=== PATIENT | male | born 1955 | race Caucasian/White ===

== ENCOUNTER 2018-07-24 13:41 | Inpatient (IN) | payer BC ==
[2018-07-24] MEDS ORDERED: IPRATROPIUM-ALBUTEROL 3 ML NEB INHALATION STA (15:08)
[2018-07-24] MEDS ORDERED: SODIUM CHLORIDE 0.9% 1,000 ML IV STA (15:08)
[2018-07-24 15:31] LABS: Basophils # (A) 0.1 k/uL (0-0.2); Basophils % (A) 0 %; Eosinophils # (A) 0.5 k/uL (0-0.7); Eosinophils % (A) 1 %; HCT 41.1 % (39.0-53.0); HGB 13.5 gm/dL (13.0-17.5); Lymphocytes # (A) 0.8 k/uL (1.0-4.8); Lymphocytes % (A) 2 %; MCH 29.8 pg (25.0-35.0); MCHC 32.7 g/dL (31.0-37.0); Mean Platelet Volume 7.2; Monocytes # (A) 1.5 k/uL (0-1.0); Monocytes % (A) 4 %; Neutrophils % (A) 91 %; Platelet Count 537 k/uL (150-450); RBC 4.52 m/uL (4.30-5.90); RDW 14.1 % (11.5-15.5); WBC 37.1 k/uL (3.8-10.6)
[2018-07-24 15:35] LABS: Neutrophils # (A) 33.9 k/uL (1.3-7.7)
[2018-07-24 15:41] LABS: INR 1.1 (<1.2); Partial Thromboplastin Time 23.3 sec (22.0-30.0); Prothrombin Time 11.8 sec (9.0-12.0)
[2018-07-24 15:46] LABS: Calcium 9.4 mg/dL (8.4-10.2); Magnesium 1.4 mg/dL (1.6-2.3); Total Bilirubin 1.2 mg/dL (0.2-1.3); Total Protein 7.8 g/dL (6.3-8.2)
[2018-07-24] MEDS ORDERED: MAGNESIUM SULFATE-D5W PMX 1 GM in DEXTROSE/WATER 1 100ML.BAG IVPB ONE (15:56)
[2018-07-24] MEDS ORDERED: PIPERACILLIN-TAZOBACTAM 3.375 GM in SODIUM CHLORIDE 0.9% 100 ML IVPB STA (16:43)
[2018-07-24] MEDS ORDERED: PNEUMONIA PROTOCOL UTILIZED 1 EACH MISC PO PRN (16:43)
--- NOTE | 2018-07-24 16:43 | ED ---
SOB HPI - General Chief Complaint: Shortness of Breath Stated Complaint: pneumonia Time Seen by Provider: 07/24/18 14:37 Source: patient, family, RN notes reviewed, old records reviewed Mode of arrival: ambulatory Limitations: no limitations - History of Present Illness Initial Comments: This a 63-year-old male who was a former smoker who quit in 1988 who states he recently was being treated for was believed to be a bronchitis with Levaquin he states she's not getting any better but in fact eating worse he did fevers chills and sweats especially at night shortness of breath and with exertion no overt chest pain he states he had a chest x-ray done by his doctor later a CAT scan. The x-ray showed evidence of a 6-8 cm mass on the right lung field CAT scan was performed in the official reading is pending though it does look suspicious for a mass. Patient has no prior history of any lung cancers or any other issues such as this. He does not use inhalers her [employer]. He states he works in the [employer] but is relatively clean job with very little exposure to fumes that he was really on exposed to smoke. No other modifying factors at this time MD Complaint: shortness of breath - Related Data Home Medications Medication Instructions Recorded Confirmed Aspirin EC [Ecotrin Low Dose] 81 mg PO DAILY 07/24/18 07/24/18 Levofloxacin [Levaquin] 500 mg PO DAILY 07/24/18 07/24/18 Losartan/Hydrochlorothiazide 1 tab PO DAILY 07/24/18 07/24/18 [Losartan-Hctz 100-25 mg Tab] Metoprolol Succinate (ER) [Toprol 100 mg PO BID 07/24/18 07/24/18 Xl] Pitavastatin Calcium [Livalo] 1 mg PO HS 07/24/18 07/24/18 Allergies Allergy/AdvReac Type Severity Reaction Status Date / Time No Known Allergies Allergy Verified 07/24/18 15:10 Review of Systems ROS Statement: Those systems with pertinent positive or pertinent negative responses have been documented in the HPI. ROS Other: All systems not noted in ROS Statement are negative. Past Medical History Past Medical History: Hyperlipidemia, Hypertension, Pneumonia History of Any Multi-Drug Resistant Organisms: None Reported Past Surgical History: Appendectomy, Heart Catheterization Past Psychological History: No Psychological Hx Reported Smoking Status: Former smoker Past Alcohol Use History: Occasional Past Drug Use History: None Reported General Exam - General Exam Comments Initial Comments: Is a well-developed well-nourished awake alert oriented 3 male Limitations: no limitations General appearance: alert, in no apparent distress Head exam: Present: atraumatic, normocephalic, normal inspection Eye exam: Present: normal appearance, PERRL, EOMI. Absent: scleral icterus, conjunctival injection, periorbital swelling ENT exam: Present: normal exam, mucous membranes moist Neck exam: Present: normal inspection, full ROM, other (No stridor JVD or bruits). Absent: tenderness, meningismus, lymphadenopathy Respiratory exam: Present: wheezes, decreased breath sounds. Absent: respiratory distress, rales, rhonchi, stridor Cardiovascular Exam: Present: regular rate, normal rhythm, normal heart sounds. Absent: systolic murmur, diastolic murmur, rubs, gallop, clicks GI/Abdominal exam: Present: soft, normal bowel sounds. Absent: distended, tenderness, guarding, rebound, rigid Extremities exam: Present: normal inspection, full ROM, normal capillary refill. Absent: tenderness, pedal edema, joint swelling, calf tenderness Back exam: Present: normal inspection Neurological exam: Present: alert, oriented X3, CN II-XII intact Psychiatric exam: Present: normal affect, normal mood Skin exam: Present: warm, dry, intact, normal color. Absent: rash Course Vital Signs 07/24/18 07/24/18 07/24/18 14:26 15:24 15:37 Temperature 100.7 F H 99.0 F Pulse Rate 88 841 H 90 Respiratory 22 18 Rate Blood Pressure 110/68 O2 Sat by Pulse 94 L 96 Oximetry 07/24/18 16:24 Temperature Pulse Rate 89 Respiratory 16 Rate Blood Pressure 116/67 O2 Sat by Pulse 95 Oximetry Medical Decision Making - Medical Decision Making Did discuss findings with the patient and his as well as Dr. Mckeon patient will be admitted with consultation by Dr. Flores - Lab Data Result diagrams: 07/24/18 14:20 07/24/18 14:20 Lab Results 07/24/18 07/24/18 07/24/18 Range/Units 14:20 14:20 14:20 WBC 37.1 H (3.8-10.6) k/uL RBC 4.52 (4.30-5.90) m/uL Hgb 13.5 (13.0-17.5) gm/dL Hct 41.1 (39.0-53.0) % MCV 91.0 (80.0-100.0) fL MCH 29.8 (25.0-35.0) pg MCHC 32.7 (31.0-37.0) g/dL RDW 14.1 (11.5-15.5) % Plt Count 537 H (150-450) k/uL Neutrophils % 91 % Lymphocytes % 2 % Monocytes % 4 % Eosinophils % 1 % Basophils % 0 % Neutrophils # 33.9 H (1.3-7.7) k/uL Lymphocytes # 0.8 L (1.0-4.8) k/uL Monocytes # 1.5 H (0-1.0) k/uL Eosinophils # 0.5 (0-0.7) k/uL Basophils # 0.1 (0-0.2) k/uL PT 11.8 (9.0-12.0) sec INR 1.1 (<1.2) APTT 23.3 (22.0-30.0) sec Sodium 136 L (137-145) mmol/L Potassium 4.0 (3.5-5.1) mmol/L Chloride 96 L (98-107) mmol/L Carbon Dioxide 28 (22-30) mmol/L Anion Gap 12 mmol/L BUN 25 H (9-20) mg/dL Creatinine 1.03 (0.66-1.25) mg/dL Est GFR (CKD-EPI)AfAm 89 (>60 ml/min/1.73 sqM) Est GFR (CKD-EPI)NonAf 77 (>60 ml/min/1.73 sqM) Glucose 115 H (74-99) mg/dL Calcium 9.4 (8.4-10.2) mg/dL Magnesium 1.4 L (1.6-2.3) mg/dL Total Bilirubin 1.2 (0.2-1.3) mg/dL AST 30 (17-59) U/L ALT 30 (21-72) U/L Alkaline Phosphatase 112 (38-126) U/L Troponin I (0.000-0.034) ng/mL NT-Pro-B Natriuret Pep pg/mL Total Protein 7.8 (6.3-8.2) g/dL Albumin 4.0 (3.5-5.0) g/dL 07/24/18 07/24/18 Range/Units 14:20 14:20 WBC (3.8-10.6) k/uL RBC (4.30-5.90) m/uL Hgb (13.0-17.5) gm/dL Hct (39.0-53.0) % MCV (80.0-100.0) fL MCH (25.0-35.0) pg MCHC (31.0-37.0) g/dL RDW (11.5-15.5) % Plt Count (150-450) k/uL Neutrophils % % Lymphocytes % % Monocytes % % Eosinophils % % Basophils % % Neutrophils # (1.3-7.7) k/uL Lymphocytes # (1.0-4.8) k/uL Monocytes # (0-1.0) k/uL Eosinophils # (0-0.7) k/uL Basophils # (0-0.2) k/uL PT (9.0-12.0) sec INR (<1.2) APTT (22.0-30.0) sec Sodium (137-145) mmol/L Potassium (3.5-5.1) mmol/L Chloride (98-107) mmol/L Carbon Dioxide (22-30) mmol/L Anion Gap mmol/L BUN (9-20) mg/dL Creatinine (0.66-1.25) mg/dL Est GFR (CKD-EPI)AfAm (>60 ml/min/1.73 sqM) Est GFR (CKD-EPI)NonAf (>60 ml/min/1.73 sqM) Glucose (74-99) mg/dL Calcium (8.4-10.2) mg/dL Magnesium (1.6-2.3) mg/dL Total Bilirubin (0.2-1.3) mg/dL AST (17-59) U/L ALT (21-72) U/L Alkaline Phosphatase (38-126) U/L Troponin I <0.012 (0.000-0.034) ng/mL NT-Pro-B Natriuret Pep 571 pg/mL Total Protein (6.3-8.2) g/dL Albumin (3.5-5.0) g/dL - EKG Data -: EKG Interpreted by Me EKG shows normal: sinus rhythm (Sinus rhythm with premature supraventricular complexes rate was 97 appear 158 QRS 96 QT since QTC 364/462 year for LVH) Disposition Clinical Impression: Lung mass, Pneumonia, Failure of outpatient treatment, Leukocytosis Disposition: ADMITTED IP TO THIS HOSP Condition: Fair Referrals: Greg Pillai MD [Primary Care Provider] - 1-2 days
[2018-07-24] MEDS ORDERED: SODIUM CHLORIDE 0.9% 1,000 ML IV SCH (16:45)
[2018-07-24] MEDS: IPRATROPIUM-ALBUTEROL 3 ML NEB INHALATION SCH (20:07)
[2018-07-24] MEDS: METOPROLOL SUCCINATE (ER) 100 MG TAB.ER.24H PO SCH (20:09)
[2018-07-24] MEDS: ATORVASTATIN 10 MG TAB PO SCH (20:10)
[2018-07-24] MEDS: NAPROXEN 250 MG TAB PO SCH (21:11)
[2018-07-24] MEDS: ACETAMINOPHEN TAB 325 MG TAB PO PRN (21:12)
[2018-07-24] MEDS: PIPERACILLIN-TAZOBACTAM 3.375 GM in SODIUM CHLORIDE 0.9% 100 ML IVPB SCH (23:35)
[2018-07-25] MEDS: IPRATROPIUM-ALBUTEROL 3 ML NEB INHALATION SCH ×6 (00:12→20:14)
[2018-07-25] MEDS: ACETAMINOPHEN TAB 325 MG TAB PO PRN ×4 (03:56→21:45)
[2018-07-25] MEDS: PIPERACILLIN-TAZOBACTAM 3.375 GM in SODIUM CHLORIDE 0.9% 100 ML IVPB SCH ×2 (07:53→15:55)
[2018-07-25] MEDS: SODIUM CHLORIDE 0.9% 1,000 ML IV SCH ×2 (07:54→15:56)
[2018-07-25] MEDS: NAPROXEN 250 MG TAB PO SCH (08:00)
[2018-07-25] MEDS: ASPIRIN 81 MG PO SCH (08:00)
--- NOTE | 2018-07-25 08:30 | XR ---
EXAMINATION TYPE: XR chest 2V DATE OF EXAM: 07/25/2018 HISTORY: Shortness of breath. COMPARISON: 07/15/2018 TECHNIQUE: Single view of the chest is submitted. FINDINGS: Previously noted pleural-based morgan is obscured by overlying pleural effusion, infiltrate and/or at electasis. Air-fluid level is noted which may reflect postbiopsy change or cavitation. The left lung is clear. Hilar and mediastinal structures are within normal limits. Degenerative changes are seen of the dorsal spine. IMPRESSION: 1. Previously noted pleural-based morgan is obscured by overlying pleural effusion, infiltrate and/o r atelectasis. Air-fluid level is noted which may reflect postbiopsy change or cavitation.
[2018-07-25] MEDS ORDERED: LOSARTAN-HCTZ 50-12.5 MG 1 EACH TAB PO SCH (09:00)
[2018-07-25 10:05] LABS: Basophils # (A) 0.1 k/uL (0-0.2); Basophils % (A) 0 %; Eosinophils # (A) 0.7 k/uL (0-0.7); Eosinophils % (A) 2 %; HCT 37.7 % (39.0-53.0); HGB 11.8 gm/dL (13.0-17.5); Lymphocytes # (A) 0.5 k/uL (1.0-4.8); Lymphocytes % (A) 1 %; MCH 29.3 pg (25.0-35.0); MCHC 31.3 g/dL (31.0-37.0); MCV 93.5 fL (80.0-100.0); Mean Platelet Volume 6.9; Monocytes # (A) 0.9 k/uL (0-1.0); Monocytes % (A) 3 %; Neutrophils % (A) 93 %; Platelet Count 455 k/uL (150-450); RBC 4.03 m/uL (4.30-5.90); RDW 13.7 % (11.5-15.5); WBC 33.1 k/uL (3.8-10.6)
[2018-07-25 10:12] LABS: Neutrophils # (A) 30.7 k/uL (1.3-7.7)
[2018-07-25 10:23] LABS: Albumin 3.2 g/dL (3.5-5.0); Calcium 8.9 mg/dL (8.4-10.2); Potassium 4.1 mmol/L (3.5-5.1); Total Bilirubin 0.8 mg/dL (0.2-1.3); Total Protein 6.5 g/dL (6.3-8.2)
[2018-07-25] MEDS: METOPROLOL SUCCINATE (ER) 100 MG TAB.ER.24H PO SCH ×2 (11:05→21:43)
--- NOTE | 2018-07-25 11:54 | HP ---
HISTORY AND PHYSICAL DATE OF ADMISSION: 07/24/2018 PRESENTING COMPLAINT: Short of breath. HISTORY OF PRESENTING COMPLAINT: A very pleasant 63-year-old patient who normally lives in [place], did come and see Dr. Greg Pillai here. Patient for 3 weeks has been having increasing amount of cough, finally about a week ago, decided to go and see Dr. Pillai. He was told he may have bronchitis or walking pneumonia, was given antibiotics. Symptoms continued to get worse. Patient has lost some weight recently. He was putting out some green sputum, no obvious fever or chills. Appetite has been good. Patient did have a CT scan done at an outside hospital, was found to have a possible lung mass, was sent down here for the same. Chest x-ray is showing a pleural effusion and a possible lung mass. Started on IV antibiotics. REVIEW OF SYSTEMS: Some weight loss. A bit tired. HEENT: None. RESPIRATORY: As above. CARDIOVASCULAR: None. GASTROINTESTINAL: None. GENITOURINARY: None. MUSCULOSKELETAL: None. DERMATOLOGICAL: None. HEMATOLOGICAL: None. LYMPHATICS: None. PSYCHIATRY None. NEUROLOGICAL: None. PAST MEDICAL HISTORY: Hypertension, hyperlipidemia. PAST SURGICAL HISTORY: Appendectomy, cardiac catheterization is also known. SOCIAL HISTORY: Patient smoked for about 10 years, stopped in 1988. Has about 2 drinks 5 times a week. 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 FAMILY HISTORY: Colon cancer. HOME MEDICATIONS: 1. Livalo 1 mg p.o. q.h.s. 2. Toprol-XL 100 mg b.i.d. 3. Losartan-hydrochlorothiazide 100/25 one tablet p.o. daily. 4. Levaquin 500 mg p.o. daily. 5. Aspirin 81 mg p.o. daily. ALLERGIES: None. PHYSICAL EXAMINATION: VITAL SIGNS: Temperature 100.5, pulse 83, respiration 20, blood pressure 123/73, pulse ox 92% on 2 L. Vital signs on presentation was temperature was 100.7, pulse 80, respiration 22, blood pressure 110/68, pulse ox 94% on room air. GENERAL APPEARANCE: Well built, BMI 34.1. Sitting at the edge of bed, not in distress. EYES: Pupils equal, conjunctivae normal. HEENT: External appearance of nose normal, oral cavity, normal neck, JVD not raised. Mass not palpable. RESPIRATORY: Effort increased. LUNGS: Diminished breath sounds on the right side posteriorly. CARDIOVASCULAR: First and second sounds normal. No edema. ABDOMEN: Soft, nontender. Liver and spleen not palpable. LYMPHATIC: No lymph nodes palpable in the neck or axilla. PSYCHIATRY: Alert and oriented x3. Mood and affect normal. NEUROLOGICAL: Pupils equal. Cranial nerves grossly intact. Power and sensation grossly intact. INVESTIGATIONS: White count 33.1, hemoglobin 11.8, potassium 4.1, BUN 31, creatinine 1.31. Troponin negative. ProBNP is 571. Chest x-ray film personally reviewed by me shows left-sided consolidation with large right pleural effusion. ASSESSMENT: 1. Right-sided pneumonia with possibly a parapneumonic effusion. Underlying lung mass cannot be ruled out. 2. Obesity. body mass index 34.1. 3. Sepsis on presentation from pneumonia. 4. Essential hypertension. 5. Hyperlipidemia. PLAN: Patient is currently on IV Zosyn, given patient blood pressure is running on the lower side. We will hold off patient's beta olayinka. Give IV fluids. Pulmonary was consulted. I will look at the CT scan results from the outside hospital. Meantime, patient will be fluid hydrated. Will do an ultrasound of the chest for thoracentesis marking. Care was discussed with the patient and . Questions were answered. MMODL / IJN: [id number] /
--- NOTE | 2018-07-25 12:53 | US ---
EXAMINATION TYPE: US chest DATE OF EXAM: 07/25/2018 COMPARISON: x-RAY 07/25/2018 CLINICAL HISTORY: thoracentesis marking. TECHNIQUE: Targeted ultrasound of the posterior lower bilateral hemithoraces EXAM MEASUREMENTS: Right Pleural Effusion pocket size: 7.5 cm Right skin surface to fluid distance: 2.7 cm Right side marked for possible thoracentesis outside the dept. Left side not marked for possible thoracentesis outside the dept. Pulmonologists are able to review the images in the patient?s EMR. Some septations visualized within fluid on the right IMPRESSIONS: There is moderate right pleural effusion demonstrated.
--- NOTE | 2018-07-25 13:38 | P.CNPUL ---
History of Present Illness Consult date: 07/25/18 Reason for consult: dyspnea, cough, pneumonia, pleural effusion Chief complaint: Shortness of breath and cough for 2 weeks History of present illness: 63-year-old male who was seen evaluated examined in the medical floor patient was admitted into the hospital with 2-3 weeks of increased cough congestion shortness of breath he was found to have a lung mass on the right lower lobe which was pleural based on a CAT scan in the outside institution the CAT scan not available for review however I have reviewed the chest x-ray which shows a significant right-sided pleural effusion ultrasound of the chest has been performed a large right pleural effusion has been noted, about 7.5 cm depth of fluid is noted, he has cough with greenish sputum sputum is been sent for Gram stain and culture Review of Systems All systems: negative Past Medical History Past Medical History: Hyperlipidemia, Hypertension, Pneumonia History of Any Multi-Drug Resistant Organisms: None Reported Past Surgical History: Appendectomy, Heart Catheterization Past Psychological History: No Psychological Hx Reported Smoking Status: Former smoker Past Alcohol Use History: Occasional Past Drug Use History: None Reported - Past Family History Mother Family Medical History: Cancer Additional Family Medical History / Comment(s): colon cancer Father Family Medical History: Myocardial Infarction ([place]) Additional Family Medical History / Comment(s): of [place] at age 48 Medications and Allergies Home Medications Medication Instructions Recorded Confirmed Type Aspirin EC [Ecotrin Low Dose] 81 mg PO DAILY 07/24/18 07/24/18 History Levofloxacin [Levaquin] 500 mg PO DAILY 07/24/18 07/24/18 History Losartan/Hydrochlorothiazide 1 tab PO DAILY 07/24/18 07/24/18 History [Losartan-Hctz 100-25 mg Tab] Metoprolol Succinate (ER) [Toprol 100 mg PO BID 07/24/18 07/24/18 History Xl] Pitavastatin Calcium [Livalo] 1 mg PO HS 07/24/18 07/24/18 History Allergies Allergy/AdvReac Type Severity Reaction Status Date / Time No Known Allergies Allergy Verified 07/24/18 15:10 Physical Exam Vitals: Vital Signs Temp Pulse Pulse Resp BP BP Pulse Ox 07/25/18 11:44 82 07/25/18 11:34 84 07/25/18 08:03 82 07/25/18 08:00 78 93/58 07/25/18 07:52 78 94 L 07/25/18 05:29 96/63 07/25/18 05:15 98.7 F 74 20 93/54 93 L 07/25/18 03:41 78 07/25/18 03:31 78 07/24/18 22:10 98.7 F 07/24/18 20:19 98 07/24/18 20:09 98 92 L 07/24/18 20:05 100.5 F H 95 20 123/73 92 L 07/24/18 19:20 99.0 F 83 16 117/97 95 07/24/18 19:14 83 117/97 95 07/24/18 17:39 83 117/97 95 07/24/18 16:24 89 16 116/67 95 07/24/18 15:37 90 07/24/18 15:24 99.0 F 841 H 18 96 07/24/18 14:26 100.7 F H 88 22 110/68 94 L Intake and Output 07/24/18 07/25/18 07/25/18 22:59 06:59 14:59 Intake Total 600 100 400 Balance 600 100 400 Intake: Amount of Fluid Infused ( 300 ml) Oral 300 100 400 Other: Voiding Method Urinal # Voids 0 2 Weight 123.9 kg 123.9 kg - Constitutional General appearance: cooperative, disheveled, no acute distress, obese - EENT Eyes: anicteric sclerae, EOMI, PERRLA, normal appearance Ears: bilateral: normal - Neck Carotids: bilateral: upstroke normal Thyroid: bilateral: normal size - Respiratory Respiratory: right: diminished, dullness, negative: CTA, rales, rhonchi, wheezing, prolonged expiration - Cardiovascular Rhythm: regular Heart sounds: normal: S1, S2 - Gastrointestinal General gastrointestinal: normal bowel sounds - Integumentary Integumentary: normal, normal turgor - Neurologic Neurologic: CNII-XII intact - Musculoskeletal Musculoskeletal: gait normal, generalized weakness, strength equal bilaterally - Psychiatric Psychiatric: A&O x's 3, appropriate affect, intact judgment & insight Results - Laboratory Findings CBC and BMP: 07/25/18 09:28 07/25/18 09:28 PT/INR, D-dimer PT 11.8 sec (9.0-12.0) 07/24/18 14:20 INR 1.1 (<1.2) 07/24/18 14:20 Abnormal lab findings: Abnormal Labs 07/24/18 07/24/18 07/24/18 14:20 14:20 17:46 WBC 37.1 H RBC Hgb Hct Plt Count 537 H Neutrophils # 33.9 H Lymphocytes # 0.8 L Monocytes # 1.5 H Sodium 136 L Chloride 96 L BUN 25 H Creatinine Glucose 115 H Plasma Lactic Acid Kerwin 2.6 H* Magnesium 1.4 L Albumin 07/25/18 07/25/18 09:28 09:28 WBC 33.1 H RBC 4.03 L Hgb 11.8 L Hct 37.7 L Plt Count 455 H Neutrophils # 30.7 H Lymphocytes # 0.5 L Monocytes # Sodium 135 L Chloride 97 L BUN 31 H Creatinine 1.31 H Glucose 171 H Plasma Lactic Acid Kerwin Magnesium Albumin 3.2 L - Diagnostic Findings Comments: Ultrasound of the chest as well as x-ray reviewed finding as noted above Assessment and Plan Assessment: Right lower lobe lung mass pleural-based Right sided pneumonia Right-sided pleural effusion likely parapneumonic effusion versus pneumonia and effusion related to malignancy Obesity Hypertension hypertensive cardiovascular disease Dyslipidemia Plan: Agree with broad-spectrum antibiotics with IV Zosyn Gram stain and culture for the sputum We will proceed with a right-sided thoracentesis and fluid is being sent for Gram stain and culture cytology cell count and if Pending results of those studies will further manage or other recommendations l joesph need for bronchoscopy or biopsy Thoracentesis procedure explained to the patient at length consent obtained Time with Patient: Greater than 30
--- NOTE | 2018-07-25 14:03 | P.PCN ---
Date of Procedure: 07/25/18 Preoperative Diagnosis: Pleural effusion #2 pneumonia #3 lung mass Postoperative Diagnosis: Same Procedure(s) Performed: Right thoracentesis Anesthesia: local Surgeon: Yazan Ali Condition: stable Disposition: observation Indications for Procedure: Shortness of breath, right pleural effusion, right-sided lung mass, right parapneumonic effusion Operative Findings: As below Description of Procedure: Patient prepared and draped in a usual fashion ultrasound was utilized to estim ate the maximum depth of fluid one percent lidocaine was utilized on the skin after that is stab incision was done of 1/8 of a centimeter through that incision the catheter in needle was placed over the upper margin of the rib the pleural space was reached fluid was aspirated about 350 mL of dark fluid obtained patient tolerated procedure well no complication noted
--- NOTE | 2018-07-25 14:38 | XR ---
EXAMINATION TYPE: XR chest 1V portable DATE OF EXAM: 07/25/2018 COMPARISON: 07/25/2018 HISTORY: Short of breath TECHNIQUE: Single frontal view of the chest is obtained. FINDINGS: There is significant opacification right lower hemithorax. There is mild pulmonary congest ion. Heart is probably enlarged. There is slight blunting left costophrenic angle. IMPRESSION: Right lower lobe consolidation and moderate right pleural effusion unchanged. Mild pulmo nary congestion without overt heart failure. No significant change. Trachea is midline. No pneumothor ax seen. There is clearing of the small air-fluid level right lateral upper lung field compared to ex am this morning.
[2018-07-25 16:52] LABS: Appearance,BF Cloudy; Color,BF Orange; Nucleated Cells, Body Fluid 885 /uL; RBC, Body Fluid 6015 /uL
[2018-07-25 16:54] LABS: Mononuclear WBC,Body Fluid 22 %; Polynuclear WBC,Body Fluid 78 %; Total Cells Counted,Body Fluid 100
[2018-07-25 19:56] LABS: Total Protein, Body Fluid 5200 mg/dL
[2018-07-25] MEDS: ATORVASTATIN 10 MG TAB PO SCH (21:43)
[2018-07-26] MEDS: IPRATROPIUM-ALBUTEROL 3 ML NEB INHALATION SCH ×8 (00:05→23:40)
[2018-07-26] MEDS: PIPERACILLIN-TAZOBACTAM 3.375 GM in SODIUM CHLORIDE 0.9% 100 ML IVPB SCH ×4 (01:20→22:55)
[2018-07-26] MEDS: SODIUM CHLORIDE 0.9% 1,000 ML IV SCH ×4 (01:39→23:02)
[2018-07-26] MEDS: METOPROLOL SUCCINATE (ER) 100 MG TAB.ER.24H PO SCH ×2 (07:17→19:37)
[2018-07-26] MEDS: ASPIRIN 81 MG PO SCH (07:18)
[2018-07-26] MEDS: ACETAMINOPHEN TAB 325 MG TAB PO PRN ×2 (07:26→15:25)
[2018-07-26 11:28] LABS: Basophils % (A) 0 %; Eosinophils % (A) 4 %; HCT 36.5 % (39.0-53.0); HGB 11.4 gm/dL (13.0-17.5); Lymphocytes # (A) 0.8 k/uL (1.0-4.8); Lymphocytes % (A) 4 %; MCH 29.5 pg (25.0-35.0); MCHC 31.3 g/dL (31.0-37.0); MCV 94.3 fL (80.0-100.0); Mean Platelet Volume 7.1; Monocytes # (A) 0.8 k/uL (0-1.0); Monocytes % (A) 4 %; Neutrophils # (A) 19.2 k/uL (1.3-7.7); Neutrophils % (A) 87 %; Platelet Count 428 k/uL (150-450); RBC 3.87 m/uL (4.30-5.90); RDW 13.7 % (11.5-15.5); WBC 22.1 k/uL (3.8-10.6)
[2018-07-26 11:49] LABS: ALT 37 U/L (21-72); AST 49 U/L (17-59); African American GFR (CKD) >90 (>60 ml/min/1.73 sqM); Albumin 3.1 g/dL (3.5-5.0); Alkaline Phosphatase 118 U/L (38-126); Anion Gap 10 mmol/L; Blood Urea Nitrogen 22 mg/dL (9-20); Carbon Dioxide 29 mmol/L (22-30); Chloride 100 mmol/L (98-107); Glucose 154 mg/dL (74-99); Potassium 4.3 mmol/L (3.5-5.1); Sodium 139 mmol/L (137-145); Total Bilirubin 0.4 mg/dL (0.2-1.3); Total Protein 6.5 g/dL (6.3-8.2)
--- NOTE | 2018-07-26 14:17 | P.PN ---
Subjective Progress Note Date: 07/26/18 Principal diagnosis: Right-sided lung mass pleural base, right-sided pneumonia, right parapneumonic effusion, sepsis, chest pain, cough, morbid obesity, hypertension hypertensive c ardiovascular disease, dyslipidemia, 07/26/2018, patient seen and evaluated examined during the rounds he is complaining of insomnia and chest pain pain is improved with Motrin or Tylenol he is asking for a sleeping aid respiratory status slightly better today he has gone thoracentesis of the right side in about 400-450 mL of pleural fluid removed the pleural fluid appears to be exudative with Gram stain negative cultures are pending cytology is pending Objective - Vital Signs Vital signs: Vital Signs Temp 98.4 F 07/26/18 12:50 Pulse 88 07/26/18 12:50 Resp 18 07/26/18 12:50 BP 127/78 07/26/18 12:50 Pulse Ox 95 07/26/18 12:50 Intake & Output 07/25/18 07/26/18 07/26/18 18:59 06:59 18:59 Intake Total 400 500 Balance 400 500 Weight 123.9 kg Intake: Oral 400 500 Other: Voiding Method Urinal # Voids 2 1 3 # Bowel Movements 0 - Exam Constitutional General appearance: cooperative, disheveled, no acute distress, obese - EENT Eyes: anicteric sclerae, EOMI, PERRLA, normal appearance Ears: bilateral: normal - Neck Carotids: bilateral: upstroke normal Thyroid: bilateral: normal size - Respiratory Respiratory: right: diminished, dullness, negative: CTA, rales, rhonchi, wheezing, prolonged expiration - Cardiovascular Rhythm: regular Heart sounds: normal: S1, S2 - Gastrointestinal General gastrointestinal: normal bowel sounds - Integumentary Integumentary: normal, normal turgor - Neurologic Neurologic: CNII-XII intact - Musculoskeletal Musculoskeletal: gait normal, generalized weakness, strength equal bilaterally - Psychiatric Psychiatric: A&O x's 3, appropriate affect, intact judgment & insight - Labs CBC & Chem 7: 07/26/18 10:58 07/26/18 10:58 Labs: Abnormal Lab Results - Last 24 Hours (Table) 07/26/18 07/26/18 Range/Units 10:58 10:58 WBC 22.1 H (3.8-10.6) k/uL RBC 3.87 L (4.30-5.90) m/uL Hgb 11.4 L (13.0-17.5) gm/dL Hct 36.5 L (39.0-53.0) % Neutrophils # 19.2 H (1.3-7.7) k/uL Lymphocytes # 0.8 L (1.0-4.8) k/uL Eosinophils # 1.0 H (0-0.7) k/uL BUN 22 H (9-20) mg/dL Glucose 154 H (74-99) mg/dL Albumin 3.1 L (3.5-5.0) g/dL Microbiology - Last 24 Hours (Table) 07/25/18 13:30 Gram Stain - Preliminary Pleural Fluid Body Fluid Culture - Preliminary 07/25/18 13:30 Acid Fast Bacilli Smear - Final Pleural Fluid Acid Fast Bacilli Culture - Preliminary 07/25/18 13:30 Fungal Culture - Preliminary Pleural Fluid 07/24/18 14:20 Blood Culture - Preliminary Blood No Growth after 24 hours 07/25/18 03:35 Gram Stain - Preliminary Sputum Assessment and Plan Assessment: Right lower lobe lung mass pleural-based Right sided pneumonia Exudative pleural effusion Improving leukocytosis Right-sided pleural effusion likely parapneumonic effusion versus pneumonia and effusion related to malignancy Obesity Hypertension hypertensive cardiovascular disease Dyslipidemia Plan: Agree with broad-spectrum antibiotics with IV Zosyn Gram stain and culture for the sputum Status post right thoracentesis with pending results of final culture and cytology Need to obtain a repeat CT of the chest without contrast Time with Patient: Greater than 30
[2018-07-26] MEDS: ATORVASTATIN 10 MG TAB PO SCH (19:38)
[2018-07-26] MEDS ORDERED: MELATONIN 5 MG TABLET PO SCH (21:00)
[2018-07-26] MEDS: ZOLPIDEM 5 MG TAB PO SCH (22:51)
--- NOTE | 2018-07-26 23:28 | PN ---
PROGRESS NOTE DATE OF SERVICE: July 26, 2018. PRESENTING COMPLAINT: Short of breath. INTERVAL HISTORY: This patient admitted with right-sided pneumonia. This appears to be underlying lung mass. 350 mL of dark colored fluid was tapped by Dr. Flores. Breathing is somewhat better. is present. Did tolerate some diet. White count started to come down. REVIEW OF SYSTEMS: Done for constitutional, cardiovascular, GI, pulmonary and relevant findings as above. CURRENT MEDICATIONS: Reviewed that include IV Zosyn. PHYSICAL EXAMINATION: VITAL SIGNS: Temperature 98.4. Pulse 88. Respiratory rate 18, blood pressure 127/78, pulse ox 95% on 2 L. GENERAL APPEARANCE: Sitting up. EYES: Pupils are equal. Conjunctivae normal. NECK: JVD not raised. Mass not palpable. RESPIRATORY: Effort increased. LUNGS: Decreased breath sounds on the right side. CARDIOVASCULAR: First and second sounds normal. Minimal edema. ABDOMEN: Soft, nontender. Liver and spleen not palpable. PSYCHIATRY: Alert and oriented x3. Mood and affect normal. INVESTIGATIONS: White count 22.1, hemoglobin 11.4, potassium 4.3, BUN 22, creatinine 0.91. Fluid cultures are pending. ASSESSMENT: 1. Right-sided pneumonia with associated pleural effusion. 2. Cannot rule out underlying right lung mass. 3. Obesity, BMI 34.1. 4. Sepsis on presentation from pneumonia. 5. Essential hypertension. 6. Hyperlipidemia. PLAN: Continue with antibiotics. Repeat a chest x-ray tomorrow. Discussed with the patient and the . The patient may need a repeat CT scan depending on the clinical course. Clinically patient is doing better. The patient may need bronchoscopy. Follow. MMODL / IJN: [id number] /
[2018-07-27] MEDS: ACETAMINOPHEN TAB 325 MG TAB PO PRN ×2 (02:01→14:00)
[2018-07-27] MEDS: IPRATROPIUM-ALBUTEROL 3 ML NEB INHALATION SCH ×5 (04:22→19:40)
[2018-07-27] MEDS: PIPERACILLIN-TAZOBACTAM 3.375 GM in SODIUM CHLORIDE 0.9% 100 ML IVPB SCH ×3 (06:59→23:52)
--- NOTE | 2018-07-27 07:43 | CT ---
EXAMINATION TYPE: CT chest wo con DATE OF EXAM: 07/27/2018 COMPARISON: Guest CT dated 07/24/2018. HISTORY: RUL mass CT DLP: 781 mGycm. Automated Exposure Control for Dose Reduction was Utilized. TECHNIQUE: CT scan of the thorax is performed without IV contrast. FINDINGS: There are multiple small areas of cavitation within a large area of consolidation in the ri ght lower lobe. The cavitation is a new finding compared with the previous study. The left lung is cl ear. There continues be a right-sided pleural effusion. There is some shotty mediastinal adenopathy. No pathologically enlarged lymph nodes are seen. The hea rt is mildly enlarged. There is coronary artery calcification as well as other vascular calcification s. There is aorta is aneurysmal measuring 4.8 cm. The proximal arch measures 4.6 cm. The distal large measures 3.7 cm. At the level of the aortic hiatus, the aorta remains aneurysmal at 3.5 cm. Visualiz ed portions of the abdominal aorta are normal in caliber. Visualized portions of the upper abdomen are unremarkable. There is degenerative disc disease and hypertrophic spondylosis within the dorsal spine. IMPRESSION: 1. RIGHT LOWER LOBE PNEUMONIA WITH MULTIPLE AREAS OF CAVITATION. 2. THORACIC AORTIC ANEURYSM. 3. MILD CARDIOMEGALY. 4. DEGENERATIVE CHANGES WITHIN THE SPINE.
--- NOTE | 2018-07-27 07:44 | XR ---
EXAMINATION TYPE: XR chest 2V DATE OF EXAM: 07/27/2018 HISTORY: f/u pneumonia effusion. REFERENCE: Previous study dated 07/25/2018. FINDINGS: There has developed cavitation in the superior segment of the right lower lobe. There uri nues to be consolidation within the right lower lobe. The heart size is obscured. The left lung is cl ear. IMPRESSION: INTERVAL DEVELOPMENT OF A CAVITARY LESION IN THE RIGHT LOWER LOBE.
[2018-07-27] MEDS: ASPIRIN 81 MG PO SCH (07:59)
[2018-07-27] MEDS: METOPROLOL SUCCINATE (ER) 100 MG TAB.ER.24H PO SCH ×2 (08:09→19:53)
[2018-07-27] MEDS ORDERED: FUROSEMIDE 10 MG/ML 2 ML VIAL IV SCH (09:00)
[2018-07-27 12:06] LABS: Basophils # (A) 0.1 k/uL (0-0.2); Basophils % (A) 0 %; Eosinophils # (A) 0.7 k/uL (0-0.7); Eosinophils % (A) 4 %; HCT 35.6 % (39.0-53.0); HGB 11.1 gm/dL (13.0-17.5); Lymphocytes % (A) 6 %; MCH 29.2 pg (25.0-35.0); MCHC 31.2 g/dL (31.0-37.0); MCV 93.6 fL (80.0-100.0); Mean Platelet Volume 7.1; Monocytes # (A) 0.9 k/uL (0-1.0); Monocytes % (A) 6 %; Neutrophils # (A) 12.9 k/uL (1.3-7.7); Neutrophils % (A) 81 %; Platelet Count 470 k/uL (150-450); RDW 13.8 % (11.5-15.5); WBC 15.8 k/uL (3.8-10.6)
--- NOTE | 2018-07-27 14:26 | P.PN ---
Subjective Progress Note Date: 07/27/18 07/27/2018: Patient seen and examined. Patient's is at bedside. The patient states he continues to cough and produce copious phlegm. He states that he did have a temperature of 99.9 this morning. He is currently on 2 L nasal cannula with O2 saturation 92%. The patient's computed tomography scan results are discussed at length. Objective - Vital Signs Vital signs: Vital Signs Temp 99.9 F H 07/27/18 14:09 Pulse 71 07/27/18 14:09 Resp 18 07/27/18 14:09 BP 135/78 07/27/18 14:09 Pulse Ox 94 L 07/27/18 14:10 Intake & Output 07/26/18 07/27/18 07/27/18 18:59 06:59 18:59 Other: Voiding Method Urinal Urinal # Voids 3 0 1 # Bowel Movements 0 - Exam Gen.: Patient is alert and oriented 3, no acute distress Cardiovascular: Regular rate and rhythm, S1/S2 Lungs: Diminished breath sounds bilaterally with scattered rhonchi Abdomen: Soft nontender nondistended positive bowel sounds Extremities: No edema - Labs CBC & Chem 7: 07/27/18 11:46 07/26/18 10:58 Labs: Abnormal Lab Results - Last 24 Hours (Table) 07/27/18 Range/Units 11:46 WBC 15.8 H (3.8-10.6) k/uL RBC 3.80 L (4.30-5.90) m/uL Hgb 11.1 L (13.0-17.5) gm/dL Hct 35.6 L (39.0-53.0) % Plt Count 470 H (150-450) k/uL Neutrophils # 12.9 H (1.3-7.7) k/uL Microbiology - Last 24 Hours (Table) 07/25/18 03:35 Gram Stain - Final Sputum Sputum Culture - Final 07/24/18 14:20 Blood Culture - Preliminary Blood No Growth after 48 hours Assessment and Plan Assessment: Right lower lobe lung mass pleural-based Right sided cavitary pneumonia Exudative pleural effusion Improving leukocytosis Right-sided pleural effusion likely parapneumonic effusion versus pneumonia and effusion related to malignancy Obesity Hypertension hypertensive cardiovascular disease Dyslipidemia Plan: Agree with broad-spectrum antibiotics with IV Zosyn Gram stain and culture for the sputum Status post right thoracentesis with pending results of final culture and cytology Consult thoracic surgery
[2018-07-27] MEDS: ATORVASTATIN 10 MG TAB PO SCH (19:53)
[2018-07-27] MEDS: ZOLPIDEM 5 MG TAB PO SCH (19:53)
[2018-07-27] MEDS: SODIUM CHLORIDE 0.9% 1,000 ML IV SCH (19:56)
--- NOTE | 2018-07-27 23:47 | PN ---
PROGRESS NOTE DATE OF SERVICE: July 27, 2018. PRESENTING COMPLAINT: Short of breath. INTERVAL HISTORY: This patient presented with right sided pneumonia. Also had thoracentesis 350 mL dark pleural fluid was obtained. CT scan was done earlier today. I did not have the results before I saw the patient. The patient was coughing up some sputum. Did get some Ambien to sleep last night. Tired. REVIEW OF SYSTEMS: Done for constitutional, cardiovascular, GI, pulmonary; relevant findings as above. CURRENT MEDICATIONS: Reviewed that include IV Zosyn. PHYSICAL EXAMINATION: VITAL SIGNS: On examination, temperature 99.9, pulse 71, respirations 16, blood pressure 130/78, pulse ox 88 percent on room air. GENERAL APPEARANCE: Sitting up, tired./ EYES: Pupils equal. Conjunctivae normal. NECK: JVD not raised. Mass not palpable. RESPIRATORY: Effort increased. LUNGS: Decreased breath sounds right side. CARDIOVASCULAR: 1st and 2nd sounds normal. Decreased edema. ABDOMEN: Soft, nontender. Liver and spleen not palpable. PSYCHIATRY: Alert and oriented x3. Mood and affect normal. INVESTIGATIONS: White count 15.8, hemoglobin 11.1. Cultures are pending. CT scan is showing multiple areas of cavitation. ASSESSMENT: 1. Right-sided pneumonia, multilobar with multiple loculated cavitation on CT scan. 2. Obesity, BMI 34.1. 3. Sepsis on presentation from pneumonia. 4. Essential hypertension. 5. Parapneumonic effusion status post thoracentesis. 6. Hyperlipidemia. PLAN: I spoke to the patient and the earlier today. Later I looked at the CT scan results. In the meantime, Dr. Rios was covering for Dr. Flores. I did speak to the patient and has arranged for cardiothoracic consultation, though patient's white count is gradually coming down and see how the patient fares. MMODL / IJN: [id number] /
[2018-07-28] MEDS: IPRATROPIUM-ALBUTEROL 3 ML NEB INHALATION SCH ×6 (00:29→20:29)
[2018-07-28] MEDS: PIPERACILLIN-TAZOBACTAM 3.375 GM in SODIUM CHLORIDE 0.9% 100 ML IVPB SCH ×2 (07:38→16:19)
[2018-07-28] MEDS: ASPIRIN 81 MG PO SCH (07:39)
[2018-07-28] MEDS: METOPROLOL SUCCINATE (ER) 100 MG TAB.ER.24H PO SCH ×2 (07:39→19:52)
--- NOTE | 2018-07-28 09:18 | P.GSCN ---
<Paloma Woodall - Last Filed: 07/28/18 09:05> History of Present Illness Consult date: 07/28/18 Reason for Consult: Pleural-based mass and cavitary pneumonia Requesting physician: Steffanie Rios History of present illness: This is a 63-year-old gentleman who follows on an outpatient basis with Dr. Greg Pillai. He has a previous medical history of hypertension, hypercholesterolemia, previous heart catheterization without intervention, August ett's esophagitis followed by Dr. Obregon with EGD and colonoscopy every 2 years, previous tobacco dependence with cessation in 1988 with a [id number] history, social alcohol use, family history of early coronary artery disease with father at 48 years old from myocardial infarction, and family history of cancer with mother at 62 from colon cancer. Apparently he splits his time living in 6 months in [place] in 6 months in [place]. He complained of cough and congestion with night sweats for approximately 2 months beginning when he was in [place]. He traveled back to [place] and finally decided to see his primary care physician who diagnosed him with bronchitis or walking pneumonia and prescribed Levaquin. The patient's symptoms did not resolve, he had a chest x-ray and computed tomography scan completed at [facility], then he presented to [facility] emergency room for evaluation. Chest x-ray demonstrated right-sided pleural base mass obscured by pleural effusion. The patient was admitted for further evaluation and treatment with consultation dory kerline to pulmonology for right lower lobe pleural-based mass, cavitary pneumonia, and pleural effusion likely parapneumonic versus pneumonia versus malignancy. Dr. Flores performed a right-sided thoracentesis with removal of 350 mL dark fluid which was sent for culture. Dr. Bear from cardiothoracic surgery was consulted for surgical recommendations. Review of Systems Review of systems was completed and was negative except as noted - Constitutional Reports chills, Reports fever, Reports sweats - Respiratory Reports congestion, Reports cough with sputum, Reports snoring Past Medical History Past Medical History: Hyperlipidemia, Hypertension, Pneumonia Additional Past Medical History / Comment(s): De Leon's esophagitis History of Any Multi-Drug Resistant Organisms: None Reported Past Surgical History: Appendectomy, Heart Catheterization Additional Past Surgical History / Comment(s): EGD, colonoscopy every 2 years Past Psychological History: No Psychological Hx Reported Smoking Status: Former smoker Past Alcohol Use History: Occasional Past Drug Use History: None Reported - Past Family History Mother Family Medical History: Cancer Additional Family Medical History / Comment(s): colon cancer Father Family Medical History: Myocardial Infarction (LA) Additional Family Medical History / Comment(s): of LA at age 48 Medications and Allergies Home Medications Medication Instructions Recorded Confirmed Type Aspirin EC [Ecotrin Low Dose] 81 mg PO DAILY 07/24/18 07/24/18 History Levofloxacin [Levaquin] 500 mg PO DAILY 07/24/18 07/24/18 History Losartan/Hydrochlorothiazide 1 tab PO DAILY 07/24/18 07/24/18 History [Losartan-Hctz 100-25 mg Tab] Metoprolol Succinate (ER) [Toprol 100 mg PO BID 07/24/18 07/24/18 History Xl] Pitavastatin Calcium [Livalo] 1 mg PO HS 07/24/18 07/24/18 History Allergies Allergy/AdvReac Type Severity Reaction Status Date / Time No Known Allergies Allergy Verified 07/24/18 15:10 Surgical - Exam Vital Signs Temp Pulse Resp BP Pulse Ox 100.7 F H 88 22 110/68 94 L 07/24/18 14:26 07/24/18 14:26 07/24/18 14:26 07/24/18 14:26 07/24/18 14:26 - General well developed, well nourished, no distress, no pain, obese - Eyes PERRL, normal ocular movement - ENT no hearing loss - Neck no masses, no bruits, trachea midline - Respiratory Lungs sounds diminished bilaterally, right greater than left with rhonchi heard on the right. Respirations even, nonlabored. Currently on 2 L nasal cannula with oxygen saturation 94%. Able to achieve 1500 mL on his incentive spirometry. Strong, productive cough with yellowish brown thick sputum. - Cardiovascular S1, S2 present. Regular rate and rhythm. Sinus rhythm with PVCs on EKG. Palpable peripheral pulses bilaterally. No edema present. No calf pain or tenderness noted. - Abdomen Abdomen: soft, non tender, bowel sounds - Genitourinary Deferred - Rectum Deferred - Integumentary no rash, no growths - Neurologic normal coordination, normal sensation - Musculoskeletal normal gait, normal posture - Psychiatric oriented to time, oriented to person, oriented to place, speech is normal, memory intact Results - Labs 07/27/18 11:46 07/26/18 10:58 Abnormal Lab Results - Last 24 Hours (Table) 07/27/18 Range/Units 11:46 WBC 15.8 H (3.8-10.6) k/uL RBC 3.80 L (4.30-5.90) m/uL Hgb 11.1 L (13.0-17.5) gm/dL Hct 35.6 L (39.0-53.0) % Plt Count 470 H (150-450) k/uL Neutrophils # 12.9 H (1.3-7.7) k/uL Microbiology - Last 24 Hours (Table) 07/25/18 13:30 Gram Stain - Preliminary Pleural Fluid Body Fluid Culture - Preliminary 07/24/18 14:20 Blood Culture - Preliminary Blood No Growth after 72 hours 07/25/18 03:35 Gram Stain - Final Sputum Sputum Culture - Final - Imaging Chest x-ray: report reviewed, image reviewed CT scan - chest: report reviewed, image reviewed EKG: image reviewed Assessment and Plan Assessment: 1. Right lower lobe pleural-based mass, cavitary pneumonia 2. Right-sided pleural effusion, parapneumonic versus pneumonia versus malignancy, status post thoracentesis with 350 mL dark fluid removed and sent for culture 3. History of hypertension, treated 4. History of hypercholesterolemia, treated 5. 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 Previous tobacco dependence with [id number] history 7. Social EtOH use 8. Family history of premature coronary artery disease 9. Family history of colon cancer Plan: The patient was seen and examined at the bedside. Chart/diagnostics were reviewed including CAT scan from [facility]. The case will be discussed in detail with Dr. Handy. The patient is currently in no acute distress. S tates he is feeling better, his shortness of breath has decreased, he is still unable to lay flat without coughing but his coughing has improved with sitting up. Leukocytosis is improving. We recommend continuing IV antibiotics. We will follow pleural fluid culture results, sputum culture is negative for organisms. Wean O2 as tolerated. Encourage incentive spirometry use. Increase activity as tolerated. More recommendations to follow regarding surgical intervention. Thank you Dr. Rios for this consult. We look forward to working with you in the care of your patient. Time with Patient: Greater than 30 <J Carlos Handy - Last Filed: 07/28/18 13:18> Surgical - Exam Vital Signs Temp Pulse Resp BP Pulse Ox 100.7 F H 88 22 110/68 94 L 07/24/18 14:26 07/24/18 14:26 07/24/18 14:26 07/24/18 14:26 07/24/18 14:26 Results - Labs 07/27/18 11:46 07/26/18 10:58 Microbiology - Last 24 Hours (Table) 07/25/18 13:30 Gram Stain - Preliminary Pleural Fluid Body Fluid Culture - Preliminary 07/24/18 14:20 Blood Culture - Preliminary Blood No Growth after 72 hours 07/25/18 03:35 Gram Stain - Final Sputum Sputum Culture - Final Assessment and Plan Plan: The patient was seen and examined. I agree with the above assessment and plan. The patient is a 63-year-old male who reports flulike symptoms with coughing for the past several months. Initially he was treated with antibiotics but did not improve. He presented to an outside hospital where a CAT scan was performed which revealed a significant sized right pleural effusion and possible lung mass. He was subsequently transferred to [facility] where thoracentesis was performed. Cultures have been negative thus far. Cytology is still pending. Follow-up computed tomography scan of the chest revealed persistent right pleural effusion with question of cavitation. From a clinical standpoint, the patient appears to be improving. His white blood cell count is trending d own. We're awaiting final results of his cytology. Assuming there is no malignancy, then he would likely benefit from pigtail catheter with instillation of alteplase versus thoracotomy and decortication. Continue with antibiotics for now. Additional recommendations will follow.
[2018-07-28] MEDS: ACETAMINOPHEN TAB 325 MG TAB PO PRN ×2 (10:05→19:52)
--- NOTE | 2018-07-28 17:29 | P.PN ---
Subjective Progress Note Date: 07/28/18 Principal diagnosis: Right-sided lung mass pleural base, right-sided pneumonia, right parapneumonic effusion, sepsis, chest pain, cough, morbid obesity, hypertension hypertensive c ardiovascular disease, dyslipidemia, 07/28/2018, patient seen and evaluated examined during rounds clinically he is doing essentially the same is still complaining of pain on the right side with severe coughing and breathing he does have sputum which is brownish yellowish in color, computed tomography scan of the chest reviewed there is appearance of abscess versus necrotizing pneumonia in the right lower lobe with dense thickening small fluid is present findings are reviewed with the patient, p leural fluid cytology is still pending 07/26/2018, patient seen and evaluated examined during the rounds he is complaining of insomnia and chest pain pain is improved with Motrin or Tylenol he is asking for a sleeping aid respiratory status slightly better today he has gone thoracentesis of the right side in about 400-450 mL of pleural fluid removed the pleural fluid appears to be exudative with Gram stain negative cultures are pending cytology is pending Objective - Vital Signs Vital signs: Vital Signs Temp 98.3 F 07/28/18 13:45 Pulse 80 07/28/18 15:56 Resp 16 07/28/18 13:45 BP 132/89 07/28/18 13:45 Pulse Ox 92 L 07/28/18 13:45 Intake & Output 07/27/18 07/28/18 07/28/18 18:59 06:59 18:59 Intake Total 540 Balance 540 Intake: Oral 540 Other: Voiding Method Urinal # Voids 1 2 2 - Exam Constitutional General appearance: cooperative, disheveled, no acute distress, obese - EENT Eyes: anicteric sclerae, EOMI, PERRLA, normal appearance Ears: bilateral: normal - Neck Carotids: bilateral: upstroke normal Thyroid: bilateral: normal size - Respiratory Respiratory: right: diminished, dullness, negative: CTA, rales, rhonchi, wheezing, prolonged expiration - Cardiovascular Rhythm: regular Heart sounds: normal: S1, S2 - Gastrointestinal General gastrointestinal: normal bowel sounds - Integumentary Integumentary: normal, normal turgor - Neurologic Neurologic: CNII-XII intact - Musculoskeletal Musculoskeletal: gait normal, generalized weakness, strength equal bilaterally - Psychiatric Psychiatric: A&O x's 3, appropriate affect, intact judgment & insight - Labs CBC & Chem 7: 07/27/18 11:46 07/26/18 10:58 Labs: Microbiology - Last 24 Hours (Table) 07/25/18 13:30 Gram Stain - Preliminary Pleural Fluid Body Fluid Culture - Preliminary 07/24/18 14:20 Blood Culture - Preliminary Blood No Growth after 72 hours Assessment and Plan Assessment: Right lower lobe lung mass pleural-based likely pneumonia but however malignancy cannot be excluded likely abscess with parapneumonic effusion Right sided pneumonia cavitary Exudative pleural effusion Improving leukocytosis Right-sided pleural effusion likely parapneumonic effusion versus pneumonia and effusion related to malignancy Obesity Hypertension hypertensive cardiovascular disease Dyslipidemia Plan: Agree with broad-spectrum antibiotics with IV Zosyn Gram stain and culture for the sputum so far unremarkable Status post right thoracentesis with pending results of final culture and cytology Reviewed repeat CT of the chest without contrast Continue antibiotics for another 4-5 days will ask ID to see Time with Patient: Greater than 30
[2018-07-28] MEDS: ZOLPIDEM 5 MG TAB PO SCH (19:52)
[2018-07-28] MEDS: ATORVASTATIN 10 MG TAB PO SCH (19:52)
--- NOTE | 2018-07-28 22:25 | PN ---
PROGRESS NOTE DATE OF SERVICE: July 28, 2018. PRESENTING COMPLAINT: Short of breath cough. INTERVAL HISTORY: Patient presented with right-sided pneumonia, had thoracentesis 350 mL dark fluid was removed. CT scan showing multiple cavitary lesions. Patient may have underlying abscess, underlying pneumonia cannot be ruled out. General Surgery was consulted. REVIEW OF SYSTEMS: Done for constitutional, cardiovascular, GI, pulmonary; relevant findings as above. The patient does feel a bit tired. CURRENT MEDICATIONS: Reviewed that include IV Zosyn. EXAMINATION: VITAL SIGNS: Afebrile. Pulse 83, respiratory rate 16, blood pressure 132/89, pulse ox 92 percent on 2 L. GENERAL APPEARANCE: Sitting up, tired-appearing. EYES: Pupils are equal. Conjunctivae normal. NECK: JVD not raised. Mass not palpable. RESPIRATORY: Effort increased. LUNGS: Decreased breath sounds on the right side. CARDIOVASCULAR: 1st and 2nd sounds normal. Minimal edema. ABDOMEN: Soft, nontender. Liver and spleen not palpable. PSYCHIATRY: Alert and oriented x3. Mood and affect normal. INVESTIGATIONS: No blood work from today. ASSESSMENT: 1. Right-sided pneumonia, multilobar with possible abscess, underlying malignancy cannot be ruled out with a parapneumonic effusion likely. 2. Obesity BMI 34.1. 3. Sepsis on presentation from above. 4. Essential hypertension. 5. Hyperlipidemia. PLAN: Cardiothoracic surgery was consulted. Await their input. In the meantime, continue with antibiotic. Care was discussed with the patient. Follow. MMODL / IJN: [id number] /
--- NOTE | 2018-07-28 22:50 | P.CONS ---
History of Present Illness - Reason for Consult Consult date: 07/28/18 Cavitatory pneumonia Requesting physician: Yazan Flores - Chief Complaint Shortness of breath and cough x 2 months - History of Present Illness Patient is a 63-year-old male presenting to the hospital with increasing shortness of breath and cough and abnormal chest x-ray in the outpatient setting apparently the patient has been sick for a few months now symptoms started when he was in [place] patient will be complaining of having coughing spells during of some grainy sputum no hemoptysis patient did have right lower chest pain especially with coughing more of a dull aching pain intensity of almost 8 out of 10 and no radiation patient be complaining of night sweats and a fever with the symptoms the patient has been evaluated outpatient setting by his primary care physician and has been treated with a course of oral Levaquin without any improvement subsequently chest x-ray with evidence of right-sided pleural effusion and pneumonia CT was suspicious for a lung mass patient on presentation to the hospital did have a fever of 100.7 [place] [address] the patient did have ultrasound that has been suspicious for large pleural effusion status post thoracocentesis with evidence of for dark pleural fluid culture so far negative cytology is pending patient did have a follow-up CT we did shows evidence of parietal lobe consolation with a ca vitating changes and parapneumonic effusion she is currently being treated with Zosyn and infectious disease was consulted for further recommendation regarding antibiotic therapy, 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 Fever EYES: No complaint. ENT:No complaint. RESPIRATORY: As per history of present illness CARDIOVASCULAR: No complaint. GENITOURINARY: No complaint. GASTROINTESTINAL: No complaint. MUSCULOSKELETAL: No complaint. INTEGUMENTARY: No complaint. PSYCHOLOGICAL: No complaint. ENDOCRINE: No complaint. NEUROLOGIC: No complaint. Past Medical History Past Medical History: Hyperlipidemia, Hypertension, Pneumonia Additional Past Medical History / Comment(s): De Leon's esophagitis History of Any Multi-Drug Resistant Organisms: None Reported Past Surgical History: Appendectomy, Heart Catheterization Additional Past Surgical History / Comment(s): EGD, colonoscopy every 2 years Past Psychological History: No Psychological Hx Reported Smoking Status: Former smoker Past Alcohol Use History: Occasional Past Drug Use History: None Reported - Past Family History Mother Family Medical History: Cancer Additional Family Medical History / Comment(s): colon cancer Father Family Medical History: Myocardial Infarction (SD) Additional Family Medical History / Comment(s): of SD at age 48 Medications and Allergies Home Medications Medication Instructions Recorded Confirmed Type Aspirin EC [Ecotrin Low Dose] 81 mg PO DAILY 07/24/18 07/24/18 History Levofloxacin [Levaquin] 500 mg PO DAILY 07/24/18 07/24/18 History Losartan/Hydrochlorothiazide 1 tab PO DAILY 07/24/18 07/24/18 History [Losartan-Hctz 100-25 mg Tab] Metoprolol Succinate (ER) [Toprol 100 mg PO BID 07/24/18 07/24/18 History Xl] Pitavastatin Calcium [Livalo] 1 mg PO HS 07/24/18 07/24/18 History Allergies Allergy/AdvReac Type Severity Reaction Status Date / Time No Known Allergies Allergy Verified 07/24/18 15:10 Physical Exam Vitals: Vital Signs Temp Pulse Pulse Pulse Resp BP BP 07/28/18 15:56 80 07/28/18 15:46 80 07/28/18 13:45 98.3 F 83 16 132/89 07/28/18 12:20 77 07/28/18 12:06 78 07/28/18 07:52 85 07/28/18 07:37 74 07/28/18 05:11 99.2 F 86 18 119/74 07/28/18 03:37 72 07/27/18 20:28 97.9 F 87 18 159/80 07/27/18 19:50 72 07/27/18 19:42 72 Pulse Ox 07/28/18 15:56 07/28/18 15:46 07/28/18 13:45 92 L 07/28/18 12:20 07/28/18 12:06 07/28/18 07:52 07/28/18 07:37 07/28/18 05:11 94 L 07/28/18 03:37 07/27/18 20:28 91 L 07/27/18 19:50 07/27/18 19:42 Intake and Output 06/05/1307/28/18 07/28/18 06:59 14:59 22:59 Intake Total 540 Balance 540 Intake: Oral 540 Other: # Voids 2 2 GENERAL DESCRIPTION: Middle-aged male lying in bed, no distress. No tachypnea or accessory muscle of respiration use. HEENT: Shows Pallor , no scleral icterus. Oral mucous membrane is dry. No pharyngeal erythema or thrush NECK: Trachea central, no thyromegaly. LUNGS: Unlabored breathing. Decreased breath sound at the base. No wheeze or crackle. HEART: S1, S2, regular rate and rhythm. No loud murmur ABDOMEN: Soft, no tenderness , guarding or rigidity, no organomegaly EXTREMITIES: No edema of feet. SKIN: No rash, no masses palpable. NEUROLOGICAL: The patient is awake, alert, oriented x3, mood and affect normal Results CBC & Chem 7: 07/27/18 11:46 07/26/18 10:58 Labs: Microbiology - Last 24 Hours (Table) 07/24/18 14:20 Blood Culture - Preliminary Blood No Growth after 96 hours 07/25/18 13:30 Gram Stain - Preliminary Pleural Fluid Body Fluid Culture - Preliminary Assessment and Plan Assessment: 1-patient admitted hospital with increasing shortness of breath or cough in this patient who did have features of sepsis on presentation with a fever and elevated white count source is her right-sided pneumonia with parapneumonic effusion status post thoracocentesis now with repeat CAT scan with evidence of consolidation with cavitary changes with question of possible community-acquired pathogen versus resistant gram-positive or gram-negative pathogen (1) Sepsis Current Visit: Yes Status: Acute Code(s): A41.9 - SEPSIS, UNSPECIFIED ORGANISM SNOMED Code(s): 99211807 (2) Lung mass Current Visit: Yes Status: Acute Code(s): R91.8 - OTHER NONSPECIFIC ABNORMAL FINDING OF LUNG FIELD SNOMED Code(s): 711591094 Plan: 1-the patient may benefit from bronchoscopy to rule out any underlying st ructural abnormality or tumor as well as deep cultures as the pleural fluid culture so far negative 2-patient at this time to continue with Zosyn 3.375 g every 8 hours to which the patient seemed to have responded We will follow-up on clinical condition and culture to further adjust medication if needed Thank you for this consultation will follow this patient along with you Time with Patient: Greater than 30
[2018-07-29] MEDS: ENOXAPARIN 40 MG/0.4 ML SYRINGE SQ SCH ×2 (00:16→07:58)
[2018-07-29] MEDS: PIPERACILLIN-TAZOBACTAM 3.375 GM in SODIUM CHLORIDE 0.9% 100 ML IVPB SCH ×3 (00:17→17:16)
[2018-07-29] MEDS: SODIUM CHLORIDE 0.9% 1,000 ML IV SCH (00:17)
[2018-07-29] MEDS: IPRATROPIUM-ALBUTEROL 3 ML NEB INHALATION SCH ×7 (01:29→23:58)
[2018-07-29] MEDS: ACETAMINOPHEN TAB 325 MG TAB PO PRN (04:47)
[2018-07-29] MEDS: ASPIRIN 81 MG PO SCH (07:58)
[2018-07-29] MEDS: METOPROLOL SUCCINATE (ER) 100 MG TAB.ER.24H PO SCH ×2 (07:59→20:36)
[2018-07-29 09:14] LABS: Basophils # (A) 0.1 k/uL (0-0.2); Basophils % (A) 1 %; Eosinophils # (A) 0.8 k/uL (0-0.7); Eosinophils % (A) 4 %; Lymphocytes # (A) 1.1 k/uL (1.0-4.8); Lymphocytes % (A) 6 %; MCH 29.3 pg (25.0-35.0); MCHC 31.3 g/dL (31.0-37.0); MCV 93.4 fL (80.0-100.0); Mean Platelet Volume 7.2; Monocytes # (A) 1.4 k/uL (0-1.0); Monocytes % (A) 7 %; Neutrophils # (A) 16.8 k/uL (1.3-7.7); Neutrophils % (A) 82 %; Platelet Count 480 k/uL (150-450); RBC 3.75 m/uL (4.30-5.90); WBC 20.5 k/uL (3.8-10.6)
[2018-07-29 09:35] LABS: African American GFR (CKD) >90 (>60 ml/min/1.73 sqM); Anion Gap 7 mmol/L; Blood Urea Nitrogen 17 mg/dL (9-20); Calcium 8.5 mg/dL (8.4-10.2); Carbon Dioxide 31 mmol/L (22-30); Chloride 100 mmol/L (98-107); Glucose 122 mg/dL (74-99); Potassium 4.1 mmol/L (3.5-5.1); Sodium 138 mmol/L (137-145)
--- NOTE | 2018-07-29 14:10 | P.PN ---
Subjective Progress Note Date: 07/29/18 Principal diagnosis: Right lower lobe pleural-based mass, cavitary pneumonia; right-sided pleural effusion, parapneumonic versus pneumonia versus malignancy, status post thoracentesis with 350 mL dark fluid removed and sent for culture. Previous medical history of hypertension, hypercholesterolemia, De Leon's esophagitis, previous tobacco dependence with [id number] history, social EtOH use, family history of premature coronary artery disease and colon cancer. The patient is currently sitting up in the chair in no acute distress. Does continue to complain of coughing and congestion, he does state that he is feeling better than when he came in however. Long discussion had with patient and yesterday by Dr. Handy and again this morning regarding treatment options, all questions answered. Objective - Vital Signs Vital signs: Vital Signs Temp 98.8 F 07/29/18 09:23 Pulse 78 07/29/18 11:41 Resp 16 07/29/18 11:41 BP 138/78 07/29/18 05:13 Pulse Ox 94 L 07/29/18 07:32 Intake & Output 07/28/18 07/29/18 07/29/18 18:59 06:59 18:59 Intake Total 1080 Output Total 700 Balance 1080 -700 Intake: Oral 1080 Output: Urine 700 Other: Voiding Method Urinal # Voids 2 2 # Bowel Movements 0 - Constitutional General appearance: Present: cooperative, no acute distress, obese - Respiratory Details: Lungs sounds diminished on the right. Respirations even, nonlabored. Currently on 2 L nasal cannula with oxygen saturation 93%. Able to achieve 1750 mL on his incentive spirometry. Strong, productive cough. - Cardiovascular Details: S1, S2 present. Regular rate and rhythm. Palpable peripheral pulses bilaterally. No edema present. No calf pain or tenderness noted. - Gastrointestinal Gastrointestinal Comment(s): Abdomen soft, nontender, nondistended. Active bowel sounds 4 quadrants. Tolerating diet. - Genitourinary Genitourinary Comment(s): Continues to void - Integumentary Integumentary Comment(s): Skin is warm and dry with evidence of good perfusion. - Neurologic Neurologic: Present: CNII-XII intact - Musculoskeletal Musculoskeletal: Present: gait normal, strength equal bilaterally - Psychiatric Psychiatric: Present: A&O x's 3, appropriate affect, intact judgment & insight - Allied health notes Allied health notes reviewed: nursing - Labs CBC & Chem 7: 07/29/18 08:59 07/29/18 08:59 Labs: Abnormal Lab Results - Last 24 Hours (Table) 07/29/18 07/29/18 Range/Units 08:59 08:59 WBC 20.5 H (3.8-10.6) k/uL RBC 3.75 L (4.30-5.90) m/uL Hgb 11.0 L (13.0-17.5) gm/dL Hct 35.0 L (39.0-53.0) % Plt Count 480 H (150-450) k/uL Neutrophils # 16.8 H (1.3-7.7) k/uL Monocytes # 1.4 H (0-1.0) k/uL Eosinophils # 0.8 H (0-0.7) k/uL Carbon Dioxide 31 H (22-30) mmol/L Glucose 122 H (74-99) mg/dL Microbiology - Last 24 Hours (Table) 07/25/18 13:30 Gram Stain - Final Pleural Fluid Body Fluid Culture - Final 07/24/18 14:20 Blood Culture - Preliminary Blood No Growth after 96 hours Assessment and Plan Assessment: 1. Right lower lobe pleural-based mass, cavitary pneumonia 2. Right-sided pleural effusion, parapneumonic versus pneumonia versus malignancy, status post thoracentesis with 350 mL dark fluid removed and sent for culture 3. History of hypertension, treated 4. History of hypercholesterolemia, treated 5. 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 Previous tobacco dependence with [id number] history 7. Social EtOH use 8. Family history of premature coronary artery disease 9. Family history of colon cancer Plan: 1. Continue IV antibiotics per infectious disease recommendations. 2. Will follow pleural fluid culture and cytology results. Will make determination for placement of pigtail catheter with instillation of alteplase to break up loculations versus thoracotomy with decortication dependent on patient's progress. 3. Wean O2 as tolerated. Encourage incentive spirometry is 10 times every hour while awake. 4. Increase activity as tolerated, ambulate in hallway. 5. Medical management of other comorbid conditions per primary care service. Time with Patient: Greater than 30
[2018-07-29] MEDS: FAMOTIDINE 20 MG TAB PO SCH (18:10)
[2018-07-29] MEDS: ZOLPIDEM 5 MG TAB PO SCH (20:37)
[2018-07-29] MEDS: ATORVASTATIN 10 MG TAB PO SCH (20:37)
--- NOTE | 2018-07-29 21:51 | P.PN ---
Subjective Progress Note Date: 07/29/18 Principal diagnosis: Cavitatory pneumonia and effusion Patient is a 63-year-old male admitted to the hospital with chronic cough chest pain right-sided fever and elevated white count in this patient who did have evidence of right-sided pleural effusion status post oral consent diseases with a repeat CT suggestive of right-sided cavitating pneumonia and pleural effusion, patient is currently be treated with Zosyn. On today's evaluation that is 07/29/2018 the patient denies any fever or chills, breathing slightly improved continue to have coughing episodes with sputum production no hemoptysis right-sided chest is slightly decreased intensity no nausea no vomiting no abdominal pain and no diarrhea Objective - Vital Signs Vital signs: Vital Signs Temp 98.2 F 07/29/18 20:24 Pulse 86 07/29/18 20:29 Resp 18 07/29/18 20:24 BP 148/62 07/29/18 20:24 Pulse Ox 96 07/29/18 20:24 Intake & Output 07/29/18 07/29/18 07/30/18 06:59 18:59 06:59 Intake Total 540 Output Total 700 Balance -700 540 Intake: Oral 540 Output: Urine 700 Other: Voiding Method Urinal # Voids 2 4 # Bowel Movements 1 - Exam GENERAL DESCRIPTION:[ Patient is awake and alert in no distress] HEENT: [Oral mucosa is dry and no pharyngeal erythema] EYES : [No pallor or scleral icterus] RESPIRATORY SYSTEM: [Unlabored breathing decreased breath sound the bases CARDIA VASCULAR SYSTEM: [S1-S2 regular rate and rhythm no murmur] GI: [Abdominal soft there's no tenderness no organomegaly] EXTREMITIES: [No edema feet] - Labs CBC & Chem 7: 07/29/18 08:59 07/29/18 08:59 Labs: Abnormal Lab Results - Last 24 Hours (Table) 07/29/18 07/29/18 Range/Units 08:59 08:59 WBC 20.5 H (3.8-10.6) k/uL RBC 3.75 L (4.30-5.90) m/uL Hgb 11.0 L (13.0-17.5) gm/dL Hct 35.0 L (39.0-53.0) % Plt Count 480 H (150-450) k/uL Neutrophils # 16.8 H (1.3-7.7) k/uL Monocytes # 1.4 H (0-1.0) k/uL Eosinophils # 0.8 H (0-0.7) k/uL Carbon Dioxide 31 H (22-30) mmol/L Glucose 122 H (74-99) mg/dL Microbiology - Last 24 Hours (Table) 07/24/18 14:20 Blood Culture - Preliminary Blood No Growth after 120 hours 07/25/18 13:30 Gram Stain - Final Pleural Fluid Body Fluid Culture - Final Assessment and Plan Assessment: 1-patient admitted hospital with increasing shortness of breath or cough in this patient who did have features of sepsis on presentation with a fever and elevated white count source is her right-sided pneumonia with parapneumonic effusion status post thoracocentesis now with repeat CAT scan with evidence of consolidation with cavitary changes with question of possible community-acquired pathogen versus resistant gram-positive or gram-negative pathogen, cultures has been negative so far to date that is 07/29/2018 (1) Sepsis Current Visit: Yes Status: Acute Code(s): A41.9 - SEPSIS, UNSPECIFIED ORGANISM SNOMED Code(s): 54703568 (2) Lung mass Current Visit: Yes Status: Acute Code(s): R91.8 - OTHER NONSPECIFIC ABNORMAL FINDING OF LUNG FIELD SNOMED Code(s): 747378362 Plan: 1--patient at this time to continue with Zosyn 3.375 g every 8 hours to which the patient seemed to have responded 2-possible bronchoscopy in the a.m. per pulmonary at the bedside questions were answered Time with Patient: Less than 30
--- NOTE | 2018-07-29 23:41 | P.PN ---
Subjective Progress Note Date: 07/29/18 Principal diagnosis: Right-sided lung mass pleural base, right-sided pneumonia, right parapneumonic effusion, sepsis, chest pain, cough, morbid obesity, hypertension hypertensive c ardiovascular disease, dyslipidemia, 07/29/2018, patient seen eval reexamined during the rounds is still have significant amount of sputum production complain of chronic chest pain with cough cytology is back as negative on pleural fluid culture so far negative care plan discussed with infectious disease and thoracic surgery patient is contemplated for pigtail catheter versus thoracotomy by thoracic surgery in the meantime we'll do a bronchoscopy to obtain samples and also to rule out any endobronchial mass or lesion procedure explained to the patient 07/28/2018, patient seen and evaluated examined during rounds clinically he is doing essentially the same is still complaining of pain on the right side with severe coughing and breathing he does have sputum which is brownish yellowish in color, computed tomography scan of the chest reviewed there is appearance of abscess versus necrotizing pneumonia in the right lower lobe with dense thickening small fluid is present findings are reviewed with the patient, pleural fluid cytology is still pending 07/26/2018, patient seen and evaluated examined during the rounds he is complaining of insomnia and chest pain pain is improved with Motrin or Tylenol he is asking for a sleeping aid respiratory status slightly better today he has gone thoracentesis of the right side in about 400-450 mL of pleural fluid removed the pleural fluid appears to be exudative with Gram stain negative cultures are pending cytology is pending Objective - Vital Signs Vital signs: Vital Signs Temp 98.2 F 07/29/18 20:24 Pulse 86 07/29/18 20:29 Resp 18 07/29/18 20:24 BP 148/62 07/29/18 20:24 Pulse Ox 96 07/29/18 20:24 Intake & Output 07/29/18 07/29/18 07/30/18 06:59 18:59 06:59 Intake Total 540 Output Total 700 Balance -700 540 Intake: Oral 540 Output: Urine 700 Other: Voiding Method Urinal # Voids 2 4 1 # Bowel Movements 1 - Exam Constitutional General appearance: cooperative, disheveled, no acute distress, obese - EENT Eyes: anicteric sclerae, EOMI, PERRLA, normal appearance Ears: bilateral: normal - Neck Carotids: bilateral: upstroke normal Thyroid: bilateral: normal size - Respiratory Respiratory: right: diminished, dullness, negative: CTA, rales, rhonchi, wheezing, prolonged expiration - Cardiovascular Rhythm: regular Heart sounds: normal: S1, S2 - Gastrointestinal General gastrointestinal: normal bowel sounds - Integumentary Integumentary: normal, normal turgor - Neurologic Neurologic: CNII-XII intact - Musculoskeletal Musculoskeletal: gait normal, generalized weakness, strength equal bilaterally - Psychiatric Psychiatric: A&O x's 3, appropriate affect, intact judgment & insight - Labs CBC & Chem 7: 07/29/18 08:59 07/29/18 08:59 Labs: Abnormal Lab Results - Last 24 Hours (Table) 07/29/18 07/29/18 Range/Units 08:59 08:59 WBC 20.5 H (3.8-10.6) k/uL RBC 3.75 L (4.30-5.90) m/uL Hgb 11.0 L (13.0-17.5) gm/dL Hct 35.0 L (39.0-53.0) % Plt Count 480 H (150-450) k/uL Neutrophils # 16.8 H (1.3-7.7) k/uL Monocytes # 1.4 H (0-1.0) k/uL Eosinophils # 0.8 H (0-0.7) k/uL Carbon Dioxide 31 H (22-30) mmol/L Glucose 122 H (74-99) mg/dL Microbiology - Last 24 Hours (Table) 07/29/18 08:45 Gram Stain - Preliminary Sputum 07/24/18 14:20 Blood Culture - Preliminary Blood No Growth after 120 hours 07/25/18 13:30 Gram Stain - Final Pleural Fluid Body Fluid Culture - Final Assessment and Plan Assessment: Right lower lobe lung mass pleural-based likely pneumonia but however malignancy cannot be excluded likely abscess with parapneumonic effusion Right sided pneumonia cavitary Exudative pleural effusion Improving leukocytosis Right-sided pleural effusion likely parapneumonic effusion versus pneumonia and effusion related to malignancy Obesity Hypertension hypertensive cardiovascular disease Dyslipidemia Plan: Agree with broad-spectrum antibiotics with IV Zosyn Care plan discussed with thoracic surgery plan for pigtail versus thoracotomy We will scheduled for bronchoscopy for tomorrow Nothing by mouth after midnight Gram stain and culture for the sputum so far unremarkable Status post right thoracentesis with results of final culture and cytology reviewed Reviewed repeat CT of the chest without contrast Continue antibiotics Time with Patient: Greater than 30
--- NOTE | 2018-07-29 23:50 | PN ---
PROGRESS NOTE DATE OF SERVICE: 07/29/2018 PRESENTING COMPLAINT: Cough, short of breath. INTERVAL HISTORY: Patient presented with right-sided pneumonia, what appears to be a parapneumonic effusion; CT scan also showing cavitary lesions. Cytology has come back negative from the pleural fluid. The patient is still bringing up a large amount of sputum. Tired. REVIEW OF SYSTEMS: Done for constitutional, cardiovascular, GI, pulmonary; relevant findings as above. CURRENT MEDICATIONS: Reviewed. They include IV Zosyn. PHYSICAL EXAMINATION: Temperature 98.8, pulse 130, respiration 18, blood pressure 114/74, pulse ox 93% on 2 L. GENERAL APPEARANCE: Sitting up, awake. EYES: Pupils equal. Conjunctivae normal. NECK: JVD not raised. Mass not palpable. RESPIRATORY: Effort increased. LUNGS: Decreased breath sounds on the right side. CARDIOVASCULAR: First and second sounds normal. Minimal edema. ABDOMEN: Soft, non-tender. Liver and spleen not palpable. PSYCHIATRY: Alert and oriented x3. Mood and affect normal. INVESTIGATIONS: White count 20.5, potassium 4.1, BUN 17, creatinine 0.76. Sputum Gram stain initially was showing respiratory cate. Pleural fluid Gram stain is coming back negative. ASSESSMENT: 1. Right-sided pneumonia with possible abscess/parapneumonic effusion, slow to respond. Note that patient's white count has started to climb. 2. Obesity; body mass index 34.1. 3. Sepsis on presentation from above. 4. Essential hypertension. 5. Hyperlipidemia. PLAN: Continue current medication and treatment plan. Care was discussed with the patient and his . Chest tube placement to be determined as per Pulmonary and Cardiothoracic. Will repeat a chest x-ray tomorrow morning. Also CBC. Will follow. MMODL / IJN: [id number] /
[2018-07-30] MEDS: PIPERACILLIN-TAZOBACTAM 3.375 GM in SODIUM CHLORIDE 0.9% 100 ML IVPB SCH ×4 (00:32→23:30)
[2018-07-30] MEDS: SODIUM CHLORIDE 0.9% 1,000 ML IV SCH (00:34)
[2018-07-30] MEDS: IPRATROPIUM-ALBUTEROL 3 ML NEB INHALATION SCH ×5 (03:24→19:53)
--- NOTE | 2018-07-30 07:42 | XR ---
EXAMINATION TYPE: XR chest 2V DATE OF EXAM: 07/30/2018 COMPARISON: Prior chest x-ray 07/27/2018 HISTORY: Pleural effusion TECHNIQUE: Frontal and lateral views of the chest are obtained. FINDINGS: Loculated right pleural fluid collection is again noted. No evident pneumothorax. Heart re kristin enlarged. Aortic aneurysm is present. IMPRESSION: Pleural parenchymal changes are similar to prior exam. Correlate for empyema, lung absce ss or tumor
[2018-07-30] MEDS: FAMOTIDINE 20 MG TAB PO SCH ×2 (07:57→21:04)
[2018-07-30] MEDS: METOPROLOL SUCCINATE (ER) 100 MG TAB.ER.24H PO SCH ×2 (07:57→21:04)
[2018-07-30] MEDS: ENOXAPARIN 40 MG/0.4 ML SYRINGE SQ SCH (08:02)
[2018-07-30] MEDS: ASPIRIN 81 MG PO SCH (08:02)
[2018-07-30 09:02] LABS: African American GFR (CKD) >90 (>60 ml/min/1.73 sqM); Anion Gap 8 mmol/L; Blood Urea Nitrogen 16 mg/dL (9-20); Calcium 8.9 mg/dL (8.4-10.2); Carbon Dioxide 28 mmol/L (22-30); Chloride 101 mmol/L (98-107); Glucose 103 mg/dL (74-99); Potassium 4.3 mmol/L (3.5-5.1); Sodium 137 mmol/L (137-145)
[2018-07-30 09:06] LABS: Basophils # (A) 0.1 k/uL (0-0.2); Basophils % (A) 1 %; Eosinophils # (A) 0.6 k/uL (0-0.7); Eosinophils % (A) 4 %; HGB 10.6 gm/dL (13.0-17.5); Lymphocytes % (A) 7 %; MCH 29.8 pg (25.0-35.0); MCHC 32.1 g/dL (31.0-37.0); MCV 92.6 fL (80.0-100.0); Mean Platelet Volume 7.2; Monocytes # (A) 0.9 k/uL (0-1.0); Monocytes % (A) 6 %; Neutrophils # (A) 12.3 k/uL (1.3-7.7); Neutrophils % (A) 80 %; Platelet Count 466 k/uL (150-450); RBC 3.56 m/uL (4.30-5.90); WBC 15.3 k/uL (3.8-10.6)
--- NOTE | 2018-07-30 11:16 | P.PN ---
Subjective Progress Note Date: 07/30/18 Principal diagnosis: Right lower lobe pleural-based mass, cavitary pneumonia; right-sided pleural effusion, parapneumonic versus pneumonia versus malignancy, status post thoracentesis with 350 mL dark fluid removed, cytology consistent with empyema. Previous medical history of hypertension, hypercholesterolemia, De Leon's esophagitis, previous tobacco dependence with [id number] history, social EtOH use, family history of premature coronary artery disease and colon cancer. The patient is currently sitting up in the chair in no acute distress. Does continue to complain of coughing and congestion, he does state that he is feeling better than when he came in, was able to lay flat for a short amount of time without coughing. Hemodynamically stable. Objective - Vital Signs Vital signs: Vital Signs Temp 98.3 F 07/30/18 05:49 Pulse 78 07/30/18 07:43 Resp 15 07/30/18 05:49 BP 119/71 07/30/18 05:49 Pulse Ox 95 07/30/18 05:49 Intake & Output 07/29/18 07/30/18 07/30/18 18:59 06:59 18:59 Intake Total 540 Balance 540 Intake: Oral 540 Other: Voiding Method Urinal # Voids 4 1 # Bowel Movements 1 - Constitutional General appearance: Present: cooperative, no acute distress, obese - Respiratory Details: Lungs sounds diminished/coarse on the right. Respirations even, nonlabored. Currently on 2 L nasal cannula with oxygen saturation 95%. Able to achieve 1750 mL on his incentive spirometry. Strong, productive cough. - Cardiovascular Details: S1, S2 present. Regular rate and rhythm. Palpable peripheral pulses bilaterally. No edema present. No calf pain or tenderness noted. - Gastrointestinal Gastrointestinal Comment(s): Abdomen soft, nontender, nondistended. Active bowel sounds 4 quadrants. Tolerating diet. - Genitourinary Genitourinary Comment(s): Continues to void - Integumentary Integumentary Comment(s): Skin is warm and dry with evidence of good perfusion. - Neurologic Neurologic: Present: CNII-XII intact - Musculoskeletal Musculoskeletal: Present: gait normal, strength equal bilaterally - Psychiatric Psychiatric: Present: A&O x's 3, appropriate affect, intact judgment & insight - Allied health notes Allied health notes reviewed: nursing - Labs CBC & Chem 7: 07/30/18 08:32 07/30/18 08:32 Labs: Abnormal Lab Results - Last 24 Hours (Table) 07/29/18 07/30/18 07/30/18 Range/Units 08:59 08:32 08:32 WBC 15.3 H (3.8-10.6) k/uL RBC 3.56 L (4.30-5.90) m/uL Hgb 10.6 L (13.0-17.5) gm/dL Hct 33.0 L (39.0-53.0) % Plt Count 466 H (150-450) k/uL Neutrophils # 12.3 H (1.3-7.7) k/uL Carbon Dioxide 31 H (22-30) mmol/L Glucose 122 H 103 H (74-99) mg/dL Microbiology - Last 24 Hours (Table) 07/29/18 08:45 Gram Stain - Preliminary Sputum 07/24/18 14:20 Blood Culture - Preliminary Blood No Growth after 120 hours 07/25/18 13:30 Gram Stain - Final Pleural Fluid Body Fluid Culture - Final - Imaging and Cardiology Chest x-ray: report reviewed, image reviewed Assessment and Plan Assessment: 1. Right lower lobe pleural-based mass, cavitary pneumonia 2. Right-sided pleural effusion, parapneumonic versus pneumonia versus malignancy, status post thoracentesis with 350 mL dark fluid removed, cytology demonstrates consistent with empyema 3. History of hypertension, treated 4. History of hypercholesterolemia, treated 5. 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 Previous tobacco dependence with [id number] history 7. Social EtOH use 8. Family history of premature coronary artery disease 9. Family history of colon cancer Plan: 1. Continue IV antibiotics per infectious disease recommendations. 2. Patient to go for bronchoscopy today with Dr. Flores 3. We will take patient to the OR tomorrow for thoracotomy with decortication. Nothing to eat or drink after midnight. 4. Wean O2 as tolerated. Encourage incentive spirometry is 10 times every hour while awake. 5. Increase activity as tolerated, ambulate in hallway. 6. Medical management of other comorbid conditions per primary care service. Time with Patient: Greater than 30
[2018-07-30] MEDS ORDERED: KETAMINE 10 MG/ML 20 ML VIAL ONE (12:15)
[2018-07-30] MEDS ORDERED: MIDAZOLAM 2 MG/2 ML VIAL ONE (12:15)
[2018-07-30] MEDS ORDERED: IV FLUID CONTINUATION 1,000 ML IV ONE (12:15)
[2018-07-30] MEDS ORDERED: GLYCOPYRROLATE 0.2 MG/ML 2 ML VIAL ONE (12:15)
[2018-07-30] MEDS ORDERED: PROPOFOL 10 MG/ML 20 ML VIAL IV ONE (12:15)
[2018-07-30] MEDS ORDERED: LIDOCAINE 2% INJ 20 MG/ML INTRATRACH ONE (12:45)
--- NOTE | 2018-07-30 13:40 | P.PN ---
Subjective Progress Note Date: 07/30/18 Principal diagnosis: Right-sided lung mass pleural base, right-sided pneumonia, right parapneumonic effusion, sepsis, chest pain, cough, morbid obesity, hypertension hypertensive c ardiovascular disease, dyslipidemia, 07/30/2018, patient seen and evaluated examined right cell count is down to 15,000 he is feeling slightly better with still have cough congestion shortness of breath and chest pain care plan discussed with cardiothoracic surgery as well as a patient is being planned for bronchoscopy later on today, patient is being considered for thoracotomy versus pigtail catheter continue IV Zosyn 07/29/2018, patient seen eval reexamined during the rounds is still have sig nificant amount of sputum production complain of chronic chest pain with cough cytology is back as negative on pleural fluid culture so far negative care plan discussed with infectious disease and thoracic surgery patient is contemplated for pigtail catheter versus thoracotomy by thoracic surgery in the meantime we'll do a bronchoscopy to obtain samples and also to rule out any endobronchial mass or lesion procedure explained to the patient 07/28/2018, patient seen and evaluated examined during rounds clinically he is doing essentially the same is still complaining of pain on the right side with severe coughing and breathing he does have sputum which is brownish yellowish in color, computed tomography scan of the chest reviewed there is appearance of abscess versus necrotizing pneumonia in the right lower lobe with dense thickening small fluid is present findings are reviewed with the patient, pleural fluid cytology is still pending 07/26/2018, patient seen and evaluated examined during the rounds he is complaining of insomnia and chest pain pain is improved with Motrin or Tylenol he is asking for a sleeping aid respiratory status slightly better today he has gone thoracentesis of the right side in about 400-450 mL of pleural fluid removed the pleural fluid appears to be exudative with Gram stain negative cultures are pending cytology is pending Objective - Vital Signs Vital signs: Vital Signs Temp 98.3 F 07/30/18 05:49 Pulse 82 07/30/18 10:57 Resp 18 07/30/18 08:00 BP 119/71 07/30/18 05:49 Pulse Ox 95 07/30/18 05:49 Intake & Output 07/29/18 07/30/18 07/30/18 18:59 06:59 18:59 Intake Total 540 400 Balance 540 400 Intake: IV 400 Oral 540 Other: Voiding Method Urinal Urinal # Voids 4 1 # Bowel Movements 1 - Exam Constitutional General appearance: cooperative, disheveled, no acute distress, obese - EENT Eyes: anicteric sclerae, EOMI, PERRLA, normal appearance Ears: bilateral: normal - Neck Carotids: bilateral: upstroke normal Thyroid: bilateral: normal size - Respiratory Respiratory: right: diminished, dullness, negative: CTA, rales, rhonchi, wheezing, prolonged expiration - Cardiovascular Rhythm: regular Heart sounds: normal: S1, S2 - Gastrointestinal General gastrointestinal: normal bowel sounds - Integumentary Integumentary: normal, normal turgor - Neurologic Neurologic: CNII-XII intact - Musculoskeletal Musculoskeletal: gait normal, generalized weakness, strength equal bilaterally - Psychiatric Psychiatric: A&O x's 3, appropriate affect, intact judgment & insight - Labs CBC & Chem 7: 07/30/18 08:32 07/30/18 08:32 Labs: Abnormal Lab Results - Last 24 Hours (Table) 07/30/18 07/30/18 Range/Units 08:32 08:32 WBC 15.3 H (3.8-10.6) k/uL RBC 3.56 L (4.30-5.90) m/uL Hgb 10.6 L (13.0-17.5) gm/dL Hct 33.0 L (39.0-53.0) % Plt Count 466 H (150-450) k/uL Neutrophils # 12.3 H (1.3-7.7) k/uL Glucose 103 H (74-99) mg/dL Microbiology - Last 24 Hours (Table) 07/29/18 08:45 Gram Stain - Preliminary Sputum 07/24/18 14:20 Blood Culture - Preliminary Blood No Growth after 120 hours Assessment and Plan Assessment: Right lower lobe lung mass pleural-based likely pneumonia but however malignancy cannot be excluded likely abscess with parapneumonic effusion Right sided pneumonia cavitary Exudative pleural effusion Improving leukocytosis Right-sided pleural effusion likely parapneumonic effusion versus pneumonia and effusion related to malignancy Obesity Hypertension hypertensive cardiovascular disease Dyslipidemia Plan: Agree with broad-spectrum antibiotics with IV Zosyn Care plan discussed with thoracic surgery plan for pigtail versus thoracotomy Bronchoscopy later on today Nothing by mouth after midnight Gram stain and culture for the sputum so far unremarkable Status post right thoracentesis with results of final culture and cytology reviewed Reviewed repeat CT of the chest without contrast Continue antibiotics Time with Patient: Greater than 30
--- NOTE | 2018-07-30 13:44 | P.PCN ---
Date of Procedure: 07/30/18 Preoperative Diagnosis: Lung abscess, pneumonia, pleural effusion, necrotizing pneumonia Postoperative Diagnosis: As above Procedure(s) Performed: #1 bronchoscopy #2 bronchoalveolar lavage Anesthesia: MAC Surgeon: Yazan Ali Condition: stable Disposition: floor Indications for Procedure: As above Operative Findings: As below Description of Procedure: Procedure in detail of the procedure explained to the patient at length before conscious sedation, patient draped in a usual fashion K bronchoscope was passed through the right nares the vocal cords and trachea noted to be normal but however significant edema is present tip of the scope was passed on the left side left upper lobe lingular lobe and lower lobe inspected no endobronchial mass or lesion was identified, and reactive reduced inflammation edema is present, tip of the scope was passed on the right side diffuse extensive edema of right tracheobronchial tree was noted which was more at the lower lobe bronchus and its distribution right upper lobe no endobronchial masses seen, right middle lobe and right lower lobe no endobronchial mass seen by us but limitation was present due to severe edema will recommend repeat bronchoscopy and next several week after therapy
--- NOTE | 2018-07-30 14:53 | US ---
EXAMINATION TYPE: US guided chest tube insertion DATE OF EXAM: 07/30/2018 COMPARISON: CT chest 07/27/2018 HISTORY: Empyema. PROCEDURE: Ultrasound used with sterile technique. The overlying skin was localized using ultrasound at the posterior right chest where there is a the right pleural fluid identified. Skin was prepped an d draped. Lidocaine used for local anesthesia. Skin charles was made with a scalpel. 21-gauge needle was advanced into the pleural fluid collection using ultrasound guidance and 0.018 inch inch wire was ad vanced. Access site was upsized and the wire was upsized and a dilator was advanced, 8.5 Malian tube advanced into the pleural flexion and serous sanguinous fluid approximately 30 cc was aspirated for a nalysis. Catheter was fixed to water seal. Sterile dressing was placed. Hemostasis achieved. No immed iate application. Patient remained in stable condition. Postprocedure chest x-rays pending. IMPRESSION: Status post ultrasound chest tube insertion. This procedure performed by the undersigned
--- NOTE | 2018-07-30 15:34 | XR ---
EXAMINATION TYPE: XR chest 1V portable DATE OF EXAM: 07/30/2018 COMPARISON: 07/30/2018 HISTORY: Right thoracostomy tube TECHNIQUE: Single frontal view of the chest is obtained. FINDINGS: There is redemonstration of a thick-walled cavitary lesion as discussed on the CT dated 07/27/2018 measuring up to 3.7 x 6.5 cm. The other cavitary lesions in the right lower lobe are ill-defin ed. A right thoracostomy tube has been placed in the interim as not well seen, partially seen central ly overlying the lung. There is underpenetration and difficulty in evaluation from patient body habit us. Mild pulmonary vascular congestion is seen. Cardia mediastinal silhouette is partially obscured b ut appears mildly enlarged as is the upper mediastinum. This is similar to the recent CT thorax. IMPRESSION: The newly inserted right thoracostomy tube into the multiple right-sided cavitary lesion s is not well seen radiographically given a right pleural effusion and exam under penetration. This m ay be more apparent on abdominal x-ray with portions of the inferior chest included.
[2018-07-30] MEDS ORDERED: ALTEPLASE 10 MG in SODIUM CHLORIDE 0.9% 100 ML IRRIGATION ONE (16:00)
[2018-07-30] MEDS: ACETAMINOPHEN TAB 325 MG TAB PO PRN (17:28)
--- NOTE | 2018-07-30 18:03 | PN ---
PROGRESS NOTE DATE OF SERVICE: 07/30/2018 REASON FOR FOLLOWUP: Pneumonia and parapneumonic effusion. INTERVAL HISTORY: The patient is currently afebrile. The patient has been breathing slightly comfortably. He continues to have a cough and bringing up sputum. No hemoptysis. No nausea, vomiting or any diarrhea. PHYSICAL EXAMINATION: Blood pressure is 126/67 with a pulse of 79, temperature 98.5. He is 95% on 3 L nasal cannula. General description is a middle-aged male up in the chair in no distress. RESPIRATORY SYSTEM: Unlabored breathing with decreased breath sounds in the bases. No wheeze. HEART: S1, S2. Regular rate and rhythm. ABDOMEN: Soft. No tenderness. LABS: Hemoglobin is 10.6, white count 15.3, BUN of 16, creatinine 0.77. DIAGNOSTIC IMPRESSION AND PLAN: Patient with right pneumonia with cavitary changes with a parapneumonic effusion per bronchoscopy. Thoracotomy tomorrow. Currently covered with Zosyn. That will be continued while waiting for the repeat culture that should be done during bronchoscopy as well as thoracotomy. Will follow. Continue with supportive care. MMODL / IJN: [id number] /
[2018-07-30 18:09] LABS: Appearance,BF Cloudy; Nucleated Cells, Body Fluid 27400 /uL; RBC, Body Fluid 8800 /uL
[2018-07-30 18:16] LABS: Mononuclear WBC,Body Fluid 24 %; Polynuclear WBC,Body Fluid 76 %; Total Cells Counted,Body Fluid 100
[2018-07-30] MEDS: traMADol 50 MG TAB PO PRN (19:50)
[2018-07-30] MEDS: ZOLPIDEM 5 MG TAB PO SCH (21:04)
[2018-07-30] MEDS: ATORVASTATIN 10 MG TAB PO SCH (21:04)
[2018-07-30] MEDS: KETOROLAC 30 MG/ML 1 ML VIAL IVP SCH (23:29)
[2018-07-31 00:54] LABS: Total Protein, Body Fluid 4180 mg/dL
[2018-07-31] MEDS: IPRATROPIUM-ALBUTEROL 3 ML NEB INHALATION SCH ×6 (01:16→19:33)
[2018-07-31] MEDS: SODIUM CHLORIDE 0.9% 1,000 ML IV SCH (01:52)
[2018-07-31 02:30] LABS: Amylase, Fluid Source Pleural Fluid
[2018-07-31] MEDS: KETOROLAC 30 MG/ML 1 ML VIAL IVP SCH ×4 (05:29→23:18)
--- NOTE | 2018-07-31 06:48 | PN ---
PROGRESS NOTE DATE OF SERVICE: 07/30/2018 PRESENTING COMPLAINT: Cough, short of breath. INTERVAL HISTORY: Patient presented with severe right-sided pneumonia with parapneumonic effusions, status post thoracentesis. CT scan showing cavitary lesions. I saw this patient this morning. Patient is going down for bronchoscopy. Cytology came back negative from the pleural fluid. The patient still coughing up sputum, a bit tired. REVIEW OF SYSTEMS: Done for constitutional, cardiovascular, GI, pulmonary; relevant findings as above. CURRENT MEDICATIONS: Current medications are reviewed that include IV Zosyn. PHYSICAL EXAMINATION: On examination, afebrile, pulse 84, respiration 20, blood pressure 127/79, pulse ox 92% on 4 L. GENERAL APPEARANCE: Sitting up, tired. EYES: Pupils equal. Conjunctivae normal. NECK: JVD not raised. Mass not palpable. RESPIRATORY: Effort increased. LUNGS: Decreased breath sounds. Some right basal crackles. CARDIOVASCULAR: First and second sounds normal. No edema. ABDOMEN: Soft, nontender. Liver and spleen not palpable. PSYCHIATRY: Alert and oriented x3. Mood and affect normal. INVESTIGATIONS: White count 15.3, hemoglobin 10.6. Potassium 4.3. BUN and creatinine is normal. ASSESSMENT: 1. Severe right-sided pneumonia with parapneumonic effusion and multiple cavitation on the CT scan. 2. Malignancy absolutely cannot be ruled out but appears to be unlikely though in the pleural fluid can be low. 3. Obesity, body mass index 34.1. 4. Sepsis on presentation from above. 5. Essential hypertension. 6. Hyperlipidemia. PLAN: Overall, patient is slow to respond was trending right way. Discussed with Dr. Whitman from Cardiothoracic. Chest tube versus pigtail will be done but the patient will be going for a bronchoscopy later today. I did ask him to talk to Dr. Flores. Also being followed by Infectious Disease. Will follow. MMODL / IJN: [id number] /
[2018-07-31 08:02] LABS: Basophils # (A) 0.1 k/uL (0-0.2); Basophils % (A) 0 %; Eosinophils # (A) 0.5 k/uL (0-0.7); Eosinophils % (A) 4 %; HCT 34.7 % (39.0-53.0); HGB 10.8 gm/dL (13.0-17.5); Hypochromasia Slight; Lymphocytes # (A) 0.9 k/uL (1.0-4.8); Lymphocytes % (A) 6 %; MCH 29.2 pg (25.0-35.0); MCHC 31.2 g/dL (31.0-37.0); MCV 93.8 fL (80.0-100.0); Mean Platelet Volume 7.3; Monocytes # (A) 0.6 k/uL (0-1.0); Monocytes % (A) 5 %; Neutrophils # (A) 11.4 k/uL (1.3-7.7); Neutrophils % (A) 83 %; Platelet Count 520 k/uL (150-450); RDW 14.5 % (11.5-15.5); WBC 13.7 k/uL (3.8-10.6)
[2018-07-31 08:04] LABS: African American GFR (CKD) >90 (>60 ml/min/1.73 sqM); Anion Gap 8 mmol/L; Blood Urea Nitrogen 18 mg/dL (9-20); Calcium 8.4 mg/dL (8.4-10.2); Carbon Dioxide 29 mmol/L (22-30); Chloride 100 mmol/L (98-107); Glucose 131 mg/dL (74-99); Sodium 137 mmol/L (137-145)
[2018-07-31] MEDS: METOPROLOL SUCCINATE (ER) 100 MG TAB.ER.24H PO SCH ×2 (08:30→20:17)
[2018-07-31] MEDS: FAMOTIDINE 20 MG TAB PO SCH ×2 (08:30→20:17)
[2018-07-31] MEDS: ENOXAPARIN 40 MG/0.4 ML SYRINGE SQ SCH (08:30)
[2018-07-31] MEDS ORDERED: ALTEPLASE 10 MG in SODIUM CHLORIDE 0.9% 100 ML IRRIGATION ONE (08:30)
[2018-07-31] MEDS: ASPIRIN 81 MG PO SCH (08:30)
[2018-07-31] MEDS: PIPERACILLIN-TAZOBACTAM 3.375 GM in SODIUM CHLORIDE 0.9% 100 ML IVPB SCH ×3 (08:31→23:17)
[2018-07-31] MEDS: traMADol 50 MG TAB PO PRN (08:37)
--- NOTE | 2018-07-31 08:39 | P.PN ---
Subjective Progress Note Date: 07/31/18 Principal diagnosis: Right lower lobe pleural-based mass, cavitary pneumonia; right-sided pleural effusion, parapneumonic versus pneumonia versus malignancy, status post thoracentesis with 350 mL dark fluid removed, cytology consistent with empyema. Previous medical history of hypertension, hypercholesterolemia, De Leon's esophagitis, previous tobacco dependence with [id number] history, social EtOH use, family history of premature coronary artery disease and colon cancer. POD #1 bronchoscopy with bronchoalveolar lavage by pulmonology POD #1 placement of right sided pigtail catheter by interventional radiology The patient is currently sitting up in the chair in no acute distress. Does continue to complain of coughing and congestion, although his coughing with deep inspiration has lessened and tube was able to sleep lying down in bed last night. Hemodynamically stable.pigtail catheter place yesterday and place was instilled with minimal output. Decision was made to hold off on thoracotomy with decortication until results of bronchoscopy are available, this was discussed in detail with the patient, primary care, and pulmonology and all are in agreement. Objective - Vital Signs Vital signs: Vital Signs Temp 99.0 F 07/31/18 07:30 Pulse 78 07/31/18 08:05 Resp 14 07/31/18 07:30 BP 138/55 07/31/18 07:30 Pulse Ox 94 L 07/31/18 07:54 Intake & Output 07/30/18 07/31/18 07/31/18 18:59 06:59 18:59 Intake Total 400 1160 Output Total 5 Balance 400 1155 Intake: IV 400 Intake, IV Titration 200 Amount Piperacillin-Tazobactam 3 100 .375 gm In Sodium Chloride 0.9% 100 ml @ 25 mls/hr IVPB Q8HR DANIELLA Rx# :[id number] Sodium Chloride 0.9% 1, 100 000 ml @ 10 mls/hr IV . Q24H DANIELLA Rx#:[id number] Oral 960 Output: Chest Tube Drainage 5 right posterior chest 5 Other: Voiding Method Urinal # Voids 2 1 - Constitutional General appearance: Present: cooperative, no acute distress, obese - Respiratory Details: Lungs sounds diminished on the right. Respirations even, nonlabored. Currently on 2 L nasal cannula with oxygen saturation 95%. Able to achieve 1500 mL on his incentive spirometry. Strong, productive cough.right-sided pigtail catheter in place connected to atrium to continuous wall suction, 10 mL fluid drainage since instillation of alteplase yesterday evening. - Cardiovascular Details: S1, S2 present. Regular rate and rhythm. Palpable peripheral pulses bilaterally. No edema present. No calf pain or tenderness noted. - Gastrointestinal Gastrointestinal Comment(s): Abdomen soft, nontender, nondistended. Active bowel sounds 4 quadrants. Tolerating diet. - Genitourinary Genitourinary Comment(s): Continues to void - Integumentary Integumentary Comment(s): Skin is warm and dry with evidence of good perfusion. - Neurologic Neurologic: Present: CNII-XII intact - Musculoskeletal Musculoskeletal: Present: gait normal, strength equal bilaterally - Psychiatric Psychiatric: Present: A&O x's 3, appropriate affect, intact judgment & insight - Allied health notes Allied health notes reviewed: nursing - Labs CBC & Chem 7: 07/31/18 07:26 07/31/18 07:23 Labs: Abnormal Lab Results - Last 24 Hours (Table) 07/30/18 07/30/18 07/31/18 Range/Units 08:32 08:32 07:23 WBC 15.3 H (3.8-10.6) k/uL RBC 3.56 L (4.30-5.90) m/uL Hgb 10.6 L (13.0-17.5) gm/dL Hct 33.0 L (39.0-53.0) % Plt Count 466 H (150-450) k/uL Neutrophils # 12.3 H (1.3-7.7) k/uL Lymphocytes # (1.0-4.8) k/uL Glucose 103 H 131 H (74-99) mg/dL 07/31/18 Range/Units 07:26 WBC 13.7 H (3.8-10.6) k/uL RBC 3.70 L (4.30-5.90) m/uL Hgb 10.8 L (13.0-17.5) gm/dL Hct 34.7 L (39.0-53.0) % Plt Count 520 H (150-450) k/uL Neutrophils # 11.4 H (1.3-7.7) k/uL Lymphocytes # 0.9 L (1.0-4.8) k/uL Glucose (74-99) mg/dL Microbiology - Last 24 Hours (Table) 07/30/18 14:35 Gram Stain - Preliminary Pleural Fluid Body Fluid Culture - Preliminary 07/30/18 12:38 Gram Stain - Preliminary Bronchial Washings - Right Bronchial Washings Culture - Preliminary 07/30/18 14:35 Acid Fast Bacilli Culture - Preliminary Pleural Fluid 07/30/18 12:38 Fungal Culture - Preliminary Bronchial Washings - Right 07/30/18 12:38 Acid Fast Bacilli Culture - Preliminary Bronchial Washings - Right 07/30/18 14:35 Anaerobic Culture - Preliminary Pleural Fluid 07/30/18 14:35 Fungal Culture - Preliminary Pleural Fluid 07/24/18 14:20 Blood Culture - Final Blood No Growth after 144 hours Assessment and Plan Assessment: 1. Right lower lobe pleural-based mass, cavitary pneumonia, status post bronchoscopy, status post pigtail catheter placement 2. Right-sided pleural effusion, parapneumonic versus pneumonia versus malignancy, status post thoracentesis with 350 mL dark fluid removed, cytology demonstrates consistent with empyema 3. History of hypertension, treated 4. History of hypercholesterolemia, treated 5. 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 Previous tobacco dependence with [id number] history 7. Social EtOH use 8. Family history of premature coronary artery disease 9. Family history of colon cancer Plan: 1. Continue IV antibiotics per infectious disease recommendations. 2. Will instill another dose of alteplase today to try to thin out pleural fluid for evacuation 3. Will hold on thoracotomy with decortication for now. If patient does not continue to improve and/or if pleural fluid is unable to be evacuated by pigtail catheter patient will need thoracotomy with decortication in the near future. 4. Wean O2 as tolerated. Encourage incentive spirometry is 10 times every hour while awake. 5. Increase activity as tolerated, ambulate in hallway. 6. GI/DVT prophylaxis 7. Toradol, tramadol added to her pain medication regimen. 8. Medical management of other comorbid conditions per primary care service. 9. More recommendations to follow. Time with Patient: Greater than 30
[2018-07-31] MEDS ORDERED: IPRATROPIUM-ALBUTEROL 3 ML NEB INHALATION PRN (11:31)
--- NOTE | 2018-07-31 15:42 | P.PN ---
Subjective Progress Note Date: 07/31/18 Principal diagnosis: Right-sided lung mass pleural base, right-sided pneumonia, right parapneumonic effusion, sepsis, chest pain, cough, morbid obesity, hypertension hypertensive c ardiovascular disease, dyslipidemia, 07/31/2018, patient seen and evaluated examined during rounds care plan discussed with the cardiothoracic surgery patient is status post pigtail catheter placement pain cough congestion is still there but is slightly improved though after bronchoscopy remains on broad-spectrum antibiotics culture results and report are reviewed cytology results are reviewed him a white cell count continue to come down is now 13.7 electrolytes are okay 07/30/2018, patient seen and evaluated examined right cell count is down to 15,000 he is feeling slightly better with still have cough congestion shortness of breath and chest pain care plan discussed with cardiothoracic surgery as well as a patient is being planned for bronchoscopy later on today, patient is being considered for thoracotomy versus pigtail catheter continue IV Zosyn 07/29/2018, patient seen eval reexamined during the rounds is still have significant amount of sputum production complain of chronic chest pain with cough cytology is back as negative on pleural fluid culture so far negative care plan discussed with infectious disease and thoracic surgery patient is contemplated for pigtail catheter versus thoracotomy by thoracic surgery in the meantime we'll do a bronchoscopy to obtain samples and also to rule out any endobronchial mass or lesion procedure explained to the patient 07/28/2018, patient seen and evaluated examined during rounds clinically he is doing essentially the same is still complaining of pain on the right side with severe coughing and breathing he does have sputum which is brownish yellowish in color, computed tomography scan of the chest reviewed there is appearance of abscess versus necrotizing pneumonia in the right lower lobe with dense thickening small fluid is present findings are reviewed with the patient, pleural fluid cytology is still pending 07/26/2018, patient seen and evaluated examined during the rounds he is complaining of insomnia and chest pain pain is improved with Motrin or Tylenol he is asking for a sleeping aid respiratory status slightly better today he has gone thoracentesis of the right side in about 400-450 mL of pleural fluid remove d the pleural fluid appears to be exudative with Gram stain negative cultures are pending cytology is pending Objective - Vital Signs Vital signs: Vital Signs Temp 99.0 F 07/31/18 07:30 Pulse 72 07/31/18 15:31 Resp 14 07/31/18 07:30 BP 138/55 07/31/18 07:30 Pulse Ox 94 L 07/31/18 07:54 Intake & Output 07/30/18 07/31/18 07/31/18 18:59 06:59 18:59 Intake Total 400 1160 720 Output Total 5 Balance 400 1155 720 Intake: IV 400 Intake, IV Titration 200 80 Amount Piperacillin-Tazobactam 3 100 0 .375 gm In Sodium Chloride 0.9% 100 ml @ 25 mls/hr IVPB Q8HR DANIELLA Rx# :[id number] Sodium Chloride 0.9% 1, 100 80 000 ml @ 10 mls/hr IV . Q24H DANIELLA Rx#:[id number] Oral 960 640 Output: Chest Tube Drainage 5 right posterior chest 5 Other: Voiding Method Urinal Urinal # Voids 2 1 2 - Exam Constitutional General appearance: cooperative, disheveled, no acute distress, obese - EENT Eyes: anicteric sclerae, EOMI, PERRLA, normal appearance Ears: bilateral: normal - Neck Carotids: bilateral: upstroke normal Thyroid: bilateral: normal size - Respiratory Respiratory: right: diminished, dullness, negative: CTA, rales, rhonchi, wheezing, prolonged expiration - Cardiovascular Rhythm: regular Heart sounds: normal: S1, S2 - Gastrointestinal General gastrointestinal: normal bowel sounds - Integumentary Integumentary: normal, normal turgor - Neurologic Neurologic: CNII-XII intact - Musculoskeletal Musculoskeletal: gait normal, generalized weakness, strength equal bilaterally - Psychiatric Psychiatric: A&O x's 3, appropriate affect, intact judgment & insight - Labs CBC & Chem 7: 07/31/18 07:26 07/31/18 07:23 Labs: Abnormal Lab Results - Last 24 Hours (Table) 07/31/18 07/31/18 Range/Units 07:23 07:26 WBC 13.7 H (3.8-10.6) k/uL RBC 3.70 L (4.30-5.90) m/uL Hgb 10.8 L (13.0-17.5) gm/dL Hct 34.7 L (39.0-53.0) % Plt Count 520 H (150-450) k/uL Neutrophils # 11.4 H (1.3-7.7) k/uL Lymphocytes # 0.9 L (1.0-4.8) k/uL Glucose 131 H (74-99) mg/dL Microbiology - Last 24 Hours (Table) 07/29/18 08:45 Gram Stain - Final Sputum Sputum Culture - Final 07/30/18 14:35 Gram Stain - Preliminary Pleural Fluid Body Fluid Culture - Preliminary 07/30/18 12:38 Gram Stain - Preliminary Bronchial Washings - Right Bronchial Washings Culture - Preliminary 07/30/18 14:35 Acid Fast Bacilli Culture - Preliminary Pleural Fluid 07/30/18 12:38 Fungal Culture - Preliminary Bronchial Washings - Right 07/30/18 12:38 Acid Fast Bacilli Culture - Preliminary Bronchial Washings - Right 07/30/18 14:35 Anaerobic Culture - Preliminary Pleural Fluid 07/30/18 14:35 Fungal Culture - Preliminary Pleural Fluid 07/24/18 14:20 Blood Culture - Final Blood No Growth after 144 hours Assessment and Plan Assessment: Right lower lobe lung mass pleural-based likely pneumonia but however malignanc y cannot be excluded likely abscess with parapneumonic effusion Right sided pneumonia cavitary Exudative pleural effusion Improving leukocytosis Right-sided pleural effusion likely parapneumonic effusion versus pneumonia and effusion less likely related to malignancy Obesity Hypertension hypertensive cardiovascular disease Dyslipidemia Plan: Agree with broad-spectrum antibiotics with IV Zosyn Care plan discussed with thoracic surgery status post pigtail catheter placement Bronchoscopy findings reviewed Gram stain and cultur for BAL so far unremarkable Status post right thoracentesis , bronchoscopy and BAL, right-sided pigtail catheter with results of final culture and cytology reviewed Reviewed repeat CT of the chest without contrast Continue antibiotics Time with Patient: Greater than 30
[2018-07-31] MEDS: ATORVASTATIN 10 MG TAB PO SCH (20:17)
[2018-07-31] MEDS: ZOLPIDEM 5 MG TAB PO SCH (20:17)
--- NOTE | 2018-07-31 20:27 | PN ---
PROGRESS NOTE DATE OF SERVICE: 07/31/2018. REASON FOR FOLLOWUP: Pneumonia and possible empyema. INTERVAL HISTORY: The patient is currently afebrile. Patient is breathing comfortably. The patient denies having any chest pain. Cough has decreased in intensity. No nausea, no vomiting. No abdominal pain or any diarrhea. PHYSICAL EXAMINATION: Blood pressure 145/78 with a pulse of 68, temperature 98.3. He is 95% on 2 L nasal cannula. General description is a middle-aged male up in the chair in no distress. Respiratory system: Unlabored breathing, decreased breath sounds at the bases. No wheeze. Heart S1, S2. Regular rate and rhythm. Abdomen: Soft, no tenderness. LABS: Hemoglobin is 10.1, white count 13.7, BUN of 18, creatinine 0.87. Pleural fluid and bone cultures currently pending. DIAGNOSTIC IMPRESSION AND PLAN: Patient with right-sided pneumonia and pleural effusion status post bronchoscopy and pigtail catheter placement for thoracotomy tomorrow. Currently covered with Zosyn to continue at this point while waiting for the condition to stabilize and culture to finalize. Continue supportive care. MMODL / IJN: [id number] /
[2018-08-01] MEDS: SODIUM CHLORIDE 0.9% 1,000 ML IV SCH ×2 (04:16→23:35)
--- NOTE | 2018-08-01 05:49 | PN ---
PROGRESS NOTE DATE OF SERVICE: 07/31/2018 PRESENTING COMPLAINT: Cough, short of breath. INTERVAL HISTORY: Patient presented with severe right-sided pneumonia with parapneumonic effusion status post thoracentesis. The patient also has a pigtail catheter now placed. Patient also status post bronchoscopy. Cardiothoracic surgery is planning for a thoracotomy tomorrow. Still coughing up sputum. Tolerating some diet. is present. REVIEW OF SYSTEMS: Done for constitutional, cardiovascular, GI, pulmonary; relevant findings as above. CURRENT MEDICATIONS: Current medications are reviewed that include IV Zosyn. PHYSICAL EXAMINATION: On examination, temperature 98.3, pulse 68, respiration 15, blood pressure 140/78, pulse ox 95% on 2 L. GENERAL APPEARANCE: Sitting up, tired. EYES: Pupils equal. Conjunctiva normal. NECK: JVD not raised. Mass not palpable. RESPIRATORY: Effort increased. LUNGS: Decreased breath sounds. CARDIOVASCULAR: First and second sounds normal. No edema. ABDOMEN: Soft, nontender. Liver and spleen not palpable. PSYCHIATRY: Alert and oriented x3. Mood and affect normal. INVESTIGATIONS: White count 13.7, hemoglobin 10.8, platelets 520. Potassium 4.0. ASSESSMENT: 1. Severe right-sided pneumonia with parapneumonic effusion and multiple cavitation on the CT scan. 2. Right-sided pigtail catheter was placed. 3. Status post bronchoscopy. 4. Obesity; body mass index 34.1. 5. Sepsis on presentation from above. 6. Essential hypertension. 7. Hyperlipidemia. PLAN: patient's had several questions and did explain to her that it is very reasonable her to be upset that the patient is not getting well rapidly, but given that patient has severe pneumonia it is going to take some time and sometimes the plan of care is not entirely black and white in medicines and the different physicians on the case are talking with each other to see what may be the best course. In the meantime, current antibiotic is to continue. Cardiothoracic was planning for a thoracotomy tomorrow. Total time spent today was about 40 minutes with over 25 minutes of discussion. MMDINOL / LILLIEN: [id number] /
[2018-08-01] MEDS: KETOROLAC 30 MG/ML 1 ML VIAL IVP SCH ×2 (06:00→17:11)
[2018-08-01 08:10] LABS: HCT 35.1 % (39.0-53.0); HGB 10.8 gm/dL (13.0-17.5); Hypochromasia Slight; MCH 28.9 pg (25.0-35.0); MCHC 30.7 g/dL (31.0-37.0); MCV 94.1 fL (80.0-100.0); Mean Platelet Volume 7.3; Platelet Count 574 k/uL (150-450); RBC 3.73 m/uL (4.30-5.90); RDW 14.7 % (11.5-15.5); WBC 12.8 k/uL (3.8-10.6)
--- NOTE | 2018-08-01 08:21 | XR ---
EXAMINATION TYPE: XR chest 1V portable DATE OF EXAM: 08/01/2018 COMPARISON: 07/30/2018 HISTORY: Abnormal x-ray TECHNIQUE: Single frontal view of the chest is obtained. FINDINGS: There is redemonstration of a thick-walled cavitary lesion as discussed on the CT dated 07/27/2018 measuring up to 3.7 x 6.5 cm. The other cavitary lesions in the right lower lobe are ill-defin ed. A right thoracostomy tube has been placed in the interim as not well seen, partially seen central ly overlying the lung. There is underpenetration and difficulty in evaluation from patient body habit us. Mild pulmonary vascular congestion is seen. Cardia mediastinal silhouette is partially obscured b ut appears mildly enlarged as is the upper mediastinum. Subsegmental changes at the left lung base no leigh ann. IMPRESSION: Stable cavitary lesion involving the right hemithorax unchanged from the prior exam. Liu ateral areas of consolidation also noted.
[2018-08-01 08:30] LABS: African American GFR (CKD) >90 (>60 ml/min/1.73 sqM); Anion Gap 10 mmol/L; Blood Urea Nitrogen 17 mg/dL (9-20); Calcium 8.5 mg/dL (8.4-10.2); Carbon Dioxide 28 mmol/L (22-30); Chloride 101 mmol/L (98-107); Glucose 95 mg/dL (74-99); Potassium 4.3 mmol/L (3.5-5.1); Sodium 139 mmol/L (137-145)
--- NOTE | 2018-08-01 08:35 | P.PN ---
Subjective Progress Note Date: 08/01/18 Principal diagnosis: Right-sided lung mass pleural base, right-sided pneumonia, right parapneumonic effusion, sepsis, chest pain, cough, morbid obesity, hypertension hypertensive c ardiovascular disease, dyslipidemia, 08/01/2018, patient seen eval reexamined during the rounds he is still have significant amount of cough with purulent secretions and drainage, patient is nothing by mouth for the thoracotomy, the pigtail catheter was clogged then was opened up by thrombolytics but not draining any amount, x-ray from today reviewed not much change is still showing thick walled cavitary lesion and right lower lobe consolidation and pleural effusion, labs reviewed white cell count is down to 12,800 chemistry normal 07/31/2018, patient seen and evaluated examined during rounds care plan discussed with the cardiothoracic surgery patient is status post pigtail catheter placement pain cough congestion is still there but is slightly improved though after bronchoscopy remains on broad-spectrum antibiotics culture results and report are reviewed cytology results are reviewed him a white cell count continue to come down is now 13.7 electrolytes are okay 07/30/2018, patient seen and evaluated examined right cell count is down to 15,000 he is feeling slightly better with still have cough congestion shortness of breath and chest pain care plan discussed with cardiothoracic surgery as well as a patient is being planned for bronchoscopy later on today, patient is being considered for thoracotomy versus pigtail catheter continue IV Zosyn 07/29/2018, patient seen eval reexamined during the rounds is still have significant amount of sputum production complain of chronic chest pain with cough cytology is back as negative on pleural fluid culture so far negative care plan discussed with infectious disease and thoracic surgery patient is contemplated for pigtail catheter versus thoracotomy by thoracic surgery in the meantime we'll do a bronchoscopy to obtain samples and also to rule out any endobronchial mass or lesion procedure explained to the patient 07/28/2018, patient seen and evaluated examined during rounds clinically he is doing essentially the same is still complaining of pain on the right side with severe coughing and breathing he does have sputum which is brownish yellowish in color, computed tomography scan of the chest reviewed there is appearance of abscess versus necrotizing pneumonia in the right lower lobe with dense thickening small fluid is present findings are reviewed with the patient, pleural fluid cytology is still pending 07/26/2018, patient seen and evaluated examined during the rounds he is complaining of insomnia and chest pain pain is improved with Motrin or Tylenol he is asking for a sleeping aid respiratory status slightly better today he has gone thoracentesis of the right side in about 400-450 mL of pleural fluid rem jake the pleural fluid appears to be exudative with Gram stain negative cultures are pending cytology is pending Objective - Vital Signs Vital signs: Vital Signs Temp 98.2 F 08/01/18 08:07 Pulse 83 08/01/18 08:07 Resp 16 08/01/18 08:07 BP 151/83 08/01/18 08:07 Pulse Ox 94 L 08/01/18 08:07 Intake & Output 07/31/18 08/01/18 08/01/18 18:59 06:59 18:59 Intake Total 900 Balance 900 Intake: Intake, IV Titration 80 Amount Piperacillin-Tazobactam 3 0 .375 gm In Sodium Chloride 0.9% 100 ml @ 25 mls/hr IVPB Q8HR DANIELLA Rx# :[id number] Sodium Chloride 0.9% 1, 80 000 ml @ 10 mls/hr IV . Q24H DANIELLA Rx#:[id number] Oral 820 Other: Voiding Method Urinal # Voids 2 2 - Exam Constitutional General appearance: cooperative, disheveled, no acute distress, obese - EENT Eyes: anicteric sclerae, EOMI, PERRLA, normal appearance Ears: bilateral: normal - Neck Carotids: bilateral: upstroke normal Thyroid: bilateral: normal size - Respiratory Respiratory: right: diminished, dullness, negative: CTA, rales, rhonchi, wheezing, prolonged expiration - Cardiovascular Rhythm: regular Heart sounds: normal: S1, S2 - Gastrointestinal General gastrointestinal: normal bowel sounds - Integumentary Integumentary: normal, normal turgor - Neurologic Neurologic: CNII-XII intact - Musculoskeletal Musculoskeletal: gait normal, generalized weakness, strength equal bilaterally - Psychiatric Psychiatric: A&O x's 3, appropriate affect, intact judgment & insight - Labs CBC & Chem 7: 08/01/18 07:35 08/01/18 07:35 Labs: Abnormal Lab Results - Last 24 Hours (Table) 08/01/18 Range/Units 07:35 WBC 12.8 H (3.8-10.6) k/uL RBC 3.73 L (4.30-5.90) m/uL Hgb 10.8 L (13.0-17.5) gm/dL Hct 35.1 L (39.0-53.0) % MCHC 30.7 L (31.0-37.0) g/dL Plt Count 574 H (150-450) k/uL Microbiology - Last 24 Hours (Table) 07/30/18 14:35 Acid Fast Bacilli Smear - Final Pleural Fluid Acid Fast Bacilli Culture - Preliminary 07/30/18 12:38 Acid Fast Bacilli Smear - Final Bronchial Washings - Right Acid Fast Bacilli Culture - Preliminary 07/30/18 14:35 Gram Stain - Preliminary Pleural Fluid Body Fluid Culture - Preliminary 07/29/18 08:45 Gram Stain - Final Sputum Sputum Culture - Final Assessment and Plan Assessment: Right lower lobe lung mass pleural-based likely pneumonia but however malignancy cannot be excluded likely abscess with parapneumonic effusion Right sided pneumonia cavitary Exudative pleural effusion Improving leukocytosis Right-sided pleural effusion likely parapneumonic effusion versus pneumonia and effusion less likely related to malignancy Obesity Hypertension hypertensive cardiovascular disease Dyslipidemia Plan: Agree with broad-spectrum antibiotics with IV Zosyn Care plan discussed with thoracic surgery status post pigtail catheter placement, patient is prepared for right-sided thoracotomy Bronchoscopy findings reviewed Gram stain and cultur for BAL so far unremarkable Status post right thoracentesis , bronchoscopy and BAL, right-sided pigtail catheter with results of final culture and cytology reviewed Reviewed repeat CT of the chest without contrast Continue antibiotics Time with Patient: Greater than 30
[2018-08-01] MEDS: IPRATROPIUM-ALBUTEROL 3 ML NEB INHALATION SCH ×4 (08:38→19:35)
[2018-08-01] MEDS: ASPIRIN 81 MG PO SCH (09:26)
[2018-08-01] MEDS: FAMOTIDINE 20 MG TAB PO SCH ×2 (09:26→21:26)
[2018-08-01] MEDS: METOPROLOL SUCCINATE (ER) 100 MG TAB.ER.24H PO SCH ×2 (09:27→21:26)
[2018-08-01] MEDS: ENOXAPARIN 40 MG/0.4 ML SYRINGE SQ SCH (09:29)
[2018-08-01] MEDS ORDERED: LACTATED RINGERS 1,000 ML IV ONE (11:00)
[2018-08-01] MEDS ORDERED: LIDOCAINE 1% 20 ML VIAL (10MG/ML) FOR IV START INTRADERMA ONE (11:00)
[2018-08-01] MEDS ORDERED: IV FLUID CONTINUATION 800 ML IV ONE (11:00)
[2018-08-01] MEDS ORDERED: fentaNYL (PF) 50 MCG/ML 2 ML AMP IVP ONE (11:15)
[2018-08-01] MEDS ORDERED: MIDAZOLAM (PF) 2 MG/2 ML VIAL IV ONE ×2 (11:15→11:50)
[2018-08-01] MEDS ORDERED: LIDOCAINE 1% INJ 10MG/ML (20 ML MDV) ONE (11:30)
[2018-08-01] MEDS ORDERED: fentaNYL (PF) 50 MCG/ML 2 ML AMP ONE (11:30)
[2018-08-01] MEDS ORDERED: VECURONIUM 10 MG VIAL IV ONE (11:30)
[2018-08-01] MEDS ORDERED: PROPOFOL 10 MG/ML 20 ML VIAL IV ONE (11:30)
[2018-08-01] MEDS ORDERED: SODIUM CHLORIDE 0.9% 50 ML with ceFAZolin 2,000 MG IV ONE ×2 (12:14)
[2018-08-01] MEDS ORDERED: NALOXONE 0.4 MG/ML 1 ML VIAL IV PRN (14:02)
[2018-08-01] MEDS ORDERED: ROPIVACAINE EPIDURAL PRN (14:02)
[2018-08-01] MEDS ORDERED: FENTANYL EPIDURAL PRN (14:02)
[2018-08-01] MEDS ORDERED: ONDANSETRON 4 MG/2 ML VIAL IVP PRN ×2 (14:02→17:13)
[2018-08-01] MEDS ORDERED: SODIUM CHLORIDE 0.9% EPIDURAL PRN (14:02)
[2018-08-01] MEDS ORDERED: NALBUPHINE 10 MG/ML (1 ML AMP) IV PRN (14:02)
[2018-08-01] MEDS ORDERED: diphenhydrAMINE 50 MG/ML 1 ML VIAL IVP PRN (14:02)
--- NOTE | 2018-08-01 16:43 | XR ---
EXAMINATION TYPE: XR chest 1V confirm line [facility] DATE OF EXAM: 08/01/2018 COMPARISON: 08/01/2018 HISTORY: Check tube placement TECHNIQUE: Single frontal view of the chest is obtained. FINDINGS: There is a right chest tube with the tip at the right lung apex. Exam is limited due to un derexposure. There is extensive consolidation in pleural fluid on the right side. There is no pneumot horax. There is soft tissue air on the right lateral chest wall. IMPRESSION: There is a new right chest tube in good position. No pneumothorax. Extensive pleural flu id and infiltrate right lung slightly worse than exam earlier today. There is probably increased atel ectasis left lung base compared to last exam.
[2018-08-01 17:00] LABS: HCT 32.9 % (39.0-53.0); HGB 10.4 gm/dL (13.0-17.5); MCH 29.2 pg (25.0-35.0); MCHC 31.5 g/dL (31.0-37.0); MCV 92.6 fL (80.0-100.0); Mean Platelet Volume 7.2; Platelet Count 555 k/uL (150-450); RBC 3.55 m/uL (4.30-5.90); RDW 14.6 % (11.5-15.5); WBC 21.6 k/uL (3.8-10.6)
[2018-08-01] MEDS ORDERED: ceFAZolin 3 GM in SODIUM CHLORIDE 0.9% 100 ML IVPB SCH (17:00)
[2018-08-01] MEDS ORDERED: BISACODYL 10 MG SUPP RECTAL PRN (17:13)
[2018-08-01 18:29] LABS: Glucose,Whole Blood 97 mg/dL (75-99)
[2018-08-01] MEDS: DEXTROSE 5%-0.45% NACL 1,000 ML IV SCH (19:15)
[2018-08-01] MEDS: ceFAZolin 3 GM in SODIUM CHLORIDE 0.9% 100 ML IVPB SCH (20:45)
--- NOTE | 2018-08-01 21:24 | PN ---
PROGRESS NOTE DATE OF SERVICE: August 01, 2018. PRESENTING COMPLAINT: Cough, short of breath. INTERVAL HISTORY: The patient presented with severe right-sided pneumonia and parapneumonic effusion, status post thoracentesis. Also had a pigtail catheter placed. Today the patient was taken to the OR and had a decortication done. I do not have the full operative note. The patient has got [address] Air leak is present. The patient is tired but able to answer simple questions. The patient also status post bronchoscopy. REVIEW OF SYSTEMS: Done for constitutional, cardiovascular, GI, pulmonary; relevant findings as above. CURRENT MEDICATIONS: Reviewed and include IV Ancef. PHYSICAL EXAMINATION: VITAL SIGNS: Temperature 97.1, pulse 67, respirations 22, blood pressure 109/60, pulse ox 94 percent on 8 L. repeat is 92% on 3 L. GENERAL APPEARANCE: Lying in bed, tired, but arousable. EYES: Pupils are equal. Conjunctivae normal. NECK: JVD not raised. Mass not palpable. RESPIRATORY: Effort increased. LUNGS: Decreased breath sounds. CARDIOVASCULAR: 1st and 2nd sounds normal. No edema. ABDOMEN: Soft, nontender. Liver and spleen not palpable. PSYCHIATRY: Tired, but answering questions. CHEST WALL: Right-sided 2 chest tubes are present. INVESTIGATIONS: White count 21.6, hemoglobin 10.4. Cultures are all pending from pleural fluid. ASSESSMENT: 1. Severe acid pneumonia with parapneumonic effusion with multiple cavities on CT scan, status post decortication. 2. Right-sided two chest tubes are present with an air leak. 3. Status post bronchoscopy. 4. Obesity; BMI 34.1. 5. Sepsis on presentation from pneumonia. 6. Essential hypertension. 7. Hyperlipidemia. PLAN: Spoke to the . The surgeon had spoken to her. I spoke to the patient. Continue current medication and treatment plan. Antibiotics to be coordinated by ID. MMODL / IJN: [id number] /
[2018-08-01] MEDS: ZOLPIDEM 5 MG TAB PO SCH (21:26)
[2018-08-01] MEDS: ATORVASTATIN 10 MG TAB PO SCH (21:26)
--- NOTE | 2018-08-01 21:56 | OP ---
OPERATIVE REPORT DATE OF SURGERY: 08/01/2018. PREOPERATIVE DIAGNOSIS: Right-sided empyema. POSTOPERATIVE DIAGNOSIS: Right-sided empyema. PROCEDURE PERFORMED: Right thoracotomy with decortication. SURGEON: J Carlos Handy MD. ANESTHESIA: General. SPECIMEN: 1. Pleural fluid. 2. Pleural peel. COMPLICATIONS: None. EBL: 50 mL. INDICATION: The patient is a 63-year-old male with a past medical history significant for hyperlipidemia, hypertension, and tobacco use who reports cough and congestion for over 2 months now. At one point, he was diagnosed with bronchitis and was treated with antibiotics without relief. He presents to the hospital now, where workup reveals a loculated right-sided pleural effusion with evidence of pneumonia. Thoracentesis was performed with cultures negative thus far. He also underwent bronchoscopy with culture and biopsy as well. Thoracotomy with decortication was recommended. The risks, benefits, and alternatives to this procedure were discussed with the patient. All his questions were answered. Consent was obtained. FINDINGS: There were copious, thick secretions noted from the patient's airway. Creamy fluid was noted in the pleural space. The lung was densely adhesed to the surrounding chest wall. There was significant pleural peel surrounding the right lower lobe. PROCEDURE IN DETAIL: The patient was taken to the operating room and placed supine on the operating table. After the induction of general anesthesia, a double-lumen endotracheal tube was placed with difficulty by the anesthesia service. Its position was confirmed using a bronchoscope. Of note, there were thick, dense secretions noted in the airway which made visualization somewhat difficult. The patient was then placed in the left lateral decubitus position with the right side up. The right chest and flank were then prepped and draped in the usual sterile fashion. With the right lung deflated, a standard posterior lateral thoracotomy was performed. The latissimus muscle was divided. The serratus anterior muscle was spared. The right pleural space was entered without difficulty through the 7th intercostal space. Upon initial inspection, there was creamy fluid noted within the chest cavity. A portion of this fluid was sent to microbiology. Of note, the patient already had negative cytology results before the time of the surgery. Additionally, the right upper lobe, right middle lobe, and right lower lobe were all densely adhesed to the chest wall. The right lower lobe had cavitary lesions over the surface of the parenchyma, likely secondary to long- standing pneumonia. Using blunt dissection, the 3 lobes were all completely freed up. Peel and fibrinous exudate was noted in the pleural space and this was sent to pathology. A dense peel was noted over the right lower lobe. Using both scalpel and peanut dissector, the peel was carefully removed from the right lower lobe. The right lower lobe was freed from the underlying diaphragm. The fissure was as well. At the completion of this portion of the procedure, the right lower lobe appeared to expand nicely.The right pleural space was then copiously irrigated with warm saline solution. Hemostasis was assured. A straight 32- Irish chest tube was placed and directed posteriorly toward the apex. The more anterior chest tube was a right angle chest tube, which was directed over the diaphragm. Both of the chest tubes were secured to the skin using sutures. The ribs were then reapproximated using pericostal sutures. The serratus anterior muscle was tacked down to the fatty tissue. The latissimus muscle was reapproximated to itself. The remainder of the wound was closed in layers. Sterile dressing was applied. The patient appeared to tolerate the procedure well. There were no immediate complications. Peel was sent for pathology and fluid was sent for microbiology. The patient was extubated at completion of the case and returned to the ICU in critical but stable condition. MMDINOL / IJN: [id number] / MTDD
--- NOTE | 2018-08-01 23:56 | P.PN ---
Subjective Progress Note Date: 08/01/18 Principal diagnosis: Cavitatory pneumonia and right-sided empyema Patient is a 63-year-old male admitted to the hospital with chronic cough chest pain right-sided fever and elevated white count in this patient who did have evidence of right-sided pleural effusion status post oral consent diseases with a repeat CT suggestive of right-sided cavitating pneumonia and ple ural effusion, patient is currently be treated with Zosyn. The patient is status post bronchoscopy and and lavaged on 07/30/2018, did have a right chest wall pigtail catheter placement on 07/31/2018 , and didn't have right thoracotomy and decortication for empyema right lung on 08/01/2018 On today's evaluation that is 08/01/2018 the patient denies any fever or chills, breathing slightly improved the cough has decreased in intensity no hemoptysis, more right-sided chest pain after thoracotomy, the patient denies nausea no vomiting no abdominal pain and no diarrhea Objective - Vital Signs Vital signs: Vital Signs Temp 97.8 F 08/01/18 21:00 Pulse 84 08/01/18 22:00 Resp 26 H 08/01/18 22:00 BP 143/75 08/01/18 22:00 Pulse Ox 97 08/01/18 19:35 Intake & Output 08/01/18 08/01/18 08/02/18 06:59 18:59 06:59 Intake Total 1015 660 Output Total 410 310 Balance 605 350 Weight 123.9 kg Intake: IV 1015 160 Dextrose 5%-0.45% NaCl 1, 40 160 000 ml @ 40 mls/hr IV . Q24H [facility] Rx#:[id number] Oral 500 Output: Urine 360 310 Estimated Blood Loss 50 Other: Voiding Method Indwelling Catheter Indwelling Catheter # Voids 2 0 - Exam GENERAL DESCRIPTION:[ Patient is awake and alert in no distress] HEENT: [Oral mucosa is dry and no pharyngeal erythema] EYES : [No pallor or scleral icterus] RESPIRATORY SYSTEM: [Unlabored breathing decreased breath sound the bases CARDIA VASCULAR SYSTEM: [S1-S2 regular rate and rhythm no murmur] GI: [Abdominal soft there's no tenderness no organomegaly] EXTREMITIES: [No edema feet] - Labs CBC & Chem 7: 08/01/18 16:44 08/01/18 07:35 Labs: Abnormal Lab Results - Last 24 Hours (Table) 08/01/18 08/01/18 Range/Units 07:35 16:44 WBC 12.8 H 21.6 H (3.8-10.6) k/uL RBC 3.73 L 3.55 L (4.30-5.90) m/uL Hgb 10.8 L 10.4 L (13.0-17.5) gm/dL Hct 35.1 L 32.9 L (39.0-53.0) % MCHC 30.7 L (31.0-37.0) g/dL Plt Count 574 H 555 H (150-450) k/uL Microbiology - Last 24 Hours (Table) 07/30/18 14:35 Anaerobic Culture - Preliminary Pleural Fluid 08/01/18 15:23 Anaerobic Culture - Preliminary Pleural Fluid 08/01/18 15:23 Body Fluid Culture - Preliminary Pleural Fluid 07/30/18 14:35 Gram Stain - Preliminary Pleural Fluid Body Fluid Culture - Preliminary 07/30/18 12:38 Gram Stain - Final Bronchial Washings - Right Bronchial Washings Culture - Final 07/30/18 14:35 Acid Fast Bacilli Smear - Final Pleural Fluid Acid Fast Bacilli Culture - Preliminary 07/30/18 12:38 Acid Fast Bacilli Smear - Final Bronchial Washings - Right Acid Fast Bacilli Culture - Preliminary Assessment and Plan Assessment: 1-patient admitted hospital with increasing shortness of breath or cough in this patient who did have features of sepsis on presentation with a fever and elevated white count source is her right-sided pneumonia with parapneumonic effusion status post thoracocentesis now with repeat CAT scan with evidence of consolidation with cavitary changes with question of possible community-acquired pathogen versus resistant gram-positive or gram-negative pathogen, the patient is status post right thoracotomy decortication today along with deep cultures (1) Sepsis Current Visit: Yes Status: Acute Code(s): A41.9 - SEPSIS, UNSPECIFIED ORGANISM SNOMED Code(s): 24635147 (2) Lung mass Current Visit: Yes Status: Acute Code(s): R91.8 - OTHER NONSPECIFIC ABNORMAL FINDING OF LUNG FIELD SNOMED Code(s): 899749476 Plan: 1--patient will be continued on Zosyn 3.375 g every 8 hours while waiting for the cultures to finalize 2-continue supportive care Time with Patient: Less than 30
[2018-08-02] MEDS: ceFAZolin 3 GM in SODIUM CHLORIDE 0.9% 100 ML IVPB SCH (03:58)
[2018-08-02 05:02] LABS: Basophils # (A) 0.1 k/uL (0-0.2); Basophils % (A) 0 %; Eosinophils # (A) 0.1 k/uL (0-0.7); Eosinophils % (A) 0 %; HCT 33.2 % (39.0-53.0); HGB 10.5 gm/dL (13.0-17.5); Lymphocytes # (A) 1.1 k/uL (1.0-4.8); Lymphocytes % (A) 4 %; MCH 29.1 pg (25.0-35.0); MCHC 31.6 g/dL (31.0-37.0); Mean Platelet Volume 7.5; Monocytes % (A) 3 %; Neutrophils # (A) 26.2 k/uL (1.3-7.7); Neutrophils % (A) 91 %; Platelet Count 621 k/uL (150-450); RBC 3.61 m/uL (4.30-5.90); RDW 14.9 % (11.5-15.5); WBC 28.7 k/uL (3.8-10.6)
[2018-08-02 05:07] LABS: ALT 66 U/L (21-72); AST 54 U/L (17-59); African American GFR (CKD) >90 (>60 ml/min/1.73 sqM); Albumin 2.9 g/dL (3.5-5.0); Alkaline Phosphatase 144 U/L (38-126); Anion Gap 8 mmol/L; Blood Urea Nitrogen 14 mg/dL (9-20); Calcium 8.2 mg/dL (8.4-10.2); Carbon Dioxide 27 mmol/L (22-30); Chloride 99 mmol/L (98-107); Glucose 115 mg/dL (74-99); Magnesium 1.7 mg/dL (1.6-2.3); Phosphorus 2.9 mg/dL (2.5-4.5); Potassium 4.4 mmol/L (3.5-5.1); Sodium 134 mmol/L (137-145); Total Bilirubin 0.6 mg/dL (0.2-1.3); Total Protein 6.3 g/dL (6.3-8.2)
[2018-08-02] MEDS: MAGNESIUM SULFATE-D5W PMX 1 GM in DEXTROSE/WATER 1 100ML.BAG IVPB SCH ×2 (05:58→07:03)
--- NOTE | 2018-08-02 06:21 | XR ---
EXAMINATION TYPE: XR chest 1V portable DATE OF EXAM: 08/02/2018 HISTORY: post thoracotomy. REFERENCE: Previous study dated 08/01/2018. FINDINGS: A right pleural drain remains in place. Its tip is near the apex of the right lung. There i s a small right-sided pneumothorax. There is a small amount of subcutaneous emphysema. There continues to be bibasilar airspace disease. This has improved bilaterally. The heart is mildly enlarged. I suspect a right-sided effusion. IMPRESSION: 1. CONTINUING RIGHT-SIDED PNEUMOTHORAX. THIS IS LESS THAN 10% BY VOLUME. 2. IMPROVED AERATION, BOTH LUNG BASES.
[2018-08-02] MEDS: IPRATROPIUM-ALBUTEROL 3 ML NEB INHALATION SCH ×4 (07:54→19:36)
[2018-08-02] MEDS: FAMOTIDINE 20 MG TAB PO SCH ×2 (08:26→22:20)
[2018-08-02] MEDS: ASPIRIN 81 MG PO SCH (08:26)
[2018-08-02] MEDS: METOPROLOL SUCCINATE (ER) 100 MG TAB.ER.24H PO SCH ×2 (08:26→22:20)
[2018-08-02] MEDS: ENOXAPARIN 40 MG/0.4 ML SYRINGE SQ SCH (08:26)
[2018-08-02] MEDS ORDERED: VANCOMYCIN IV PER PHARMACY 1 EACH MISC MISCELLANE PRN ×2 (08:31→13:38)
[2018-08-02] MEDS ORDERED: PIPERACILLIN-TAZOBACTAM 3.375 GM in SODIUM CHLORIDE 0.9% 100 ML IVPB SCH (08:45)
[2018-08-02] MEDS: SENNOSIDES-DOCUSATE SODIUM 1 EACH TAB PO SCH (08:52)
[2018-08-02] MEDS: VANCOMYCIN 2,000 MG in SODIUM CHLORIDE 0.9% 500 ML 500 ML IVPB SCH ×2 (08:52→22:42)
--- NOTE | 2018-08-02 10:40 | P.PN ---
Subjective Progress Note Date: 08/02/18 Principal diagnosis: Right sided empyema, cavitary pneumonia; right-sided pleural effusion, parapneumonic versus pneumonia versus malignancy, status post thoracentesis with 350 mL dark fluid removed, cytology consistent with empyema. Previous medical history of hypertension, hypercholesterolemia, De Leon's esophagitis, previous tobacco dependence with [id number] history, social EtOH use, family history of premature coronary artery disease and colon cancer. POD #1 right thoracotomy with decortication. POD #3 bronchoscopy with bronchoalveolar lavage by pulmonology. POD #3 placement of right sided pigtail catheter by interventional radiology. The patient is currently sitting up to the bedside chair in the intensive care unit. He is in no acute distress. Denies any complaints of pain or shortness of breath at this time. Rates his pain 0 out of 10 on the pain scale. Epidural remains in place and intact infusing at 6 mL per hour. Denies any numbness to his bilateral lower extremities. Achieving 0643-5739 mL on his incentive spirometry. He remains hemodynamically stable and is currently on no inotropic or pressor support. Oxygen saturation are 92% on 4 L nasal cannula. Right anterior and posterior chest tubes in place to low continuous wall suction -20 cm H2O, no air leak is present. Draining thin serosanguineous drainage. T-max temperature in the last 24 hours is 100.3 degrees Fahrenheit. WBC count this morning is 28.7. Objective - Vital Signs Vital signs: Vital Signs Temp 98.6 F 08/02/18 08:00 Pulse 77 08/02/18 10:00 Resp 20 08/02/18 10:00 BP 117/65 08/02/18 10:00 Pulse Ox 92 L 08/02/18 10:00 Intake & Output 08/01/18 08/02/18 08/02/18 18:59 06:59 18:59 Intake Total 1015 1504 286 Output Total 410 990 220 Balance 605 514 66 Weight 123.9 kg 127.2 kg Intake: IV 1015 504 286 Dextrose 5%-0.45% NaCl 1, 40 480 80 000 ml @ 40 mls/hr IV . Q24H [facility] Rx#:[id number] Magnesium Sulfate-D5w Pmx 200 1 gm In Dextrose/Water 1 100ml.bag @ 100 mls/hr IVPB Q1H [facility] Rx#: [id number] Pressure 24 6 Oral 1000 Output: Chest Tube Drainage 20 80 Right Chest Superior 70 right chest inferior B 20 10 Drainage 110 Right Chest superior A 110 Urine 360 860 140 Estimated Blood Loss 50 Other: Voiding Method Indwelling Catheter Indwelling Catheter Indwelling Catheter # Voids 0 ABP, PAP, CO, CI - Last Documented Arterial Blood Pressure 136/60 - Constitutional General appearance: Present: cooperative, no acute distress, obese - Respiratory Details: Lung sounds essentially clear to his bilateral upper lobes, diminished to his bilateral bases right greater than left. Respirations are symmetrical and nonlabored. Oxygen saturation are 92% on 4 L nasal cannula. Achieving 1250- 5900 mL on his incentive spirometry. Right anterior and posterior chest tubes in place draining thin serosanguineous drainage. No air leak is present. Anterior chest tube drained 70 mL output in the last 8 hours, 551 L output since surgery. Posterior chest tube drained 10 mL output in the last 8 hours, 110 mL output since surgery. - Cardiovascular Details: Regular rhythm and rate. S1 and S2 present, negative for S3, gallop or murmur. Bedside telemetry showing normal sinus rhythm heart rate 79. Trace edema pre sent to his bilateral lower extremities. - Gastrointestinal Gastrointestinal Comment(s): Abdomen is soft, nontender nondistended. Active bowel sounds all 4 abdominal quadrants. No guarding or rigidity. Tolerating oral intake. Passing flatus. - Genitourinary Genitourinary Comment(s): Teran catheter for accurate I&O. Draining clear mary urine. 550 mL output in the last 8 hours. - Integumentary Integumentary Comment(s): Skin is warm and dry. No clubbing or cyanosis is present. Right thoracotomy incision clean, dry and intact. No drainage or redness is present. Right chest tube insertion site clean and dry. Epidural insertion site is clean, dry and intact. No drainage or redness is present. - Neurologic Neurologic: Present: CNII-XII intact - Musculoskeletal Musculoskeletal: Present: gait normal, generalized weakness, strength equal bilaterally - Psychiatric Psychiatric: Present: A&O x's 3, appropriate affect, intact judgment & insight - Allied health notes Allied health notes reviewed: nursing - Labs CBC & Chem 7: 08/02/18 04:45 08/02/18 04:45 Labs: Abnormal Lab Results - Last 24 Hours (Table) 08/01/18 08/02/18 08/02/18 Range/Units 16:44 04:45 04:45 WBC 21.6 H 28.7 H (3.8-10.6) k/uL RBC 3.55 L 3.61 L (4.30-5.90) m/uL Hgb 10.4 L 10.5 L (13.0-17.5) gm/dL Hct 32.9 L 33.2 L (39.0-53.0) % Plt Count 555 H 621 H (150-450) k/uL Neutrophils # 26.2 H (1.3-7.7) k/uL Sodium 134 L (137-145) mmol/L Glucose 115 H (74-99) mg/dL Calcium 8.2 L (8.4-10.2) mg/dL Alkaline Phosphatase 144 H (38-126) U/L Albumin 2.9 L (3.5-5.0) g/dL Microbiology - Last 24 Hours (Table) 08/01/18 15:23 Gram Stain - Preliminary Pleural Fluid Body Fluid Culture - Preliminary 07/30/18 14:35 Anaerobic Culture - Preliminary Pleural Fluid 08/01/18 15:23 Anaerobic Culture - Preliminary Pleural Fluid 07/30/18 14:35 Gram Stain - Preliminary Pleural Fluid Body Fluid Culture - Preliminary 07/30/18 12:38 Gram Stain - Final Bronchial Washings - Right Bronchial Washings Culture - Final - Imaging and Cardiology Chest x-ray: report reviewed, image reviewed Assessment and Plan Assessment: 1. Right sided empyema, status post right thoracotomy with decortication. 2. Right-sided pleural effusion, parapneumonic versus pneumonia versus ma lignancy, status post thoracentesis with 350 mL dark fluid removed, cytology consistent with empyema 3. History of hypertension, treated 4. History of hypercholesterolemia, treated 5. 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 Previous tobacco dependence with [id number] history 7. Social EtOH use 8. Family history of premature coronary artery disease 9. Family history of colon cancer Plan: 1. Continue IV antibiotics per infectious disease recommendations. Vancomycin added with pharmacy to dose. 2. Pleural fluid cultures pending. 3. Continue epidural, anesthesia to manage. 4. Wean O2 as tolerated. Encourage incentive spirometry is 10 times every hour while awake. 5. Increase activity as tolerated, ambulate in hallway as tolerated. Physical and occupational therapy consulted, postoperative weakness. 6. GI/DVT prophylaxis 7. Continue current pain management regimen. 8. Medical management of other comorbid conditions per primary care service. 9. We will transfer the patient to 3 S. cardiac stepdown unit today. 10. Bronchodilators per pulmonary management. 11. Keep right pleural chest tubes to low continuous wall suction today, may disconnect when ambulating. 12. Senokot S added. 13. Discontinue arterial line. 14. Keep Teran catheter in until epidural has been discontinued. 15. More recommendations to follow based on patient's clinical course. Time with Patient: Greater than 30
--- NOTE | 2018-08-02 12:14 | P.PN ---
Subjective Progress Note Date: 08/02/18 Principal diagnosis: Right-sided lung mass pleural base, right-sided pneumonia, right parapneumonic effusion, sepsis, chest pain, cough, morbid obesity, hypertension hypertensive c ardiovascular disease, dyslipidemia, 08/02/2018, patient seen and evaluated examined during the rounds, patient is postop day #1 for thoracotomy on the right side and decortication his pain is well controlled on epidural, he is doing I-S up to 1.5 L, he is on 4 L nasal cannula sitting on the bedside, labs reviewed medications reviewed radiographic studies reviewed as well chest x-ray showed right-sided pneumothorax stable 08/01/2018, patient seen eval reexamined during the rounds he is still have significant amount of cough with purulent secretions and drainage, patient is nothing by mouth for the thoracotomy, the pigtail catheter was clogged then was opened up by thrombolytics but not draining any amount, x-ray from today reviewed not much change is still showing thick walled cavitary lesion and right lower lobe consolidation and pleural effusion, labs reviewed white cell count is down to 12,800 chemistry normal 07/31/2018, patient seen and evaluated examined during rounds care plan discussed with the cardiothoracic surgery patient is status post pigtail catheter placement pain cough congestion is still there but is slightly improved though after bronchoscopy remains on broad-spectrum antibiotics culture results and report are reviewed cytology results are reviewed him a white cell count continue to come down is now 13.7 electrolytes are okay 07/30/2018, patient seen and evaluated examined right cell count is down to 15,000 he is feeling slightly better with still have cough congestion shortness of breath and chest pain care plan discussed with cardiothoracic surgery as well as a patient is being planned for bronchoscopy later on today, patient is being considered for thoracotomy versus pigtail catheter continue IV Zosyn 07/29/2018, patient seen eval reexamined during the rounds is still have significant amount of sputum production complain of chronic chest pain with cough cytology is back as negative on pleural fluid culture so far negative care plan discussed with infectious disease and thoracic surgery patient is contemplated for pigtail catheter versus thoracotomy by thoracic surgery in the meantime we'll do a bronchoscopy to obtain samples and also to rule out any endobronchial mass or lesion procedure explained to the patient 07/28/2018, patient seen and evaluated examined during rounds clinically he is doing essentially the same is still complaining of pain on the right side with severe coughing and breathing he does have sputum which is brownish yellowish in color, computed tomography scan of the chest reviewed there is appearance of abscess versus necrotizing pneumonia in the right lower lobe with dense thickening small fluid is present findings are reviewed with the patient, pleural fluid cytology is still pending 07/26/2018, patient seen and evaluated examined during the rounds he is complaining of insomnia and chest pain pain is improved with Motrin or Tylenol he is asking for a sleeping aid respiratory status slightly better today he has gone thoracentesis of the right side in about 400-450 mL of pleural fluid removed the pleural fluid appears to be exudative with Gram stain negative cultures are pending cytology is pending Objective - Vital Signs Vital signs: Vital Signs Temp 98.6 F 08/02/18 08:00 Pulse 72 08/02/18 11:37 Resp 16 08/02/18 11:37 BP 117/65 08/02/18 10:00 Pulse Ox 92 L 08/02/18 10:00 Intake & Output 08/01/18 08/02/18 08/02/18 18:59 06:59 18:59 Intake Total 1015 1504 286 Output Total 410 990 220 Balance 605 514 66 Weight 123.9 kg 127.2 kg Intake: IV 1015 504 286 Dextrose 5%-0.45% NaCl 1, 40 480 80 000 ml @ 40 mls/hr IV . Q24H [facility] Rx#:[id number] Magnesium Sulfate-D5w Pmx 200 1 gm In Dextrose/Water 1 100ml.bag @ 100 mls/hr IVPB Q1H [facility] Rx#: [id number] Pressure 24 6 Oral 1000 Output: Chest Tube Drainage 20 80 Right Chest Superior 70 right chest inferior B 20 10 Drainage 110 Right Chest superior A 110 Urine 360 860 140 Estimated Blood Loss 50 Other: Voiding Method Indwelling Catheter Indwelling Catheter Indwelling Catheter # Voids 0 ABP, PAP, CO, CI - Last Documented Arterial Blood Pressure 136/60 - Exam Constitutional General appearance: cooperative, disheveled, no acute distress, obese - EENT Eyes: anicteric sclerae, EOMI, PERRLA, normal appearance Ears: bilateral: normal - Neck Carotids: bilateral: upstroke normal Thyroid: bilateral: normal size - Respiratory Respiratory: right: diminished, dullness, negative: CTA, rales, rhonchi, whe ezing, prolonged expiration, anterior and posterior chest tube draining serosanguineous fluid no air leak - Cardiovascular Rhythm: regular Heart sounds: normal: S1, S2 - Gastrointestinal General gastrointestinal: normal bowel sounds - Integumentary Integumentary: normal, normal turgor - Neurologic Neurologic: CNII-XII intact - Musculoskeletal Musculoskeletal: gait normal, generalized weakness, strength equal bilaterally - Psychiatric Psychiatric: A&O x's 3, appropriate affect, intact judgment & insight - Labs CBC & Chem 7: 08/02/18 04:45 08/02/18 04:45 Labs: Abnormal Lab Results - Last 24 Hours (Table) 08/01/18 08/02/18 08/02/18 Range/Units 16:44 04:45 04:45 WBC 21.6 H 28.7 H (3.8-10.6) k/uL RBC 3.55 L 3.61 L (4.30-5.90) m/uL Hgb 10.4 L 10.5 L (13.0-17.5) gm/dL Hct 32.9 L 33.2 L (39.0-53.0) % Plt Count 555 H 621 H (150-450) k/uL Neutrophils # 26.2 H (1.3-7.7) k/uL Sodium 134 L (137-145) mmol/L Glucose 115 H (74-99) mg/dL Calcium 8.2 L (8.4-10.2) mg/dL Alkaline Phosphatase 144 H (38-126) U/L Albumin 2.9 L (3.5-5.0) g/dL Microbiology - Last 24 Hours (Table) 08/01/18 15:23 Gram Stain - Preliminary Pleural Fluid Body Fluid Culture - Preliminary 07/30/18 14:35 Anaerobic Culture - Preliminary Pleural Fluid 08/01/18 15:23 Anaerobic Culture - Preliminary Pleural Fluid 07/30/18 14:35 Gram Stain - Preliminary Pleural Fluid Body Fluid Culture - Preliminary 07/30/18 12:38 Gram Stain - Final Bronchial Washings - Right Bronchial Washings Culture - Final Assessment and Plan Assessment: Right lower lobe lung mass pleural-based likely pneumonia but however malignancy cannot be excluded likely abscess with parapneumonic effusion status post right thoracotomy with decortication postop day #1 Right sided pneumonia cavitary Exudative pleural effusion Improving leukocytosis Right-sided pleural effusion likely parapneumonic effusion versus pneumonia and effusion less likely related to malignancy Obesity Hypertension hypertensive cardiovascular disease Dyslipidemia Plan: Agree with broad-spectrum antibiotics with IV Zosyn Care plan discussed with thoracic surgery status post pigtail catheter placement, patient is prepared for right-sided thoracotomy Bronchoscopy findings reviewed Gram stain and cultur for BAL so far unremarkable Status post right thoracentesis , bronchoscopy and BAL, right-sided pigtail catheter with results of final culture and cytology reviewed Reviewed repeat CT of the chest without contrast Continue antibiotics Time with Patient: Greater than 30
[2018-08-02] MEDS: ACETAMINOPHEN TAB 325 MG TAB PO PRN ×2 (13:04→18:47)
--- NOTE | 2018-08-02 15:08 | P.PN ---
Subjective Progress Note Date: 08/02/18 Principal diagnosis: Cavitatory pneumonia and right-sided empyema Patient is a 63-year-old male admitted to the hospital with chronic cough chest pain right-sided fever and elevated white count in this patient who did have evidence of right-sided pleural effusion status post oral consent diseases with a repeat CT suggestive of right-sided cavitating pneumonia and ple ural effusion, patient is currently be treated with Zosyn. The patient is status post bronchoscopy and and lavaged on 07/30/2018, did have a right chest wall pigtail catheter placement on 07/31/2018 , and did have right thoracotomy and decortication for empyema right lung on 08/01/2018 On today's evaluation that is 08/02/2018 the patient did spike a fever to 101 degrees Fahrenheit at noon, the patient has been breathing more comfortably the patient's chest pain is currently controlled with pain medication, the patient can have a cough and become some sputum or hemoptysis no nausea no vomiting no abdominal pain and no diarrhea Objective - Vital Signs Vital signs: Vital Signs Temp 101.2 F H 08/02/18 12:00 Pulse 78 08/02/18 12:00 Resp 20 08/02/18 12:00 BP 117/70 08/02/18 12:00 Pulse Ox 91 L 08/02/18 12:00 Intake & Output 08/01/18 08/02/18 08/02/18 18:59 06:59 18:59 Intake Total 1015 1504 286 Output Total 410 990 220 Balance 605 514 66 Weight 123.9 kg 127.2 kg Intake: IV 1015 504 286 Dextrose 5%-0.45% NaCl 1, 40 480 80 000 ml @ 40 mls/hr IV . Q24H [facility] Rx#:[id number] Magnesium Sulfate-D5w Pmx 200 1 gm In Dextrose/Water 1 100ml.bag @ 100 mls/hr IVPB Q1H [facility] Rx#: [id number] Pressure 24 6 Oral 1000 Output: Chest Tube Drainage 20 80 Right Chest Superior 70 right chest inferior B 20 10 Drainage 110 Right Chest superior A 110 Urine 360 860 140 Estimated Blood Loss 50 Other: Voiding Method Indwelling Catheter Indwelling Catheter Indwelling Catheter # Voids 0 ABP, PAP, CO, CI - Last Documented Arterial Blood Pressure 136/60 - Exam GENERAL DESCRIPTION:[ Patient is awake and alert in no distress] HEENT: [Oral mucosa is dry and no pharyngeal erythema] EYES : [No pallor or scleral icterus] RESPIRATORY SYSTEM: [Unlabored breathing decreased breath sound the bases, no wheeze CARDIA VASCULAR SYSTEM: [S1-S2 regular rate and rhythm no murmur] GI: [Abdominal soft there's no tenderness no organomegaly] EXTREMITIES: [No edema feet] - Labs CBC & Chem 7: 08/02/18 04:45 08/02/18 04:45 Labs: Abnormal Lab Results - Last 24 Hours (Table) 08/01/18 08/02/18 08/02/18 Range/Units 16:44 04:45 04:45 WBC 21.6 H 28.7 H (3.8-10.6) k/uL RBC 3.55 L 3.61 L (4.30-5.90) m/uL Hgb 10.4 L 10.5 L (13.0-17.5) gm/dL Hct 32.9 L 33.2 L (39.0-53.0) % Plt Count 555 H 621 H (150-450) k/uL Neutrophils # 26.2 H (1.3-7.7) k/uL Sodium 134 L (137-145) mmol/L Glucose 115 H (74-99) mg/dL Calcium 8.2 L (8.4-10.2) mg/dL Alkaline Phosphatase 144 H (38-126) U/L Albumin 2.9 L (3.5-5.0) g/dL Microbiology - Last 24 Hours (Table) 08/01/18 15:23 Gram Stain - Preliminary Pleural Fluid Body Fluid Culture - Preliminary 07/30/18 14:35 Anaerobic Culture - Preliminary Pleural Fluid 08/01/18 15:23 Anaerobic Culture - Preliminary Pleural Fluid 07/30/18 14:35 Gram Stain - Preliminary Pleural Fluid Body Fluid Culture - Preliminary 07/30/18 12:38 Gram Stain - Final Bronchial Washings - Right Bronchial Washings Culture - Final Assessment and Plan Assessment: 1-patient admitted hospital with increasing shortness of breath or cough in this patient who did have features of sepsis on presentation with a fever and elevated white count source is her right-sided pneumonia with parapneumonic effusion status post thoracocentesis now with repeat CAT scan with evidence of consolidation with cavitary changes with question of possible community-acquired pathogen versus resistant gram-positive or gram-negative pathogen, the patient is status post right thoracotomy decortication today along with deep cultures which are currently pending 2-patient with a new fever today (1) Sepsis Current Visit: Yes Status: Acute Code(s): A41.9 - SEPSIS, UNSPECIFIED ORGANISM SNOMED Code(s): 72850110 (2) Lung mass Current Visit: Yes Status: Acute Code(s): R91.8 - OTHER NONSPECIFIC ABNORMAL FINDING OF LUNG FIELD SNOMED Code(s): 372581636 Plan: 1-blood cultures will be repeated 2-OR and endobronchial cultures currently pending and will be followed 3-we will discontinue the Zosyn 4-start the patient on cefepime 2 g every 12 hours and vancomycin pharmacy to dose with target of 15 Adjusting antibiotics further on the basis of clinical response and culture - Time with Patient: Less than 30
[2018-08-02] MEDS: DEXTROSE 5%-0.45% NACL 1,000 ML IV SCH (16:29)
[2018-08-02] MEDS: CEFEPIME 2 GM in SODIUM CHLORIDE 0.9% 100 ML IVPB SCH ×2 (16:29→22:08)
[2018-08-02] MEDS: ATORVASTATIN 10 MG TAB PO SCH (22:20)
[2018-08-02] MEDS: ZOLPIDEM 5 MG TAB PO SCH (22:20)
[2018-08-02] MEDS: SODIUM CHLORIDE 0.9% 1,000 ML IV SCH (22:47)
[2018-08-03] MEDS: ACETAMINOPHEN TAB 325 MG TAB PO PRN (05:27)
[2018-08-03 05:35] LABS: ALT 43 U/L (21-72); AST 56 U/L (17-59); African American GFR (CKD) >90 (>60 ml/min/1.73 sqM); Albumin 2.9 g/dL (3.5-5.0); Alkaline Phosphatase 167 U/L (38-126); Anion Gap 8 mmol/L; Blood Urea Nitrogen 14 mg/dL (9-20); Calcium 8.3 mg/dL (8.4-10.2); Carbon Dioxide 27 mmol/L (22-30); Chloride 98 mmol/L (98-107); Glucose 115 mg/dL (74-99); Magnesium 1.9 mg/dL (1.6-2.3); Sodium 133 mmol/L (137-145); Total Bilirubin 0.7 mg/dL (0.2-1.3); Total Protein 6.4 g/dL (6.3-8.2)
--- NOTE | 2018-08-03 06:33 | XR ---
EXAMINATION TYPE: XR chest 1V portable DATE OF EXAM: 08/03/2018 HISTORY: Postoperative right thoracotomy with decortication. REFERENCE: Previous study dated 08/02/2018. FINDINGS: Right-sided pneumothorax persists, unchanged in appearance. Subcutaneous emphysema on the r ight has perhaps improved slightly. The heart is enlarged. There is irregular opacification of the right lung. Overall aeration of the ri ght lung may have improved slightly. No definite pleural fluid is seen. IMPRESSION: 1. PERSISTENT RIGHT-SIDED PNEUMOTHORAX WHICH IS MINIMAL AT APPROXIMATELY 10% BY VOLUME. 2. CONTINUING RIGHT-SIDED AIRSPACE DISEASE. 3. CARDIOMEGALY. 4. IMPROVED AERATION LEFT LUNG.
[2018-08-03] MEDS: IPRATROPIUM-ALBUTEROL 3 ML NEB INHALATION SCH ×4 (08:47→19:50)
[2018-08-03 09:40] LABS: Basophils # (A) 0.2 k/uL (0-0.2); Basophils % (A) 1 %; Eosinophils # (A) 0.7 k/uL (0-0.7); Eosinophils % (A) 2 %; HCT 30.9 % (39.0-53.0); HGB 9.8 gm/dL (13.0-17.5); Hypochromasia Slight; Lymphocytes # (A) 0.8 k/uL (1.0-4.8); Lymphocytes % (A) 2 %; MCH 29.3 pg (25.0-35.0); MCHC 31.7 g/dL (31.0-37.0); MCV 92.5 fL (80.0-100.0); Mean Platelet Volume 7.1; Monocytes # (A) 0.9 k/uL (0-1.0); Monocytes % (A) 3 %; Neutrophils % (A) 91 %; Platelet Count 517 k/uL (150-450); RBC 3.34 m/uL (4.30-5.90); RDW 14.3 % (11.5-15.5); WBC 31.8 k/uL (3.8-10.6)
[2018-08-03] MEDS: VANCOMYCIN 2,000 MG in SODIUM CHLORIDE 0.9% 500 ML 500 ML IVPB SCH ×2 (09:50→21:55)
[2018-08-03] MEDS: ENOXAPARIN 40 MG/0.4 ML SYRINGE SQ SCH (09:50)
[2018-08-03] MEDS: CEFEPIME 2 GM in SODIUM CHLORIDE 0.9% 100 ML IVPB SCH ×2 (09:50→20:57)
[2018-08-03] MEDS: ASPIRIN 81 MG PO SCH (09:51)
[2018-08-03] MEDS: FAMOTIDINE 20 MG TAB PO SCH ×2 (09:51→20:58)
[2018-08-03] MEDS: METOPROLOL SUCCINATE (ER) 100 MG TAB.ER.24H PO SCH ×2 (09:51→20:58)
[2018-08-03] MEDS: SENNOSIDES-DOCUSATE SODIUM 1 EACH TAB PO SCH (09:51)
--- NOTE | 2018-08-03 11:02 | P.PN ---
Subjective Progress Note Date: 08/03/18 Principal diagnosis: Right sided empyema, cavitary pneumonia; right-sided pleural effusion, parapneumonic versus pneumonia versus malignancy, status post thoracentesis with 350 mL dark fluid removed, cytology consistent with empyema. Previous medical history of hypertension, hypercholesterolemia, De Leon's esophagitis, previous tobacco dependence with 34-lekf-yytm history, social EtOH use, family history of premature coronary artery disease and colon cancer. POD #2 right thoracotomy with decortication. POD #4 bronchoscopy with bronchoalveolar lavage by pulmonology. POD #5 placement of right sided pigtail catheter by interventional radiology. The patient is currently sitting up to the bedside chair in the intensive care unit. He is in no acute distress. Denies any complaints of pain or shortness of breath at this time. Rates his pain 0 out of 10 on the pain scale. Epidural remains in place and intact infusing at 6 mL per hour. Denies any numbness to his bilateral lower extremities. Achieving 1750 mL on his incentive spirometry. He remains hemodynamically stable and is currently on no inotropic or pressor support. Oxygen saturation are 92% on 4 L nasal cannula. Right anterior and posterior chest tubes in place to low continuous wall suction -20 cm H2O, air leak is present to his right anterior chest tube, no air leak present to his posterior right chest tube. Draining thin serosanguineous drainage. T-max temperature in the last 24 hours is 101.2 degrees Fahrenheit. WBC count this morning is 31.8. He is complaining of a persistent productive cough with lee colored thick sputum. Objective - Vital Signs Vital signs: Vital Signs Temp 98.7 F 08/03/18 08:00 Pulse 76 08/03/18 09:02 Resp 23 08/03/18 08:00 BP 133/72 08/03/18 08:00 Pulse Ox 93 L 08/03/18 08:48 Intake & Output 08/02/18 08/03/18 08/03/18 18:59 06:59 18:59 Intake Total 810 1000 1100 Output Total 1055 580 365 Balance -245 420 735 Weight 129.6 kg Intake: IV 810 600 Cefepime 2 gm In Sodium 100 100 Chloride 0.9% 100 ml @ 200 mls/hr IVPB Q12HR [facility] Rx#:[id number] Dextrose 5%-0.45% NaCl 1, 480 000 ml @ 40 mls/hr IV . Q24H [facility] Rx#:[id number] Magnesium Sulfate-D5w Pmx 200 1 gm In Dextrose/Water 1 100ml.bag @ 100 mls/hr IVPB Q1H [facility] Rx#: [id number] Pressure 30 Vancomycin 2,000 mg In 500 Sodium Chloride 0.9% 500 ml 500 ml @ 167 mls/hr IVPB Q12HR [facility] Rx#: [id number] Oral 1000 500 Output: Chest Tube Drainage 150 130 55 Right Chest Superior 130 120 50 right chest inferior B 20 10 5 Urine 905 450 310 Other: Voiding Method Indwelling Catheter Indwelling Catheter ABP, PAP, CO, CI - Last Documented Arterial Blood Pressure 114/54 - Constitutional General appearance: Present: cooperative, no acute distress, obese - Respiratory Details: Lung sounds essentially clear to his bilateral upper lobes, diminished to his right lower lobe. Respirations are symmetrical and nonlabored. Oxygen saturation are 92% on 4 L nasal cannula. Right anterior and posterior chest tubes in place to low continuous wall suction at -20 cm H2O. No air leak present to his posterior chest tube, air leak present to his anterior chest t ube. Draining thin serosanguineous drainage. Anterior chest tube drained 160 mL output in the last 24 hours, posterior chest tube drained 0 output in the last 24 hours. Achieving 1750 mL on his incentive spirometry. - Cardiovascular Details: Regular rhythm and rate. S1 and S2 present, negative for S3, gallop or murmur. Bedside telemetry showing normal sinus rhythm heart rate 75. +2 edema to his bilateral lower extremities. Knee-high sequential compression devices in place to his bilateral lower extremities. - Gastrointestinal Gastrointestinal Comment(s): Abdomen is soft, nontender and nondistended. Active bowel sounds all 4 abdominal quadrants. No guarding or rigidity. Tolerating oral intake. Passing flatus. - Genitourinary Genitourinary Comment(s): Teran catheter for accurate I&O. Draining clear mary urine. - Integumentary Integumentary Comment(s): Skin is warm and dry. No clubbing or cyanosis is present. Right thoracotomy incision with dressing clean, dry and intact. No drainage noted. Right pleural chest tube sites with with dressing clean, dry and intact. Epidural site is clean, dry and intact. - Neurologic Neurologic: Present: CNII-XII intact - Musculoskeletal Musculoskeletal: Present: gait normal, generalized weakness, strength equal bilaterally - Psychiatric Psychiatric: Present: A&O x's 3, appropriate affect, intact judgment & insight - Allied health notes Allied health notes reviewed: nursing - Labs CBC & Chem 7: 08/03/18 09:18 08/03/18 05:13 Labs: Abnormal Lab Results - Last 24 Hours (Table) 08/03/18 08/03/18 Range/Units 05:13 09:18 WBC 31.8 H (3.8-10.6) k/uL RBC 3.34 L (4.30-5.90) m/uL Hgb 9.8 L (13.0-17.5) gm/dL Hct 30.9 L (39.0-53.0) % Plt Count 517 H (150-450) k/uL Neutrophils # 29.0 H (1.3-7.7) k/uL Lymphocytes # 0.8 L (1.0-4.8) k/uL Sodium 133 L (137-145) mmol/L Glucose 115 H (74-99) mg/dL Calcium 8.3 L (8.4-10.2) mg/dL Alkaline Phosphatase 167 H (38-126) U/L Albumin 2.9 L (3.5-5.0) g/dL Microbiology - Last 24 Hours (Table) 08/01/18 15:23 Gram Stain - Preliminary Pleural Fluid Body Fluid Culture - Preliminary 07/30/18 14:35 Gram Stain - Preliminary Pleural Fluid Body Fluid Culture - Preliminary - Imaging and Cardiology Chest x-ray: report reviewed, image reviewed Assessment and Plan Assessment: 1. Right sided empyema, status post right thoracotomy with decortication. 2. Right-sided pleural effusion, parapneumonic versus pneumonia versus malignancy, status post thoracentesis with 350 mL dark fluid removed, cytology consistent with empyema 3. History of hypertension, treated 4. History of hypercholesterolemia, treated 5. 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 Previous tobacco dependence with 30-wuwg-ytxe history 7. Social EtOH use 8. Family history of premature coronary artery disease 9. Family history of colon cancer 10. Leukocytosis Plan: 1. Continue IV antibiotics per infectious disease recommendations. Zosyn was discontinued yesterday and cefepime was added by Dr. Tim. 2. Pleural fluid cultures pending. 3. Continue epidural, anesthesia to manage. Keep Teran catheter in place until he epidural has been discontinued. 4. Wean O2 as tolerated. Encourage incentive spirometry is 10 times every hour while awake. 5. Increase activity as tolerated, ambulate in hallway as tolerated. Physical and occupational therapy consulted, postoperative weakness. 6. GI/DVT prophylaxis 7. Continue current pain management regimen. 8. Medical management of other comorbid conditions per primary care service. 9. We will transfer the patient to 3 S. cardiac stepdown unit when bed available. 10. Bronchodilators per pulmonary management. 11. Keep right pleural chest tubes to low continuous wall suction today. 12. Mucinex added. 13. Chest physiotherapy added. 15. Monitor daily labs and chest x-rays. Electrolyte replacement per protocol. 16. More recommendations to follow based on patient's clinical course. Time with Patient: Greater than 30
--- NOTE | 2018-08-03 11:12 | P.PN ---
Subjective Progress Note Date: 08/03/18 Principal diagnosis: Right-sided apical pneumothorax small Right-sided lung mass pleural base, right-sided pneumonia, right parapneumonic effusion, sepsis, chest pain, cough, morbid obesity, hypertension hypertensive cardiovascular disease, dyslipidemia, 08/03/2018, patient seen and evaluated examined during the rounds he is sitting upright on the chair she still has problem came in complaining and supine position, cough and congestion is still present significant amount of sputum does come out patient is on supplemental oxygen to chest tubes are present right anterior chest tube has some air leak which was not seen yesterday, the pneumothorax essentially unchanged, noted white cell count is up likely related to postoperative inflammatory condition, antibiotics have been adjusted to cefapime and vancomycin ID service following, will start chest PT continue breathing treatment and incentive spirometry patient can be moved out of the ICU that we'll give more [place] to ambulate and physical therapy 08/02/2018, patient seen and evaluated examined during the rounds, patient is postop day #1 for thoracotomy on the right side and decortication his pain is well controlled on epidural, he is doing I-S up to 1.5 L, he is on 4 L nasal cannula sitting on the bedside, labs reviewed medications reviewed radiographic studies reviewed as well chest x-ray showed right-sided pneumothorax stable 08/01/2018, patient seen eval reexamined during the rounds he is still have si gnificant amount of cough with purulent secretions and drainage, patient is nothing by mouth for the thoracotomy, the pigtail catheter was clogged then was opened up by thrombolytics but not draining any amount, x-ray from today reviewed not much change is still showing thick walled cavitary lesion and right lower lobe consolidation and pleural effusion, labs reviewed white cell count is down to 12,800 chemistry normal 07/31/2018, patient seen and evaluated examined during rounds care plan dis cussed with the cardiothoracic surgery patient is status post pigtail catheter placement pain cough congestion is still there but is slightly improved though after bronchoscopy remains on broad-spectrum antibiotics culture results and report are reviewed cytology results are reviewed him a white cell count continue to come down is now 13.7 electrolytes are okay 07/30/2018, patient seen and evaluated examined right cell count is down to 15,000 he is feeling slightly better with still have cough congestion shortness of breath and chest pain care plan discussed with cardiothoracic surgery as well as a patient is being planned for bronchoscopy later on today, patient is being considered for thoracotomy versus pigtail catheter continue IV Zosyn 07/29/2018, patient seen eval reexamined during the rounds is still have significant amount of sputum production complain of chronic chest pain with cough cytology is back as negative on pleural fluid culture so far negative care plan discussed with infectious disease and thoracic surgery patient is contemplated for pigtail catheter versus thoracotomy by thoracic surgery in the meantime we'll do a bronchoscopy to obtain samples and also to rule out any endobronchial mass or lesion procedure explained to the patient 07/28/2018, patient seen and evaluated examined during rounds clinically he is doing essentially the same is still complaining of pain on the right side with severe coughing and breathing he does have sputum which is brownish yellowish in color, computed tomography scan of the chest reviewed there is appearance of abscess versus necrotizing pneumonia in the right lower lobe with dense thickening small fluid is present findings are reviewed with the patient, pleural fluid cytology is still pending 07/26/2018, patient seen and evaluated examined during the rounds he is complaining of insomnia and chest pain pain is improved with Motrin or Tylenol he is asking for a sleeping aid respiratory status slightly better today he has gone thoracentesis of the right side in about 400-450 mL of pleural fluid removed the pleural fluid appears to be exudative with Gram stain negative cultures are pending cytology is pending Objective - Vital Signs Vital signs: Vital Signs Temp 98.7 F 08/03/18 08:00 Pulse 76 08/03/18 09:02 Resp 23 08/03/18 08:00 BP 133/72 08/03/18 08:00 Pulse Ox 93 L 08/03/18 08:48 Intake & Output 08/02/18 08/03/18 08/03/18 18:59 06:59 18:59 Intake Total 810 1000 1100 Output Total 1055 580 365 Balance -245 420 735 Weight 129.6 kg Intake: IV 810 600 Cefepime 2 gm In Sodium 100 100 Chloride 0.9% 100 ml @ 200 mls/hr IVPB Q12HR [facility] Rx#:[id number] Dextrose 5%-0.45% NaCl 1, 480 000 ml @ 40 mls/hr IV . Q24H [facility] Rx#:[id number] Magnesium Sulfate-D5w Pmx 200 1 gm In Dextrose/Water 1 100ml.bag @ 100 mls/hr IVPB Q1H [facility] Rx#: [id number] Pressure 30 Vancomycin 2,000 mg In 500 Sodium Chloride 0.9% 500 ml 500 ml @ 167 mls/hr IVPB Q12HR [facility] Rx#: [id number] Oral 1000 500 Output: Chest Tube Drainage 150 130 55 Right Chest Superior 130 120 50 right chest inferior B 20 10 5 Urine 905 450 310 Other: Voiding Method Indwelling Catheter Indwelling Catheter Indwelling Catheter ABP, PAP, CO, CI - Last Documented Arterial Blood Pressure 114/54 - Exam Constitutional General appearance: cooperative, disheveled, no acute distress, obese - EENT Eyes: anicteric sclerae, EOMI, PERRLA, normal appearance Ears: bilateral: normal - Neck Carotids: bilateral: upstroke normal Thyroid: bilateral: normal size - Respiratory Respiratory: right: diminished, dullness, negative: CTA, rales, rhonchi, wheezing, prolonged expiration, anterior and posterior chest tube draining serosanguineous fluid minimal anterior chest tube has air leak - Cardiovascular Rhythm: regular Heart sounds: normal: S1, S2 - Gastrointestinal General gastrointestinal: normal bowel sounds - Integumentary Integumentary: normal, normal turgor - Neurologic Neurologic: CNII-XII intact - Musculoskeletal Musculoskeletal: gait normal, generalized weakness, strength equal bilaterally - Psychiatric Psychiatric: A&O x's 3, appropriate affect, intact judgment & insight - Labs CBC & Chem 7: 08/03/18 09:18 08/03/18 05:13 Labs: Abnormal Lab Results - Last 24 Hours (Table) 08/03/18 08/03/18 Range/Units 05:13 09:18 WBC 31.8 H (3.8-10.6) k/uL RBC 3.34 L (4.30-5.90) m/uL Hgb 9.8 L (13.0-17.5) gm/dL Hct 30.9 L (39.0-53.0) % Plt Count 517 H (150-450) k/uL Neutrophils # 29.0 H (1.3-7.7) k/uL Lymphocytes # 0.8 L (1.0-4.8) k/uL Sodium 133 L (137-145) mmol/L Glucose 115 H (74-99) mg/dL Calcium 8.3 L (8.4-10.2) mg/dL Alkaline Phosphatase 167 H (38-126) U/L Albumin 2.9 L (3.5-5.0) g/dL Microbiology - Last 24 Hours (Table) 08/01/18 15:23 Gram Stain - Preliminary Pleural Fluid Body Fluid Culture - Preliminary 07/30/18 14:35 Gram Stain - Preliminary Pleural Fluid Body Fluid Culture - Preliminary Assessment and Plan Assessment: Right lower lobe lung mass pleural-based likely pneumonia but however malignancy cannot be excluded likely abscess with parapneumonic effusion status post right thoracotomy with decortication postop day #2 Right sided pneumonia cavitary Small pneumothorax residual on the right side Exudative pleural effusion Significant and profound leukocytosis likely multifactorial processes Right-sided pleural effusion likely parapneumonic effusion versus pneumonia and effusion less likely related to malignancy Obesity Hypertension hypertensive cardiovascular disease Dyslipidemia Plan: Agree with broad-spectrum antibiotics with IV vancomycin and cephpime Care plan discussed with thoracic surgery patient is right-sided thoracotomy postop day #2 Bronchoscopy findings reviewed Gram stain and cultur for BAL so far unremarkable Status post right thoracentesis , bronchoscopy and BAL, right-sided pigtail catheter with results of final culture and cytology reviewed Reviewed repeat CT of the chest without contrast Continue antibiotics Chest PT Deep breathing exercise incentive spirometry Increase activity as tolerated Time with Patient: Greater than 30
[2018-08-03] MEDS: guaiFENesin 600 MG TABLET.ER PO SCH ×2 (11:51→20:58)
[2018-08-03] MEDS ORDERED: diphenhydrAMINE 25 MG CAP PO PRN (13:38)
[2018-08-03] MEDS ORDERED: FLUCONAZOLE IN NACL,ISO-OSM 200 MG in SALINE 1 50ML.BAG IVPB STA (14:30)
[2018-08-03] MEDS: ZOLPIDEM 5 MG TAB PO SCH (20:58)
[2018-08-03] MEDS: ATORVASTATIN 10 MG TAB PO SCH (20:58)
--- NOTE | 2018-08-03 22:36 | P.PN ---
Subjective Progress Note Date: 08/03/18 Principal diagnosis: Cavitatory pneumonia and right-sided empyema Patient is a 63-year-old male admitted to the hospital with chronic cough chest pain right-sided fever and elevated white count in this patient who did have evidence of right-sided pleural effusion status post oral consent diseases with a repeat CT suggestive of right-sided cavitating pneumonia and ple ural effusion, patient is currently be treated with Zosyn. The patient is status post bronchoscopy and and lavaged on 07/30/2018, did have a right chest wall pigtail catheter placement on 07/31/2018 , and did have right thoracotomy and decortication for empyema right lung on 08/01/2018 On today's evaluation that is 08/03/2018 the patient fever pattern has improved with no further temperature of the last 24 hour, the patient has been breathing comfortably the patient's chest pain is currently controlled with pain medication, the patient continued to have a cough denies hemoptysis, the patient denies nausea no vomiting no abdominal pain and no diarrhea Objective - Vital Signs Vital signs: Vital Signs Temp 98.9 F 08/03/18 12:00 Pulse 80 08/03/18 13:19 Resp 19 08/03/18 12:00 BP 121/74 08/03/18 12:00 Pulse Ox 93 L 08/03/18 12:00 Intake & Output 08/02/18 08/03/18 08/03/18 18:59 06:59 18:59 Intake Total 810 1000 1100 Output Total 1055 580 540 Balance -245 420 560 Weight 129.6 kg Intake: IV 810 600 Cefepime 2 gm In Sodium 100 100 Chloride 0.9% 100 ml @ 200 mls/hr IVPB Q12HR [facility] Rx#:[id number] Dextrose 5%-0.45% NaCl 1, 480 000 ml @ 40 mls/hr IV . Q24H [facility] Rx#:[id number] Magnesium Sulfate-D5w Pmx 200 1 gm In Dextrose/Water 1 100ml.bag @ 100 mls/hr IVPB Q1H [facility] Rx#: [id number] Pressure 30 Vancomycin 2,000 mg In 500 Sodium Chloride 0.9% 500 ml 500 ml @ 167 mls/hr IVPB Q12HR [facility] Rx#: [id number] Oral 1000 500 Output: Chest Tube Drainage 150 130 55 Right Chest Superior 130 120 50 right chest inferior B 20 10 5 Urine 905 450 485 Other: Voiding Method Indwelling Catheter Indwelling Catheter Indwelling Catheter ABP, PAP, CO, CI - Last Documented Arterial Blood Pressure 114/54 - Exam GENERAL DESCRIPTION:[ Patient is awake and alert in no distress] HEENT: [Oral mucosa is dry and no pharyngeal erythema] EYES : [No pallor or scleral icterus] RESPIRATORY SYSTEM: [Unlabored breathing decreased breath sound the bases, no wheeze CARDIA VASCULAR SYSTEM: [S1-S2 regular rate and rhythm no murmur] GI: [Abdominal soft there's no tenderness no organomegaly] EXTREMITIES: [No edema feet] - Labs CBC & Chem 7: 08/03/18 09:18 08/03/18 05:13 Labs: Abnormal Lab Results - Last 24 Hours (Table) 08/03/18 08/03/18 Range/Units 05:13 09:18 WBC 31.8 H (3.8-10.6) k/uL RBC 3.34 L (4.30-5.90) m/uL Hgb 9.8 L (13.0-17.5) gm/dL Hct 30.9 L (39.0-53.0) % Plt Count 517 H (150-450) k/uL Neutrophils # 29.0 H (1.3-7.7) k/uL Lymphocytes # 0.8 L (1.0-4.8) k/uL Sodium 133 L (137-145) mmol/L Glucose 115 H (74-99) mg/dL Calcium 8.3 L (8.4-10.2) mg/dL Alkaline Phosphatase 167 H (38-126) U/L Albumin 2.9 L (3.5-5.0) g/dL Microbiology - Last 24 Hours (Table) 08/01/18 15:23 Gram Stain - Preliminary Pleural Fluid Body Fluid Culture - Preliminary 07/30/18 14:35 Gram Stain - Preliminary Pleural Fluid Body Fluid Culture - Preliminary Assessment and Plan Assessment: 1-patient admitted hospital with increasing shortness of breath or cough in this patient who did have features of sepsis on presentation with a fever and elevated white count source is her right-sided pneumonia with parapneumonic effusion status post thoracocentesis now with repeat CAT scan with evidence of consolidation with cavitary changes with question of possible community-acquired pathogen versus resistant gram-positive or gram-negative pathogen, the patient is status post right thoracotomy decortication along with deep cultures which are currently pending 2-patient with a new fever and worsening of the white count (1) Sepsis Current Visit: Yes Status: Acute Code(s): A41.9 - SEPSIS, UNSPECIFIED O RGANISM SNOMED Code(s): 52609232 (2) Lung mass Current Visit: Yes Status: Acute Code(s): R91.8 - OTHER NONSPECIFIC ABNORMAL FINDING OF LUNG FIELD SNOMED Code(s): 296998412 Plan: 1- the patient will be continued on on cefepime 2 g every 12 hours and vancomycin pharmacy to dose with target of 15, that was started yesterday 2-in view of persistent elevated white count will add Diflucan Adjusting antibiotics further on the basis of clinical response and culture - Time with Patient: Less than 30
--- NOTE | 2018-08-03 23:09 | PN ---
PROGRESS NOTE DATE OF SERVICE: 08/03/2018. PRESENT COMPLAINT: Tired. INTERVAL HISTORY: This patient is admitted with severe left-sided pneumonia with parapneumonic effusion status post thoracentesis and decortication. Sitting up on a chair. Appetite is not very good. Chest tube remains in place. On antibiotics. REVIEW OF SYSTEMS: Done for constitutional, cardiovascular, GI, pulmonary; relevant findings as above. CURRENT MEDICATIONS: Reviewed, that include IV cefepime and IV vancomycin. PHYSICAL EXAMINATION: Temperature 98.9, pulse 79, respirations 19, blood pressure 120/74, pulse ox 93 percent on nasal cannula. GENERAL APPEARANCE: Sitting up, tired-appearing. EYES: Pupils equal. Conjunctivae normal. NECK: JVD not raised. Mass not palpable. Respiratory effort increased. LUNGS: Some crackles right base. CARDIOVASCULAR: 1st and 2nd sounds normal. Mild edema. ABDOMEN: Soft, nontender. Liver and spleen not palpable. PSYCHIATRY: AO x3. Mood and affect normal. Chest wall right-sided chest tubes are present. INVESTIGATIONS: White count 31.8, hemoglobin 9.8, platelets 517. ASSESSMENT: 1. Severe right-sided pneumonia with parapneumonic effusion with multiple cavities on the CT scan, status post decortication, now with two chest tubes in place. 2. Status post bronchoscopy. 3. Obesity; BMI 34.1. 4. Sepsis on presentation from pneumonia. 5. Essential hypertension. 6. Hyperlipidemia. 7. Normocytic anemia secondary to sepsis. 8. Reactive thrombocytosis. 9. Worsening leukocytosis may be catching up, patient's antibiotics have been changed. 10.Hypoalbuminemia as an acute phase reactant. PLAN: Care was discussed with the patient and . The patient remains in the ICU. Continue to follow closely. Discussed with Dr. Flores from Pulmonary earlier today. MMODL / IJN: [id number] /
--- NOTE | 2018-08-03 23:09 | PN ---
PROGRESS NOTE DATE OF SERVICE: August 02, 2018. PRESENTING COMPLAINT: Cough. INTERVAL HISTORY: This patient was seen by me yesterday on August 02, 2018 in the ICU. The patient presented with severe right-sided pneumonia, parapneumonic effusion status post thoracentesis and then had a pigtail catheter placed followed by right-sided decortication, two chest tubes are in place. Some air leak is present. Patient is tired, eating some food. Sitting up in a chair. REVIEW OF SYSTEMS: Done for constitutional, cardiovascular, GI, pulmonary; relevant findings as above. CURRENT MEDICATIONS: Reviewed that include that include IV cefepime, IV vancomycin. PHYSICAL EXAMINATION: VITAL SIGNS: On examination, temperature 98.3, pulse 80, respiration 20, blood pressure 124/69, pulse ox 92 percent on oxygen. GENERAL APPEARANCE: Sitting up on a chair, tired-appearing. EYES: Pupils equal. Conjunctivae normal. NECK: JVD not raised. Mass not palpable. RESPIRATORY: Effort increased. LUNGS: Decreased breath sounds with some crackles in the right side. CARDIOVASCULAR: 1st and 2nd sounds normal. Minimal edema. ABDOMEN: Soft, nontender. Liver and spleen not palpable. PSYCHIATRY: Alert and oriented times three. Mood and affect normal. Chest wall: Right-sided 2 chest tubes are present. INVESTIGATIONS: White count 28.7, hemoglobin 10.5, potassium 4.4. Chest x-ray film personally reviewed by me shows some improvement of aeration on the right side and also infiltrate on the left side. The patient's cultures all have been negative until now. ASSESSMENT: 1. Severe right-sided pneumonia with parapneumonic effusion, multiple cavities on CT scan, status post thoracentesis and decortication. 2. Right-sided 2 chest tubes are present with an air leak. 3. Status post bronchoscopy. 4. Obesity; BMI 34.1. 5. Sepsis on presentation from pneumonia. 6. Essential hypertension. 7. Hyperlipidemia. 8. Normocytic anemia secondary to acute infection. 9. Thrombocytosis, reactive from infection. PLAN: Patient antibiotics been switched to cefepime and vancomycin. Continue current medication treatment plan. Care was discussed with the patient. MMODL / IJN: [id number] /
[2018-08-04] MEDS: ACETAMINOPHEN TAB 325 MG TAB PO PRN (02:43)
[2018-08-04] MEDS: traMADol 50 MG TAB PO PRN ×2 (02:46→05:07)
--- NOTE | 2018-08-04 06:35 | P.PN ---
Progress Note - Text Progress Note Date: 08/02/18 POD 0 s/p right thoracotomy decortication patient doing well with epidural pain managment, however RN called informed of Epidural pulled out by patient delerium. Plan to not replace since neuro status is questionable
[2018-08-04 07:07] LABS: Basophils # (A) 0.1 k/uL (0-0.2); Basophils % (A) 0 %; Eosinophils # (A) 0.8 k/uL (0-0.7); Eosinophils % (A) 3 %; HCT 31.2 % (39.0-53.0); HGB 9.7 gm/dL (13.0-17.5); Hypochromasia Slight; Lymphocytes # (A) 1.1 k/uL (1.0-4.8); Lymphocytes % (A) 5 %; MCH 29.3 pg (25.0-35.0); MCHC 31.1 g/dL (31.0-37.0); MCV 94.3 fL (80.0-100.0); Mean Platelet Volume 7.5; Monocytes # (A) 1.2 k/uL (0-1.0); Monocytes % (A) 5 %; Neutrophils # (A) 20.9 k/uL (1.3-7.7); Neutrophils % (A) 86 %; Platelet Count 558 k/uL (150-450); RBC 3.31 m/uL (4.30-5.90); RDW 14.5 % (11.5-15.5); WBC 24.3 k/uL (3.8-10.6)
[2018-08-04 07:26] LABS: African American GFR (CKD) >90 (>60 ml/min/1.73 sqM); Anion Gap 10 mmol/L; Blood Urea Nitrogen 15 mg/dL (9-20); Calcium 8.3 mg/dL (8.4-10.2); Carbon Dioxide 27 mmol/L (22-30); Chloride 99 mmol/L (98-107); Glucose 99 mg/dL (74-99); Potassium 4.2 mmol/L (3.5-5.1); Sodium 136 mmol/L (137-145)
[2018-08-04] MEDS: SODIUM CHLORIDE 0.9% 1,000 ML IV SCH ×2 (07:44→23:33)
[2018-08-04] MEDS ORDERED: traMADol 50 MG TAB PO PRN ×2 (08:04→08:05)
--- NOTE | 2018-08-04 08:41 | XR ---
EXAMINATION TYPE: XR chest 1V portable DATE OF EXAM: 08/04/2018 COMPARISON: 08/03/2018 HISTORY: Post right thoracotomy TECHNIQUE: Single frontal view of the chest is obtained. FINDINGS: Stable right-sided pneumothorax estimated 10%. Diffuse bilateral pleural-parenchymal conso lidation stable. Right-sided chest tube and subcutaneous emphysema stable. Heart size enlarged but st able. IMPRESSION: 1. Stable diffuse airspace disease correlate for diffuse pneumonia versus pulmonary edema. 2. Stable right-sided pneumothorax.
[2018-08-04] MEDS: IPRATROPIUM-ALBUTEROL 3 ML NEB INHALATION SCH ×4 (08:45→20:09)
[2018-08-04] MEDS: KETOROLAC 30 MG/ML 1 ML VIAL IVP SCH ×4 (09:02→23:30)
[2018-08-04] MEDS: SENNOSIDES-DOCUSATE SODIUM 1 EACH TAB PO SCH (09:04)
[2018-08-04] MEDS: METOPROLOL SUCCINATE (ER) 100 MG TAB.ER.24H PO SCH ×2 (09:04→22:09)
[2018-08-04] MEDS: guaiFENesin 600 MG TABLET.ER PO SCH ×2 (09:04→22:09)
[2018-08-04] MEDS: ENOXAPARIN 40 MG/0.4 ML SYRINGE SQ SCH (09:05)
[2018-08-04] MEDS: ASPIRIN 81 MG PO SCH (09:05)
[2018-08-04] MEDS: FAMOTIDINE 20 MG TAB PO SCH ×2 (09:05→22:09)
[2018-08-04] MEDS: CEFEPIME 2 GM in SODIUM CHLORIDE 0.9% 100 ML IVPB SCH ×2 (09:05→22:09)
[2018-08-04] MEDS: VANCOMYCIN 2,000 MG in SODIUM CHLORIDE 0.9% 500 ML 500 ML IVPB SCH ×2 (10:39→23:35)
--- NOTE | 2018-08-04 13:45 | P.PN ---
Subjective Progress Note Date: 08/04/18 Principal diagnosis: Right-sided empyema, cavitary pneumonia; right-sided pleural effusion, parapneumonic versus pneumonia versus malignancy, status post thoracentesis with 350 mL dark fluid removed, cytology consistent with empyema. Previous medical history of hypertension, hypercholesterolemia, De Leon's esophagitis, previous tobacco dependence with [id number] history, social EtOH use, family history of premature coronary artery disease and colon cancer. POD #5 bronchoscopy with bronchoalveolar lavage by pulmonology POD #6 placement of right sided pigtail catheter by interventional radiology POD #3 right thoracotomy with decortication The patient is currently sitting up in the chair in no acute distress. Does continue to complain of coughing and congestion. Hemodynamically stable. Epidural was accidentally dislodged this morning, patient does complain of s ignificant pain with coughing. Anterior and posterior chest tubes remain on the right side, anterior tube with air leak present, both chest tubes placed to waterseal this morning. Pathology still pending, no growth to date on any of his cultures. Objective - Vital Signs Vital signs: Vital Signs Temp 97 F L 08/04/18 12:00 Pulse 82 08/04/18 12:00 Resp 18 08/04/18 12:00 BP 135/80 08/04/18 12:00 Pulse Ox 96 08/04/18 12:00 Intake & Output 08/03/18 08/04/18 08/04/18 18:59 06:59 18:59 Intake Total 1100 180 Output Total 550 1240 250 Balance 550 -1240 -70 Weight 130.1 kg Intake: IV 600 100 Cefepime 2 gm In Sodium 100 100 Chloride 0.9% 100 ml @ 200 mls/hr IVPB Q12HR [facility] Rx#:[id number] Vancomycin 2,000 mg In 500 Sodium Chloride 0.9% 500 ml 500 ml @ 167 mls/hr IVPB Q12HR [facility] Rx#: [id number] Intake, IV Titration 80 Amount Sodium Chloride 0.9% 1, 80 000 ml @ 10 mls/hr IV . Q24H [facility] Rx#:[id number] Oral 500 Output: Chest Tube Drainage 65 90 Right Chest Superior 60 30 right chest inferior B 5 60 Urine 485 1150 250 Other: Voiding Method Indwelling Catheter Indwelling Catheter Indwelling Catheter # Voids 1 ABP, PAP, CO, CI - Last Documented Arterial Blood Pressure 114/54 - Constitutional General appearance: Present: cooperative, no acute distress, obese - Respiratory Details: Lungs sounds diminished to the right lower lobe. Respirations even, nonlabored. Currently on 4 L nasal cannula with oxygen saturation 98%. Able to achieve 1000 mL on his incentive spirometry. Right anterior (labeled superior) chest tube placed to waterseal, 20 mL serosanguineous drainage output overnight, 150 mL in the last 24 hours, positive air leak present. Right posterior (labeled inferior) chest tube placed to waterseal this morning, 60 mL serosanguineous drainage overnight, 70 mL in the last 24 hours, no air leak present. - Cardiovascular Details: S1, S2 present. Regular rate and rhythm, sinus rhythm on telemetry. Palpable peripheral pulses bilaterally. Bilateral lower extremity edema present. No calf pain or tenderness noted. - Gastrointestinal Gastrointestinal Comment(s): Abdomen soft, nontender, nondistended. Active bowel sounds 4 quadrants. Tolerating diet. - Genitourinary Genitourinary Comment(s): Teran catheter was present draining clear, yellow urine, Teran discontinued. - Integumentary Integumentary Comment(s): Skin is warm dry with evidence of good perfusion. Right lateral wall thoracotomy incision well approximated and covered with dry intact dressing. - Neurologic Neurologic: Present: CNII-XII intact - Musculoskeletal Musculoskeletal: Present: gait normal, strength equal bilaterally - Psychiatric Psychiatric: Present: A&O x's 3, appropriate affect, intact judgment & insight - Allied health notes Allied health notes reviewed: nursing - Labs CBC & Chem 7: 08/04/18 05:55 08/04/18 05:55 Labs: Abnormal Lab Results - Last 24 Hours (Table) 08/04/18 08/04/18 Range/Units 05:55 05:55 WBC 24.3 H (3.8-10.6) k/uL RBC 3.31 L (4.30-5.90) m/uL Hgb 9.7 L (13.0-17.5) gm/dL Hct 31.2 L (39.0-53.0) % Plt Count 558 H (150-450) k/uL Neutrophils # 20.9 H (1.3-7.7) k/uL Monocytes # 1.2 H (0-1.0) k/uL Eosinophils # 0.8 H (0-0.7) k/uL Sodium 136 L (137-145) mmol/L Calcium 8.3 L (8.4-10.2) mg/dL Microbiology - Last 24 Hours (Table) 07/25/18 13:30 Fungal Culture - Preliminary Pleural Fluid 07/30/18 14:35 Anaerobic Culture - Final Pleural Fluid 08/01/18 15:23 Anaerobic Culture - Preliminary Pleural Fluid 08/01/18 15:23 Gram Stain - Preliminary Pleural Fluid Body Fluid Culture - Preliminary 07/30/18 14:35 Gram Stain - Final Pleural Fluid Body Fluid Culture - Final 08/02/18 13:56 Blood Culture - Preliminary Blood No Growth after 24 hours - Imaging and Cardiology Chest x-ray: report reviewed, image reviewed Assessment and Plan Assessment: 1. Right sided empyema, cavitary pneumonia, status post bronchoscopy, status post pigtail catheter placement, status post thoracotomy with decortication, pathology pending 2. Right-sided pleural effusion, parapneumonic versus pneumonia versus malignancy, status post thoracentesis with 350 mL dark fluid removed, cytology demonstrates consistent with empyema 3. History of hypertension, treated 4. History of hypercholesterolemia, treated 5. 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 Previous tobacco dependence with [id number] history 7. Social EtOH use 8. Family history of premature coronary artery disease 9. Family history of colon cancer Plan: 1. Continue IV antibiotics per infectious disease recommendations. Currently on vancomycin and cefepime. 2. Pleural chest tubes placed to waterseal. 3. Bronchodilators per pulmonology. Continue chest physiotherapy. 4. Wean O2 as tolerated. Encourage incentive spirometry is 10 times every hour while awake. 5. Will monitor labs and chest x-rays. 6. Increase activity as tolerated, ambulate in hallway. 7. GI/DVT prophylaxis 8. Toradol added to her pain medication regimen, tramadol increased. 9. Medical management of other comorbid conditions per primary care service. 10. More recommendations to follow. Time with Patient: Greater than 30
--- NOTE | 2018-08-04 18:23 | P.PN ---
Subjective Progress Note Date: 08/04/18 Principal diagnosis: Right-sided apical pneumothorax small Right-sided lung mass pleural base, right-sided pneumonia, right parapneumonic effusion, sepsis, chest pain, cough, morbid obesity, hypertension hypertensive cardiovascular disease, dyslipidemia, 08/04/2018, patient seen eval reexamined during the rounds denies any chest pain does have ongoing cough feels slightly better white cell count noted to be coming down chest x-ray reviewed overall stable still have minimal air leak from the anterior chest tubes 08/03/2018, patient seen and evaluated examined during the rounds he is sitting upright on the chair she still has problem came in complaining and supine position, cough and congestion is still present significant amount of sputum does come out patient is on supplemental oxygen to chest tubes are present right anterior chest tube has some air leak which was not seen yesterday, the pneumothorax essentially unchanged, noted white cell count is up likely related to postoperative inflammatory condition, antibiotics have been adjusted to cefapime and vancomycin ID service following, will start chest PT continue breathing treatment and incentive spirometry patient can be moved out of the ICU that we'll give more [place] to ambulate and physical therapy 08/02/2018, patient seen and evaluated examined during the rounds, patient is postop day #1 for thoracotomy on the right side and decortication his pain is well controlled on epidural, he is doing I-S up to 1.5 L, he is on 4 L nasal cannula sitting on the bedside, labs reviewed medications reviewed radiographic studies reviewed as well chest x-ray showed right-sided pneumothorax stable 08/01/2018, patient seen eval reexamined during the rounds he is still have significant amount of cough with purulent secretions and drainage, patient is nothing by mouth for the thoracotomy, the pigtail catheter was clogged then was opened up by thrombolytics but not draining any amount, x-ray from today reviewe d not much change is still showing thick walled cavitary lesion and right lower lobe consolidation and pleural effusion, labs reviewed white cell count is down to 12,800 chemistry normal 07/31/2018, patient seen and evaluated examined during rounds care plan discussed with the cardiothoracic surgery patient is status post pigtail catheter placement pain cough congestion is still there but is slightly improved though after bronchoscopy remains on broad-spectrum antibiotics culture results and report are reviewed cytology results are reviewed him a white cell count continue to come down is now 13.7 electrolytes are okay 07/30/2018, patient seen and evaluated examined right cell count is down to 15,000 he is feeling slightly better with still have cough congestion shortness of breath and chest pain care plan discussed with cardiothoracic surgery as well as a patient is being planned for bronchoscopy later on today, patient is being considered for thoracotomy versus pigtail catheter continue IV Zosyn 07/29/2018, patient seen eval reexamined during the rounds is still have significant amount of sputum production complain of chronic chest pain with cough cytology is back as negative on pleural fluid culture so far negative care plan discussed with infectious disease and thoracic surgery patient is contemplated for pigtail catheter versus thoracotomy by thoracic surgery in the meantime we'll do a bronchoscopy to obtain samples and also to rule out any endobronchial mass or lesion procedure explained to the patient 07/28/2018, patient seen and evaluated examined during rounds clinically he is doing essentially the same is still complaining of pain on the right side with severe coughing and breathing he does have sputum which is brownish yellowish in color, computed tomography scan of the chest reviewed there is appearance of abscess versus necrotizing pneumonia in the right lower lobe with dense thickening small fluid is present findings are reviewed with the patient, p leural fluid cytology is still pending 07/26/2018, patient seen and evaluated examined during the rounds he is complaining of insomnia and chest pain pain is improved with Motrin or Tylenol he is asking for a sleeping aid respiratory status slightly better today he has gone thoracentesis of the right side in about 400-450 mL of pleural fluid removed the pleural fluid appears to be exudative with Gram stain negative cultures are pending cytology is pending Objective - Vital Signs Vital signs: Vital Signs Temp 97 F L 08/04/18 16:00 Pulse 79 08/04/18 16:00 Resp 18 08/04/18 16:00 BP 131/78 08/04/18 16:00 Pulse Ox 94 L 08/04/18 16:10 Intake & Output 08/03/18 08/04/18 08/04/18 18:59 06:59 18:59 Intake Total 1100 582 Output Total 550 1240 290 Balance 550 -1240 292 Weight 130.1 kg Intake: IV 600 100 Cefepime 2 gm In Sodium 100 100 Chloride 0.9% 100 ml @ 200 mls/hr IVPB Q12HR [facility] Rx#:[id number] Vancomycin 2,000 mg In 500 Sodium Chloride 0.9% 500 ml 500 ml @ 167 mls/hr IVPB Q12HR [facility] Rx#: [id number] Intake, IV Titration 80 Amount Sodium Chloride 0.9% 1, 80 000 ml @ 10 mls/hr IV . Q24H [facility] Rx#:[id number] Oral 500 402 Output: Chest Tube Drainage 65 90 40 Right Chest Superior 60 30 40 right chest inferior B 5 60 0 Urine 485 1150 250 Other: Voiding Method Indwelling Catheter Indwelling Catheter Indwelling Catheter # Voids 1 ABP, PAP, CO, CI - Last Documented Arterial Blood Pressure 114/54 - Exam Constitutional General appearance: cooperative, disheveled, no acute distress, obese - EENT Eyes: anicteric sclerae, EOMI, PERRLA, normal appearance Ears: bilateral: normal - Neck Carotids: bilateral: upstroke normal Thyroid: bilateral: normal size - Respiratory Respiratory: right: diminished, dullness, negative: CTA, rales, rhonchi, wheezing, prolonged expiration, anterior and posterior chest tube draining serosanguineous fluid minimal anterior chest tube has air leak - Cardiovascular Rhythm: regular Heart sounds: normal: S1, S2 - Gastrointestinal General gastrointestinal: normal bowel sounds - Integumentary Integumentary: normal, normal turgor - Neurologic Neurologic: CNII-XII intact - Musculoskeletal Musculoskeletal: gait normal, generalized weakness, strength equal bilaterally - Psychiatric Psychiatric: A&O x's 3, appropriate affect, intact judgment & insight - Labs CBC & Chem 7: 08/04/18 05:55 08/04/18 05:55 Labs: Abnormal Lab Results - Last 24 Hours (Table) 08/04/18 08/04/18 Range/Units 05:55 05:55 WBC 24.3 H (3.8-10.6) k/uL RBC 3.31 L (4.30-5.90) m/uL Hgb 9.7 L (13.0-17.5) gm/dL Hct 31.2 L (39.0-53.0) % Plt Count 558 H (150-450) k/uL Neutrophils # 20.9 H (1.3-7.7) k/uL Monocytes # 1.2 H (0-1.0) k/uL Eosinophils # 0.8 H (0-0.7) k/uL Sodium 136 L (137-145) mmol/L Calcium 8.3 L (8.4-10.2) mg/dL Microbiology - Last 24 Hours (Table) 08/02/18 13:56 Blood Culture - Preliminary Blood No Growth after 48 hours 07/25/18 13:30 Fungal Culture - Preliminary Pleural Fluid 07/30/18 14:35 Anaerobic Culture - Final Pleural Fluid 08/01/18 15:23 Anaerobic Culture - Preliminary Pleural Fluid 08/01/18 15:23 Gram Stain - Preliminary Pleural Fluid Body Fluid Culture - Preliminary 07/30/18 14:35 Gram Stain - Final Pleural Fluid Body Fluid Culture - Final Assessment and Plan Assessment: Empyema lung Right lower lobe lung mass pleural-based likely pneumonia but however malignancy cannot be excluded likely abscess with parapneumonic effusion status post right thoracotomy with decortication postop day # 3 Right sided pneumonia cavitary Small pneumothorax residual on the right side Exudative pleural effusion Significant and profound leukocytosis likely multifactorial processes Right-sided pleural effusion likely parapneumonic effusion versus pneumonia and effusion less likely related to malignancy Obesity Hypertension hypertensive cardiovascular disease Dyslipidemia Plan: Agree with broad-spectrum antibiotics with IV vancomycin and cephpime Care plan discussed with thoracic surgery patient is right-sided thoracotomy postop day #3 Bronchoscopy findings reviewed Gram stain and cultur for BAL so far unremarkable Status post right thoracentesis , bronchoscopy and BAL, right-sided pigtail catheter with results of final culture and cytology reviewed Reviewed repeat CT of the chest without contrast Continue antibiotics Chest PT Deep breathing exercise incentive spirometry Increase activity as tolerated Time with Patient: Greater than 30
[2018-08-04] MEDS ORDERED: VANCOMYCIN TROUGH DUE 1 EACH MISC MISCELLANE ONE (20:00)
[2018-08-04] MEDS: ZOLPIDEM 5 MG TAB PO SCH (22:09)
[2018-08-04] MEDS: ATORVASTATIN 10 MG TAB PO SCH (22:15)
--- NOTE | 2018-08-04 22:21 | P.PN ---
Subjective Progress Note Date: 08/04/18 Principal diagnosis: Cavitatory pneumonia and right-sided empyema Patient is a 63-year-old male admitted to the hospital with chronic cough chest pain right-sided fever and elevated white count in this patient who did have evidence of right-sided pleural effusion status post oral consent diseases with a repeat CT suggestive of right-sided cavitating pneumonia and ple ural effusion, patient is currently be treated with Zosyn. The patient is status post bronchoscopy and and lavaged on 07/30/2018, did have a right chest wall pigtail catheter placement on 07/31/2018 , and did have right thoracotomy and decortication for empyema right lung on 08/01/2018 On today's evaluation that is 08/04/2018 the patient is afebrile, the patient is breathing comfortably, the patient's chest pain is currently controlled with pain medication, the patient denies any worsening cough or hemoptysis, the patient denies nausea no vomiting no abdominal pain and no diarrhea Objective - Vital Signs Vital signs: Vital Signs Temp 97.3 F L 08/04/18 08:40 Pulse 72 08/04/18 11:35 Resp 18 08/04/18 08:40 BP 127/82 08/04/18 08:40 Pulse Ox 93 L 08/04/18 08:40 Intake & Output 08/03/18 08/04/18 08/04/18 18:59 06:59 18:59 Intake Total 1100 Output Total 550 1240 Balance 550 -1240 Weight 130.1 kg Intake: IV 600 Cefepime 2 gm In Sodium 100 Chloride 0.9% 100 ml @ 200 mls/hr IVPB Q12HR [facility] Rx#:[id number] Vancomycin 2,000 mg In 500 Sodium Chloride 0.9% 500 ml 500 ml @ 167 mls/hr IVPB Q12HR [facility] Rx#: [id number] Oral 500 Output: Chest Tube Drainage 65 90 Right Chest Superior 60 30 right chest inferior B 5 60 Urine 485 1150 Other: Voiding Method Indwelling Catheter Indwelling Catheter Indwelling Catheter # Voids 1 ABP, PAP, CO, CI - Last Documented Arterial Blood Pressure 114/54 - Exam GENERAL DESCRIPTION:[ Patient is awake and alert in no distress] HEENT: [Oral mucosa is dry and no pharyngeal erythema] EYES : [No pallor or scleral icterus] RESPIRATORY SYSTEM: [Unlabored breathing decreased breath sound the bases, no wheeze CARDIA VASCULAR SYSTEM: [S1-S2 regular rate and rhythm no murmur] GI: [Abdominal soft there's no tenderness no organomegaly] EXTREMITIES: [No edema feet] - Labs CBC & Chem 7: 08/04/18 05:55 08/04/18 05:55 Labs: Abnormal Lab Results - Last 24 Hours (Table) 08/04/18 08/04/18 Range/Units 05:55 05:55 WBC 24.3 H (3.8-10.6) k/uL RBC 3.31 L (4.30-5.90) m/uL Hgb 9.7 L (13.0-17.5) gm/dL Hct 31.2 L (39.0-53.0) % Plt Count 558 H (150-450) k/uL Neutrophils # 20.9 H (1.3-7.7) k/uL Monocytes # 1.2 H (0-1.0) k/uL Eosinophils # 0.8 H (0-0.7) k/uL Sodium 136 L (137-145) mmol/L Calcium 8.3 L (8.4-10.2) mg/dL Microbiology - Last 24 Hours (Table) 07/25/18 13:30 Fungal Culture - Preliminary Pleural Fluid 07/30/18 14:35 Anaerobic Culture - Final Pleural Fluid 08/01/18 15:23 Anaerobic Culture - Preliminary Pleural Fluid 08/01/18 15:23 Gram Stain - Preliminary Pleural Fluid Body Fluid Culture - Preliminary 07/30/18 14:35 Gram Stain - Final Pleural Fluid Body Fluid Culture - Final 08/02/18 13:56 Blood Culture - Preliminary Blood No Growth after 24 hours Assessment and Plan Assessment: 1-patient admitted hospital with increasing shortness of breath or cough in this patient who did have features of sepsis on presentation with a fever and elevated white count source is her right-sided pneumonia with parapneumonic effusion status post thoracocentesis now with repeat CAT scan with evidence of consolidation with cavitary changes with question of possible community-acquired pathogen versus resistant gram-positive or gram-negative pathogen, the patient is status post right thoracotomy decortication along with deep cultures which are currently negative so far 2-patient fever has resolved white count has shown a downward trend (1) Sepsis Current Visit: Yes Status: Acute Code(s): A41.9 - SEPSIS, UNSPECIFIED ORGANISM SNOMED Code(s): 55525124 (2) Lung mass Current Visit: Yes Status: Acute Code(s): R91.8 - OTHER NONSPECIFIC ABNORMAL FINDING OF LUNG FIELD SNOMED Code(s): 863838954 Plan: 1- the patient will be continued on on cefepime 2 g every 12 hours and vancomycin pharmacy to dose with target of 15 along with oral Diflucan 2-patient will likely need a PICC line and outpatient IV antibiotic therapy - Time with Patient: Less than 30
[2018-08-04] MEDS: FLUCONAZOLE 100 MG TAB PO SCH (23:29)
--- NOTE | 2018-08-05 05:34 | PN ---
PROGRESS NOTE DATE OF SERVICE: 08/04/2018 PRESENTING COMPLAINT: Chest tubes. INTERVAL HISTORY: Patient admitted with severe right-sided pneumonia and parapneumonic effusion, status post thoracentesis, followed by decortication. Two chest tubes are present. Air leak is present. Appetite has picked up a bit. Did walk a bit. Cough with sputum production is present. REVIEW OF SYSTEMS: Done for constitutional, cardiovascular, GI, pulmonary; relevant findings as above. CURRENT MEDICATIONS: Current medications are reviewed that include IV cefepime and vancomycin. PHYSICAL EXAMINATION: On examination, afebrile, pulse 79, respiration 18, blood pressure 131/78, pulse ox 94% on 3 L. GENERAL APPEARANCE: Sitting up in a chair, awake. EYES: Pupils equal. Conjunctivae normal. NECK: JVD not raised. Mass not palpable. RESPIRATORY: Effort increased. LUNGS: Decreased breath sounds with crackles right base. CARDIOVASCULAR: First and second sounds normal. No edema. ABDOMEN: Soft, nontender. Liver and spleen not palpable. PSYCHIATRY: Alert and oriented x3. Mood and affect normal. Chest wall with [address] INVESTIGATIONS: White count 24.3, hemoglobin 9.7. Potassium 4.2. Cultures are pending. ASSESSMENT: 1. Severe right-sided pneumonia with parapneumonic effusion with multiple cavities on CT scan, status post decortication with [address] with clinical response. Fevers are down. White count is coming down. 2. Status post bronchoscopy. 3. Obesity; body mass index 34.1. 4. Sepsis on presentation from pneumonia. 5. Essential hypertension. 6. Hyperlipidemia. 7. Normocytic anemia secondary to sepsis. 8. Reactive thrombocytosis. 9. Hypoalbuminemia as an acute phase reactant. PLAN: Care was discussed with the patient's . Patient's antibiotics are to continue. Will follow. MMODL / IJN: [id number] /
[2018-08-05] MEDS: KETOROLAC 30 MG/ML 1 ML VIAL IVP SCH ×4 (06:15→23:43)
[2018-08-05 08:07] LABS: HCT 27.6 % (39.0-53.0); HGB 9.1 gm/dL (13.0-17.5); MCH 30.8 pg (25.0-35.0); MCHC 32.9 g/dL (31.0-37.0); MCV 93.6 fL (80.0-100.0); Mean Platelet Volume 6.8; Platelet Count 560 k/uL (150-450); RBC 2.95 m/uL (4.30-5.90); RDW 14.3 % (11.5-15.5); WBC 15.4 k/uL (3.8-10.6)
[2018-08-05] MEDS: IPRATROPIUM-ALBUTEROL 3 ML NEB INHALATION SCH ×4 (08:37→21:10)
[2018-08-05 08:38] LABS: African American GFR (CKD) >90 (>60 ml/min/1.73 sqM); Anion Gap 7 mmol/L; Blood Urea Nitrogen 15 mg/dL (9-20); Calcium 8.5 mg/dL (8.4-10.2); Carbon Dioxide 28 mmol/L (22-30); Chloride 101 mmol/L (98-107); Glucose 96 mg/dL (74-99); Potassium 3.9 mmol/L (3.5-5.1); Sodium 136 mmol/L (137-145)
--- NOTE | 2018-08-05 09:07 | P.PN ---
Subjective Progress Note Date: 08/05/18 Principal diagnosis: Right-sided empyema, cavitary pneumonia; right-sided pleural effusion, parapneumonic versus pneumonia versus malignancy, status post thoracentesis with 350 mL dark fluid removed, cytology consistent with empyema. Previous medical history of hypertension, hypercholesterolemia, De Leon's esophagitis, previous tobacco dependence with [id number] history, social EtOH use, family history of premature coronary artery disease and colon cancer. POD #6 bronchoscopy with bronchoalveolar lavage by pulmonology POD #7 placement of right sided pigtail catheter by interventional radiology POD #4 right thoracotomy with decortication The patient is currently sitting up in the chair in no acute distress. Does continue to complain of coughing and congestion. Hemodynamically stable. Anterior and posterior chest tubes remain on the right side, anterior tube with air leak present, both chest tubes to waterseal greater than 24 hours. Pathology still pending, no growth to date on any of his cultures. Patient did have some confusion last night, possibly narcotic-induced, completely oriented this morning. Objective - Vital Signs Vital signs: Vital Signs Temp 98.3 F 08/05/18 03:46 Pulse 69 08/05/18 03:46 Resp 18 08/05/18 03:46 BP 142/83 08/05/18 03:46 Pulse Ox 93 L 08/05/18 03:46 Intake & Output 08/04/18 08/05/18 08/05/18 18:59 06:59 18:59 Intake Total 582 350 Output Total 690 44 Balance -108 306 Weight 131.9 kg Intake: IV 100 Cefepime 2 gm In Sodium 100 Chloride 0.9% 100 ml @ 200 mls/hr IVPB Q12HR [facility] Rx#:[id number] Intake, IV Titration 80 Amount Sodium Chloride 0.9% 1, 80 000 ml @ 10 mls/hr IV . Q24H [facility] Rx#:[id number] Oral 402 350 Output: Chest Tube Drainage 40 44 Right Chest Superior 40 40 right chest inferior B 0 4 Urine 650 Other: Voiding Method Indwelling Catheter Urinal # Voids 1 1 # Bowel Movements 1 ABP, PAP, CO, CI - Last Documented Arterial Blood Pressure 114/54 - Constitutional General appearance: Present: cooperative, no acute distress, obese - Respiratory Details: Lungs sounds diminished to the right lower lobe with expiratory wheezes heard bilaterally. Respirations even, nonlabored. Currently on 4 L nasal cannula with oxygen saturation 93%. Able to achieve 1000 mL on his incentive spirometry. Right anterior (labeled superior) chest tube to waterseal, 00 mL serosanguineous drainage output overnight, 120 mL in the last 24 hours, positive intermittent air leak present. Right posterior (labeled inferior) chest tube to waterseal, no drainage in the last 24 hours, no air leak present. - Cardiovascular Details: S1, S2 present. Regular rate and rhythm, sinus rhythm on telemetry. Palpable peripheral pulses bilaterally. Bilateral lower extremity edema present. No calf pain or tenderness noted. - Gastrointestinal Gastrointestinal Comment(s): Abdomen soft, nontender, nondistended. Active bowel sounds 4 quadrants. Tolerating diet. - Genitourinary Genitourinary Comment(s): Teran discontinued yesterday. Patient continues to void clear, yellow urine. - Integumentary Integumentary Comment(s): Skin is warm dry with evidence of good perfusion. Right lateral wall thoracotomy incision well approximated and covered with dry intact dressing. - Neurologic Neurologic: Present: CNII-XII intact - Musculoskeletal Musculoskeletal: Present: gait normal, strength equal bilaterally - Psychiatric Psychiatric: Present: A&O x's 3, appropriate affect, intact judgment & insight - Allied health notes Allied health notes reviewed: nursing - Labs CBC & Chem 7: 08/05/18 07:32 08/05/18 07:32 Labs: Abnormal Lab Results - Last 24 Hours (Table) 08/05/18 08/05/18 Range/Units 07:32 07:32 WBC 15.4 H (3.8-10.6) k/uL RBC 2.95 L (4.30-5.90) m/uL Hgb 9.1 L (13.0-17.5) gm/dL Hct 27.6 L (39.0-53.0) % Plt Count 560 H (150-450) k/uL Sodium 136 L (137-145) mmol/L Microbiology - Last 24 Hours (Table) 07/25/18 13:30 Acid Fast Bacilli Smear - Final Pleural Fluid Acid Fast Bacilli Culture - Preliminary 08/01/18 15:23 Gram Stain - Preliminary Pleural Fluid Body Fluid Culture - Preliminary 08/02/18 13:56 Blood Culture - Preliminary Blood No Growth after 48 hours 07/25/18 13:30 Fungal Culture - Preliminary Pleural Fluid - Imaging and Cardiology Chest x-ray: image reviewed Assessment and Plan Assessment: 1. Right sided empyema, cavitary pneumonia, status post bronchoscopy, status post pigtail catheter placement, status post thoracotomy with decortication, pathology pending, cultures negative to date 2. Right-sided pleural effusion, parapneumonic versus pneumonia versus malignancy, status post thoracentesis with 350 mL dark fluid removed, cytology demonstrates consistent with empyema 3. History of hypertension, treated 4. History of hypercholesterolemia, treated 5. 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 Previous tobacco dependence with [id number] history 7. Social EtOH use 8. Family history of premature coronary artery disease 9. Family history of colon cancer Plan: 1. Continue IV antibiotics per infectious disease recommendations. Currently on vancomycin and cefepime. 2. Continue pleural chest tubes to waterseal. 3. Bronchodilators per pulmonology. Continue chest physiotherapy. 4. Wean O2 as tolerated. Encourage incentive spirometry is 10 times every hour while awake. 5. Will monitor labs and chest x-rays. 6. Increase activity as tolerated, ambulate in hallway. 7. GI/DVT prophylaxis 8. Tramadol, Ambien discontinued. Recommend no narcotics. Continue pain management with oral Tylenol, IV Toradol. 9. Medical management of other comorbid conditions per primary care service. 10. More recommendations to follow. Time with Patient: Greater than 30
[2018-08-05] MEDS: ASPIRIN 81 MG PO SCH (09:13)
[2018-08-05] MEDS: guaiFENesin 600 MG TABLET.ER PO SCH ×2 (09:13→21:46)
[2018-08-05] MEDS: FLUCONAZOLE 100 MG TAB PO SCH (09:13)
[2018-08-05] MEDS: METOPROLOL SUCCINATE (ER) 100 MG TAB.ER.24H PO SCH ×2 (09:13→21:46)
[2018-08-05] MEDS: FAMOTIDINE 20 MG TAB PO SCH ×2 (09:14→21:46)
[2018-08-05] MEDS: ENOXAPARIN 40 MG/0.4 ML SYRINGE SQ SCH (09:14)
[2018-08-05] MEDS: SENNOSIDES-DOCUSATE SODIUM 1 EACH TAB PO SCH (09:14)
[2018-08-05] MEDS: CEFEPIME 2 GM in SODIUM CHLORIDE 0.9% 100 ML IVPB SCH ×2 (09:14→21:38)
--- NOTE | 2018-08-05 09:35 | XR ---
EXAMINATION TYPE: XR chest 2V DATE OF EXAM: 08/05/2018 COMPARISON: Prior chest x-ray 08/04/2018 HISTORY: Status post decortication TECHNIQUE: Frontal and lateral views of the chest are obtained. FINDINGS: Right-sided chest tubes are again noted. There is some improvement in aeration within the right lung. Minimal apical pneumothorax may be present. Airspace disease persists in the left upper l obe. Heart size is enlarged and stable. Subcutaneous emphysema and pleural thickening along the right lateral chest margin noted. There are overlying cardiac leads. IMPRESSION: There is some improvement in aeration in the right lung.
[2018-08-05] MEDS: VANCOMYCIN 2,000 MG in SODIUM CHLORIDE 0.9% 500 ML 500 ML IVPB SCH ×2 (10:24→22:18)
[2018-08-05] MEDS ORDERED: LACTULOSE 20 GM/30 ML CUP PO ONE (13:56)
--- NOTE | 2018-08-05 16:55 | P.PN ---
Subjective Progress Note Date: 08/05/18 Principal diagnosis: Right-sided apical pneumothorax small Right-sided lung mass pleural base, right-sided pneumonia, right parapneumonic effusion, sepsis, chest pain, cough, morbid obesity, hypertension hypertensive cardiovascular disease, dyslipidemia, 08/06/1999 619, patient uncertain up in chair breathing comfortably does have some chest pain some air leak is still present chest tube is being placed to water seal, labs reviewed medications reviewed, patient is afebrile, white cell count continue to improve nicely 15,000 Path pending 08/04/2018, patient seen eval reexamined during the rounds denies any chest pain does have ongoing cough feels slightly better white cell count noted to be coming down chest x-ray reviewed overall stable still have minimal air leak from the anterior chest tubes 08/03/2018, patient seen and evaluated examined during the rounds he is sitting upright on the chair she still has problem came in complaining and supine position, cough and congestion is still present significant amount of sputum does come out patient is on supplemental oxygen to chest tubes are present right anterior chest tube has some air leak which was not seen yesterday, the pneumothorax essentially unchanged, noted white cell count is up likely related to postoperative inflammatory condition, antibiotics have been adjusted to cefapime and vancomycin ID service following, will start chest PT continue breathing treatment and incentive spirometry patient can be moved out of the ICU that we'll give more [place] to ambulate and physical therapy 08/02/2018, patient seen and evaluated examined during the rounds, patient is postop day #1 for thoracotomy on the right side and decortication his pain is well controlled on epidural, he is doing I-S up to 1.5 L, he is on 4 L nasal cannula sitting on the bedside, labs reviewed medications reviewed radiographic studies reviewed as well chest x-ray showed right-sided pneumothorax stable 08/01/2018, patient seen eval reexamined during the rounds he is still have significant amount of cough with purulent secretions and drainage, patient is nothing by mouth for the thoracotomy, the pigtail catheter was clogged then was opened up by thrombolytics but not draining any amount, x-ray from today reviewed not much change is still showing thick walled cavitary lesion and right lower lobe consolidation and pleural effusion, labs reviewed white cell count is down to 12,800 chemistry normal 07/31/2018, patient seen and evaluated examined during rounds care plan discussed with the cardiothoracic surgery patient is status post pigtail catheter placement pain cough congestion is still there but is slightly improved though after bronchoscopy remains on broad-spectrum antibiotics culture results and report are reviewed cytology results are reviewed him a white cell count continue to come down is now 13.7 electrolytes are okay 07/30/2018, patient seen and evaluated examined right cell count is down to 15,000 he is feeling slightly better with still have cough congestion shortness of breath and chest pain care plan discussed with cardiothoracic surgery as well as a patient is being planned for bronchoscopy later on today, patient is being considered for thoracotomy versus pigtail catheter continue IV Zosyn 07/29/2018, patient seen eval reexamined during the rounds is still have significant amount of sputum production complain of chronic chest pain with cough cytology is back as negative on pleural fluid culture so far negative care plan discussed with infectious disease and thoracic surgery patient is contemplated for pigtail catheter versus thoracotomy by thoracic surgery in the meantime we'll do a bronchoscopy to obtain samples and also to rule out any endobronchial mass or lesion procedure explained to the patient 07/28/2018, patient seen and evaluated examined during rounds clinically he is doing essentially the same is still complaining of pain on the right side with severe coughing and breathing he does have sputum which is brownish yellowish in color, computed tomography scan of the chest reviewed there is appearance of abscess versus necrotizing pneumonia in the right lower lobe with dense thickening small fluid is present findings are reviewed with the patient, pleural fluid cytology is still pending 07/26/2018, patient seen and evaluated examined during the rounds he is complaining of insomnia and chest pain pain is improved with Motrin or Tylenol he is asking for a sleeping aid respiratory status slightly better today he has gone thoracentesis of the right side in about 400-450 mL of pleural fluid removed the pleural fluid appears to be exudative with Gram stain negative cultures are pending cytology is pending Objective - Vital Signs Vital signs: Vital Signs Temp 97.7 F 08/05/18 15:52 Pulse 70 08/05/18 15:52 Resp 18 08/05/18 15:52 BP 134/85 08/05/18 15:52 Pulse Ox 94 L 08/05/18 15:52 Intake & Output 08/04/18 08/05/18 08/05/18 18:59 06:59 18:59 Intake Total 310 844 0681 Output Total 690 44 Balance -149 813 9924 Weight 131.9 kg Intake: IV 100 600 Cefepime 2 gm In Sodium 100 100 Chloride 0.9% 100 ml @ 200 mls/hr IVPB Q12HR [facility] Rx#:[id number] Vancomycin 2,000 mg In 500 Sodium Chloride 0.9% 500 ml 500 ml @ 167 mls/hr IVPB Q12HR [facility] Rx#: [id number] Intake, IV Titration 80 Amount Sodium Chloride 0.9% 1, 80 000 ml @ 10 mls/hr IV . Q24H [facility] Rx#:[id number] Oral 402 350 600 Output: Chest Tube Drainage 40 44 Right Chest Superior 40 40 right chest inferior B 0 4 Urine 650 Other: Voiding Method Indwelling Catheter Urinal # Voids 1 1 # Bowel Movements 1 ABP, PAP, CO, CI - Last Documented Arterial Blood Pressure 114/54 - Exam Constitutional General appearance: cooperative, disheveled, no acute distress, obese - EENT Eyes: anicteric sclerae, EOMI, PERRLA, normal appearance Ears: bilateral: normal - Neck Carotids: bilateral: upstroke normal Thyroid: bilateral: normal size - Respiratory Respiratory: right: diminished, dullness, negative: CTA, rales, rhonchi, wheezing, prolonged expiration, anterior and posterior chest tube draining serosanguineous fluid minimal anterior chest tube has air leak - Cardiovascular Rhythm: regular Heart sounds: normal: S1, S2 - Gastrointestinal General gastrointestinal: normal bowel sounds - Integumentary Integumentary: normal, normal turgor - Neurologic Neurologic: CNII-XII intact - Musculoskeletal Musculoskeletal: gait normal, generalized weakness, strength equal bilaterally - Psychiatric Psychiatric: A&O x's 3, appropriate affect, intact judgment & insight - Labs CBC & Chem 7: 08/05/18 07:32 08/05/18 07:32 Labs: Abnormal Lab Results - Last 24 Hours (Table) 08/05/18 08/05/18 Range/Units 07:32 07:32 WBC 15.4 H (3.8-10.6) k/uL RBC 2.95 L (4.30-5.90) m/uL Hgb 9.1 L (13.0-17.5) gm/dL Hct 27.6 L (39.0-53.0) % Plt Count 560 H (150-450) k/uL Sodium 136 L (137-145) mmol/L Microbiology - Last 24 Hours (Table) 08/02/18 13:56 Blood Culture - Preliminary Blood No Growth after 72 hours 07/25/18 13:30 Acid Fast Bacilli Smear - Final Pleural Fluid Acid Fast Bacilli Culture - Preliminary 08/01/18 15:23 Gram Stain - Preliminary Pleural Fluid Body Fluid Culture - Preliminary Assessment and Plan Assessment: Empyema lung Right lower lobe lung mass pleural-based likely pneumonia but however malignancy cannot be excluded likely abscess with parapneumonic effusion status post right thoracotomy with decortication postop day # 3 Right sided pneumonia cavitary Small pneumothorax residual on the right side Exudative pleural effusion Significant and profound leukocytosis likely multifactorial processes Right-sided pleural effusion likely parapneumonic effusion versus pneumonia and effusion less likely related to malignancy Obesity Hypertension hypertensive cardiovascular disease Dyslipidemia Plan: Agree with broad-spectrum antibiotics with IV vancomycin and cephpime Care plan discussed with thoracic surgery patient is right-sided thoracotomy postop day #3 Bronchoscopy findings reviewed Gram stain and cultur for BAL so far unremarkable Status post right thoracentesis , bronchoscopy and BAL, right-sided pigtail catheter with results of final culture and cytology reviewed Reviewed repeat CT of the chest without contrast Continue antibiotics Chest PT Deep breathing exercise incentive spirometry Increase activity as tolerated Time with Patient: Greater than 30
[2018-08-05] MEDS: MELATONIN 3 MG TABLET PO SCH (21:46)
[2018-08-05] MEDS: ATORVASTATIN 10 MG TAB PO SCH (21:46)
[2018-08-05] MEDS: SODIUM CHLORIDE 0.9% 1,000 ML IV SCH (22:21)
--- NOTE | 2018-08-05 22:30 | P.PN ---
Subjective Progress Note Date: 08/05/18 Principal diagnosis: Cavitatory pneumonia and right-sided empyema Patient is a 63-year-old male admitted to the hospital with chronic cough chest pain right-sided fever and elevated white count in this patient who did have evidence of right-sided pleural effusion status post oral consent diseases with a repeat CT suggestive of right-sided cavitating pneumonia and ple ural effusion, patient is currently be treated with Zosyn. The patient is status post bronchoscopy and and lavaged on 07/30/2018, did have a right chest wall pigtail catheter placement on 07/31/2018 , and did have right thoracotomy and decortication for empyema right lung on 08/01/2018 On today's evaluation that is 08/05/2018 the patient denies any fever or chills, the patient is breathing comfortably, the patient cough has decreased in intensity is mostly dry in nature however still painful to cough, the patient denies nausea no vomiting no abdominal pain and no diarrhea Objective - Vital Signs Vital signs: Vital Signs Temp 97.1 F L 08/05/18 08:50 Pulse 76 08/05/18 08:50 Resp 18 08/05/18 08:50 BP 133/78 08/05/18 08:50 Pulse Ox 96 08/05/18 08:50 Intake & Output 08/04/18 08/05/18 08/05/18 18:59 06:59 18:59 Intake Total 582 350 240 Output Total 690 44 Balance -108 306 240 Weight 131.9 kg Intake: IV 100 Cefepime 2 gm In Sodium 100 Chloride 0.9% 100 ml @ 200 mls/hr IVPB Q12HR [facility] Rx#:[id number] Intake, IV Titration 80 Amount Sodium Chloride 0.9% 1, 80 000 ml @ 10 mls/hr IV . Q24H [facility] Rx#:[id number] Oral 402 350 240 Output: Chest Tube Drainage 40 44 Right Chest Superior 40 40 right chest inferior B 0 4 Urine 650 Other: Voiding Method Indwelling Catheter Urinal # Voids 1 1 # Bowel Movements 1 ABP, PAP, CO, CI - Last Documented Arterial Blood Pressure 114/54 - Exam GENERAL DESCRIPTION:[ Patient is awake and alert in no distress] HEENT: [Oral mucosa is dry and no pharyngeal erythema] EYES : [No pallor or scleral icterus] RESPIRATORY SYSTEM: [Unlabored breathing decreased breath sound the bases, no wheeze CARDIA VASCULAR SYSTEM: [S1-S2 regular rate and rhythm no murmur] GI: [Abdominal soft there's no tenderness no organomegaly] EXTREMITIES: [No edema feet] - Labs CBC & Chem 7: 08/05/18 07:32 08/05/18 07:32 Labs: Abnormal Lab Results - Last 24 Hours (Table) 08/05/18 08/05/18 Range/Units 07:32 07:32 WBC 15.4 H (3.8-10.6) k/uL RBC 2.95 L (4.30-5.90) m/uL Hgb 9.1 L (13.0-17.5) gm/dL Hct 27.6 L (39.0-53.0) % Plt Count 560 H (150-450) k/uL Sodium 136 L (137-145) mmol/L Microbiology - Last 24 Hours (Table) 07/25/18 13:30 Acid Fast Bacilli Smear - Final Pleural Fluid Acid Fast Bacilli Culture - Preliminary 08/01/18 15:23 Gram Stain - Preliminary Pleural Fluid Body Fluid Culture - Preliminary 08/02/18 13:56 Blood Culture - Preliminary Blood No Growth after 48 hours 07/25/18 13:30 Fungal Culture - Preliminary Pleural Fluid Assessment and Plan Assessment: 1-patient admitted hospital with increasing shortness of breath or cough in this patient who did have features of sepsis on presentation with a fever and elevated white count source is her right-sided pneumonia with parapneumonic effusion status post thoracocentesis now with repeat CAT scan with evidence of consolidation with cavitary changes with question of possible community-acquired pathogen versus resistant gram-positive or gram-negative pathogen, the patient is status post right thoracotomy decortication along with deep cultures which are currently negative so far 2-patient fever has resolved white count continued to show downward trend (1) Sepsis Current Visit: Yes Status: Acute Code(s): A41.9 - SEPSIS, UNSPECIFIED ORGANISM SNOMED Code(s): 91380901 (2) Lung mass Current Visit: Yes Status: Acute Code(s): R91.8 - OTHER NONSPECIFIC ABNORMAL FINDING OF LUNG FIELD SNOMED Code(s): 073167628 Plan: 1- the patient will be continued on on cefepime 2 g every 12 hours and vancomycin pharmacy to dose with target of 15 along with oral Diflucan 2-patient will likely need a PICC line and outpatient IV antibiotic therapy, which will be transitioned to IV Rocephin and oral Diflucan. if the Cultures remains to be negative for resistant gram-positive and gram-negative - Time with Patient: Less than 30
[2018-08-06] MEDS: KETOROLAC 30 MG/ML 1 ML VIAL IVP SCH ×4 (06:28→23:30)
--- NOTE | 2018-08-06 06:29 | PN ---
PROGRESS NOTE DATE OF SERVICE: 08/05/2018 PRESENTING COMPLAINT: Tired. INTERVAL HISTORY: Patient admitted with severe right-sided pneumonia, parapneumonic effusion, status post thoracentesis followed by decortication. Two chest tubes are present. Also had air leak. The patient became delirious sedatives and pain medications were discontinued. Doing better this morning. Did tolerate better. Sitting up on a chair, still producing some sputum . REVIEW OF SYSTEMS: Done for constitutional, cardiovascular, GI, pulmonary; relevant findings as above. CURRENT MEDICATIONS: Current medications are reviewed that include IV cefepime and vancomycin. PHYSICAL EXAMINATION: On examination, temperature 97.7, pulse 70, respiration 18, blood pressure 134/85, pulse ox 94% 4 L. GENERAL APPEARANCE: Sitting up on a chair, awake. EYES: Pupils equal. Conjunctivae normal. NECK: JVD not raised. Mass not palpable. RESPIRATORY: Effort increased. LUNGS: Decreased breath sounds right side. CARDIOVASCULAR: First and second sounds normal. Mild edema. ABDOMEN: Soft, nontender. Liver and spleen not palpable. PSYCHIATRY: Alert and oriented x3. Mood and affect normal. CHEST WALL: Right-sided 2 chest tubes are present. INVESTIGATIONS: White count 15.4, hemoglobin 9.1. Potassium 3.9. Chest x-ray film personally reviewed by me shows improved aeration on the right side. Patient's cultures all have remained negative until now. ASSESSMENT: 1. Severe right-sided pneumonia with parapneumonic effusion with multiple cavities on CT scan, status post decortication with [address] with clinical improvement. 2. Status post bronchoscopy. 3. Obesity; body mass index 34.1. 4. Sepsis on presentation with pneumonia. 5. Essential hypertension. 6. Hyperlipidemia. 7. Normocytic anemia secondary to sepsis. 8. Reactive thrombocytosis. 9. Hypoalbuminemia as an acute phase reactant. PLAN: Continue current medication and treatment plan. Remains on IV antibiotics. Care was discussed with the patient and . The patient continues to use IS. Will follow. MMODL / IJN: [id number] /
--- NOTE | 2018-08-06 09:00 | P.PN ---
Subjective Progress Note Date: 08/06/18 Principal diagnosis: Right-sided empyema, cavitary pneumonia; right-sided pleural effusion, parapneumonic versus pneumonia versus malignancy, status post thoracentesis with 350 mL dark fluid removed, cytology consistent with empyema. Previous medical history of hypertension, hypercholesterolemia, De Leon's esophagitis, previous tobacco dependence with 45-cinh-vssc history, social EtOH use, family history of premature coronary artery disease and colon cancer. POD #7 bronchoscopy with bronchoalveolar lavage by pulmonology POD #8 placement of right sided pigtail catheter by interventional radiology POD #5 right thoracotomy with decortication The patient is currently sitting up in the chair in no acute distress. Coughing continues although patient is feeling slightly better daily. Hemodynamically stable. Anterior and posterior chest tubes remain on the right side, anterior tube without air leak this morning, both chest tubes to waterseal. Pathology results demonstrate no malignancy, consistent with empyema, no growth to date on any of his cultures. Patient continues to improve slowly every day. Objective - Vital Signs Vital signs: Vital Signs Temp 97.7 F 08/06/18 08:00 Pulse 73 08/06/18 08:00 Resp 24 08/06/18 08:00 BP 115/68 08/06/18 08:00 Pulse Ox 96 08/06/18 08:00 Intake & Output 08/05/18 08/06/18 08/06/18 18:59 06:59 18:59 Intake Total 1440 Output Total 1530 Balance 1440 -1530 Weight 131.4 kg Intake: IV 600 Cefepime 2 gm In Sodium 100 Chloride 0.9% 100 ml @ 200 mls/hr IVPB Q12HR DANIELLA Rx#:[id number] Vancomycin 2,000 mg In 500 Sodium Chloride 0.9% 500 ml 500 ml @ 167 mls/hr IVPB Q12HR DANIELLA Rx#: [id number] Oral 840 Output: Chest Tube Drainage 30 Right Chest Superior 30 right chest inferior B 0 Urine 1500 Other: Voiding Method Urinal # Voids 1 # Bowel Movements 1 ABP, PAP, CO, CI - Last Documented Arterial Blood Pressure 114/54 - Constitutional General appearance: Present: cooperative, no acute distress, obese - Respiratory Details: Lungs sounds diminished to the right lower lobe. Respirations even, nonlabored. Currently on 4 L nasal cannula with oxygen saturation 96%. Able to achieve 1760-7979 mL on his incentive spirometry. Right anterior (labeled superior) chest tube to waterseal, 20 mL serosanguineous drainage output overnight, 50 mL in the last 24 hours, no air leak present. Right posterior (labeled inferior) chest tube to waterseal, no drainage in the last 24 hours, no air leak present. - Cardiovascular Details: S1, S2 present. Regular rate and rhythm, sinus rhythm on telemetry. Palpable peripheral pulses bilaterally. Bilateral lower extremity edema present. No calf pain or tenderness noted. - Gastrointestinal Gastrointestinal Comment(s): Abdomen soft, nontender, nondistended. Active bowel sounds 4 quadrants. Tolerating diet. Positive bowel movement. - Genitourinary Genitourinary Comment(s): Patient continues to void clear, yellow urine. - Integumentary Integumentary Comment(s): Skin is warm dry with evidence of good perfusion. Right lateral wall thoracotomy incision well approximated. - Neurologic Neurologic: Present: CNII-XII intact - Musculoskeletal Musculoskeletal: Present: gait normal, strength equal bilaterally - Psychiatric Psychiatric: Present: A&O x's 3, appropriate affect, intact judgment & insight - Allied health notes Allied health notes reviewed: nursing - Labs CBC & Chem 7: 08/05/18 07:32 08/05/18 07:32 Labs: Microbiology - Last 24 Hours (Table) 08/01/18 15:23 Anaerobic Culture - Final Pleural Fluid 08/01/18 15:23 Gram Stain - Final Pleural Fluid Body Fluid Culture - Final 08/02/18 13:56 Blood Culture - Preliminary Blood No Growth after 72 hours - Imaging and Cardiology Chest x-ray: image reviewed Assessment and Plan Assessment: 1. Right sided empyema, cavitary pneumonia, status post bronchoscopy, status post pigtail catheter placement, status post thoracotomy with decortication, pathology demonstrates no malignancy, consistent with empyema, cultures negative to date 2. Right-sided pleural effusion, parapneumonic versus pneumonia versus aman gnancy, status post thoracentesis with 350 mL dark fluid removed, cytology demonstrates consistent with empyema 3. History of hypertension, treated 4. History of hypercholesterolemia, treated 5. 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 Previous tobacco dependence with 39-pide-dvqd history 7. Social EtOH use 8. Family history of premature coronary artery disease 9. Family history of colon cancer Plan: 1. Continue IV antibiotics per infectious disease recommendations. Currently on vancomycin and cefepime. 2. Continue pleural chest tubes to waterseal. Will discuss possible removal today with Dr. Handy due to no air leak and minimal to no drainage. 3. Bronchodilators per pulmonology. Continue chest physiotherapy. 4. Wean O2 as tolerated. Encourage incentive spirometry is 10 times every hour while awake. 5. Will monitor labs and chest x-rays. 6. Increase activity as tolerated, ambulate in hallway. 7. GI/DVT prophylaxis 8. Tramadol, Ambien discontinued. Recommend no narcotics. Continue pain management with oral Tylenol, IV Toradol. 9. Medical management of other comorbid conditions per primary care service. 10. More recommendations to follow. Time with Patient: Greater than 30
--- NOTE | 2018-08-06 09:03 | XR ---
EXAMINATION TYPE: XR chest 2V DATE OF EXAM: 08/06/2018 COMPARISON: 08/05/2018 TECHNIQUE: PA and lateral views submitted. HISTORY: post decortication FINDINGS: Right-sided chest tubes are again noted. There is some improvement in aeration within the right lung. Minimal apical pneumothorax may be present. Airspace disease persists in the left upper lobe. Heart size is enlarged and stable. Subcutaneous emphysema and pleural thickening along the right lateral ch est margin noted. There are overlying cardiac leads. IMPRESSION: 1. Diffuse pleural-parenchymal changes are stable. Persistent subcutaneous emphysema and apical pneum othorax are stable.
[2018-08-06] MEDS: SENNOSIDES-DOCUSATE SODIUM 1 EACH TAB PO SCH ×2 (09:06→09:15)
[2018-08-06] MEDS: ASPIRIN 81 MG PO SCH (09:06)
[2018-08-06] MEDS: FLUCONAZOLE 100 MG TAB PO SCH (09:06)
[2018-08-06] MEDS: FAMOTIDINE 20 MG TAB PO SCH ×2 (09:06→19:57)
[2018-08-06] MEDS: ENOXAPARIN 40 MG/0.4 ML SYRINGE SQ SCH (09:06)
[2018-08-06] MEDS: CEFEPIME 2 GM in SODIUM CHLORIDE 0.9% 100 ML IVPB SCH ×2 (09:09→19:58)
[2018-08-06] MEDS: IPRATROPIUM-ALBUTEROL 3 ML NEB INHALATION SCH ×4 (09:14→20:23)
[2018-08-06] MEDS: guaiFENesin 600 MG TABLET.ER PO SCH ×2 (09:20→19:57)
[2018-08-06] MEDS: METOPROLOL SUCCINATE (ER) 100 MG TAB.ER.24H PO SCH ×2 (09:20→19:57)
[2018-08-06] MEDS: POLYETHYLENE GLYCOL 3350 17 GM POWD.PACK PO SCH (09:20)
[2018-08-06] MEDS: VANCOMYCIN 2,000 MG in SODIUM CHLORIDE 0.9% 500 ML 500 ML IVPB SCH ×2 (10:09→21:36)
[2018-08-06] MEDS ORDERED: FUROSEMIDE 10 MG/ML 4 ML VIAL IV STA (11:03)
[2018-08-06] MEDS: MELATONIN 3 MG TABLET PO SCH (19:57)
[2018-08-06] MEDS: ATORVASTATIN 10 MG TAB PO SCH (19:57)
--- NOTE | 2018-08-06 22:05 | P.PN ---
Subjective Progress Note Date: 08/06/18 Principal diagnosis: Cavitatory pneumonia and right-sided empyema Patient is a 63-year-old male admitted to the hospital with chronic cough chest pain right-sided fever and elevated white count in this patient who did have evidence of right-sided pleural effusion status post oral consent diseases with a repeat CT suggestive of right-sided cavitating pneumonia and ple ural effusion, patient is currently be treated with Zosyn. The patient is status post bronchoscopy and and lavaged on 07/30/2018, did have a right chest wall pigtail catheter placement on 07/31/2018 , and did have right thoracotomy and decortication for empyema right lung on 08/01/2018 On today's evaluation that is 08/06/2018 the patient remains to be afebrile, the patient is breathing comfortably, the patient cough has decreased in intensity is mostly dry in nature, the patient denies nausea no vomiting no abdominal pain and no diarrhea, has been concerned about the patient having some confusion and hallucination Objective - Vital Signs Vital signs: Vital Signs Temp 97.7 F 08/06/18 08:00 Pulse 72 08/06/18 09:15 Resp 24 08/06/18 08:00 BP 140/74 08/06/18 09:13 Pulse Ox 96 08/06/18 08:00 Intake & Output 08/05/18 08/06/18 08/06/18 18:59 06:59 18:59 Intake Total 1440 Output Total 1530 Balance 1440 -1530 Weight 131.4 kg Intake: IV 600 Cefepime 2 gm In Sodium 100 Chloride 0.9% 100 ml @ 200 mls/hr IVPB Q12HR DANIELLA Rx#:[id number] Vancomycin 2,000 mg In 500 Sodium Chloride 0.9% 500 ml 500 ml @ 167 mls/hr IVPB Q12HR DANIELLA Rx#: [id number] Oral 840 Output: Chest Tube Drainage 30 Right Chest Superior 30 right chest inferior B 0 Urine 1500 Other: Voiding Method Urinal # Voids 1 # Bowel Movements 1 ABP, PAP, CO, CI - Last Documented Arterial Blood Pressure 114/54 - Exam GENERAL DESCRIPTION:[ Patient is awake and alert in no distress] HEENT: [Oral mucosa is dry and no pharyngeal erythema] EYES : [No pallor or scleral icterus] RESPIRATORY SYSTEM: [Unlabored breathing decreased breath sound the bases, no wheeze CARDIA VASCULAR SYSTEM: [S1-S2 regular rate and rhythm no murmur] GI: [Abdominal soft there's no tenderness no organomegaly] EXTREMITIES: [No edema feet] - Labs CBC & Chem 7: 08/05/18 07:32 08/05/18 07:32 Labs: Microbiology - Last 24 Hours (Table) 08/01/18 15:23 Anaerobic Culture - Final Pleural Fluid 08/01/18 15:23 Gram Stain - Final Pleural Fluid Body Fluid Culture - Final 08/02/18 13:56 Blood Culture - Preliminary Blood No Growth after 72 hours Assessment and Plan Assessment: 1-patient admitted hospital with increasing shortness of breath or cough in this patient who did have features of sepsis on presentation with a fever and elevated white count source is her right-sided pneumonia with parapneumonic effusion status post thoracocentesis now with repeat CAT scan with evidence of consolidation with cavitary changes with question of possible community-acquired pathogen versus resistant gram-positive or gram-negative pathogen, the patient is status post right thoracotomy decortication along with deep cultures which are currently negative so far 2-patient fever has resolved white count continued to show downward trend, though no CBC was done today (1) Sepsis Current Visit: Yes Status: Acute Code(s): A41.9 - SEPSIS, UNSPECIFIED ORGANISM SNOMED Code(s): 40807041 (2) Lung mass Current Visit: Yes Status: Acute Code(s): R91.8 - OTHER NONSPECIFIC ABNORMAL FINDING OF LUNG FIELD SNOMED Code(s): 941214345 Plan: 1- the patient will be continued on on cefepime 2 g every 12 hours and oral Diflucan--- however discontinue the vancomycin as no MRSA has been grown 2-patient will likely need a PICC line and outpatient IV antibiotic therapy, which will be transitioned to IV Rocephin and oral Diflucan. - Time with Patient: Less than 30
--- NOTE | 2018-08-06 22:16 | PN ---
PROGRESS NOTE DATE OF SERVICE: August 06, 2018. PRESENTING COMPLAINT: Tired. INTERVAL HISTORY: This patient admitted with severe right-sided pneumonia, parapneumonic effusion status post thoracentesis. Followed by decortication. Two chest tubes are present. One of the tubes also has an air leak. Overall, patient continues to feel better. Eating better. Patient actually did walk in the hallway today. REVIEW OF SYSTEMS: Done for constitutional, cardiovascular, GI, pulmonary; relevant findings as above. CURRENT MEDICATIONS: Reviewed that include IV cefepime and vancomycin. PHYSICAL EXAMINATION: VITAL SIGNS: Temp 97.6, pulse 61. Respiratory rate 20, blood pressure 133/75, pulse ox 97 percent on 4 L. GENERAL APPEARANCE: Sitting up in a chair, awake. EYES: Pupils are equal. Conjunctivae normal. NECK: JVD not raised. Mass not palpable. RESPIRATORY: Effort increased. LUNGS: Decreased breath sounds on the right side. Occasional crackles. CARDIOVASCULAR: First and second sounds normal. Mild edema. ABDOMEN: Soft, nontender. Liver and spleen not palpable. PSYCHIATRY: Alert and oriented x3. Mood and affect normal. Chest wall right-sided two chest tubes to drain. INVESTIGATIONS: No blood work from today. Cultures remain negative. ASSESSMENT: 1. Acute severe right-sided pneumonia with parapneumonic effusion with multiple cavities on the CT scan, status post thoracentesis and decortication with [address] 2. Status post bronchoscopy. 3. Obesity; BMI 34.1. 4. Sepsis on presentation with pneumonia. 5. Essential hypertension. 6. Hyperlipidemia. 7. Normocytic anemia secondary to sepsis. 8. Reactive thrombocytosis. 9. Hypoalbuminemia as an acute phase reactant. PLAN: Patient's appetite is picking up. Patient actually did walk in the hallway today with a walker. Antibiotics have been quoted and directed by ID. One of the chest tubes may be taken out per Cardiothoracic today. Care was discussed with the patient and . Questions were answered. MMODL / IJN: [id number] /
[2018-08-06] MEDS: SODIUM CHLORIDE 0.9% 1,000 ML IV SCH (23:21)
[2018-08-07] MEDS: KETOROLAC 30 MG/ML 1 ML VIAL IVP SCH ×4 (06:25→23:25)
[2018-08-07 08:01] LABS: HCT 27.5 % (39.0-53.0); HGB 8.9 gm/dL (13.0-17.5); MCH 30.6 pg (25.0-35.0); MCHC 32.5 g/dL (31.0-37.0); MCV 93.9 fL (80.0-100.0); Mean Platelet Volume 6.5; Platelet Count 605 k/uL (150-450); RBC 2.93 m/uL (4.30-5.90); RDW 14.3 % (11.5-15.5); WBC 11.3 k/uL (3.8-10.6)
[2018-08-07 08:19] LABS: African American GFR (CKD) >90 (>60 ml/min/1.73 sqM); Anion Gap 6 mmol/L; Blood Urea Nitrogen 12 mg/dL (9-20); Calcium 8.4 mg/dL (8.4-10.2); Carbon Dioxide 30 mmol/L (22-30); Chloride 104 mmol/L (98-107); Glucose 108 mg/dL (74-99); Magnesium 1.9 mg/dL (1.6-2.3); Potassium 3.5 mmol/L (3.5-5.1); Sodium 140 mmol/L (137-145)
[2018-08-07] MEDS: IPRATROPIUM-ALBUTEROL 3 ML NEB INHALATION SCH ×4 (08:22→20:49)
[2018-08-07] MEDS ORDERED: POTASSIUM CHLORIDE ER 20 MEQ TAB.ER PO STA (08:23)
[2018-08-07] MEDS ORDERED: FUROSEMIDE 10 MG/ML 4 ML VIAL IV STA (08:23)
[2018-08-07] MEDS: FAMOTIDINE 20 MG TAB PO SCH ×2 (08:53→20:46)
[2018-08-07] MEDS: CEFEPIME 2 GM in SODIUM CHLORIDE 0.9% 100 ML IVPB SCH ×2 (09:01→20:45)
--- NOTE | 2018-08-07 09:01 | P.PN ---
Subjective Progress Note Date: 08/07/18 Principal diagnosis: Right-sided empyema, cavitary pneumonia; right-sided pleural effusion, parapneumonic versus pneumonia versus malignancy, status post thoracentesis with 350 mL dark fluid removed, cytology consistent with empyema. Previous medical history of hypertension, hypercholesterolemia, De Leon's esophagitis, previous tobacco dependence with 21-hivb-mwgc history, social EtOH use, family history of premature coronary artery disease and colon cancer. POD #8 bronchoscopy with bronchoalveolar lavage by pulmonology POD #9 placement of right sided pigtail catheter by interventional radiology POD #6 right thoracotomy with decortication The patient is currently sitting up in the chair in no acute distress. Coughing continues although patient is feeling slightly better daily. Hemodynamically stable. Anterior chest tubes remain on the right side to waterseal, posterior chest tube was discontinued yesterday, air leak present in anterior tube this morning. Pathology results demonstrate no malignancy, consistent with empyema, no growth to date on any of his cultures. Patient continues to improve slowly every day. He ambulated in the hallway 3 times yesterday. Objective - Vital Signs Vital signs: Vital Signs Temp 98.2 F 08/07/18 03:54 Pulse 72 08/07/18 08:34 Resp 20 08/07/18 04:00 BP 137/69 08/07/18 03:54 Pulse Ox 96 08/07/18 03:54 Intake & Output 08/06/18 08/07/18 08/07/18 18:59 06:59 18:59 Intake Total 960 1510 Output Total 0 30 Balance 960 1480 Weight 131 kg Intake: IV 610 Cefepime 2 gm In Sodium 100 Chloride 0.9% 100 ml @ 200 mls/hr IVPB Q12HR DANIELLA Rx#:[id number] Invasive Line 10 10 Vancomycin 2,000 mg In 500 Sodium Chloride 0.9% 500 ml 500 ml @ 167 mls/hr IVPB Q12HR DANIELLA Rx#: [id number] Intake, IV Titration 100 Amount Sodium Chloride 0.9% 1, 100 000 ml @ 10 mls/hr IV . Q24H DANIELLA Rx#:[id number] Oral 960 800 Output: Chest Tube Drainage 0 30 Right Chest Superior 0 30 right chest inferior B 0 Drainage 0 Right Chest superior A 0 Other: Voiding Method Urinal Urinal # Voids 1 2 # Bowel Movements 1 ABP, PAP, CO, CI - Last Documented Arterial Blood Pressure 114/54 - Constitutional General appearance: Present: cooperative, no acute distress, obese - Respiratory Details: Lungs sounds diminished on the right. Respirations even, nonlabored. Currently on 4 L nasal cannula with oxygen saturation 96%. Able to achieve 1000 mL on his incentive spirometry. Right anterior (labeled superior) chest tube to waterseal, 30 mL serosanguineous drainage output in the last 24 hours, positive intermittent air leak present. - Cardiovascular Details: S1, S2 present. Regular rate and rhythm, sinus rhythm on telemetry. Palpable peripheral pulses bilaterally. Bilateral lower extremity edema present. No calf pain or tenderness noted. SCDs present. - Gastrointestinal Gastrointestinal Comment(s): Abdomen soft, nontender, nondistended. Active bowel sounds 4 quadrants. Tolerating diet. Positive bowel movement. - Genitourinary Genitourinary Comment(s): Patient continues to void clear, yellow urine. - Integumentary Integumentary Comment(s): Skin is warm dry with evidence of good perfusion. Right lateral wall thoracotomy incision well approximated. - Neurologic Neurologic: Present: CNII-XII intact - Musculoskeletal Musculoskeletal: Present: gait normal, strength equal bilaterally - Psychiatric Psychiatric: Present: A&O x's 3, appropriate affect, intact judgment & insight - Allied health notes Allied health notes reviewed: nursing - Labs CBC & Chem 7: 08/07/18 07:28 08/07/18 07:28 Labs: Abnormal Lab Results - Last 24 Hours (Table) 08/07/18 08/07/18 Range/Units 07:28 07:28 WBC 11.3 H (3.8-10.6) k/uL RBC 2.93 L (4.30-5.90) m/uL Hgb 8.9 L (13.0-17.5) gm/dL Hct 27.5 L (39.0-53.0) % Plt Count 605 H (150-450) k/uL Glucose 108 H (74-99) mg/dL Microbiology - Last 24 Hours (Table) 08/02/18 13:56 Blood Culture - Preliminary Blood No Growth after 96 hours - Imaging and Cardiology Chest x-ray: image reviewed Assessment and Plan Assessment: 1. Right sided empyema, cavitary pneumonia, status post bronchoscopy, status post pigtail catheter placement, status post thoracotomy with decortication, pathology demonstrates no malignancy, consistent with empyema, cultures negative to date 2. Right-sided pleural effusion, parapneumonic versus pneumonia versus malignancy, status post thoracentesis with 350 mL dark fluid removed, cytology demonstrates consistent with empyema 3. History of hypertension, treated 4. History of hypercholesterolemia, treated 5. 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 Previous tobacco dependence with 24-yuej-ynuh history 7. Social EtOH use 8. Family history of premature coronary artery disease 9. Family history of colon cancer Plan: 1. Continue IV antibiotics per infectious disease recommendations. Currently on cefepime and Diflucan. 2. Continue pleural chest tubes to waterseal. Potentially could be discharged with Pneumo-stat device. Will do teaching with the patient and his . 3. Bronchodilators per pulmonology. Continue chest physiotherapy. 4. Wean O2 as tolerated. Encourage incentive spirometry is 10 times every hour while awake. 5. Will monitor labs and chest x-rays. 6. Increase activity as tolerated, ambulate in hallway. 7. GI/DVT prophylaxis 8. Tramadol, Ambien discontinued. Recommend no narcotics. Continue pain management with oral Tylenol, IV Toradol. 9. Medical management of other comorbid conditions per primary care service. IV Lasix given. 10. More recommendations to follow. Time with Patient: Greater than 30
[2018-08-07] MEDS: FLUCONAZOLE 100 MG TAB PO SCH (09:02)
[2018-08-07] MEDS: ASPIRIN 81 MG PO SCH (09:02)
[2018-08-07] MEDS: POLYETHYLENE GLYCOL 3350 17 GM POWD.PACK PO SCH (09:02)
[2018-08-07] MEDS: SENNOSIDES-DOCUSATE SODIUM 1 EACH TAB PO SCH (09:02)
[2018-08-07] MEDS: METOPROLOL SUCCINATE (ER) 100 MG TAB.ER.24H PO SCH ×2 (09:03→20:46)
[2018-08-07] MEDS: ENOXAPARIN 40 MG/0.4 ML SYRINGE SQ SCH (09:03)
[2018-08-07] MEDS: guaiFENesin 600 MG TABLET.ER PO SCH ×2 (09:03→20:46)
--- NOTE | 2018-08-07 09:26 | XR ---
EXAMINATION TYPE: XR chest 2V DATE OF EXAM: 08/07/2018 COMPARISON: Prior chest x-ray 08/06/2018 HISTORY: Pneumothorax, chest tube TECHNIQUE: Frontal and lateral views of the chest are obtained. FINDINGS: There is been interval removal of one of the 2 right-sided chest tubes. Subcutaneous emphy sema and pleural parenchymal changes are similar to prior exam. No sizable residual pneumothorax, dif ficult to exclude minimal residual apical pneumothorax. Heart size is stable. There are overlying car diac leads. IMPRESSION: Post chest tube removal.
[2018-08-07] MEDS: MAGNESIUM SULFATE-D5W PMX 1 GM in DEXTROSE/WATER 1 100ML.BAG IVPB SCH ×2 (10:31→12:56)
[2018-08-07 11:44] VITALS: BMI 36.1
--- NOTE | 2018-08-07 11:50 | CDI ---
Documentation Clarification Form Date: 08/07/2018 10:49:29 AM From: Farnaz Macdonald RN, CCDS Admit Date: 07/24/2018 4:43:00 PM Patient Name: Torito Bolaños Visit Number: [id number] Discharge Date: ATTENTION: The Clinical Documentation Specialists (CDI) and [facility] Coding Staff appreciate your assistance in clarifying documentation. Please respond to the clarification below the line at the bottom and electronically sign. The CDI & [facility] Coding staff will review the response and follow-up if needed. Please note: Queries are made part of the Legal Health Record. If you have any questions, please contact the author of this message via ITS. Dr. J Carlos Handy Right-sided apical pneumothorax is documented in the progress notes ongoing on 08/02/18 and further clarification is needed. Patients Admitting Diagnosis: Right-sided empyema Post-Operative Diagnosis: Right-sided emphyema Procedure performed: Right Thoracotomy with decortication, (right anterior and posterior chest tube) History/Risk Factors: Hypertension, Previous tobacco dependence Clinical Indicators: 63-year-old male present with increasing amount of coughing. A CT scan found right-sided lower lobe lung mass pleural-based, pneumonia cavitary lesions. Sepsis on presentation from pneumonia 07/30/18 Right chest tube insertion, and Bronchoscopy with broncholveolar lavage. The chest x-ray on 08/01/18 showing no pneumothorax. A right thoracotomy with decortication was preformed on 08/01/18. 08/04/18 Attn progress notes: anterior tube with air leak present, both chest tubes placed to waterseal Chest x-ray on 08/02/18: continuing right-sided pneumothorax, Chest x-ray on 08/06/18: Persistent subcutaneous emphysema and apical pneumothorax are stable. Treatment: Thoracentesis, Bronchoscopy with biopsy, right chest tube insertion (prior to surgery) IV Antibiotics: Cefepime Encourage incentive spirometry Increase activity as tolerated Continue Bronchodilators per pulmonary management Chest to continuous wall suction (now DC) Wean O2 as tolerated. Monitor Labs and chest x-rays Consults: 08/02/09 pulmonary (Dr. Flores): Chest x-ray showed right-sided pneumothorax stable 08/04/18-08/05/18: Chest x-ray reviewed overall stable still have minimal air leak from the anterior chest tubes. Small pneumothorax residual on the right side. In order to accurately reflect this patients severity of illness, please clarify if the post-operative diagnosis of pneumothorax and air leak is: An expected post-procedural or post-surgical condition An unexpected post-procedural or post-surgical condition but potential outcome of surgery An unexpected post-procedural or post-surgical condition, related to the patients underlying medical comorbidities Other, please specify ____ Unable to determine (Last Revision: May 2018) An unexpected post-procedural or post-surgical condition, related to the patients underlying medical comorbidities MTDD
[2018-08-07] MEDS: ATORVASTATIN 10 MG TAB PO SCH (20:46)
[2018-08-07] MEDS: MELATONIN 3 MG TABLET PO SCH (20:46)
--- NOTE | 2018-08-07 22:47 | P.PN ---
Subjective Progress Note Date: 08/07/18 Principal diagnosis: Cavitatory pneumonia and right-sided empyema Patient is a 63-year-old male admitted to the hospital with chronic cough chest pain right-sided fever and elevated white count in this patient who did have evidence of right-sided pleural effusion status post oral consent diseases with a repeat CT suggestive of right-sided cavitating pneumonia and ple ural effusion, patient is currently be treated with Zosyn. The patient is status post bronchoscopy and and lavaged on 07/30/2018, did have a right chest wall pigtail catheter placement on 07/31/2018 , and did have right thoracotomy and decortication for empyema right lung on 08/01/2018 On today's evaluation that is 08/07/2018 the patient denies any fever or chills, the patient is breathing comfortably, the patient cough has decreased in intensity is mostly dry in nature, still painful to cough though decreased in intensity, the patient denies nausea no vomiting no abdominal pain and no diarrh ea Objective - Vital Signs Vital signs: Vital Signs Temp 97.4 F L 08/07/18 08:50 Pulse 73 08/07/18 08:50 Resp 18 08/07/18 08:50 BP 149/80 08/07/18 08:50 Pulse Ox 94 L 08/07/18 08:50 Intake & Output 08/06/18 08/07/18 08/07/18 18:59 06:59 18:59 Intake Total 960 1510 Output Total 0 30 Balance 960 1480 Weight 131 kg Intake: IV 610 Cefepime 2 gm In Sodium 100 Chloride 0.9% 100 ml @ 200 mls/hr IVPB Q12HR DANIELLA Rx#:[id number] Invasive Line 10 10 Vancomycin 2,000 mg In 500 Sodium Chloride 0.9% 500 ml 500 ml @ 167 mls/hr IVPB Q12HR DANIELLA Rx#: [id number] Intake, IV Titration 100 Amount Sodium Chloride 0.9% 1, 100 000 ml @ 10 mls/hr IV . Q24H DANIELLA Rx#:[id number] Oral 960 800 Output: Chest Tube Drainage 0 30 Right Chest Superior 0 30 right chest inferior B 0 Drainage 0 Right Chest superior A 0 Other: Voiding Method Urinal Urinal # Voids 1 2 # Bowel Movements 1 ABP, PAP, CO, CI - Last Documented Arterial Blood Pressure 114/54 - Exam GENERAL DESCRIPTION:[ Patient is awake and alert in no distress] HEENT: [Oral mucosa is dry and no pharyngeal erythema] EYES : [No pallor or scleral icterus] RESPIRATORY SYSTEM: [Unlabored breathing decreased breath sound the bases, no wheeze CARDIA VASCULAR SYSTEM: [S1-S2 regular rate and rhythm no murmur] GI: [Abdominal soft there's no tenderness no organomegaly] EXTREMITIES: [No edema feet] - Labs CBC & Chem 7: 08/07/18 07:28 08/07/18 07:28 Labs: Abnormal Lab Results - Last 24 Hours (Table) 08/07/18 08/07/18 Range/Units 07:28 07:28 WBC 11.3 H (3.8-10.6) k/uL RBC 2.93 L (4.30-5.90) m/uL Hgb 8.9 L (13.0-17.5) gm/dL Hct 27.5 L (39.0-53.0) % Plt Count 605 H (150-450) k/uL Glucose 108 H (74-99) mg/dL Microbiology - Last 24 Hours (Table) 08/02/18 13:56 Blood Culture - Preliminary Blood No Growth after 96 hours Assessment and Plan Assessment: 1-patient admitted hospital with increasing shortness of breath or cough in this patient who did have features of sepsis on presentation with a fever and elevated white count source is her right-sided pneumonia with parapneumonic effusion status post thoracocentesis now with repeat CAT scan with evidence of consolidation with cavitary changes with question of possible community-acquired pathogen versus resistant gram-positive or gram-negative pathogen, the patient is status post right thoracotomy decortication along with deep cultures which are currently negative so far 2-patient fever has resolved white count continued to show downward trend, down to 11,000 today (1) Sepsis Current Visit: Yes Status: Acute Code(s): A41.9 - SEPSIS, UNSPECIFIED ORGANISM SNOMED Code(s): 86878550 (2) Lung mass Current Visit: Yes Status: Acute Code(s): R91.8 - OTHER NONSPECIFIC ABNORMAL FINDING OF LUNG FIELD SNOMED Code(s): 223936781 Plan: 1- the patient will be continued on on cefepime 2 g every 12 hours and oral Diflucan--- 2-patient will likely need a PICC line and outpatient IV antibiotic therapy, which will be transitioned to IV Rocephin and oral Diflucan. 3-continue supportive care Time with Patient: Less than 30
[2018-08-07] MEDS: SODIUM CHLORIDE 0.9% 1,000 ML IV SCH (23:51)
[2018-08-08] MEDS: KETOROLAC 30 MG/ML 1 ML VIAL IVP SCH ×4 (06:27→23:06)
[2018-08-08 07:35] LABS: Basophils # (A) 0.1 k/uL (0-0.2); Basophils % (A) 0 %; Eosinophils # (A) 0.7 k/uL (0-0.7); Eosinophils % (A) 6 %; HCT 27.8 % (39.0-53.0); HGB 8.6 gm/dL (13.0-17.5); Lymphocytes % (A) 9 %; MCHC 30.9 g/dL (31.0-37.0); MCV 93.9 fL (80.0-100.0); Mean Platelet Volume 6.9; Monocytes # (A) 0.6 k/uL (0-1.0); Monocytes % (A) 6 %; Neutrophils # (A) 8.5 k/uL (1.3-7.7); Neutrophils % (A) 77 %; Platelet Count 632 k/uL (150-450); RBC 2.96 m/uL (4.30-5.90); RDW 14.4 % (11.5-15.5)
[2018-08-08 07:43] LABS: African American GFR (CKD) >90 (>60 ml/min/1.73 sqM); Anion Gap 4 mmol/L; Blood Urea Nitrogen 14 mg/dL (9-20); Calcium 8.7 mg/dL (8.4-10.2); Carbon Dioxide 32 mmol/L (22-30); Chloride 105 mmol/L (98-107); Glucose 102 mg/dL (74-99); Potassium 3.8 mmol/L (3.5-5.1); Sodium 141 mmol/L (137-145)
[2018-08-08] MEDS: IPRATROPIUM-ALBUTEROL 3 ML NEB INHALATION SCH ×4 (08:48→19:40)
--- NOTE | 2018-08-08 09:27 | XR ---
EXAMINATION TYPE: XR chest 2V DATE OF EXAM: 08/08/2018 COMPARISON: Prior chest x-ray 08/07/2018 HISTORY: Chest tube TECHNIQUE: Frontal and lateral views of the chest are obtained. FINDINGS: Pleural parenchymal changes are stable, right-sided chest tube remains in place. Small rig ht apical pneumothorax present. There is subcutaneous emphysema which is decreased slightly in the in terval. Heart size is stable. IMPRESSION: Essentially stable exam. Small right thorax. Correlate for pneumonia.
[2018-08-08] MEDS: ACETAMINOPHEN TAB 500 MG TAB PO PRN (10:20)
[2018-08-08] MEDS: POLYETHYLENE GLYCOL 3350 17 GM POWD.PACK PO SCH (10:20)
[2018-08-08] MEDS: ENOXAPARIN 40 MG/0.4 ML SYRINGE SQ SCH (10:20)
[2018-08-08] MEDS: guaiFENesin 600 MG TABLET.ER PO SCH ×2 (10:21→20:03)
[2018-08-08] MEDS: FAMOTIDINE 20 MG TAB PO SCH ×2 (10:21→20:03)
[2018-08-08] MEDS: METOPROLOL SUCCINATE (ER) 100 MG TAB.ER.24H PO SCH ×2 (10:21→20:03)
[2018-08-08] MEDS: FLUCONAZOLE 100 MG TAB PO SCH (10:21)
[2018-08-08] MEDS: CEFEPIME 2 GM in SODIUM CHLORIDE 0.9% 100 ML IVPB SCH (10:22)
[2018-08-08] MEDS: SENNOSIDES-DOCUSATE SODIUM 1 EACH TAB PO SCH (10:22)
[2018-08-08] MEDS: ASPIRIN 81 MG PO SCH (10:22)
[2018-08-08] MEDS ORDERED: FUROSEMIDE 10 MG/ML 4 ML VIAL IV STA (13:20)
[2018-08-08 14:02] LABS: Prothrombin Time 10.3 sec (9.0-12.0)
[2018-08-08] MEDS ORDERED: POTASSIUM CHLORIDE ER 20 MEQ TAB.ER PO STA (14:29)
--- NOTE | 2018-08-08 14:32 | P.PN ---
Subjective Progress Note Date: 08/08/18 Principal diagnosis: Right sided empyema, cavitary pneumonia; right-sided pleural effusion, parapneumonic versus pneumonia versus malignancy, status post thoracentesis with 350 mL dark fluid removed, cytology consistent with empyema. Previous medical history of hypertension, hypercholesterolemia, De Leon's esophagitis, previous tobacco dependence with [id number] history, social EtOH use, family history of premature coronary artery disease and colon cancer. POD #7 right thoracotomy with decortication. POD #9 bronchoscopy with bronchoalveolar lavage by pulmonology. POD #10 placement of right sided pigtail catheter by interventional radiology. The patient is currently sitting up to the bedside chair on the 3 S. Cardiac stepdown unit. He is in no acute distress. He currently denies any complaints of pain, although reports that when he is coughing his pain is 6 out of 10 on the pain scale. Denies any complaints of shortness of breath. Right pleural chest tube remains in place to water seal. Intermittent air leak is present. Draining thin serosanguineous drainage. Achieving 1250 mL on his incentive spirometry. The patient's pathology results demonstrate no malignancy, although results are consistent with empyema. The cultures taken during his thoracotomy procedure have been negative with no growth as of today. He reports he ambulated in the cardiac stepdown unit hallway yesterday 2. His is at his bedside and their questions were answered to the best of my ability. Objective - Vital Signs Vital signs: Vital Signs Temp 98.2 F 08/08/18 08:00 Pulse 60 08/08/18 08:00 Resp 16 08/08/18 08:00 BP 149/82 08/08/18 08:00 Pulse Ox 98 08/08/18 08:00 Intake & Output 08/07/18 08/08/18 08/08/18 18:59 06:59 18:59 Intake Total 400 Output Total 930 0 Balance -530 0 Weight 131 kg 128.4 kg Intake: Oral 400 Output: Chest Tube Drainage 30 Right Chest Superior 30 Drainage 0 Right Chest superior A 0 Urine 900 Other: Voiding Method Urinal Urinal ABP, PAP, CO, CI - Last Documented Arterial Blood Pressure 114/54 - Constitutional General appearance: Present: cooperative, no acute distress, obese - Respiratory Details: Lung sounds are essentially clear to his bilateral upper lobes, diminished to his right lower lobe. Respirations are symmetrical and nonlabored. Oxygen saturation are 90% on room air. Achieving 1250 mL on his incentive spirometry. Right pleural chest tube in place to water seal. Intermittent air leak is present. Draining thin serosanguineous drainage with 50 mL output in the last 24 hours. - Cardiovascular Details: Regular rhythm and rate. S1 and S2 present, negative for S3, gallop or murmur. Remote telemetry showing sinus bradycardia heart rate 58. +2 edema present to his bilateral lower extremities. Knee-high DIVINE hose and sequential compression devices in place to his bilateral lower extremities. - Gastrointestinal Gastrointestinal Comment(s): Abdomen is soft, nontender and nondistended. Active bowel sounds all 4 abdominal quadrants. Tolerating oral intake. Bowel movement this morning. No guarding or rigidity. No organomegaly. - Genitourinary Genitourinary Comment(s): Voiding clear yellow urine. - Integumentary Integumentary Comment(s): Skin is warm and dry. No clubbing or cyanosis is present. Right thoracotomy incision is clean, dry and approximated. No drainage or redness is present. Ex ofin dressing is in place. - Neurologic Neurologic: Present: CNII-XII intact - Musculoskeletal Musculoskeletal: Present: gait normal, strength equal bilaterally - Psychiatric Psychiatric: Present: A&O x's 3, appropriate affect, intact judgment & insight - Allied health notes Allied health notes reviewed: nursing - Labs CBC & Chem 7: 08/08/18 07:14 08/08/18 07:14 Labs: Abnormal Lab Results - Last 24 Hours (Table) 08/08/18 08/08/18 Range/Units 07:14 07:14 WBC 11.0 H (3.8-10.6) k/uL RBC 2.96 L (4.30-5.90) m/uL Hgb 8.6 L (13.0-17.5) gm/dL Hct 27.8 L (39.0-53.0) % MCHC 30.9 L (31.0-37.0) g/dL Plt Count 632 H (150-450) k/uL Neutrophils # 8.5 H (1.3-7.7) k/uL Carbon Dioxide 32 H (22-30) mmol/L Glucose 102 H (74-99) mg/dL Microbiology - Last 24 Hours (Table) 08/02/18 13:56 Blood Culture - Preliminary Blood No Growth after 120 hours - Imaging and Cardiology Chest x-ray: report reviewed, image reviewed Assessment and Plan Assessment: 1. Right sided empyema, status post right thoracotomy with decortication. 2. Right-sided pleural effusion, parapneumonic versus pneumonia versus malig dali, status post thoracentesis with 350 mL dark fluid removed, cytology consistent with empyema 3. History of hypertension, treated 4. History of hypercholesterolemia, treated 5. 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 Previous tobacco dependence with 82-xthw-cmig history 7. Social ETOH use 8. Family history of premature coronary artery disease 9. Family history of colon cancer 10. Leukocytosis Plan: 1. Continue IV antibiotics per infectious disease recommendations. Currently on cefepime and Diflucan. 2. Pleural fluid cultures show no growth. 3. Continue right pleural chest tube to waterseal. Remains with intermittent air leak. 4. Encourage incentive spirometry is 10 times every hour while awake. 5. Increase activity as tolerated, ambulate in hallway as tolerated. Physical and occupational therapy following. 7. Continue current pain management regimen. Acetaminophen and Toradol. 8. Medical management of other comorbid conditions per primary care service. 9. Bronchodilators per pulmonary management. 10. We will restart his losartan at 50 mg by mouth daily. 11. Monitor daily labs and chest x-rays. Electrolyte replacement per protocol. 12. Lasix 40 mg IV 1 now and potassium chloride 20 mEq by mouth 1 now. 13. More recommendations to follow based on patient's clinical course. Time with Patient: Greater than 30
--- NOTE | 2018-08-08 15:03 | P.PN ---
Subjective Progress Note Date: 08/06/18 Principal diagnosis: Right-sided apical pneumothorax small Right-sided lung mass pleural base, right-sided pneumonia, right parapneumonic effusion, sepsis, chest pain, cough, morbid obesity, hypertension hypertensive cardiovascular disease, dyslipidemia, 08/06/2018, patient seen eval reexamined during the rounds, overall doing fairly well chest tubes are in still have some air leak in the anterior chest tubes, chest tubes have been placed on water seal, cough is present is mostly nonproductive now he is been ambulating, path report results consistent with empyema 08/06/1999 619, patient uncertain up in chair breathing comfortably does have some chest pain some air leak is still present chest tube is being placed to water seal, labs reviewed medications reviewed, patient is afebrile, white cell count continue to improve nicely 15,000 Path pending 08/04/2018, patient seen eval reexamined during the rounds denies any chest pain does have ongoing cough feels slightly better white cell count noted to be coming down chest x-ray reviewed overall stable still have minimal air leak from the anterior chest tubes 08/03/2018, patient seen and evaluated examined during the rounds he is sitting upright on the chair she still has problem came in complaining and supine posi tion, cough and congestion is still present significant amount of sputum does come out patient is on supplemental oxygen to chest tubes are present right anterior chest tube has some air leak which was not seen yesterday, the pneumothorax essentially unchanged, noted white cell count is up likely related to postoperative inflammatory condition, antibiotics have been adjusted to cefapime and vancomycin ID service following, will start chest PT continue breathing treatment and incentive spirometry patient can be moved out of the ICU that we'll give more Stanley to ambulate and physical therapy 08/02/2018, patient seen and evaluated examined during the rounds, patient is postop day #1 for thoracotomy on the right side and decortication his pain is well controlled on epidural, he is doing I-S up to 1.5 L, he is on 4 L nasal cannula sitting on the bedside, labs reviewed medications reviewed radiographic studies reviewed as well chest x-ray showed right-sided pneumothorax stable 08/01/2018, patient seen eval reexamined during the rounds he is still have significant amount of cough with purulent secretions and drainage, patient is nothing by mouth for the thoracotomy, the pigtail catheter was clogged then was opened up by thrombolytics but not draining any amount, x-ray from today re viewed not much change is still showing thick walled cavitary lesion and right lower lobe consolidation and pleural effusion, labs reviewed white cell count is down to 12,800 chemistry normal 07/31/2018, patient seen and evaluated examined during rounds care plan discussed with the cardiothoracic surgery patient is status post pigtail catheter placement pain cough congestion is still there but is slightly improved though after bronchoscopy remains on broad-spectrum antibiotics culture results and report are reviewed cytology results are reviewed him a white cell count continue to come down is now 13.7 electrolytes are okay 07/30/2018, patient seen and evaluated examined right cell count is down to 15,000 he is feeling slightly better with still have cough congestion shortness of breath and chest pain care plan discussed with cardiothoracic surgery as well as a patient is being planned for bronchoscopy later on today, patient is being considered for thoracotomy versus pigtail catheter continue IV Zosyn 07/29/2018, patient seen eval reexamined during the rounds is still have signifi cant amount of sputum production complain of chronic chest pain with cough cytology is back as negative on pleural fluid culture so far negative care plan discussed with infectious disease and thoracic surgery patient is contemplated for pigtail catheter versus thoracotomy by thoracic surgery in the meantime we'll do a bronchoscopy to obtain samples and also to rule out any endobronchial mass or lesion procedure explained to the patient 07/28/2018, patient seen and evaluated examined during rounds clinically he is doing essentially the same is still complaining of pain on the right side with severe coughing and breathing he does have sputum which is brownish yellowish in color, computed tomography scan of the chest reviewed there is appearance of abscess versus necrotizing pneumonia in the right lower lobe with dense thickening small fluid is present findings are reviewed with the patient, pleural fluid cytology is still pending 07/26/2018, patient seen and evaluated examined during the rounds he is complaining of insomnia and chest pain pain is improved with Motrin or Tylenol he is asking for a sleeping aid respiratory status slightly better today he has gone thoracentesis of the right side in about 400-450 mL of pleural fluid removed the pleural fluid appears to be exudative with Gram stain negative cultures are pending cytology is pending Objective - Vital Signs Vital signs: Vital Signs Temp 97.6 F 08/06/18 15:16 Pulse 76 08/06/18 16:30 Resp 20 08/06/18 15:16 BP 133/75 08/06/18 15:16 Pulse Ox 98 08/06/18 16:20 Intake & Output 08/06/18 08/06/18 08/07/18 06:59 18:59 06:59 Intake Total 960 Output Total 1530 0 Balance -1530 960 Weight 131.4 kg Intake: Oral 960 Output: Chest Tube Drainage 30 0 Right Chest Superior 30 0 right chest inferior B 0 0 Drainage 0 Right Chest superior A 0 Urine 1500 Other: Voiding Method Urinal Urinal # Voids 1 # Bowel Movements 1 1 ABP, PAP, CO, CI - Last Documented Arterial Blood Pressure 114/54 - Exam Constitutional General appearance: cooperative, disheveled, no acute distress, obese - EENT Eyes: anicteric sclerae, EOMI, PERRLA, normal appearance Ears: bilateral: normal - Neck Carotids: bilateral: upstroke normal Thyroid: bilateral: normal size - Respiratory Respiratory: right: diminished, dullness, negative: CTA, rales, rhonchi, wheezing, prolonged expiration, anterior and posterior chest tube draining serosanguineous fluid minimal anterior chest tube has air leak - Cardiovascular Rhythm: regular Heart sounds: normal: S1, S2 - Gastrointestinal General gastrointestinal: normal bowel sounds - Integumentary Integumentary: normal, normal turgor - Neurologic Neurologic: CNII-XII intact - Musculoskeletal Musculoskeletal: gait normal, generalized weakness, strength equal bilaterally - Psychiatric Psychiatric: A&O x's 3, appropriate affect, intact judgment & insight - Labs CBC & Chem 7: 08/08/18 07:14 08/08/18 07:14 Labs: Microbiology - Last 24 Hours (Table) 08/02/18 13:56 Blood Culture - Preliminary Blood No Growth after 96 hours 08/01/18 15:23 Anaerobic Culture - Final Pleural Fluid 08/01/18 15:23 Gram Stain - Final Pleural Fluid Body Fluid Culture - Final Assessment and Plan Assessment: Empyema lung Right lower lobe lung mass pleural-based likely pneumonia but however malignancy cannot be excluded likely abscess with parapneumonic effusion status post right thoracotomy with decortication postop day # 3 Right sided pneumonia cavitary Small pneumothorax residual on the right side Exudative pleural effusion Significant and profound leukocytosis likely multifactorial processes Right-sided pleural effusion likely parapneumonic effusion versus pneumonia and effusion less likely related to malignancy Obesity Hypertension hypertensive cardiovascular disease Dyslipidemia Plan: Agree with broad-spectrum antibiotics with IV vancomycin and cephpime Care plan discussed with thoracic surgery patient is right-sided thoracotomy postop day #3 Bronchoscopy findings reviewed Gram stain and cultur for BAL so far unremarkable Status post right thoracentesis , bronchoscopy and BAL, right-sided pigtail catheter with results of final culture and cytology reviewed Reviewed repeat CT of the chest without contrast Continue antibiotics Chest PT Deep breathing exercise incentive spirometry Increase activity as tolerated
[2018-08-08] MEDS: LOSARTAN 50 MG TAB PO SCH (15:06)
--- NOTE | 2018-08-08 15:06 | P.PN ---
Subjective Principal diagnosis: Right-sided apical pneumothorax small Right-sided lung mass pleural base, right-sided pneumonia, right parapneumonic effusion, sepsis, chest pain, cough, morbid obesity, hypertension hypertensive cardiovascular disease, dyslipidemia, 08/07/2018, patient seen and evaluated examined, posterior chest tube has been r emoved and he just uses no significant air leak denies any chest pain cough and sputum production is improved able to ambulate now, 08/06/2018, patient seen eval reexamined during the rounds, overall doing fairly well chest tubes are in still have some air leak in the anterior chest tubes, chest tubes have been placed on water seal, cough is present is mostly nonproductive now he is been ambulating, path report results consistent with empyema 08/06/1999 619, patient uncertain up in chair breathing comfortably does have some chest pain some air leak is still present chest tube is being placed to water seal, labs reviewed medications reviewed, patient is afebrile, white cell count continue to improve nicely 15,000 Path pending 08/04/2018, patient seen eval reexamined during the rounds denies any chest pain does have ongoing cough feels slightly better white cell count noted to be comin g down chest x-ray reviewed overall stable still have minimal air leak from the anterior chest tubes 08/03/2018, patient seen and evaluated examined during the rounds he is sitting upright on the chair she still has problem came in complaining and supine position, cough and congestion is still present significant amount of sputum does come out patient is on supplemental oxygen to chest tubes are present right anterior chest tube has some air leak which was not seen yesterday, the pneumothorax essentially unchanged, noted white cell count is up likely related to postoperative inflammatory condition, antibiotics have been adjusted to cefapime and vancomycin ID service following, will start chest PT continue breathing treatment and incentive spirometry patient can be moved out of the ICU that we'll give more [place] to ambulate and physical therapy 08/02/2018, patient seen and evaluated examined during the rounds, patient is postop day #1 for thoracotomy on the right side and decortication his pain is well controlled on epidural, he is doing I-S up to 1.5 L, he is on 4 L nasal cannula sitting on the bedside, labs reviewed medications reviewed radiographic studies reviewed as well chest x-ray showed right-sided pneumothorax stable 08/01/2018, patient seen eval reexamined during the rounds he is still have significant amount of cough with purulent secretions and drainage, patient is nothing by mouth for the thoracotomy, the pigtail catheter was clogged then was opened up by thrombolytics but not draining any amount, x-ray from today reviewed not much change is still showing thick walled cavitary lesion and right lower lobe consolidation and pleural effusion, labs reviewed white cell count is down to 12,800 chemistry normal 07/31/2018, patient seen and evaluated examined during rounds care plan discussed with the cardiothoracic surgery patient is status post pigtail ca theter placement pain cough congestion is still there but is slightly improved though after bronchoscopy remains on broad-spectrum antibiotics culture results and report are reviewed cytology results are reviewed him a white cell count continue to come down is now 13.7 electrolytes are okay 07/30/2018, patient seen and evaluated examined right cell count is down to 15,000 he is feeling slightly better with still have cough congestion shortness of breath and chest pain care plan discussed with cardiothoracic surgery as well as a patient is being planned for bronchoscopy later on today, patient is being considered for thoracotomy versus pigtail catheter continue IV Zosyn 07/29/2018, patient seen eval reexamined during the rounds is still have significant amount of sputum production complain of chronic chest pain with cough cytology is back as negative on pleural fluid culture so far negative care plan discussed with infectious disease and thoracic surgery patient is contemplated for pigtail catheter versus thoracotomy by thoracic surgery in the meantime we'll do a bronchoscopy to obtain samples and also to rule out any endobronchial mass or lesion procedure explained to the patient 07/28/2018, patient seen and evaluated examined during rounds clinically he is doing essentially the same is still complaining of pain on the right side with severe coughing and breathing he does have sputum which is brownish yellowish in color, computed tomography scan of the chest reviewed there is appearance of abscess versus necrotizing pneumonia in the right lower lobe with dense thickening small fluid is present findings are reviewed with the patient, pleural fluid cytology is still pending 07/26/2018, patient seen and evaluated examined during the rounds he is complaining of insomnia and chest pain pain is improved with Motrin or Tylenol he is asking for a sleeping aid respiratory status slightly better today he has gone thoracentesis of the right side in about 400-450 mL of pleural fluid removed the pleural fluid appears to be exudative with Gram stain negative cultures are pending cytology is pending Objective - Vital Signs Vital signs: Vital Signs Temp 97.4 F L 08/07/18 08:50 Pulse 72 08/07/18 12:10 Resp 18 08/07/18 12:00 BP 137/81 08/07/18 12:00 Pulse Ox 96 08/07/18 12:00 Intake & Output 08/06/18 08/07/18 08/07/18 18:59 06:59 18:59 Intake Total 960 1510 Output Total 0 30 480 Balance 960 1480 -480 Weight 131 kg 131 kg Intake: IV 610 Cefepime 2 gm In Sodium 100 Chloride 0.9% 100 ml @ 200 mls/hr IVPB Q12HR [facility] Rx#:[id number] Invasive Line 10 10 Vancomycin 2,000 mg In 500 Sodium Chloride 0.9% 500 ml 500 ml @ 167 mls/hr IVPB Q12HR [facility] Rx#: [id number] Intake, IV Titration 100 Amount Sodium Chloride 0.9% 1, 100 000 ml @ 10 mls/hr IV . Q24H [facility] Rx#:[id number] Oral 960 800 Output: Chest Tube Drainage 0 30 30 Right Chest Superior 0 30 30 right chest inferior B 0 Drainage 0 Right Chest superior A 0 Urine 450 Other: Voiding Method Urinal Urinal Urinal # Voids 1 2 # Bowel Movements 1 ABP, PAP, CO, CI - Last Documented Arterial Blood Pressure 114/54 - Exam Constitutional General appearance: cooperative, disheveled, no acute distress, obese - EENT Eyes: anicteric sclerae, EOMI, PERRLA, normal appearance Ears: bilateral: normal - Neck Carotids: bilateral: upstroke normal Thyroid: bilateral: normal size - Respiratory Respiratory: right: diminished, dullness, negative: CTA, rales, rhonchi, wheezing, prolonged expiration, anterior and posterior chest tube draining se rosanguineous fluid minimal anterior chest tube has air leak - Cardiovascular Rhythm: regular Heart sounds: normal: S1, S2 - Gastrointestinal General gastrointestinal: normal bowel sounds - Integumentary Integumentary: normal, normal turgor - Neurologic Neurologic: CNII-XII intact - Musculoskeletal Musculoskeletal: gait normal, generalized weakness, strength equal bilaterally - Psychiatric Psychiatric: A&O x's 3, appropriate affect, intact judgment & insight - Labs CBC & Chem 7: 08/08/18 07:14 08/08/18 07:14 Labs: Abnormal Lab Results - Last 24 Hours (Table) 08/07/18 08/07/18 Range/Units 07:28 07:28 WBC 11.3 H (3.8-10.6) k/uL RBC 2.93 L (4.30-5.90) m/uL Hgb 8.9 L (13.0-17.5) gm/dL Hct 27.5 L (39.0-53.0) % Plt Count 605 H (150-450) k/uL Glucose 108 H (74-99) mg/dL Microbiology - Last 24 Hours (Table) 08/02/18 13:56 Blood Culture - Preliminary Blood No Growth after 120 hours Assessment and Plan Assessment: Empyema lung Right lower lobe lung mass pleural-based likely pneumonia but however malignancy cannot be excluded likely abscess with parapneumonic effusion status post right thoracotomy with decortication postop day # 5 Right sided pneumonia cavitary Small pneumothorax residual on the right side Exudative pleural effusion Significant and profound leukocytosis likely multifactorial processes Right-sided pleural effusion likely parapneumonic effusion versus pneumonia and effusion less likely related to malignancy Obesity Hypertension hypertensive cardiovascular disease Dyslipidemia Plan: Agree with broad-spectrum antibiotics with IV vancomycin and cephpime Care plan discussed with thoracic surgery patient is right-sided thoracotomy postop day # 5 Bronchoscopy findings reviewed Gram stain and cultur for BAL so far unremarkable Status post right thoracentesis , bronchoscopy and BAL, right-sided pigtail catheter with results of final culture and cytology reviewed Reviewed repeat CT of the chest without contrast Continue antibiotics Chest PT Deep breathing exercise incentive spirometry Increase activity as tolerated Time with Patient: Greater than 30
--- NOTE | 2018-08-08 15:09 | P.PN ---
Subjective Progress Note Date: 08/08/18 Principal diagnosis: Right-sided apical pneumothorax small Right-sided lung mass pleural base, right-sided pneumonia, right parapneumonic effusion, sepsis, chest pain, cough, morbid obesity, hypertension hypertensive cardiovascular disease, dyslipidemia, 08/08/2018, patient seen and evaluated examined during the rounds he is doing well with incentive spirometry still have occasional air leak is present but has significantly improved labs reviewed medications reviewed patient is ambulating decrease cough congestion is present, labs reviewed medications reviewed 08/07/2018, patient seen and evaluated examined, posterior chest tube has been removed and he just uses no significant air leak denies any chest pain cough and sputum production is improved able to ambulate now, 08/06/2018, patient seen eval reexamined during the rounds, overall doing fairly well chest tubes are in still have some air leak in the anterior chest tubes, chest tubes have been placed on water seal, cough is present is mostly nonproductive now he is been ambulating, path report results consistent with empyema 08/06/1999 619, patient uncertain up in chair breathing comfortably does have some chest pain some air leak is still present chest tube is being placed to water seal, labs reviewed medications reviewed, patient is afebrile, white cell count continue to improve nicely 15,000 Path pending 08/04/2018, patient seen eval reexamined during the rounds denies any chest pain does have ongoing cough feels slightly better white cell count noted to be coming down chest x-ray reviewed overall stable still have minimal air leak from the anterior chest tubes 08/03/2018, patient seen and evaluated examined during the rounds he is sitting upright on the chair she still has problem came in complaining and supine position, cough and congestion is still present significant amount of sputum does come out patient is on supplemental oxygen to chest tubes are present right anterior chest tube has some air leak which was not seen yesterday, the pneumothorax essentially unchanged, noted white cell count is up likely related to postoperative inflammatory condition, antibiotics have been adjusted to cefapime and vancomycin ID service following, will start chest PT continue breathing treatment and incentive spirometry patient can be moved out of the ICU that we'll give more [place] to ambulate and physical therapy 08/02/2018, patient seen and evaluated examined during the rounds, patient is postop day #1 for thoracotomy on the right side and decortication his pain is well controlled on epidural, he is doing I-S up to 1.5 L, he is on 4 L nasal cannula sitting on the bedside, labs reviewed medications reviewed radiographic studies reviewed as well chest x-ray showed right-sided pneumothorax stable 08/01/2018, patient seen eval reexamined during the rounds he is still have significant amount of cough with purulent secretions and drainage, patient is nothing by mouth for the thoracotomy, the pigtail catheter was clogged then was opened up by thrombolytics but not draining any amount, x-ray from today reviewed not much change is still showing thick walled cavitary lesion and right lower lobe consolidation and pleural effusion, labs reviewed white cell count is down to 12,800 chemistry normal 07/31/2018, patient seen and evaluated examined during rounds care plan discusse d with the cardiothoracic surgery patient is status post pigtail catheter placement pain cough congestion is still there but is slightly improved though after bronchoscopy remains on broad-spectrum antibiotics culture results and report are reviewed cytology results are reviewed him a white cell count continue to come down is now 13.7 electrolytes are okay 07/30/2018, patient seen and evaluated examined right cell count is down to 15,000 he is feeling slightly better with still have cough congestion shortness of breath and chest pain care plan discussed with cardiothoracic surgery as well as a patient is being planned for bronchoscopy later on today, patient is being considered for thoracotomy versus pigtail catheter continue IV Zosyn 07/29/2018, patient seen eval reexamined during the rounds is still have significant amount of sputum production complain of chronic chest pain with coug h cytology is back as negative on pleural fluid culture so far negative care plan discussed with infectious disease and thoracic surgery patient is contemplated for pigtail catheter versus thoracotomy by thoracic surgery in the meantime we'll do a bronchoscopy to obtain samples and also to rule out any endobronchial mass or lesion procedure explained to the patient 07/28/2018, patient seen and evaluated examined during rounds clinically he is doing essentially the same is still complaining of pain on the right side with severe coughing and breathing he does have sputum which is brownish yellowish in color, computed tomography scan of the chest reviewed there is appearance of abscess versus necrotizing pneumonia in the right lower lobe with dense thickening small fluid is present findings are reviewed with the patient, pleural fluid cytology is still pending 07/26/2018, patient seen and evaluated examined during the rounds he is complaining of insomnia and chest pain pain is improved with Motrin or Tylenol he is asking for a sleeping aid respiratory status slightly better today he has gone thoracentesis of the right side in about 400-450 mL of pleural fluid removed the pleural fluid appears to be exudative with Gram stain negative cultures are pending cytology is pending Objective - Vital Signs Vital signs: Vital Signs Temp 88 F L 08/08/18 12:00 Pulse 71 08/08/18 12:00 Resp 20 08/08/18 12:00 BP 153/82 08/08/18 12:00 Pulse Ox 88 L 08/08/18 12:00 Intake & Output 08/07/18 08/08/18 08/08/18 18:59 06:59 18:59 Intake Total 400 240 Output Total 930 0 Balance -530 0 240 Weight 131 kg 128.4 kg Intake: Oral 400 240 Output: Chest Tube Drainage 30 Right Chest Superior 30 Drainage 0 Right Chest superior A 0 Urine 900 Other: Voiding Method Urinal Urinal ABP, PAP, CO, CI - Last Documented Arterial Blood Pressure 114/54 - Exam Constitutional General appearance: cooperative, disheveled, no acute distress, obese - EENT Eyes: anicteric sclerae, EOMI, PERRLA, normal appearance Ears: bilateral: normal - Neck Carotids: bilateral: upstroke normal Thyroid: bilateral: normal size - Respiratory Respiratory: right: diminished, dullness, negative: CTA, rales, rhonchi, wheezing, prolonged expiration, anterior and posterior chest tube draining serosanguineous fluid minimal anterior chest tube has air leak - Cardiovascular Rhythm: regular Heart sounds: normal: S1, S2 - Gastrointestinal General gastrointestinal: normal bowel sounds - Integumentary Integumentary: normal, normal turgor - Neurologic Neurologic: CNII-XII intact - Musculoskeletal Musculoskeletal: gait normal, generalized weakness, strength equal bilaterally - Psychiatric Psychiatric: A&O x's 3, appropriate affect, intact judgment & insight - Labs CBC & Chem 7: 08/08/18 07:14 08/08/18 07:14 Labs: Abnormal Lab Results - Last 24 Hours (Table) 08/08/18 08/08/18 Range/Units 07:14 07:14 WBC 11.0 H (3.8-10.6) k/uL RBC 2.96 L (4.30-5.90) m/uL Hgb 8.6 L (13.0-17.5) gm/dL Hct 27.8 L (39.0-53.0) % MCHC 30.9 L (31.0-37.0) g/dL Plt Count 632 H (150-450) k/uL Neutrophils # 8.5 H (1.3-7.7) k/uL Carbon Dioxide 32 H (22-30) mmol/L Glucose 102 H (74-99) mg/dL Microbiology - Last 24 Hours (Table) 08/02/18 13:56 Blood Culture - Preliminary Blood No Growth after 120 hours Assessment and Plan Assessment: Empyema lung Right lower lobe lung mass pleural-based likely pneumonia but however ma lignancy cannot be excluded likely abscess with parapneumonic effusion status post right thoracotomy with decortication postop day # 6 Right sided pneumonia cavitary Small pneumothorax residual on the right side Exudative pleural effusion Significant and profound leukocytosis likely multifactorial processes Right-sided pleural effusion likely parapneumonic effusion versus pneumonia and effusion less likely related to malignancy Obesity Hypertension hypertensive cardiovascular disease Dyslipidemia Plan: Agree with broad-spectrum antibiotics, antifungal has been admitted patient is right-sided thoracotomy postop day # 6 Bronchoscopy findings reviewed Gram stain and cultur for BAL so far unremarkable Status post right thoracentesis , bronchoscopy and BAL, right-sided pigtail catheter with results of final culture and cytology reviewed Reviewed repeat CT of the chest without contrast Continue antibiotics Chest PT Deep breathing exercise incentive spirometry Increase activity as tolerated
--- NOTE | 2018-08-08 16:47 | P.CRDCN ---
History of Present Illness Consult date: 08/08/18 History of present illness: This is a 63-year-old gentleman who was admitted to the hospital with cough and empyema. Patient had a prolonged course in hospital and is being followed by multiple specialists. Patient doesn't have an history of previous myocardial infarction. Patient has had a cardiac catheterization and stress test in the past and follows with a banquet cook in [facility]. We're asked to see the patient because of suspected ventricular tachycardia. Apparently patient was sitting in the chair and trying to move into the bed when this episode happened. Review of the rhythm strips is suggestive of artifact rather than true ventricular tachycardia. Patient was asymptomatic also. I'm going to get an echocardiogram to assess LV function. If that looks normal, no further cardiac workup is necessary at this time. His electrolytes are within normal limits. Magnesium level is normal. 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 History of Any Multi-Drug Resistant Organisms: None Reported Past Surgical History: Appendectomy, Heart Catheterization Additional Past Surgical History / Comment(s): EGD, colonoscopy every 2 years Past Psychological History: No Psychological Hx Reported Smoking Status: Former smoker Past Alcohol Use History: Occasional Past Drug Use History: None Reported - Past Family History Mother Family Medical History: Cancer Additional Family Medical History / Comment(s): colon cancer Father Family Medical History: Myocardial Infarction ([place]) Additional Family Medical History / Comment(s): of [place] at age 48 Medications and Allergies Home Medications Medication Instructions Recorded Confirmed Type Aspirin EC [Ecotrin Low Dose] 81 mg PO DAILY 07/24/18 07/24/18 History Levofloxacin [Levaquin] 500 mg PO DAILY 07/24/18 07/24/18 History Losartan/Hydrochlorothiazide 1 tab PO DAILY 07/24/18 07/24/18 History [Losartan-Hctz 100-25 mg Tab] Metoprolol Succinate (ER) [Toprol 100 mg PO BID 07/24/18 07/24/18 History Xl] Pitavastatin Calcium [Livalo] 1 mg PO HS 07/24/18 07/24/18 History Allergies Allergy/AdvReac Type Severity Reaction Status Date / Time No Known Allergies Allergy Verified 07/24/18 15:10 Physical Exam Vitals: Vital Signs Temp Pulse Pulse Resp BP Pulse Ox 08/08/18 15:35 74 08/08/18 15:24 76 08/08/18 12:00 88 F L 71 20 153/82 88 L 08/08/18 11:50 78 08/08/18 11:35 74 08/08/18 08:00 98.2 F 60 16 149/82 98 08/08/18 03:15 98.5 F 60 20 150/77 96 08/07/18 23:20 98 F 66 18 148/73 94 L 08/07/18 21:00 72 08/07/18 20:51 70 08/07/18 20:00 16 08/07/18 17:15 72 08/07/18 17:02 70 96 08/07/18 17:00 98 F 60 16 141/76 97 Intake and Output 08/08/18 08/08/18 08/08/18 06:59 14:59 22:59 Intake Total 240 Balance 240 Intake: Oral 240 Other: Voiding Method Urinal Weight 128.4 kg GENERAL EXAM: Patient is alert and oriented and doesn't appear to be in any acute distress HEENT: Normocephalic. Normal reaction of pupils, equal size, normal range of extraocular motion. No erythema or exudates in the throat. NECK: No masses, no nuchal rigidity. CHEST: No chest wall deformity. LUNGS: Distant breath sounds HEART: S1 and S2 normal with no audible mumurs or gallops. Regular rhythm, femorals equal on both sides.. ABDOMEN: No hepatosplenomegaly, normal bowel sounds, no guarding or rigidity. SKIN: No rashes CENTRAL NERVOUS SYSTEM: No focal deficits. EXTREMITIES: No cyanosis, clubbing or edema. Results 08/08/18 07:14 08/08/18 07:14 Coagulation 08/08/18 Range/Units 12:52 PT 10.3 (9.0-12.0) sec CBC 08/08/18 Range/Units 07:14 WBC 11.0 H (3.8-10.6) k/uL RBC 2.96 L (4.30-5.90) m/uL Hgb 8.6 L (13.0-17.5) gm/dL Hct 27.8 L (39.0-53.0) % Plt Count 632 H (150-450) k/uL Comprehensive Metabolic Panel 08/08/18 Range/Units 07:14 Sodium 141 (137-145) mmol/L Potassium 3.8 (3.5-5.1) mmol/L Chloride 105 (98-107) mmol/L Carbon Dioxide 32 H (22-30) mmol/L BUN 14 (9-20) mg/dL Creatinine 0.85 (0.66-1.25) mg/dL Glucose 102 H (74-99) mg/dL Calcium 8.7 (8.4-10.2) mg/dL Current Medications Generic Name Dose Route Start Last Admin Trade Name Freq PRN Reason Stop Dose Admin Acetaminophen 1,000 mg 08/04/18 08:03 08/08/18 10:20 Tylenol Tab PO 1,000 mg Q6HR PRN Administration Fever and/ or Mild Pain Albuterol/Ipratropium 3 ml 07/31/18 11:31 Duoneb 0.5 Mg-3 Mg/3 Ml Soln INHALATION RT-Q2H PRN Shortness Of Breath Or Wheezing Albuterol/Ipratropium 3 ml 07/31/18 16:00 08/08/18 15:24 Duoneb 0.5 Mg-3 Mg/3 Ml Soln INHALATION 3 ml RT-QID DANIELLA Administration Aspirin 81 mg 07/25/18 09:00 08/08/18 10:22 Aspirin PO 81 mg DAILY DANIELLA Administration Atorvastatin Calcium 10 mg 07/24/18 21:00 08/07/18 20:46 Lipitor PO 10 mg HS DANIELLA Administration Bisacodyl 10 mg 08/01/18 17:13 Dulcolax RECTAL DAILY PRN Constipation Diphenhydramine HCl 25 mg 08/03/18 13:38 Benadryl PO Q6HR PRN Itching Enoxaparin Sodium 40 mg 07/28/18 21:15 08/08/18 10:20 Lovenox SQ 40 mg DAILY DANIELLA Administration Famotidine 20 mg 07/29/18 18:00 08/08/18 10:21 Pepcid PO 20 mg BID DANIELLA Administration Fluconazole 200 mg 08/04/18 22:30 08/08/18 10:21 Diflucan PO 200 mg DAILY DANIELLA Administration Guaifenesin 1,200 mg 08/03/18 10:30 08/08/18 10:21 Mucinex PO 1,200 mg Q12HR DANIELLA Administration Ceftriaxone Sodium 2 gm/ 50 mls @ 100 mls/hr 08/08/18 21:00 Sodium Chloride IVPB Q24H DANIELLA Ketorolac Tromethamine 15 mg 08/08/18 12:00 08/08/18 12:46 Toradol IVP 08/12/18 10:04 15 mg Q6HR DANIELLA Administration Losartan Potassium 50 mg 08/08/18 13:30 08/08/18 15:06 Cozaar PO 50 mg DAILY DANIELLA Administration Melatonin 6 mg 08/05/18 21:00 08/07/18 20:46 Melatonin PO 6 mg HS DANIELLA Administration Metoprolol Succinate 100 mg 07/24/18 21:00 08/08/18 10:21 Toprol Xl PO 100 mg BID DANIELLA Administration Miscellaneous Information 1 each 07/24/18 16:43 Pneumonia Protocol Utilized PO ONCE PRN Per Protocol Nalbuphine HCl 2.5 mg 08/01/18 14:02 Nubain IV Q4HR PRN Itching Naloxone HCl 0.2 mg 08/01/18 14:02 Narcan IV Q2M PRN Opioid Reversal Ondansetron HCl 4 mg 08/01/18 17:13 Zofran IVP Q8HR PRN Nausea And Vomiting Polyethylene Glycol 17 gm 08/06/18 09:00 08/08/18 10:20 Miralax PO Not Given DAILY DANIELLA Senna/Docusate Sodium 1 each 08/02/18 09:00 08/08/18 10:22 Senokot-S PO 1 each DAILY DANIELLA Administration Intake and Output 08/08/18 08/08/18 08/08/18 06:59 14:59 22:59 Intake Total 240 Balance 240 Intake: Oral 240 Other: Voiding Method Urinal Weight 128.4 kg Patient Weight 08/09/18 06:59 Weight 128.4 kg 08/08/18 07:14 08/08/18 07:14 Assessment and Plan (1) Ventricular tachycardia (paroxysmal) Current Visit: Yes Status: Acute Code(s): I47.2 - VENTRICULAR TACHYCARDIA SNOMED Code(s): 63234037 (2) Ventricular tachycardia Current Visit: Yes Status: Acute Code(s): I47.2 - VENTRICULAR TACHYCARDIA SNOMED Code(s): 95146972 (3) Lung mass Current Visit: Yes Status: Acute Code(s): R91.8 - OTHER NONSPECIFIC ABNORMAL FINDING OF LUNG FIELD SNOMED Code(s): 813040032 (4) Pneumonia Current Visit: Yes Status: Acute Code(s): J18.9 - PNEUMONIA, UNSPECIFIED ORGANISM SNOMED Code(s): 284141748 Plan: Review of rhythm strips was not suggestive of true ventricular tachycardia. Patient had artifacts. Echo is to be done to assess LV function. Electrolytes and magnesium levels are normal. If the echo shows normal LV function, no further cardiac workup necessary.
--- NOTE | 2018-08-08 17:21 | P.PN ---
Subjective Progress Note Date: 08/07/18 Principal diagnosis: Cavitatory pneumonia and right-sided empyema 63-year-old male admitted to the hospital with chronic cough chest pain right-sided fever and elevated white count in this patient who did have evidence of right-sided pleural effusion status post oral consent diseases with a repeat CT suggestive of right-sided cavitating pneumonia and pleural effusion, patient is currently be treated with Zosyn. The patient is status post bronchoscopy and and lavaged on 07/30/2018, did have a right chest wall pigtail catheter placement on 07/31/2018 , and did have right thoracotomy and decortication for empyema right lung on 08/01/2018 On today's evaluation that is 08/07/2018 the patient denies any fever or chills, the patient is breathing comfortably, the patient cough has decreased in intensity is mostly dry in nature, still painful to cough though decreased in intensity, the patient denies nausea no vomiting no abdominal pain and no diarrhea Objective - Vital Signs Vital signs: Vital Signs Temp 97.4 F L 08/07/18 08:50 Pulse 72 08/07/18 12:10 Resp 18 08/07/18 08:50 BP 149/80 08/07/18 08:50 Pulse Ox 94 L 08/07/18 08:50 Intake & Output 08/06/18 08/07/18 08/07/18 18:59 06:59 18:59 Intake Total 960 1510 Output Total 0 30 450 Balance 960 1480 -450 Weight 131 kg 131 kg Intake: IV 610 Cefepime 2 gm In Sodium 100 Chloride 0.9% 100 ml @ 200 mls/hr IVPB Q12HR DANIELLA Rx#:[id number] Invasive Line 10 10 Vancomycin 2,000 mg In 500 Sodium Chloride 0.9% 500 ml 500 ml @ 167 mls/hr IVPB Q12HR DANIELLA Rx#: [id number] Intake, IV Titration 100 Amount Sodium Chloride 0.9% 1, 100 000 ml @ 10 mls/hr IV . Q24H DANIELLA Rx#:[id number] Oral 960 800 Output: Chest Tube Drainage 0 30 Right Chest Superior 0 30 right chest inferior B 0 Drainage 0 Right Chest superior A 0 Urine 450 Other: Voiding Method Urinal Urinal # Voids 1 2 # Bowel Movements 1 ABP, PAP, CO, CI - Last Documented Arterial Blood Pressure 114/54 - Exam GENERAL DESCRIPTION:[ Patient is awake and alert in no distress] HEENT: [Oral mucosa is dry and no pharyngeal erythema] EYES : [No pallor or scleral icterus] RESPIRATORY SYSTEM: [Unlabored breathing decreased breath sound the bases, no wheeze CARDIA VASCULAR SYSTEM: [S1-S2 regular rate and rhythm no murmur] GI: [Abdominal soft there's no tenderness no organomegaly] EXTREMITIES: [No edema feet] - Labs CBC & Chem 7: 08/08/18 07:14 08/08/18 07:14 Labs: Abnormal Lab Results - Last 24 Hours (Table) 08/07/18 08/07/18 Range/Units 07:28 07:28 WBC 11.3 H (3.8-10.6) k/uL RBC 2.93 L (4.30-5.90) m/uL Hgb 8.9 L (13.0-17.5) gm/dL Hct 27.5 L (39.0-53.0) % Plt Count 605 H (150-450) k/uL Glucose 108 H (74-99) mg/dL Microbiology - Last 24 Hours (Table) 08/02/18 13:56 Blood Culture - Preliminary Blood No Growth after 96 hours Assessment and Plan Assessment: 1-patient admitted hospital with increasing shortness of breath or cough in this patient who did have features of sepsis on presentation with a fever and elevated white count source is her right-sided pneumonia with parapneumonic effusion status post thoracocentesis now with repeat CAT scan with evidence of consolidation with cavitary changes with question of possible community-acquired pathogen versus resistant gram-positive or gram-negative pathogen, the patient is status post right thoracotomy decortication along with deep cultures which are currently negative so far 2-patient fever has resolved white count continued to show downward trend, down to 11,000 today (1) Sepsis Current Visit: Yes Status: Acute Code(s): A41.9 - SEPSIS, UNSPECIFIED ORGANISM SNOMED Code(s): 55139283 (2) Lung mass Current Visit: Yes Status: Acute Code(s): R91.8 - OTHER NONSPECIFIC ABNORMAL FINDING OF LUNG FIELD SNOMED Code(s): 604235464 Plan: 1- the patient will be continued on on cefepime 2 g every 12 hours and oral Diflucan--- 2-patient will likely need a PICC line and outpatient IV antibiotic therapy, which will be transitioned to IV Rocephin and oral Diflucan. 3-continue supportive care Time with Patient: Greater than 30
--- NOTE | 2018-08-08 17:26 | P.PN ---
Subjective Progress Note Date: 08/08/18 Principal diagnosis: Cavitatory pneumonia and right-sided empyema 63-year-old male admitted to the hospital with chronic cough chest pain right-sided fever and elevated white count in this patient who did have evidence of right-sided pleural effusion status post oral consent diseases with a repeat CT suggestive of right-sided cavitating pneumonia and pleural effusion, patient is currently be treated with Zosyn. The patient is status post bronchoscopy and and lavaged on 07/30/2018, did have a right chest wall pigtail catheter placement on 07/31/2018 , and did have right thoracotomy and decortication for empyema right lung on 08/01/2018 On today's evaluation that is 08/07/2018 the patient denies any fever or chills, the patient is breathing comfortably, the patient cough has decreased in intensity is mostly dry in nature, still painful to cough though decreased in intensity, the patient denies nausea no vomiting no abdominal pain and no diarrhea 08/08/2018 Patient is seen and evaluated at bedside; He is in no acute distress. He currently denies any complaints of pain, although reports that when he is coughing his pain is 6 out of 10 on the pain scale. Denies any complaints of shortness of breath. Right pleural chest tube remains in place to water seal. Intermittent air leak is present. Draining thin serosanguineous drainage. Achieving 1250 mL on his incentive spirometry. The patient's pathology results demonstrate no malignancy, although results are consistent with empyema. The cultures taken during his thoracotomy procedure have been negative with no growth as of today. He reports he ambulated in the cardiac stepdown unit hallway yesterday 2. His is at his bedside and their questions were answered to the best of my ability. Postinjury chest; ID recommending a PICC line antibiotics as outpatient; PICC line has been ordered; we will need further input by ID in regards to discharge antibiotics; possible discharge in next 24-48 hours pending clearance from all consultants Objective - Vital Signs Vital signs: Vital Signs Temp 98.2 F 08/08/18 08:00 Pulse 60 08/08/18 08:00 Resp 16 08/08/18 08:00 BP 149/82 08/08/18 08:00 Pulse Ox 98 08/08/18 08:00 Intake & Output 06/08/08/18 08/08/18 18:59 06:59 18:59 Intake Total 400 Output Total 930 0 Balance -530 0 Weight 131 kg 128.4 kg Intake: Oral 400 Output: Chest Tube Drainage 30 Right Chest Superior 30 Drainage 0 Right Chest superior A 0 Urine 900 Other: Voiding Method Urinal Urinal ABP, PAP, CO, CI - Last Documented Arterial Blood Pressure 114/54 - Exam GENERAL DESCRIPTION:[ Patient is awake and alert in no distress] HEENT: [Oral mucosa is dry and no pharyngeal erythema] EYES : [No pallor or scleral icterus] RESPIRATORY SYSTEM: [Unlabored breathing decreased breath sound the bases, no wheeze CARDIA VASCULAR SYSTEM: [S1-S2 regular rate and rhythm no murmur] GI: [Abdominal soft there's no tenderness no organomegaly] EXTREMITIES: [No edema feet] - Labs CBC & Chem 7: 08/08/18 07:14 08/08/18 07:14 Labs: Abnormal Lab Results - Last 24 Hours (Table) 08/08/18 08/08/18 Range/Units 07:14 07:14 WBC 11.0 H (3.8-10.6) k/uL RBC 2.96 L (4.30-5.90) m/uL Hgb 8.6 L (13.0-17.5) gm/dL Hct 27.8 L (39.0-53.0) % MCHC 30.9 L (31.0-37.0) g/dL Plt Count 632 H (150-450) k/uL Neutrophils # 8.5 H (1.3-7.7) k/uL Carbon Dioxide 32 H (22-30) mmol/L Glucose 102 H (74-99) mg/dL Microbiology - Last 24 Hours (Table) 08/02/18 13:56 Blood Culture - Preliminary Blood No Growth after 120 hours Assessment and Plan Assessment: 1-patient admitted hospital with increasing shortness of breath or cough in this patient who did have features of sepsis on presentation with a fever and elevated white count source is her right-sided pneumonia with parapneumonic effusion status post thoracocentesis now with repeat CAT scan with evidence of consolidation with cavitary changes with question of possible community-acquired pathogen versus resistant gram-positive or gram-negative pathogen, the patient is status post right thoracotomy decortication along with deep cultures which are currently negative so far 2-patient fever has resolved white count continued to show downward trend, down to 11,000 today (1) Sepsis Current Visit: Yes Status: Acute Code(s): A41.9 - SEPSIS, UNSPECIFIED ORGANISM SNOMED Code(s): 87074232 (2) Lung mass Current Visit: Yes Status: Acute Code(s): R91.8 - OTHER NONSPECIFIC ABNORMAL FINDING OF LUNG FIELD SNOMED Code(s): 212015206 Plan: 1- the patient will be continued on on cefepime 2 g every 12 hours and oral Diflucan--- 2-patient will likely need a PICC line and outpatient IV antibiotic therapy, which will be transitioned to IV Rocephin and oral Diflucan. 3-continue supportive care Time with Patient: Greater than 30
--- NOTE | 2018-08-08 18:44 | ECHOF ---
Referral Reason:Chest pain and cardiomyopathy MEASUREMENTS -------- HEIGHT: 185.4 cm WEIGHT: 128.4 kg BP: RVIDd: 3.9 cm (< 3.3) IVSd: 1.3 cm (0.6 - 1.1) LVIDd: 4.7 cm (3.9 - 5.3) LVPWd: 1.3 cm (0.6 - 1.1) IVSs: 1.6 cm LVIDs: 3.1 cm LVPWs: 1.7 cm LAESV Index (A-L): 57.82 ml/m Ao Diam: 3.4 cm (2.0 - 3.7) AV Cusp: 2.7 cm (1.5 - 2.6) LA Diam: 3.4 cm (2.7 - 3.8) MV EXCURSION: 23.818 mm (> 18.000) MV EF SLOPE: 127 mm/s (70 - 150) EPSS: 0.7 cm MV E Alcides: 0.95 m/s MV DecT: 253 ms MV A Alcides: 0.75 m/s MV E/A Ratio: 1.27 RAP: 15.00 mmHg RVSP: 54.52 mmHg FINDINGS -------- Sinus rhythm. This was a technically adequate study. The left ventricular size is normal. There is mild concentric left ventricular hypertrophy. Overa ll left ventricular systolic function is normal with, an EF between 55 - 60 %. The right ventricle is mild to moderately enlarged. LA is severely dilated >40 ml/m2 The right atrial size is normal. Aortic valve is trileaflet and is mildly thickened. Mild mitral annular calcification present. Mild mitral regurgitation is present. Mild tricuspid regurgitation present. There is mild to moderate pulmonary hypertension. The right ventricular systolic pressure, as measured by Doppler, is 54.52mmHg. There is no pulmonic regurgitation present. The aortic root size is normal. The inferior vena cava is mildly dilated. There is no pericardial effusion. CONCLUSIONS -------- 1. Sinus rhythm. 2. This was a technically adequate study. 3. The left ventricular size is normal. 4. There is mild concentric left ventricular hypertrophy. 5. Overall left ventricular systolic function is normal with, an EF between 55 - 60 %. 6. The right ventricle is mild to moderately enlarged. 7. LA is severely dilated >40 ml/m2 8. Aortic valve is trileaflet and is mildly thickened. 9. Mild mitral annular calcification present. 10. Mild mitral regurgitation is present. 11. Mild tricuspid regurgitation present. 12. There is mild to moderate pulmonary hypertension. 13. There is no pulmonic regurgitation present. 14. The inferior vena cava is mildly dilated. 15. There is no pericardial effusion. CHEFS: Paloma Stuart RDCS
[2018-08-08] MEDS: ATORVASTATIN 10 MG TAB PO SCH (20:03)
[2018-08-08] MEDS: MELATONIN 3 MG TABLET PO SCH (20:04)
[2018-08-09] MEDS: KETOROLAC 30 MG/ML 1 ML VIAL IVP SCH ×4 (05:44→23:39)
[2018-08-09 06:35] LABS: Basophils % (A) 0 %; Eosinophils # (A) 0.7 k/uL (0-0.7); Eosinophils % (A) 7 %; HCT 27.2 % (39.0-53.0); HGB 8.4 gm/dL (13.0-17.5); Hypochromasia Slight; Lymphocytes # (A) 1.2 k/uL (1.0-4.8); Lymphocytes % (A) 12 %; MCH 28.9 pg (25.0-35.0); MCV 93.2 fL (80.0-100.0); Mean Platelet Volume 7.3; Monocytes # (A) 0.7 k/uL (0-1.0); Monocytes % (A) 7 %; Neutrophils # (A) 7.2 k/uL (1.3-7.7); Neutrophils % (A) 72 %; Platelet Count 568 k/uL (150-450); RBC 2.92 m/uL (4.30-5.90); RDW 14.8 % (11.5-15.5); WBC 10.1 k/uL (3.8-10.6)
[2018-08-09 06:47] LABS: African American GFR (CKD) >90 (>60 ml/min/1.73 sqM); Anion Gap 6 mmol/L; Blood Urea Nitrogen 16 mg/dL (9-20); Calcium 8.4 mg/dL (8.4-10.2); Carbon Dioxide 31 mmol/L (22-30); Chloride 103 mmol/L (98-107); Glucose 95 mg/dL (74-99); Magnesium 1.9 mg/dL (1.6-2.3); Sodium 140 mmol/L (137-145)
--- NOTE | 2018-08-09 07:16 | XR ---
EXAMINATION TYPE: XR chest 2V DATE OF EXAM: 08/09/2018 HISTORY: effusion. REFERENCE: Previous study dated 08/08/2018. FINDINGS: There is subcutaneous emphysema on the right. A right pleural drain remains in place. There is a complex pattern of pleural parenchymal changes present bilaterally. This appears stable. T here are small, bilateral effusions. IMPRESSION: 1. RESOLUTION OF THE PATIENT'S RIGHT APICAL PNEUMOTHORAX. 2. CONTINUING, BILATERAL PLEURAL PARENCHYMAL CHANGE, UNCHANGED FROM PREVIOUS.
[2018-08-09] MEDS: IPRATROPIUM-ALBUTEROL 3 ML NEB INHALATION SCH ×4 (08:56→19:42)
[2018-08-09] MEDS: POLYETHYLENE GLYCOL 3350 17 GM POWD.PACK PO SCH (09:08)
[2018-08-09] MEDS: MAGNESIUM SULFATE-D5W PMX 1 GM in DEXTROSE/WATER 1 100ML.BAG IVPB SCH ×2 (09:08→12:20)
[2018-08-09] MEDS: ENOXAPARIN 40 MG/0.4 ML SYRINGE SQ SCH (09:09)
[2018-08-09] MEDS: ASPIRIN 81 MG PO SCH (09:09)
[2018-08-09] MEDS: LOSARTAN 50 MG TAB PO SCH (09:09)
[2018-08-09] MEDS: FAMOTIDINE 20 MG TAB PO SCH ×2 (09:09→20:33)
[2018-08-09] MEDS: METOPROLOL SUCCINATE (ER) 100 MG TAB.ER.24H PO SCH ×2 (09:09→20:33)
[2018-08-09] MEDS: SENNOSIDES-DOCUSATE SODIUM 1 EACH TAB PO SCH (09:09)
[2018-08-09] MEDS: ACETAMINOPHEN TAB 500 MG TAB PO PRN ×3 (09:09→20:33)
[2018-08-09] MEDS: FLUCONAZOLE 100 MG TAB PO SCH (09:09)
[2018-08-09] MEDS: guaiFENesin 600 MG TABLET.ER PO SCH ×2 (09:09→20:32)
[2018-08-09] MEDS ORDERED: FUROSEMIDE 10 MG/ML 4 ML VIAL IV STA (09:58)
--- NOTE | 2018-08-09 10:08 | P.PN ---
Subjective Progress Note Date: 08/09/18 Principal diagnosis: Right sided empyema, cavitary pneumonia; right-sided pleural effusion, parapneumonic versus pneumonia versus malignancy, status post thoracentesis with 350 mL dark fluid removed, cytology consistent with empyema. Previous medical history of hypertension, hypercholesterolemia, De Leon's esophagitis, previous tobacco dependence with [id number] history, social EtOH use, family history of premature coronary artery disease and colon cancer. POD #8 right thoracotomy with decortication. POD #10 bronchoscopy with bronchoalveolar lavage by pulmonology. POD #11 placement of right sided pigtail catheter by interventional radiology. The patient is currently sitting up to the bedside chair on the 3 S. Cardiac stepdown unit. He is in no acute distress. He currently denies any complaints of pain or shortness of breath. Right pleural chest tube remains in place to water seal. Intermittent air leak is continues to be present. Draining thin serosanguineous drainage with 70 mL output in the last 24 hours. Achieving 1250 mL on his incentive spirometry. The patient's pathology results demonstrate no malignancy, although results are consistent with empyema. The cultures taken during his thoracotomy procedure have been negative with no growth as of today. He continues to ambulate in the cardiac stepdown unit hallway. Objective - Vital Signs Vital signs: Vital Signs Temp 97.9 F 08/09/18 08:00 Pulse 76 08/09/18 09:10 Resp 18 08/09/18 08:00 BP 167/88 08/09/18 08:00 Pulse Ox 96 08/09/18 08:00 Intake & Output 08/08/18 08/09/18 08/09/18 18:59 06:59 18:59 Intake Total 600 Balance 600 Weight 128.4 kg 126.6 kg Intake: Oral 600 Other: Voiding Method Urinal ABP, PAP, CO, CI - Last Documented Arterial Blood Pressure 114/54 - Constitutional General appearance: Present: cooperative, no acute distress, obese - Respiratory Details: Lung sounds essentially clear to his bilateral upper lobes, diminished to his right lower lobe. Respirations are symmetrical and nonlabored. Oxygen saturation are 94% on 2 L nasal cannula. Achieving 1250 mL on his incentive spirometry. Right pleural chest tube in place and remains to water seal. Persistent intermittent air leak present. Draining thin serosanguineous drainage with 70 mL output in the last 24 hours. - Cardiovascular Details: Regular rhythm and rate. S1 and S2 present, negative for S3, gallop or murmur. Remote telemetry showing normal sinus rhythm heart rate 61. +2 edema present to his bilateral lower extremities. Knee-high DIVINE hose and sequential compression devices in place was bilateral lower extremities. - Gastrointestinal Gastrointestinal Comment(s): Abdomen is soft, nontender and nondistended. Active bowel sounds all 4 abdominal quadrants. No guarding or rigidity. No organomegaly. Tolerating oral intake. - Genitourinary Genitourinary Comment(s): Voiding clear yellow urine. - Integumentary Integumentary Comment(s): Skin is warm and dry. No clubbing or cyanosis is present. Right thoracotomy incision is clean, dry and approximated. No drainage or redness is present. - Neurologic Neurologic: Present: CNII-XII intact - Musculoskeletal Musculoskeletal: Present: gait normal, strength equal bilaterally - Psychiatric Psychiatric: Present: A&O x's 3, appropriate affect, intact judgment & insight - Allied health notes Allied health notes reviewed: nursing - Labs CBC & Chem 7: 08/09/18 05:36 08/09/18 05:36 Labs: Abnormal Lab Results - Last 24 Hours (Table) 08/09/18 08/09/18 Range/Units 05:36 05:36 RBC 2.92 L (4.30-5.90) m/uL Hgb 8.4 L (13.0-17.5) gm/dL Hct 27.2 L (39.0-53.0) % Plt Count 568 H (150-450) k/uL Carbon Dioxide 31 H (22-30) mmol/L Microbiology - Last 24 Hours (Table) 08/02/18 13:56 Blood Culture - Final Blood No Growth after 144 hours - Imaging and Cardiology Chest x-ray: report reviewed, image reviewed Assessment and Plan Assessment: 1. Right sided empyema, status post right thoracotomy with decortication. 2. Right-sided pleural effusion, parapneumonic versus pneumonia versus malignancy, status post thoracentesis with 350 mL dark fluid removed, cytology consistent with empyema 3. History of hypertension, treated 4. History of hypercholesterolemia, treated 5. 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 Previous tobacco dependence with [id number] history 7. Social ETOH use 8. Family history of premature coronary artery disease 9. Family history of colon cancer 10. Leukocytosis Plan: 1. Continue IV antibiotics per infectious disease recommendations. Currently on ceftriaxone and Diflucan. 2. Pleural fluid cultures show no growth. 3. Continue right pleural chest tube to waterseal. Remains with intermittent air leak. 4. Encourage incentive spirometry is 10 times every hour while awake. 5. Increase activity as tolerated, ambulate in hallway as tolerated. Physical and occupational therapy following. 7. Continue current pain management regimen. Acetaminophen and Toradol. 8. Medical management of other comorbid conditions per primary care service. 9. Bronchodilators per pulmonary management. 10. Continue losartan at 50 mg by mouth daily. 11. Monitor daily labs and chest x-rays. Electrolyte replacement per protocol. 12. Lasix 40 mg IV 1 now. 13. More recommendations to follow based on patient's clinical course. Time with Patient: Greater than 30
--- NOTE | 2018-08-09 10:52 | P.PN ---
Subjective Progress Note Date: 08/09/18 Principal diagnosis: Right-sided apical pneumothorax small Right-sided lung mass pleural base, right-sided pneumonia, right parapneumonic effusion, sepsis, chest pain, cough, morbid obesity, hypertension hypertensive cardiovascular disease, dyslipidemia, 08/09/2018, he shouldn't seen eval reexamined during the rounds breathing comfortably but is still having chest pain some air bubbles immediately to the anterior chest tube is still present he is doing incentive spirometry labs reviewed medications, chest x-ray showed resolution of right apical pneumothorax 08/08/2018, patient seen and evaluated examined during the rounds he is doing well with incentive spirometry still have occasional air leak is present but has significantly improved labs reviewed medications reviewed patient is ambulating decrease cough congestion is present, labs reviewed medications reviewed 08/07/2018, patient seen and evaluated examined, posterior chest tube has been removed and he just uses no significant air leak denies any chest pain cough and sputum production is improved able to ambulate now, 08/06/2018, patient seen eval reexamined during the rounds, overall doing fairly well chest tubes are in still have some air leak in the anterior chest tubes, chest tubes have been placed on water seal, cough is present is mostly nonproductive now he is been ambulating, path report results consistent with empyema 08/06/1999 619, patient uncertain up in chair breathing comfortably does have some chest pain some air leak is still present chest tube is being placed to water seal, labs reviewed medications reviewed, patient is afebrile, white cell count continue to improve nicely 15,000 Path pending 08/04/2018, patient seen eval reexamined during the rounds denies any chest pain does have ongoing cough feels slightly better white cell count noted to be coming down chest x-ray reviewed overall stable still have minimal air leak from the anterior chest tubes 08/03/2018, patient seen and evaluated examined during the rounds he is sitting upright on the chair she still has problem came in complaining and supine position, cough and congestion is still present significant amount of sputum does come out patient is on supplemental oxygen to chest tubes are present right anterior chest tube has some air leak which was not seen yesterday, the pneumothorax essentially unchanged, noted white cell count is up likely related to postoperative inflammatory condition, antibiotics have been adjusted to cefapime and vancomycin ID service following, will start chest PT continue breathing treatment and incentive spirometry patient can be moved out of the ICU that we'll give more [place] to ambulate and physical therapy 08/02/2018, patient seen and evaluated examined during the rounds, patient is postop day #1 for thoracotomy on the right side and decortication his pain is well controlled on epidural, he is doing I-S up to 1.5 L, he is on 4 L nasal cannula sitting on the bedside, labs reviewed medications reviewed radiographic studies reviewed as well chest x-ray showed right-sided pneumothorax stable 08/01/2018, patient seen eval reexamined during the rounds he is still have significant amount of cough with purulent secretions and drainage, patient is nothing by mouth for the thoracotomy, the pigtail catheter was clogged then was opened up by thrombolytics but not draining any amount, x-ray from today reviewed not much change is still showing thick walled cavitary lesion and right lower lobe consolidation and pleural effusion, labs reviewed white cell count is down to 12,800 chemistry normal 07/31/2018, patient seen and evaluated examined during rounds care plan discussed with the cardiothoracic surgery patient is status post pigtail catheter placement pain cough congestion is still there but is slightly improved though after bronchoscopy remains on broad-spectrum antibiotics culture results and report are reviewed cytology results are reviewed him a white cell count continue to come down is now 13.7 electrolytes are okay 07/30/2018, patient seen and evaluated examined right cell count is down to 15,000 he is feeling slightly better with still have cough congestion shortness of breath and chest pain care plan discussed with cardiothoracic surgery as well as a patient is being planned for bronchoscopy later on today, patient is being considered for thoracotomy versus pigtail catheter continue IV Zosyn 07/29/2018, patient seen eval reexamined during the rounds is still have significant amount of sputum production complain of chronic chest pain with cough cytology is back as negative on pleural fluid culture so far negative care plan discussed with infectious disease and thoracic surgery patient is contemplated for pigtail catheter versus thoracotomy by thoracic surgery in the meantime we'll do a bronchoscopy to obtain samples and also to rule out any endobronchial mass or lesion procedure explained to the patient 07/28/2018, patient seen and evaluated examined during rounds clinically he is doing essentially the same is still complaining of pain on the right side with severe coughing and breathing he does have sputum which is brownish yellowish in color, computed tomography scan of the chest reviewed there is appearance of abscess versus necrotizing pneumonia in the right lower lobe with dense thickening small fluid is present findings are reviewed with the patient, pleural fluid cytology is still pending 07/26/2018, patient seen and evaluated examined during the rounds he is complaining of insomnia and chest pain pain is improved with Motrin or Tylenol he is asking for a sleeping aid respiratory status slightly better today he has gone thoracentesis of the right side in about 400-450 mL of pleural fluid removed the pleural fluid appears to be exudative with Gram stain negative cultures are pending cytology is pending Objective - Vital Signs Vital signs: Vital Signs Temp 97.9 F 08/09/18 08:00 Pulse 76 08/09/18 09:10 Resp 18 08/09/18 08:00 BP 167/88 08/09/18 08:00 Pulse Ox 96 08/09/18 08:00 Intake & Output 08/08/18 08/09/18 08/09/18 18:59 06:59 18:59 Intake Total 600 Balance 600 Weight 128.4 kg 126.6 kg Intake: Oral 600 Other: Voiding Method Urinal ABP, PAP, CO, CI - Last Documented Arterial Blood Pressure 114/54 - Exam Constitutional General appearance: cooperative, disheveled, no acute distress, obese - EENT Eyes: anicteric sclerae, EOMI, PERRLA, normal appearance Ears: bilateral: normal - Neck Carotids: bilateral: upstroke normal Thyroid: bilateral: normal size - Respiratory Respiratory: right: diminished, dullness, negative: CTA, rales, rhonchi, wheezing, prolonged expiration, anterior and posterior chest tube draining serosanguineous fluid minimal anterior chest tube has air leak - Cardiovascular Rhythm: regular Heart sounds: normal: S1, S2 - Gastrointestinal General gastrointestinal: normal bowel sounds - Integumentary Integumentary: normal, normal turgor - Neurologic Neurologic: CNII-XII intact - Musculoskeletal Musculoskeletal: gait normal, generalized weakness, strength equal bilaterally - Psychiatric Psychiatric: A&O x's 3, appropriate affect, intact judgment & insight - Labs CBC & Chem 7: 08/09/18 05:36 08/09/18 05:36 Labs: Abnormal Lab Results - Last 24 Hours (Table) 08/09/18 08/09/18 Range/Units 05:36 05:36 RBC 2.92 L (4.30-5.90) m/uL Hgb 8.4 L (13.0-17.5) gm/dL Hct 27.2 L (39.0-53.0) % Plt Count 568 H (150-450) k/uL Carbon Dioxide 31 H (22-30) mmol/L Microbiology - Last 24 Hours (Table) 08/02/18 13:56 Blood Culture - Final Blood No Growth after 144 hours Assessment and Plan Assessment: Empyema lung Right lower lobe lung mass pleural-based likely pneumonia but however malignancy cannot be excluded likely abscess with parapneumonic effusion status post right thoracotomy with decortication postop day # 8 Right sided pneumonia cavitary Small pneumothorax residual on the right side resolved on today's x-ray daily he is still present Exudative pleural effusion Significant and profound leukocytosis likely multifactorial processes Right-sided pleural effusion likely parapneumonic effusion versus pneumonia and effusion less likely related to malignancy Obesity Hypertension hypertensive cardiovascular disease Dyslipidemia Plan: Agree with broad-spectrum antibiotics, antifungal patient is right-sided thoracotomy postop day # 8 Bronchoscopy findings reviewed Gram stain and cultur for BAL so far unremarkable Status post right thoracentesis , bronchoscopy and BAL, right-sided pigtail catheter with results of final culture and cytology reviewed Continue antibiotics Chest PT Deep breathing exercise incentive spirometry Increase activity as tolerated Time with Patient: Greater than 30
--- NOTE | 2018-08-09 16:36 | P.PN ---
Subjective Progress Note Date: 08/09/18 Principal diagnosis: Cavitatory pneumonia and right-sided empyema 63-year-old male admitted to the hospital with chronic cough chest pain right-sided fever and elevated white count in this patient who did have evidence of right-sided pleural effusion status post oral consent diseases with a repeat CT suggestive of right-sided cavitating pneumonia and pleural effusion, patient is currently be treated with Zosyn. The patient is status post bronchoscopy and and lavaged on 07/30/2018, did have a right chest wall pigtail catheter placement on 07/31/2018 , and did have right thoracotomy and decortication for empyema right lung on 08/01/2018 On today's evaluation that is 08/07/2018 the patient denies any fever or chills, the patient is breathing comfortably, the patient cough has decreased in intensity is mostly dry in nature, still painful to cough though decreased in intensity, the patient denies nausea no vomiting no abdominal pain and no diarrhea 08/08/2018 Patient is seen and evaluated at bedside; He is in no acute distress. He currently denies any complaints of pain, although reports that when he is coughing his pain is 6 out of 10 on the pain scale. Denies any complaints of shortness of breath. Right pleural chest tube remains in place to water seal. Intermittent air leak is present. Draining thin serosanguineous drainage. Achieving 1250 mL on his incentive spirometry. The patient's pathology results demonstrate no malignancy, although results are consistent with empyema. The cultures taken during his thoracotomy procedure have been negative with no growth as of today. He reports he ambulated in the cardiac stepdown unit hallway yesterday 2. His is at his bedside and their questions were answered to the best of my ability. Postinjury chest; ID recommending a PICC line antibiotics as outpatient; PICC line has been ordered; we will need further input by ID in regards to discharge antibiotics; possible discharge in next 24-48 hours pending clearance from all consultants 08/09/2018 Patient is seen and evaluated in room with at bedside; breathing comfortably but is still having chest pain some air bubbles immediately to the anterior chest tube is still present he is doing incentive spirometry labs reviewed medications, chest x-ray showed resolution of right apical pneumothorax Vital signs remained stable with a temperature of 98.3, pulse 60, respiration 18 and blood pressure 141/83 SpO2 of 90% on room air Labs remained stable with a white blood count of 10.1, hemoglobin 8.4 and platelet count of 568 Patient is status post PICC line placement for prolonged IV antibiotics per ID recommendations Objective - Vital Signs Vital signs: Vital Signs Temp 97.9 F 08/09/18 08:00 Pulse 76 08/09/18 09:10 Resp 18 08/09/18 08:00 BP 167/88 08/09/18 08:00 Pulse Ox 96 08/09/18 08:00 Intake & Output 08/08/18 08/09/18 08/09/18 18:59 06:59 18:59 Intake Total 600 Balance 600 Weight 128.4 kg 126.6 kg Intake: Oral 600 Other: Voiding Method Urinal ABP, PAP, CO, CI - Last Documented Arterial Blood Pressure 114/54 - Exam GENERAL DESCRIPTION:[ Patient is awake and alert in no distress] HEENT: [Oral mucosa is dry and no pharyngeal erythema] EYES : [No pallor or scleral icterus] RESPIRATORY SYSTEM: [Unlabored breathing decreased breath sound the bases, no wheeze CARDIA VASCULAR SYSTEM: [S1-S2 regular rate and rhythm no murmur] GI: [Abdominal soft there's no tenderness no organomegaly] EXTREMITIES: [No edema feet] - Labs CBC & Chem 7: 08/09/18 05:36 08/09/18 05:36 Labs: Abnormal Lab Results - Last 24 Hours (Table) 08/09/18 08/09/18 Range/Units 05:36 05:36 RBC 2.92 L (4.30-5.90) m/uL Hgb 8.4 L (13.0-17.5) gm/dL Hct 27.2 L (39.0-53.0) % Plt Count 568 H (150-450) k/uL Carbon Dioxide 31 H (22-30) mmol/L Microbiology - Last 24 Hours (Table) 08/02/18 13:56 Blood Culture - Final Blood No Growth after 144 hours Assessment and Plan Assessment: 1-patient admitted hospital with increasing shortness of breath or cough in this patient who did have features of sepsis on presentation with a fever and eleva leigh ann white count source is her right-sided pneumonia with parapneumonic effusion status post thoracocentesis now with repeat CAT scan with evidence of consolidation with cavitary changes with question of possible community-acquired pathogen versus resistant gram-positive or gram-negative pathogen, the patient is status post right thoracotomy decortication along with deep cultures which are currently negative so far 2-patient fever has resolved white count continued to show downward trend, down to 11,000 today (1) Sepsis Current Visit: Yes Status: Acute Code(s): A41.9 - SEPSIS, UNSPECIFIED ORGANISM SNOMED Code(s): 37232406 (2) Lung mass Current Visit: Yes Status: Acute Code(s): R91.8 - OTHER NONSPECIFIC ABNORMAL FINDING OF LUNG FIELD SNOMED Code(s): 636226922 Plan: 1- the patient will be continued on on cefepime 2 g every 12 hours and oral Diflucan--- 2-patient will likely need a PICC line and outpatient IV antibiotic therapy, which will be transitioned to IV Rocephin and oral Diflucan. 3-continue supportive care Time with Patient: Greater than 30
[2018-08-09] MEDS: MELATONIN 3 MG TABLET PO SCH (20:33)
[2018-08-09] MEDS: ATORVASTATIN 10 MG TAB PO SCH (20:33)
[2018-08-10] MEDS: KETOROLAC 30 MG/ML 1 ML VIAL IVP SCH ×4 (04:59→23:38)
[2018-08-10 06:28] LABS: Basophils % (A) 0 %; Eosinophils # (A) 0.8 k/uL (0-0.7); Eosinophils % (A) 8 %; HCT 27.5 % (39.0-53.0); HGB 8.5 gm/dL (13.0-17.5); Hypochromasia Slight; Lymphocytes % (A) 10 %; MCH 28.8 pg (25.0-35.0); MCHC 30.8 g/dL (31.0-37.0); MCV 93.3 fL (80.0-100.0); Monocytes # (A) 0.7 k/uL (0-1.0); Monocytes % (A) 7 %; Neutrophils # (A) 7.5 k/uL (1.3-7.7); Neutrophils % (A) 73 %; Platelet Count 589 k/uL (150-450); RBC 2.95 m/uL (4.30-5.90); RDW 14.6 % (11.5-15.5); WBC 10.2 k/uL (3.8-10.6)
[2018-08-10 07:00] LABS: African American GFR (CKD) >90 (>60 ml/min/1.73 sqM); Anion Gap 6 mmol/L; Blood Urea Nitrogen 16 mg/dL (9-20); Calcium 8.3 mg/dL (8.4-10.2); Carbon Dioxide 33 mmol/L (22-30); Chloride 102 mmol/L (98-107); Glucose 112 mg/dL (74-99); Potassium 3.4 mmol/L (3.5-5.1); Sodium 141 mmol/L (137-145)
[2018-08-10] MEDS: IPRATROPIUM-ALBUTEROL 3 ML NEB INHALATION SCH ×4 (07:48→20:23)
--- NOTE | 2018-08-10 07:50 | XR ---
EXAMINATION TYPE: XR chest 1V portable DATE OF EXAM: 08/10/2018 HISTORY: Postop right thoracotomy with decortication. REFERENCE: Previous study dated 08/09/2018. FINDINGS: The right pleural drain remains in place. No definite right apical pneumothorax is seen. There is a complex pleural parenchymal pattern bilaterally, unchanged from previous. The heart is enl arged. There are small, bilateral effusions. IMPRESSION: NO SIGNIFICANT INTERVAL CHANGE IN THE APPEARANCE OF THE CHEST.
[2018-08-10] MEDS: guaiFENesin 600 MG TABLET.ER PO SCH ×2 (08:58→21:38)
[2018-08-10] MEDS: POTASSIUM CHLORIDE ER 20 MEQ TAB.ER PO SCH ×2 (08:58→11:17)
[2018-08-10] MEDS: LOSARTAN 50 MG TAB PO SCH (08:58)
[2018-08-10] MEDS: FAMOTIDINE 20 MG TAB PO SCH ×2 (08:59→21:39)
[2018-08-10] MEDS: POLYETHYLENE GLYCOL 3350 17 GM POWD.PACK PO SCH (08:59)
[2018-08-10] MEDS: METOPROLOL SUCCINATE (ER) 100 MG TAB.ER.24H PO SCH ×2 (08:59→21:39)
[2018-08-10] MEDS: SENNOSIDES-DOCUSATE SODIUM 1 EACH TAB PO SCH (08:59)
[2018-08-10] MEDS: ASPIRIN 81 MG PO SCH (08:59)
[2018-08-10] MEDS: ENOXAPARIN 40 MG/0.4 ML SYRINGE SQ SCH (08:59)
[2018-08-10] MEDS: FLUCONAZOLE 100 MG TAB PO SCH (08:59)
[2018-08-10] MEDS: ACETAMINOPHEN TAB 500 MG TAB PO PRN ×3 (09:01→21:38)
--- NOTE | 2018-08-10 11:18 | P.PN ---
Subjective Progress Note Date: 08/10/18 Principal diagnosis: Right sided empyema, cavitary pneumonia; right-sided pleural effusion, parapneumonic versus pneumonia versus malignancy, status post thoracentesis with 350 mL dark fluid removed, cytology consistent with empyema. Previous medical history of hypertension, hypercholesterolemia, De Leon's esophagitis, previous tobacco dependence with [id number] history, social EtOH use, family history of premature coronary artery disease and colon cancer. POD #9 right thoracotomy with decortication. POD #11 bronchoscopy with bronchoalveolar lavage by pulmonology. POD #12 placement of right sided pigtail catheter by interventional radiology. The patient is currently sitting up to the bedside chair on the 3 S. Cardiac stepdown unit. He is in no acute distress. He currently denies any complaints of pain or shortness of breath. Right pleural chest tube remains in place to water seal. Intermittent air leak is continues to be present. Draining thin serosanguineous drainage with 50 mL output in the last 24 hours. Achieving 1250 mL on his incentive spirometry. He reports ambulating in the cardiac stepdown hallway yesterday 2 with minimal assistance. He is anxious to be discharged home. Objective - Vital Signs Vital signs: Vital Signs Temp 97.3 F L 08/10/18 08:00 Pulse 66 08/10/18 08:00 Resp 18 08/10/18 08:00 BP 171/87 08/10/18 08:00 Pulse Ox 93 L 08/10/18 08:00 Intake & Output 08/09/18 08/10/18 08/10/18 18:59 06:59 18:59 Intake Total 602 Output Total 1080 70 Balance -478 -70 Weight 127.8 kg Intake: Intake, IV Titration 200 Amount Magnesium Sulfate-D5w Pmx 200 1 gm In Dextrose/Water 1 100ml.bag @ 100 mls/hr IVPB Q1H [facility] Rx#: [id number] Oral 402 Output: Chest Tube Drainage 80 70 Right Chest Superior 80 70 Urine 1000 Other: Voiding Method Urinal Urinal Urinal # Voids 2 ABP, PAP, CO, CI - Last Documented Arterial Blood Pressure 114/54 - Constitutional General appearance: Present: cooperative, no acute distress, obese - Respiratory Details: Lung sounds essentially clear throughout, diminished to his right lower lobe. Respirations are symmetrical and nonlabored. Oxygen saturation are 97% on 2 L nasal cannula. The tubing 1250 mL on his incentive spirometry. Right pleural chest tube remains in place to water seal. Persistent intermittent air leak is present. Draining thin serosanguineous drainage with 50 mL output in the last 24 hours. - Cardiovascular Details: Regular rhythm and rate. S1 and S2 present, negative for S3, gallop or murmur. Remote telemetry showing sinus bradycardia heart rate 59. +2 edema to his bilateral lower extremities. Knee-high DIVINE hose and sequential compression devices in place was bilateral lower extremities. - Gastrointestinal Gastrointestinal Comment(s): Abdomen is soft, nontender and nondistended. Active bowel sounds all 4 abdo eliza quadrants. No organomegaly. No guarding or rigidity. Tolerating oral intake. - Genitourinary Genitourinary Comment(s): Voiding clear yellow urine. - Integumentary Integumentary Comment(s): Skin is warm and dry. No clubbing or cyanosis is present. Right thoracotomy incision is clean, dry and approximated. No drainage or redness is present. Dressing is clean and intact to right pleural chest tube insertion site. - Neurologic Neurologic: Present: CNII-XII intact - Musculoskeletal Musculoskeletal: Present: gait normal, strength equal bilaterally - Psychiatric Psychiatric: Present: A&O x's 3, appropriate affect, intact judgment & insight - Allied health notes Allied health notes reviewed: nursing - Labs CBC & Chem 7: 08/10/18 06:10 08/10/18 06:10 Labs: Abnormal Lab Results - Last 24 Hours (Table) 08/10/18 08/10/18 Range/Units 06:10 06:10 RBC 2.95 L (4.30-5.90) m/uL Hgb 8.5 L (13.0-17.5) gm/dL Hct 27.5 L (39.0-53.0) % MCHC 30.8 L (31.0-37.0) g/dL Plt Count 589 H (150-450) k/uL Eosinophils # 0.8 H (0-0.7) k/uL Potassium 3.4 L (3.5-5.1) mmol/L Carbon Dioxide 33 H (22-30) mmol/L Glucose 112 H (74-99) mg/dL Calcium 8.3 L (8.4-10.2) mg/dL - Imaging and Cardiology Chest x-ray: report reviewed, image reviewed Assessment and Plan Assessment: 1. Right sided empyema, status post right thoracotomy with decortication. 2. Right-sided pleural effusion, parapneumonic versus pneumonia versus malignancy, status post thoracentesis with 350 mL dark fluid removed, cytology consistent with empyema 3. History of hypertension, treated 4. History of hypercholesterolemia, treated 5. 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 Previous tobacco dependence with [id number] history 7. Social ETOH use 8. Family history of premature coronary artery disease 9. Family history of colon cancer 10. Leukocytosis Plan: 1. Continue IV antibiotics per infectious disease recommendations. Currently on ceftriaxone and Diflucan. 2. Lasix 40 mg IV 1 now. Electrolyte replacement per protocol. 3. Continue right pleural chest tube to waterseal. Remains with intermittent air leak. 4. Encourage incentive spirometry is 10 times every hour while awake. 5. Increase activity as tolerated, ambulate in hallway as tolerated. Physical and occupational therapy following. 7. Continue current pain management regimen. Acetaminophen and Toradol. 8. Medical management of other comorbid conditions per primary care service. 9. Bronchodilators per pulmonary management. 10. Continue losartan at 50 mg by mouth daily. 11. Monitor daily labs and chest x-rays. 12. More recommendations to follow based on patient's clinical course. Time with Patient: Greater than 30
[2018-08-10] MEDS ORDERED: FUROSEMIDE 10 MG/ML 4 ML VIAL IV STA (11:26)
[2018-08-10] MEDS ORDERED: POTASSIUM CHLORIDE ER 10 MEQ TAB.ER.PRT PO STA (11:51)
--- NOTE | 2018-08-10 14:44 | P.PN ---
Subjective Progress Note Date: 08/10/18 Principal diagnosis: Cavitatory pneumonia and right-sided empyema 63-year-old male admitted to the hospital with chronic cough chest pain right-sided fever and elevated white count in this patient who did have evidence of right-sided pleural effusion status post oral consent diseases with a repeat CT suggestive of right-sided cavitating pneumonia and pleural effusion, patient is currently be treated with Zosyn. The patient is status post bronchoscopy and and lavaged on 07/30/2018, did have a right chest wall pigtail catheter placement on 07/31/2018 , and did have right thoracotomy and decortication for empyema right lung on 08/01/2018 On today's evaluation that is 08/07/2018 the patient denies any fever or chills, the patient is breathing comfortably, the patient cough has decreased in intensity is mostly dry in nature, still painful to cough though decreased in intensity, the patient denies nausea no vomiting no abdominal pain and no diarrhea 08/08/2018 Patient is seen and evaluated at bedside; He is in no acute distress. He currently denies any complaints of pain, although reports that when he is coughing his pain is 6 out of 10 on the pain scale. Denies any complaints of shortness of breath. Right pleural chest tube remains in place to water seal. Intermittent air leak is present. Draining thin serosanguineous drainage. Achieving 1250 mL on his incentive spirometry. The patient's pathology results demonstrate no malignancy, although results are consistent with empyema. The cultures taken during his thoracotomy procedure have been negative with no growth as of today. He reports he ambulated in the cardiac stepdown unit hallway yesterday 2. His is at his bedside and their questions were answered to the best of my ability. Postinjury chest; ID recommending a PICC line antibiotics as outpatient; PICC line has been ordered; we will need further input by ID in regards to discharge antibiotics; possible discharge in next 24-48 hours pending clearance from all consultants 08/09/2018 Patient is seen and evaluated in room with at bedside; breathing comfortably but is still having chest pain some air bubbles immediately to the anterior chest tube is still present he is doing incentive spirometry labs reviewed medications, chest x-ray showed resolution of right apical pneumothorax Vital signs remained stable with a temperature of 98.3, pulse 60, respiration 18 and blood pressure 141/83 SpO2 of 90% on room air Labs remained stable with a white blood count of 10.1, hemoglobin 8.4 and platelet count of 568 Patient is status post PICC line placement for prolonged IV antibiotics per ID recommendations 08/10/2018 The patient is currently sitting up to the bedside chair on the 3 S. Cardiac stepdown unit. He is in no acute distress. He currently denies any complaints of pain or shortness of breath. Right pleural chest tube remains in place to water seal. Intermittent air leak is continues to be present. Draining thin serosanguineous drainage with 50 mL output in the last 24 hours. Achieving 1250 mL on his incentive spirometry. He reports ambulating in the cardiac stepdown hallway yesterday 2 with minimal assistance. He is anxious to be discharged home. Objective - Vital Signs Vital signs: Vital Signs Temp 97.3 F L 08/10/18 08:00 Pulse 66 08/10/18 08:00 Resp 18 08/10/18 08:00 BP 171/87 08/10/18 08:00 Pulse Ox 93 L 08/10/18 08:00 Intake & Output 08/09/18 08/10/18 08/10/18 18:59 06:59 18:59 Intake Total 602 Output Total 1080 70 Balance -478 -70 Weight 127.8 kg Intake: Intake, IV Titration 200 Amount Magnesium Sulfate-D5w Pmx 200 1 gm In Dextrose/Water 1 100ml.bag @ 100 mls/hr IVPB Q1H [facility] Rx#: [id number] Oral 402 Output: Chest Tube Drainage 80 70 Right Chest Superior 80 70 Urine 1000 Other: Voiding Method Urinal Urinal Urinal # Voids 2 ABP, PAP, CO, CI - Last Documented Arterial Blood Pressure 114/54 - Exam GENERAL DESCRIPTION:[ Patient is awake and alert in no distress] HEENT: [Oral mucosa is dry and no pharyngeal erythema] EYES : [No pallor or scleral icterus] RESPIRATORY SYSTEM: [Unlabored breathing decreased breath sound the bases, no wheeze CARDIA VASCULAR SYSTEM: [S1-S2 regular rate and rhythm no murmur] GI: [Abdominal soft there's no tenderness no organomegaly] EXTREMITIES: [No edema feet] - Labs CBC & Chem 7: 08/10/18 06:10 08/10/18 06:10 Labs: Abnormal Lab Results - Last 24 Hours (Table) 08/10/18 08/10/18 Range/Units 06:10 06:10 RBC 2.95 L (4.30-5.90) m/uL Hgb 8.5 L (13.0-17.5) gm/dL Hct 27.5 L (39.0-53.0) % MCHC 30.8 L (31.0-37.0) g/dL Plt Count 589 H (150-450) k/uL Eosinophils # 0.8 H (0-0.7) k/uL Potassium 3.4 L (3.5-5.1) mmol/L Carbon Dioxide 33 H (22-30) mmol/L Glucose 112 H (74-99) mg/dL Calcium 8.3 L (8.4-10.2) mg/dL Assessment and Plan Assessment: 1-patient admitted hospital with increasing shortness of breath or cough in this patient who did have features of sepsis on presentation with a fever and elevated white count source is her right-sided pneumonia with parapneumonic effusion status post thoracocentesis now with repeat CAT scan with evidence of consolidation with cavitary changes with question of possible community-acquired pathogen versus resistant gram-positive or gram-negative pathogen, the patient is status post right thoracotomy decortication along with deep cultures which are currently negative so far 2-patient fever has resolved white count continued to show downward trend, down to 11,000 today (1) Sepsis Current Visit: Yes Status: Acute Code(s): A41.9 - SEPSIS, UNSPECIFIED ORGANISM SNOMED Code(s): 67712644 (2) Lung mass Current Visit: Yes Status: Acute Code(s): R91.8 - OTHER NONSPECIFIC ABNORMAL FINDING OF LUNG FIELD SNOMED Code(s): 003989063 Plan: 1- the patient will be continued on on cefepime 2 g every 12 hours and oral Diflucan--- 2-patient will likely need a PICC line and outpatient IV antibiotic therapy, which will be transitioned to IV Rocephin and oral Diflucan. 3-continue supportive care Time with Patient: Greater than 30
--- NOTE | 2018-08-10 16:16 | P.PN ---
Subjective Progress Note Date: 08/10/18 Principal diagnosis: Right-sided apical pneumothorax small Right-sided lung mass pleural base, right-sided pneumonia, right parapneumonic effusion, sepsis, chest pain, cough, morbid obesity, hypertension hypertensive cardiovascular disease, dyslipidemia, 08/10/2018, patient seen and evaluated examined during the rounds cuff congestion shortness of breath is improved but he is still complaining of some air leak noted air leak is present on the chest tube Ammann chest x-ray remains stable and done today 08/09/2018, he shouldn't seen eval reexamined during the rounds breathing comfortably but is still having chest pain some air bubbles immediately to the anterior chest tube is still present he is doing incentive spirometry labs reviewed medications, chest x-ray showed resolution of right apical pneumothorax 08/08/2018, patient seen and evaluated examined during the rounds he is doing well with incentive spirometry still have occasional air leak is present but has significantly improved labs reviewed medications reviewed patient is ambulating decrease cough congestion is present, labs reviewed medications reviewed 08/07/2018, patient seen and evaluated examined, posterior chest tube has been removed and he just uses no significant air leak denies any chest pain cough and sputum production is improved able to ambulate now, 08/06/2018, patient seen eval reexamined during the rounds, overall doing fairly well chest tubes are in still have some air leak in the anterior chest tubes, chest tubes have been placed on water seal, cough is present is mostly nonpro ductive now he is been ambulating, path report results consistent with empyema 08/06/1999 619, patient uncertain up in chair breathing comfortably does have some chest pain some air leak is still present chest tube is being placed to water seal, labs reviewed medications reviewed, patient is afebrile, white cell count continue to improve nicely 15,000 Path pending 08/04/2018, patient seen eval reexamined during the rounds denies any chest pain does have ongoing cough feels slightly better white cell count noted to be coming down chest x-ray reviewed overall stable still have minimal air leak from the anterior chest tubes 08/03/2018, patient seen and evaluated examined during the rounds he is sitting upright on the chair she still has problem came in complaining and supine position, cough and congestion is still present significant amount of sputum does come out patient is on supplemental oxygen to chest tubes are present right anterior chest tube has some air leak which was not seen yesterday, the pneumothorax essentially unchanged, noted white cell count is up likely related to postoperative inflammatory condition, antibiotics have been adjusted to cefapime and vancomycin ID service following, will start chest PT continue breathing treatment and incentive spirometry patient can be moved out of the ICU that we'll give more [place] to ambulate and physical therapy 08/02/2018, patient seen and evaluated examined during the rounds, patient is postop day #1 for thoracotomy on the right side and decortication his pain is well controlled on epidural, he is doing I-S up to 1.5 L, he is on 4 L nasal cannula sitting on the bedside, labs reviewed medications reviewed radiographic studies reviewed as well chest x-ray showed right-sided pneumothorax stable 08/01/2018, patient seen eval reexamined during the rounds he is still have significant amount of cough with purulent secretions and drainage, patient is nothing by mouth for the thoracotomy, the pigtail catheter was clogged then was opened up by thrombolytics but not draining any amount, x-ray from today reviewed not much change is still showing thick walled cavitary lesion and right lower lobe consolidation and pleural effusion, labs reviewed white cell count is down to 12,800 chemistry normal 07/31/2018, patient seen and evaluated examined during rounds care plan discussed with the cardiothoracic surgery patient is status post pigtail catheter placement pain cough congestion is still there but is slightly improved though after bronchoscopy remains on broad-spectrum antibiotics culture results and report are reviewed cytology results are reviewed him a white cell count continue to come down is now 13.7 electrolytes are okay 07/30/2018, patient seen and evaluated examined right cell count is down to 1 5,000 he is feeling slightly better with still have cough congestion shortness of breath and chest pain care plan discussed with cardiothoracic surgery as well as a patient is being planned for bronchoscopy later on today, patient is being considered for thoracotomy versus pigtail catheter continue IV Zosyn 07/29/2018, patient seen eval reexamined during the rounds is still have significant amount of sputum production complain of chronic chest pain with cough cytology is back as negative on pleural fluid culture so far negative care plan discussed with infectious disease and thoracic surgery patient is contemplated for pigtail catheter versus thoracotomy by thoracic surgery in the meantime we'll do a bronchoscopy to obtain samples and also to rule out any endobronchial mass or lesion procedure explained to the patient 07/28/2018, patient seen and evaluated examined during rounds clinically he is doing essentially the same is still complaining of pain on the right side with severe coughing and breathing he does have sputum which is brownish yellowish in color, computed tomography scan of the chest reviewed there is appearance of abscess versus necrotizing pneumonia in the right lower lobe with dense thickening small fluid is present findings are reviewed with the patient, pleura l fluid cytology is still pending 07/26/2018, patient seen and evaluated examined during the rounds he is complaining of insomnia and chest pain pain is improved with Motrin or Tylenol he is asking for a sleeping aid respiratory status slightly better today he has gone thoracentesis of the right side in about 400-450 mL of pleural fluid removed the pleural fluid appears to be exudative with Gram stain negative cultures are pending cytology is pending Objective - Vital Signs Vital signs: Vital Signs Temp 98.2 F 08/10/18 15:29 Pulse 65 08/10/18 15:29 Resp 18 08/10/18 15:29 BP 152/82 08/10/18 15:29 Pulse Ox 93 L 08/10/18 15:29 Intake & Output 08/09/18 08/10/18 08/10/18 18:59 06:59 18:59 Intake Total 602 Output Total 1080 120 Balance -478 -120 Weight 127.8 kg Intake: Intake, IV Titration 200 Amount Magnesium Sulfate-D5w Pmx 200 1 gm In Dextrose/Water 1 100ml.bag @ 100 mls/hr IVPB Q1H [facility] Rx#: [id number] Oral 402 Output: Chest Tube Drainage 80 120 Right Chest Superior 80 120 Urine 1000 Other: Voiding Method Urinal Urinal Urinal # Voids 2 2 ABP, PAP, CO, CI - Last Documented Arterial Blood Pressure 114/54 - Exam Constitutional General appearance: cooperative, disheveled, no acute distress, obese - EENT Eyes: anicteric sclerae, EOMI, PERRLA, normal appearance Ears: bilateral: normal - Neck Carotids: bilateral: upstroke normal Thyroid: bilateral: normal size - Respiratory Respiratory: right: diminished, dullness, negative: CTA, rales, rhonchi, wheezing, prolonged expiration, anterior and posterior chest tube draining serosanguineous fluid minimal anterior chest tube has air leak - Cardiovascular Rhythm: regular Heart sounds: normal: S1, S2 - Gastrointestinal General gastrointestinal: normal bowel sounds - Integumentary Integumentary: normal, normal turgor - Neurologic Neurologic: CNII-XII intact - Musculoskeletal Musculoskeletal: gait normal, generalized weakness, strength equal bilaterally - Psychiatric Psychiatric: A&O x's 3, appropriate affect, intact judgment & insight - Labs CBC & Chem 7: 08/10/18 06:10 08/10/18 06:10 Labs: Abnormal Lab Results - Last 24 Hours (Table) 08/10/18 08/10/18 Range/Units 06:10 06:10 RBC 2.95 L (4.30-5.90) m/uL Hgb 8.5 L (13.0-17.5) gm/dL Hct 27.5 L (39.0-53.0) % MCHC 30.8 L (31.0-37.0) g/dL Plt Count 589 H (150-450) k/uL Eosinophils # 0.8 H (0-0.7) k/uL Potassium 3.4 L (3.5-5.1) mmol/L Carbon Dioxide 33 H (22-30) mmol/L Glucose 112 H (74-99) mg/dL Calcium 8.3 L (8.4-10.2) mg/dL Assessment and Plan Assessment: Empyema lung Right lower lobe lung mass pleural-based likely pneumonia but however malignancy cannot be excluded likely abscess with parapneumonic effusion status post right thoracotomy with decortication postop day # 8 Right sided pneumonia cavitary Small pneumothorax residual on the right side resolved on today's x-ray daily he is still present Exudative pleural effusion Significant and profound leukocytosis likely multifactorial processes Right-sided pleural effusion likely parapneumonic effusion versus pneumonia and effusion less likely related to malignancy Obesity Hypertension hypertensive cardiovascular disease Dyslipidemia Plan: Agree with broad-spectrum antibiotics, antifungal patient is right-sided thoracotomy postop day # 8 Bronchoscopy findings reviewed Gram stain and cultur for BAL so far unremarkable Status post right thoracentesis , bronchoscopy and BAL, right-sided pigtail catheter with results of final culture and cytology reviewed Continue antibiotics Chest PT Deep breathing exercise incentive spirometry Increase activity as tolerated Time with Patient: Greater than 30
[2018-08-10] MEDS: MELATONIN 3 MG TABLET PO SCH (21:38)
[2018-08-10] MEDS: ATORVASTATIN 10 MG TAB PO SCH (21:39)
[2018-08-11] MEDS: ACETAMINOPHEN TAB 500 MG TAB PO PRN ×3 (04:12→22:32)
[2018-08-11] MEDS: KETOROLAC 30 MG/ML 1 ML VIAL IVP SCH ×4 (06:22→22:37)
[2018-08-11 07:05] LABS: Basophils # (A) 0.1 k/uL (0-0.2); Basophils % (A) 1 %; Eosinophils # (A) 0.7 k/uL (0-0.7); Eosinophils % (A) 8 %; HCT 29.5 % (39.0-53.0); HGB 9.3 gm/dL (13.0-17.5); Hypochromasia Moderate; Lymphocytes # (A) 1.2 k/uL (1.0-4.8); Lymphocytes % (A) 13 %; MCHC 31.4 g/dL (31.0-37.0); MCV 92.4 fL (80.0-100.0); Mean Platelet Volume 7.1; Monocytes # (A) 0.6 k/uL (0-1.0); Monocytes % (A) 6 %; Neutrophils # (A) 6.5 k/uL (1.3-7.7); Neutrophils % (A) 71 %; Platelet Count 604 k/uL (150-450); RBC 3.19 m/uL (4.30-5.90); RDW 14.3 % (11.5-15.5); WBC 9.3 k/uL (3.8-10.6)
[2018-08-11 07:27] LABS: African American GFR (CKD) >90 (>60 ml/min/1.73 sqM); Anion Gap 5 mmol/L; Blood Urea Nitrogen 18 mg/dL (9-20); Calcium 8.4 mg/dL (8.4-10.2); Carbon Dioxide 37 mmol/L (22-30); Chloride 101 mmol/L (98-107); Glucose 100 mg/dL (74-99); Potassium 3.8 mmol/L (3.5-5.1); Sodium 143 mmol/L (137-145)
--- NOTE | 2018-08-11 08:09 | XR ---
EXAMINATION TYPE: XR chest 1V portable DATE OF EXAM: 08/11/2018 COMPARISON: Prior chest x-ray 08/10/2018 HISTORY: Postop right thoracotomy, chest tube TECHNIQUE: Single frontal view of the chest is obtained. FINDINGS: Right-sided chest tube remains in place. Pleural parenchymal changes are similar to prior exam. Subcutaneous emphysema is noted. No sizable pneumothorax evident. Heart size is stable. Aorta i s dense. IMPRESSION: Essentially stable findings. There may be minimal residual apical pneumothorax present. Correlate to exclude pneumonia. Cardiomegaly.
[2018-08-11] MEDS: ENOXAPARIN 40 MG/0.4 ML SYRINGE SQ SCH (08:24)
[2018-08-11] MEDS: POLYETHYLENE GLYCOL 3350 17 GM POWD.PACK PO SCH (08:24)
[2018-08-11] MEDS: METOPROLOL SUCCINATE (ER) 100 MG TAB.ER.24H PO SCH ×2 (08:25→20:30)
[2018-08-11] MEDS: guaiFENesin 600 MG TABLET.ER PO SCH ×2 (08:25→20:30)
[2018-08-11] MEDS: FAMOTIDINE 20 MG TAB PO SCH ×2 (08:25→20:30)
[2018-08-11] MEDS: LOSARTAN 50 MG TAB PO SCH (08:25)
[2018-08-11] MEDS: SENNOSIDES-DOCUSATE SODIUM 1 EACH TAB PO SCH (08:25)
[2018-08-11] MEDS: ASPIRIN 81 MG PO SCH (08:25)
[2018-08-11] MEDS: FLUCONAZOLE 100 MG TAB PO SCH (08:25)
[2018-08-11] MEDS: IPRATROPIUM-ALBUTEROL 3 ML NEB INHALATION SCH ×4 (08:47→21:11)
--- NOTE | 2018-08-11 10:02 | P.PN ---
Subjective Progress Note Date: 08/10/18 Principal diagnosis: Cavitatory pneumonia and right-sided empyema Patient is a 63-year-old male admitted to the hospital with chronic cough chest pain right-sided fever and elevated white count in this patient who did have evidence of right-sided pleural effusion status post oral consent diseases with a repeat CT suggestive of right-sided cavitating pneumonia and ple ural effusion, patient is currently be treated with Zosyn. The patient is status post bronchoscopy and and lavaged on 07/30/2018, did have a right chest wall pigtail catheter placement on 07/31/2018 , and did have right thoracotomy and decortication for empyema right lung on 08/01/2018 On today's evaluation that is 08/10/2018 the patient remains to be febrile, the patient is breathing comfortably, the patient cough has decreased in intensity and dry in nature, painful to cough though decreased in intensity, the patient denies nausea no vomiting no abdominal pain and no diarrhea Objective - Vital Signs Vital signs: Vital Signs Temp 98.2 F 08/10/18 15:29 Pulse 64 08/10/18 16:30 Resp 18 08/10/18 15:29 BP 152/82 08/10/18 15:29 Pulse Ox 93 L 08/10/18 15:29 Intake & Output 08/10/18 08/10/18 08/11/18 06:59 18:59 06:59 Output Total 120 Balance -120 Weight 127.8 kg Output: Chest Tube Drainage 120 Right Chest Superior 120 Other: Voiding Method Urinal Urinal # Voids 1 ABP, PAP, CO, CI - Last Documented Arterial Blood Pressure 114/54 - Exam GENERAL DESCRIPTION:[ Patient is awake and alert in no distress] HEENT: [Oral mucosa is dry and no pharyngeal erythema] EYES : [No pallor or scleral icterus] RESPIRATORY SYSTEM: [Unlabored breathing decreased breath sound the bases, no wheeze CARDIA VASCULAR SYSTEM: [S1-S2 regular rate and rhythm no murmur] GI: [Abdominal soft there's no tenderness no organomegaly] EXTREMITIES: [No edema feet] - Labs CBC & Chem 7: 08/11/18 06:37 08/11/18 06:37 Labs: Abnormal Lab Results - Last 24 Hours (Table) 08/10/18 08/10/18 Range/Units 06:10 06:10 RBC 2.95 L (4.30-5.90) m/uL Hgb 8.5 L (13.0-17.5) gm/dL Hct 27.5 L (39.0-53.0) % MCHC 30.8 L (31.0-37.0) g/dL Plt Count 589 H (150-450) k/uL Eosinophils # 0.8 H (0-0.7) k/uL Potassium 3.4 L (3.5-5.1) mmol/L Carbon Dioxide 33 H (22-30) mmol/L Glucose 112 H (74-99) mg/dL Calcium 8.3 L (8.4-10.2) mg/dL Assessment and Plan Assessment: 1-patient admitted hospital with increasing shortness of breath or cough in this patient who did have features of sepsis on presentation with a fever and elevated white count source is her right-sided pneumonia with parapneumonic eff usion status post thoracocentesis now with repeat CAT scan with evidence of consolidation with cavitary changes with question of possible community-acquired pathogen versus resistant gram-positive or gram-negative pathogen, the patient is status post right thoracotomy decortication along with deep cultures which are currently negative so far, patient fever has resolved white count has been normal for the last 2 days (1) Sepsis Current Visit: Yes Status: Acute Code(s): A41.9 - SEPSIS, UNSPECIFIED ORGANISM SNOMED Code(s): 44351788 (2) Lung mass Current Visit: Yes Status: Acute Code(s): R91.8 - OTHER NONSPECIFIC ABNORMAL FINDING OF LUNG FIELD SNOMED Code(s): 341419023 Plan: 1- the patient will be continued on Rocephin 2 g every 24 hours and oral Diflucan--- 2-patient did got midline for outpatient IV antibiotic therapy, which will be IV Rocephin and oral Diflucan. 3-continue supportive care
--- NOTE | 2018-08-11 10:04 | P.PN ---
Subjective Progress Note Date: 08/08/18 Principal diagnosis: Cavitatory pneumonia and right-sided empyema Patient is a 63-year-old male admitted to the hospital with chronic cough chest pain right-sided fever and elevated white count in this patient who did have evidence of right-sided pleural effusion status post oral consent diseases with a repeat CT suggestive of right-sided cavitating pneumonia and ple ural effusion, patient is currently be treated with Zosyn. The patient is status post bronchoscopy and and lavaged on 07/30/2018, did have a right chest wall pigtail catheter placement on 07/31/2018 , and did have right thoracotomy and decortication for empyema right lung on 08/01/2018 On today's evaluation that is 08/08/2018 the patient is febrile, the patient is breathing comfortably, the patient cough has decreased in intensity and dry in nature, the patient denies nausea no vomiting no abdominal pain and no diarrhea Objective - Vital Signs Vital signs: Vital Signs Temp 98.2 F 08/08/18 08:00 Pulse 60 08/08/18 08:00 Resp 16 08/08/18 08:00 BP 149/82 08/08/18 08:00 Pulse Ox 98 08/08/18 08:00 Intake & Output 08/07/18 08/08/18 08/08/18 18:59 06:59 18:59 Intake Total 400 Output Total 930 0 Balance -530 0 Weight 131 kg 128.4 kg Intake: Oral 400 Output: Chest Tube Drainage 30 Right Chest Superior 30 Drainage 0 Right Chest superior A 0 Urine 900 Other: Voiding Method Urinal Urinal ABP, PAP, CO, CI - Last Documented Arterial Blood Pressure 114/54 - Exam GENERAL DESCRIPTION:[ Patient is awake and alert in no distress] HEENT: [Oral mucosa is dry and no pharyngeal erythema] EYES : [No pallor or scleral icterus] RESPIRATORY SYSTEM: [Unlabored breathing decreased breath sound the bases, no wheeze CARDIA VASCULAR SYSTEM: [S1-S2 regular rate and rhythm no murmur] GI: [Abdominal soft there's no tenderness no organomegaly] EXTREMITIES: [No edema feet] - Labs CBC & Chem 7: 08/11/18 06:37 08/11/18 06:37 Labs: Abnormal Lab Results - Last 24 Hours (Table) 08/08/18 08/08/18 Range/Units 07:14 07:14 WBC 11.0 H (3.8-10.6) k/uL RBC 2.96 L (4.30-5.90) m/uL Hgb 8.6 L (13.0-17.5) gm/dL Hct 27.8 L (39.0-53.0) % MCHC 30.9 L (31.0-37.0) g/dL Plt Count 632 H (150-450) k/uL Neutrophils # 8.5 H (1.3-7.7) k/uL Carbon Dioxide 32 H (22-30) mmol/L Glucose 102 H (74-99) mg/dL Microbiology - Last 24 Hours (Table) 08/02/18 13:56 Blood Culture - Preliminary Blood No Growth after 120 hours Assessment and Plan Assessment: 1-patient admitted hospital with increasing shortness of breath or cough in this patient who did have features of sepsis on presentation with a fever and elevated white count source is her right-sided pneumonia with parapneumonic effusion status post thoracocentesis now with repeat CAT scan with evidence of consolidation with cavitary changes with question of possible community-acquired pathogen versus resistant gram-positive or gram-negative pathogen, the patient is status post right thoracotomy decortication along with deep cultures which are currently negative so far, patient white count normal (1) Sepsis Current Visit: Yes Status: Acute Code(s): A41.9 - SEPSIS, UNSPECIFIED O RGANISM SNOMED Code(s): 18383512 (2) Lung mass Current Visit: Yes Status: Acute Code(s): R91.8 - OTHER NONSPECIFIC ABNORMAL FINDING OF LUNG FIELD SNOMED Code(s): 504432268 Plan: 1- the patient antibiotics adjusted to Rocephin 2 g every 24 hours and oral Diflucan--- 2-patient did get midline today as patient will needed for outpatient IV antibiotic therapy, which will be IV Rocephin and oral Diflucan. Time with Patient: Less than 30
[2018-08-11] MEDS ORDERED: FUROSEMIDE 10 MG/ML 4 ML VIAL IV STA (10:53)
[2018-08-11] MEDS ORDERED: POTASSIUM CHLORIDE ER 20 MEQ TAB.ER PO ONE (11:00)
--- NOTE | 2018-08-11 14:52 | P.PN ---
Subjective Progress Note Date: 08/11/18 Principal diagnosis: Right sided empyema, cavitary pneumonia; right-sided pleural effusion, parapneumonic versus pneumonia versus malignancy, status post thoracentesis with 350 mL dark fluid removed, cytology consistent with empyema. Previous medical history of hypertension, hypercholesterolemia, De Leon's esophagitis, previous tobacco dependence with [id number] history, social EtOH use, family history of premature coronary artery disease and colon cancer. POD #10 right thoracotomy with decortication. POD #12 bronchoscopy with bronchoalveolar lavage by pulmonology. POD #13 placement of right sided pigtail catheter by interventional radiology. The patient is currently sitting up to the bedside chair on the 3 S. Cardiac stepdown unit. He is in no acute distress. He denies any complaints of pain or shortness of breath. Right pleural chest tube remains in place to water seal. Intermittent air leak is continues to be present. Draining thin serosanguineous drainage with 50 mL output in the last 24 hours. Achieving 1750 mL on his incentive spirometry. He continues to ambulate in the cardiac stepdown hallway. He is anxious to be discharged home. His is at his bedside, questions answered to the best my ability. Patient is complaining of constipation. Objective - Vital Signs Vital signs: Vital Signs Temp 97.2 F L 08/11/18 08:20 Pulse 74 08/11/18 08:56 Resp 16 08/11/18 08:20 BP 144/89 08/11/18 08:20 Pulse Ox 93 L 08/11/18 08:20 Intake & Output 08/10/18 08/11/18 08/11/18 18:59 06:59 18:59 Intake Total 220 240 Output Total 120 70 Balance -120 150 240 Weight 127.7 kg Intake: Oral 220 240 Output: Chest Tube Drainage 120 10 Right Chest Superior 120 10 Drainage 60 Right Chest superior A 60 Other: Voiding Method Urinal Urinal # Voids 1 1 ABP, PAP, CO, CI - Last Documented Arterial Blood Pressure 114/54 - Constitutional General appearance: Present: cooperative, no acute distress, obese - Respiratory Details: Lung sounds essentially clear throughout, diminished to his right lower lobe. Respirations are symmetrical and nonlabored. Oxygen saturation are 91% on room air, and 95% on 2 L nasal cannula. Achieving 1750 mL on his incentive spirometry. Right pleural chest tube remains in place to water seal. Intermittent air leak is present. Draining thin serosanguineous drainage with 50 mL output in the last 24 hours. - Cardiovascular Details: Regular rhythm and rate. S1 and S2 present, negative for S3, gallop or murmur. +2 edema present to his bilateral lower extremities. Remote telemetry showing sinus bradycardia heart rate 59. - Gastrointestinal Gastrointestinal Comment(s): Abdomen is soft, nontender and nondistended. Active bowel sounds all 4 abdominal quadrants. No guarding or rigidity. No organomegaly. - Genitourinary Genitourinary Comment(s): Voiding clear yellow urine. - Integumentary Integumentary Comment(s): Skin is warm and dry. No clubbing or cyanosis is present. Right thoracotomy incision is clean, dry and intact. No drainage or redness is present. Dressing clean dry and intact to his right pleural chest tube insertion site. - Neurologic Neurologic: Present: CNII-XII intact - Musculoskeletal Musculoskeletal: Present: gait normal, strength equal bilaterally - Psychiatric Psychiatric: Present: A&O x's 3, appropriate affect, intact judgment & insight - Allied health notes Allied health notes reviewed: nursing - Labs CBC & Chem 7: 08/11/18 06:37 08/11/18 06:37 Labs: Abnormal Lab Results - Last 24 Hours (Table) 08/11/18 08/11/18 Range/Units 06:37 06:37 RBC 3.19 L (4.30-5.90) m/uL Hgb 9.3 L (13.0-17.5) gm/dL Hct 29.5 L (39.0-53.0) % Plt Count 604 H (150-450) k/uL Carbon Dioxide 37 H (22-30) mmol/L Glucose 100 H (74-99) mg/dL - Imaging and Cardiology Chest x-ray: report reviewed, image reviewed Assessment and Plan Assessment: 1. Right sided empyema, status post right thoracotomy with decortication. 2. Right-sided pleural effusion, parapneumonic versus pneumonia versus malignancy, status post thoracentesis with 350 mL dark fluid removed, cytology consistent with empyema 3. History of hypertension, treated 4. History of hypercholesterolemia, treated 5. 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 Previous tobacco dependence with [id number] history 7. Social ETOH use 8. Family history of premature coronary artery disease 9. Family history of colon cancer 10. Leukocytosis Plan: 1. Continue IV antibiotics per infectious disease recommendations. Currently on ceftriaxone and Diflucan. 2. Lasix 40 mg IV 1 now. Electrolyte replacement per protocol. 3. Continue right pleural chest tube, place pneumostat and discontinue oasis waterseal system. If lung remains expanded with the pneumostat system, he could be potentioally discharged home with the pneumostat in place and follow up on an out patient basis per the cardiothoracic standpoint. 4. Encourage incentive spirometry is 10 times every hour while awake. 5. Increase activity as tolerated, ambulate in hallway as tolerated. Physical and occupational therapy following. 7. Continue current pain management regimen. Acetaminophen and Toradol. 8. Medical management of other comorbid conditions per primary care service. 9. Bronchodilators per pulmonary management. 10. Monitor daily labs and chest x-rays. 11. Increase losartan to 100 mg by mouth daily. 12. More recommendations to follow based on patient's clinical course. Time with Patient: Greater than 30
--- NOTE | 2018-08-11 15:51 | XR ---
EXAMINATION TYPE: XR chest 1V DATE OF EXAM: 08/11/2018 COMPARISON: Prior chest x-ray same dated earlier time HISTORY: Right chest tube, pneumothorax placement TECHNIQUE: Single frontal view of the chest is obtained. FINDINGS: Pleural parenchymal changes are similar, right-sided chest remains in place. There is like ly a small focus of trapped lung at the right costophrenic angle level. Subcutaneous emphysema is not ed. Heart size is stable, airspace disease in the left upper lobe is unchanged. Patient is rotated. A denice is dense. IMPRESSION: Chest tube in place with small focus of trapped lung in the right costophrenic angle. Fi ndings compatible with residual status post VATS. Correlate for pneumonia.
--- NOTE | 2018-08-11 19:52 | PN ---
PROGRESS NOTE DATE OF SERVICE: 08/11/2018. This 63-year-old gentleman who was admitted with features of possible empyema and right- sided parapneumonic effusion with possible lung mass, had surgery with right thoracotomy decortication. Patient had chest tube drainage, still shows some air leak. The most recent chest x-ray done today showed chest tubes in place, but some small focus air trapped in the right costophrenic angle. The patient closely monitored at this time. Multiple consultants are following the patient closely including Infectious Disease. The cultures are negative so far. The patient is currently on Rocephin 2 g IV daily. PAST MEDICAL HISTORY: Reviewed. REVIEW OF SYSTEMS: Cardiovascular: No angina. Respirations: As mentioned earlier. GI no nausea or vomiting. : No dysuria. Central nervous system: No numbness or weakness. CURRENT MEDICATIONS: Reviewed and include: 1. Tylenol 1000 mg q.6h p.r.n. 2. DuoNeb q.i.d. and p.r.n. 3. Aspirin 81 mg. 4. Lipitor 10 mg. 5. Dulcolax. 6. Rocephin 2 g. 7. Benadryl. 8. Pepcid 20 mg b.i.d. 9. Diflucan. 10.Mucinex. 11.Hyzaar. 12.Toradol. 13.Melatonin. 14.Toprol-XL 100 mg p.o. b.i.d. 15.Narcan. 16.Zofran. 17.MiraLAX. 18.Senokot. PHYSICAL EXAMINATION: Patient is alert, oriented times two. Pulse 67. Blood pressure 140/88. Respirations 16, temperature 97.9, pulse ox 98% on room air. HEENT: Conjunctivae normal. Oral mucosa moist. NECK is no jugular venous distention. No carotid bruit. No lymph node enlargement. Cardiovascular system: S1, S2 muffled. RESPIRATORY: Breath sounds diminished in the bases. Bilateral scattered rhonchi and crackles. Right side chest tube present with air leak. ABDOMEN: Soft, nontender. No mass palpable. LEGS: No edema. No swelling. NERVOUS SYSTEM: Higher functions as mentioned earlier. Moves all four limbs. No focal motor or sensory deficits. LYMPHATICS: No lymph nodes palpable in the neck, axilla or groin. SKIN: No ulcer, rashes or bleeding. JOINTS: No active deforming arthropathy. LABS: At this time shows labs are WBC 9.2, hemoglobin 9.2, sodium 140, potassium 3.8. ASSESSMENT: 1. Right-sided empyema status post right decortication and thoracotomy with chest tube drainage with bronchopleural fistula. 2. Right-sided pleural effusion with parapneumonic versus malignancy, status post thoracocentesis, cytology indicative of empyema. 3. Hypertension. 4. Hypercholesteremia. 5. History of De Leon's esophagus. 6. History nicotine dependence. 7. History of anemia. 8. Thrombocytosis. 9. History of nicotine dependence. 10.Obesity with body mass index 35.6. 11.FULL CODE. RECOMMENDATIONS AND DISCUSSION: This 63-year-old gentleman who presented with multiple complex medical issues. We will monitor the patient closely. Continue the current medications. Continue to optimize the bronchodilator treatment. I recommend continue with IV antibiotics. I would also recommend continue with DVT prophylaxis. Incentive spirometry. Closely follow with cardiothoracic surgery and Pulmonology. Resume the home medications. Otherwise, depending upon the air leak, we will make plans for discharge and the patient will be discharged once the cardiothoracic surgery has evaluated air leak and I would also recommend infectious disease evaluation to recommend outpatient antibiotics which might include a PICC line placement. Overall prognosis guarded, which I discussed at length with the family who understands and agrees. Further recommendations to follow. ANGELITA / MORA: [id number] / MTDD
[2018-08-11] MEDS: MELATONIN 3 MG TABLET PO SCH (20:30)
[2018-08-11] MEDS: ATORVASTATIN 10 MG TAB PO SCH (20:30)
--- NOTE | 2018-08-11 23:14 | P.PN ---
Subjective Progress Note Date: 08/11/18 Principal diagnosis: Cavitatory pneumonia and right-sided empyema Patient is a 63-year-old male admitted to the hospital with chronic cough chest pain right-sided fever and elevated white count in this patient who did have evidence of right-sided pleural effusion status post oral consent diseases with a repeat CT suggestive of right-sided cavitating pneumonia and ple ural effusion, patient is currently be treated with Zosyn. The patient is status post bronchoscopy and and lavaged on 07/30/2018, did have a right chest wall pigtail catheter placement on 07/31/2018 , and did have right thoracotomy and decortication for empyema right lung on 08/01/2018 On today's evaluation that is 08/11/2018 the patient remains to be afebrile, the patient is breathing comfortably, the patient cough has decreased in intensity and not bringing up any sputum, the patient denies nausea no vomiting no abdominal pain and no diarrhea Objective - Vital Signs Vital signs: Vital Signs Temp 97.2 F L 08/11/18 08:20 Pulse 74 08/11/18 08:56 Resp 16 08/11/18 08:20 BP 144/89 08/11/18 08:20 Pulse Ox 93 L 08/11/18 08:20 Intake & Output 08/10/18 08/11/18 08/11/18 18:59 06:59 18:59 Intake Total 220 240 Output Total 120 70 Balance -120 150 240 Weight 127.7 kg Intake: Oral 220 240 Output: Chest Tube Drainage 120 10 Right Chest Superior 120 10 Drainage 60 Right Chest superior A 60 Other: Voiding Method Urinal Urinal # Voids 1 1 ABP, PAP, CO, CI - Last Documented Arterial Blood Pressure 114/54 - Exam GENERAL DESCRIPTION:[ Patient is awake and alert in no distress] HEENT: [Oral mucosa is dry and no pharyngeal erythema] EYES : [No pallor or scleral icterus] RESPIRATORY SYSTEM: [Unlabored breathing decreased breath sound the bases, CARDIA VASCULAR SYSTEM: [S1-S2 regular rate and rhythm no murmur] GI: [Abdominal soft there's no tenderness no organomegaly] EXTREMITIES: [No edema feet] - Labs CBC & Chem 7: 08/11/18 06:37 08/11/18 06:37 Labs: Abnormal Lab Results - Last 24 Hours (Table) 08/11/18 08/11/18 Range/Units 06:37 06:37 RBC 3.19 L (4.30-5.90) m/uL Hgb 9.3 L (13.0-17.5) gm/dL Hct 29.5 L (39.0-53.0) % Plt Count 604 H (150-450) k/uL Carbon Dioxide 37 H (22-30) mmol/L Glucose 100 H (74-99) mg/dL Microbiology - Last 24 Hours (Table) 07/30/18 12:38 Fungal Culture - Preliminary Bronchial Washings - Right 07/25/18 13:30 Fungal Culture - Preliminary Pleural Fluid 07/30/18 14:35 Fungal Culture - Preliminary Pleural Fluid Assessment and Plan Assessment: 1-patient admitted hospital with increasing shortness of breath or cough in this patient who did have features of sepsis on presentation with a fever and elevated white count source is her right-sided pneumonia with parapneumonic effusion status post thoracocentesis now with repeat CAT scan with evidence of consolidation with cavitary changes with question of possible community-acquired pathogen versus resistant gram-positive or gram-negative pathogen, the patient is status post right thoracotomy decortication along with deep cultures which are currently negative so far, patient white count remains to be normal (1) Sepsis Current Visit: Yes Status: Acute Code(s): A41.9 - SEPSIS, UNSPECIFIED ORGANISM SNOMED Code(s): 29256321 (2) Lung mass Current Visit: Yes Status: Acute Code(s): R91.8 - OTHER NONSPECIFIC ABNORMAL FINDING OF LUNG FIELD SNOMED Code(s): 054092689 Plan: 1- the patient we'll continue with Rocephin 2 g every 24 hours and oral Diflucan--- 2-patient did got midline today as patient will need outpatient IV antibiotic therapy, which will be IV Rocephin and oral Diflucan. continue supportive care Time with Patient: Less than 30
[2018-08-12] MEDS: KETOROLAC 30 MG/ML 1 ML VIAL IVP SCH (05:19)
--- NOTE | 2018-08-12 07:35 | P.PN ---
Subjective Progress Note Date: 08/11/18 Principal diagnosis: Right-sided apical pneumothorax small Right-sided lung mass pleural base, right-sided pneumonia, right parapneumonic effusion, sepsis, chest pain, cough, morbid obesity, hypertension hypertensive cardiovascular disease, dyslipidemia, 08/11/2018, he shouldn't seen evaluated examined during the rounds sitting upright on the chair likes to sleep on chair as well she is doing deep breathing exercises improved to 1.7 L, denies any chest pain labs reviewed medications medications reviewed the chest tube has been removed right-sided pneumostat has been placed 08/10/2018, patient seen and evaluated examined during the rounds cuff congestion shortness of breath is improved but he is still complaining of some air leak noted air leak is present on the chest tube Ammann chest x-ray remains stable and done today, 08/09/2018, he shouldn't seen eval reexamined during the rounds breathing comfortably but is still having chest pain some air bubbles immediately to the anterior chest tube is still present he is doing incentive spirometry labs reviewed medications, chest x-ray showed resolution of right apical pneumothorax 08/08/2018, patient seen and evaluated examined during the rounds he is doing well with incentive spirometry still have occasional air leak is present but has significantly improved labs reviewed medications reviewed patient is ambulating decrease cough congestion is present, labs reviewed medications reviewed 08/07/2018, patient seen and evaluated examined, posterior chest tube has been removed and he just uses no significant air leak denies any chest pain cough and sputum production is improved able to ambulate now, 08/06/2018, patient seen eval reexamined during the rounds, overall doing fairly well chest tubes are in still have some air leak in the anterior chest tubes, chest tubes have been placed on water seal, cough is present is mostly nonproductive now he is been ambulating, path report results consistent with e mpyema 08/06/1999 619, patient uncertain up in chair breathing comfortably does have some chest pain some air leak is still present chest tube is being placed to water seal, labs reviewed medications reviewed, patient is afebrile, white cell count continue to improve nicely 15,000 Path pending 08/04/2018, patient seen eval reexamined during the rounds denies any chest pain does have ongoing cough feels slightly better white cell count noted to be coming down chest x-ray reviewed overall stable still have minimal air leak from the anterior chest tubes 08/03/2018, patient seen and evaluated examined during the rounds he is sitting upright on the chair she still has problem came in complaining and supine position, cough and congestion is still present significant amount of sputum does come out patient is on supplemental oxygen to chest tubes are present right anterior chest tube has some air leak which was not seen yesterday, the pneumothorax essentially unchanged, noted white cell count is up likely related to postoperative inflammatory condition, antibiotics have been adjusted to c efapime and vancomycin ID service following, will start chest PT continue breathing treatment and incentive spirometry patient can be moved out of the ICU that we'll give more [place] to ambulate and physical therapy 08/02/2018, patient seen and evaluated examined during the rounds, patient is postop day #1 for thoracotomy on the right side and decortication his pain is well controlled on epidural, he is doing I-S up to 1.5 L, he is on 4 L nasal cannula sitting on the bedside, labs reviewed medications reviewed radiographic studies reviewed as well chest x-ray showed right-sided pneumothorax stable 08/01/2018, patient seen eval reexamined during the rounds he is still have significant amount of cough with purulent secretions and drainage, patient is nothing by mouth for the thoracotomy, the pigtail catheter was clogged then was opened up by thrombolytics but not draining any amount, x-ray from today reviewed not much change is still showing thick walled cavitary lesion and right lower lobe consolidation and pleural effusion, labs reviewed white cell count is down to 12,800 chemistry normal 07/31/2018, patient seen and evaluated examined during rounds care plan discussed with the cardiothoracic surgery patient is status post pigtail catheter placement pain cough congestion is still there but is slightly improved though after bronchoscopy remains on broad-spectrum antibiotics culture results and report are reviewed cytology results are reviewed him a white cell count continue to come down is now 13.7 electrolytes are okay 07/30/2018, patient seen and evaluated examined right cell count is down to 15,000 he is feeling slightly better with still have cough congestion shortness of breath and chest pain care plan discussed with cardiothoracic surgery as well as a patient is being planned for bronchoscopy later on today, patient is being considered for thoracotomy versus pigtail catheter continue IV Zosyn 07/29/2018, patient seen eval reexamined during the rounds is still have significant amount of sputum production complain of chronic chest pain with cough cytology is back as negative on pleural fluid culture so far negative care plan discussed with infectious disease and thoracic surgery patient is contemplated for pigtail catheter versus thoracotomy by thoracic surgery in the meantime we'll do a bronchoscopy to obtain samples and also to rule out any endobronchial mass or lesion procedure explained to the patient 07/28/2018, patient seen and evaluated examined during rounds clinically he is doing essentially the same is still complaining of pain on the right side with severe coughing and breathing he does have sputum which is brownish yellowish in color, computed tomography scan of the chest reviewed there is appearance of abscess versus necrotizing pneumonia in the right lower lobe with dense thickening small fluid is present findings are reviewed with the patient, pleural fluid cytology is still pending 07/26/2018, patient seen and evaluated examined during the rounds he is complaining of insomnia and chest pain pain is improved with Motrin or Tylenol he is asking for a sleeping aid respiratory status slightly better today he has gone thoracentesis of the right side in about 400-450 mL of pleural fluid removed the pleural fluid appears to be exudative with Gram stain negative cultures are pending cytology is pending Objective - Vital Signs Vital signs: Vital Signs Temp 96.9 F L 08/11/18 20:00 Pulse 66 08/11/18 23:06 Resp 18 08/11/18 23:07 BP 148/82 08/11/18 23:06 Pulse Ox 94 L 08/11/18 23:06 Intake & Output 08/11/18 08/11/18 08/12/18 06:59 18:59 06:59 Intake Total 220 960 Output Total 70 Balance 150 960 Weight 127.7 kg Intake: Oral 220 960 Output: Chest Tube Drainage 10 Right Chest Superior 10 Drainage 60 Right Chest superior A 60 Other: Voiding Method Urinal # Voids 1 1 # Bowel Movements 1 ABP, PAP, CO, CI - Last Documented Arterial Blood Pressure 114/54 - Exam Constitutional General appearance: cooperative, disheveled, no acute distress, obese - EENT Eyes: anicteric sclerae, EOMI, PERRLA, normal appearance Ears: bilateral: normal - Neck Carotids: bilateral: upstroke normal Thyroid: bilateral: normal size - Respiratory Respiratory: right: diminished, dullness, negative: CTA, rales, rhonchi, wheezing, prolonged expiration, anterior and posterior chest tube draining serosanguineous fluid minimal anterior chest tube has air leak - Cardiovascular Rhythm: regular Heart sounds: normal: S1, S2 - Gastrointestinal General gastrointestinal: normal bowel sounds - Integumentary Integumentary: normal, normal turgor - Neurologic Neurologic: CNII-XII intact - Musculoskeletal Musculoskeletal: gait normal, generalized weakness, strength equal bilaterally - Psychiatric Psychiatric: A&O x's 3, appropriate affect, intact judgment & insight - Labs CBC & Chem 7: 08/11/18 06:37 08/12/18 06:26 Labs: Abnormal Lab Results - Last 24 Hours (Table) 08/11/18 08/11/18 Range/Units 06:37 06:37 RBC 3.19 L (4.30-5.90) m/uL Hgb 9.3 L (13.0-17.5) gm/dL Hct 29.5 L (39.0-53.0) % Plt Count 604 H (150-450) k/uL Carbon Dioxide 37 H (22-30) mmol/L Glucose 100 H (74-99) mg/dL Microbiology - Last 24 Hours (Table) 07/30/18 12:38 Fungal Culture - Preliminary Bronchial Washings - Right 07/25/18 13:30 Fungal Culture - Preliminary Pleural Fluid 07/30/18 14:35 Fungal Culture - Preliminary Pleural Fluid - Imaging and Cardiology Chest x-ray: report reviewed, image reviewed Assessment and Plan Assessment: Empyema lung Right lower lobe lung mass pleural-based likely pneumonia but however malignancy cannot be excluded likely abscess with parapneumonic effusion status post right thoracotomy with decortication, chest tube has been removed and replaced with pneumostat Right sided pneumonia cavitary Small pneumothorax residual on the right side resolved on today's x-ray daily he is still present Exudative pleural effusion Significant and profound leukocytosis likely multifactorial processes Right-sided pleural effusion likely parapneumonic effusion versus pneumonia and effusion less likely related to malignancy Obesity Hypertension hypertensive cardiovascular disease Dyslipidemia Plan: Agree with broad-spectrum antibiotics, antifungal patient is right-sided thoracotomy Pneumostat has been placed chest tube right-sided removed Bronchoscopy findings reviewed Gram stain and cultur for BAL so far unremarkable Status post right thoracentesis , bronchoscopy and BAL, right-sided pigtail catheter with results of final culture and cytology reviewed Continue antibiotics Chest PT Deep breathing exercise incentive spirometry Increase activity as tolerated Time with Patient: Greater than 30
--- NOTE | 2018-08-12 07:37 | P.PN ---
Subjective Progress Note Date: 08/12/18 Principal diagnosis: Right-sided apical pneumothorax small Right-sided lung mass pleural base, right-sided pneumonia, right parapneumonic effusion, sepsis, chest pain, cough, morbid obesity, hypertension hypertensive cardiovascular disease, dyslipidemia, 08/12/2018, patient seen eval examined during the rounds breathing comfortably, chest x-ray reviewed essentially stable with a right-sided chest tube which is connected to pneumostat 08/11/2018, patient seen evaluated examined during the rounds sitting upright on the chair likes to sleep on chair as well she is doing deep breathing exercises improved to 1.7 L, denies any chest pain labs reviewed medications medications reviewed the chest tube has been removed right-sided pneumostat has been placed 08/10/2018, patient seen and evaluated examined during the rounds cuff congestion shortness of breath is improved but he is still complaining of some air leak noted air leak is present on the chest tube Ammann chest x-ray remains stable and done today, 08/09/2018, he shouldn't seen eval reexamined during the rounds breathing comfortably but is still having chest pain some air bubbles immediately to the anterior chest tube is still present he is doing incentive spirometry labs reviewed medications, chest x-ray showed resolution of right apical pneumothorax 08/08/2018, patient seen and evaluated examined during the rounds he is doing well with incentive spirometry still have occasional air leak is present but has significantly improved labs reviewed medications reviewed patient is ambulating decrease cough congestion is present, labs reviewed medications reviewed 08/07/2018, patient seen and evaluated examined, posterior chest tube has been removed and he just uses no significant air leak denies any chest pain cough and sputum production is improved able to ambulate now, 08/06/2018, patient seen eval reexamined during the rounds, overall doing fairly well chest tubes are in still have some air leak in the anterior chest tubes, chest tubes have been placed on water seal, cough is present is mostly nonproductive now he is been ambulating, path report results consistent with empyema 08/06/1999 619, patient uncertain up in chair breathing comfortably does have some chest pain some air leak is still present chest tube is being placed to water seal, labs reviewed medications reviewed, patient is afebrile, white cell count continue to improve nicely 15,000 Path pending 08/04/2018, patient seen eval reexamined during the rounds denies any chest pain does have ongoing cough feels slightly better white cell count noted to be coming down chest x-ray reviewed overall stable still have minimal air leak from the anterior chest tubes 08/03/2018, patient seen and evaluated examined during the rounds he is sitting upright on the chair she still has problem came in complaining and supine position, cough and congestion is still present significant amount of sputum does come out patient is on supplemental oxygen to chest tubes are present right anterior chest tube has some air leak which was not seen yesterday, the pneumothorax essentially unchanged, noted white cell count is up likely related to postoperative inflammatory condition, antibiotics have been adjusted to cefapime and vancomycin ID service following, will start chest PT continue breathing treatment and incentive spirometry patient can be moved out of the ICU that we'll give more Porter to ambulate and physical therapy 08/02/2018, patient seen and evaluated examined during the rounds, patient is postop day #1 for thoracotomy on the right side and decortication his pain is well controlled on epidural, he is doing I-S up to 1.5 L, he is on 4 L nasal cannula sitting on the bedside, labs reviewed medications reviewed radiographic studies reviewed as well chest x-ray showed right-sided pneumothorax stable 08/01/2018, patient seen eval reexamined during the rounds he is still have significant amount of cough with purulent secretions and drainage, patient is nothing by mouth for the thoracotomy, the pigtail catheter was clogged then was opened up by thrombolytics but not draining any amount, x-ray from today revie wed not much change is still showing thick walled cavitary lesion and right lower lobe consolidation and pleural effusion, labs reviewed white cell count is down to 12,800 chemistry normal 07/31/2018, patient seen and evaluated examined during rounds care plan discussed with the cardiothoracic surgery patient is status post pigtail catheter placement pain cough congestion is still there but is slightly improved though after bronchoscopy remains on broad-spectrum antibiotics culture results and report are reviewed cytology results are reviewed him a white cell count continue to come down is now 13.7 electrolytes are okay 07/30/2018, patient seen and evaluated examined right cell count is down to 15,000 he is feeling slightly better with still have cough congestion shortness of breath and chest pain care plan discussed with cardiothoracic surgery as well as a patient is being planned for bronchoscopy later on today, patient is being considered for thoracotomy versus pigtail catheter continue IV Zosyn 07/29/2018, patient seen eval reexamined during the rounds is still have significant amount of sputum production complain of chronic chest pain with cough cytology is back as negative on pleural fluid culture so far negative care plan discussed with infectious disease and thoracic surgery patient is contemplated for pigtail catheter versus thoracotomy by thoracic surgery in the meantime we'll do a bronchoscopy to obtain samples and also to rule out any endobronchial mass or lesion procedure explained to the patient 07/28/2018, patient seen and evaluated examined during rounds clinically he is doing essentially the same is still complaining of pain on the right side with severe coughing and breathing he does have sputum which is brownish yellowish in color, computed tomography scan of the chest reviewed there is appearance of abscess versus necrotizing pneumonia in the right lower lobe with dense thickening small fluid is present findings are reviewed with the patient, pleural fluid cytology is still pending 07/26/2018, patient seen and evaluated examined during the rounds he is complaining of insomnia and chest pain pain is improved with Motrin or Tylenol he is asking for a sleeping aid respiratory status slightly better today he has gone thoracentesis of the right side in about 400-450 mL of pleural fluid removed the pleural fluid appears to be exudative with Gram stain negative cultures are pending cytology is pending Objective - Vital Signs Vital signs: Vital Signs Temp 97 F L 08/12/18 04:00 Pulse 69 08/12/18 04:00 Resp 18 08/12/18 04:00 BP 150/80 08/12/18 04:00 Pulse Ox 95 08/12/18 04:00 Intake & Output 08/11/18 08/12/18 08/12/18 18:59 06:59 18:59 Intake Total 960 Output Total 20 Balance 960 -20 Weight 125.6 kg Intake: Oral 960 Output: Drainage 20 Right Chest superior A 20 Other: # Voids 1 # Bowel Movements 1 ABP, PAP, CO, CI - Last Documented Arterial Blood Pressure 114/54 - Exam Constitutional General appearance: cooperative, disheveled, no acute distress, obese - EENT Eyes: anicteric sclerae, EOMI, PERRLA, normal appearance Ears: bilateral: normal - Neck Carotids: bilateral: upstroke normal Thyroid: bilateral: normal size - Respiratory Respiratory: right: diminished, dullness, negative: CTA, rales, rhonchi, wheezing, prolonged expiration, anterior and posterior chest tube draining serosanguineous fluid minimal anterior chest tube has air leak - Cardiovascular Rhythm: regular Heart sounds: normal: S1, S2 - Gastrointestinal General gastrointestinal: normal bowel sounds - Integumentary Integumentary: normal, normal turgor - Neurologic Neurologic: CNII-XII intact - Musculoskeletal Musculoskeletal: gait normal, generalized weakness, strength equal bilaterally - Psychiatric Psychiatric: A&O x's 3, appropriate affect, intact judgment & insight - Labs CBC & Chem 7: 08/11/18 06:37 08/12/18 06:26 Labs: Microbiology - Last 24 Hours (Table) 07/30/18 14:35 Acid Fast Bacilli Smear - Final Pleural Fluid Acid Fast Bacilli Culture - Preliminary 07/25/18 13:30 Acid Fast Bacilli Smear - Final Pleural Fluid Acid Fast Bacilli Culture - Preliminary 07/30/18 12:38 Acid Fast Bacilli Smear - Final Bronchial Washings - Right Acid Fast Bacilli Culture - Preliminary 07/30/18 12:38 Fungal Culture - Preliminary Bronchial Washings - Right 07/25/18 13:30 Fungal Culture - Preliminary Pleural Fluid 07/30/18 14:35 Fungal Culture - Preliminary Pleural Fluid Assessment and Plan Assessment: Empyema lung Right lower lobe lung mass pleural-based likely pneumonia but however maligna ncy cannot be excluded likely abscess with parapneumonic effusion status post right thoracotomy with decortication, chest tube has been removed and replaced with pneumostat Right sided pneumonia cavitary Small pneumothorax residual on the right side resolved on today's x-ray daily he is still present Exudative pleural effusion Significant and profound leukocytosis likely multifactorial processes Right-sided pleural effusion likely parapneumonic effusion versus pneumonia and effusion less likely related to malignancy Obesity Hypertension hypertensive cardiovascular disease Dyslipidemia Plan: Agree with broad-spectrum antibiotics, antifungal patient is right-sided thoracotomy Pneumostat has been placed chest tube right-sided removed Bronchoscopy findings reviewed Gram stain and cultur for BAL so far unremarkable Status post right thoracentesis , bronchoscopy and BAL, right-sided pigtail catheter with results of final culture and cytology reviewed Continue antibiotics Chest PT Deep breathing exercise incentive spirometry Increase activity as tolerated Time with Patient: Greater than 30
[2018-08-12] MEDS: SENNOSIDES-DOCUSATE SODIUM 1 EACH TAB PO SCH (08:45)
[2018-08-12] MEDS: FLUCONAZOLE 100 MG TAB PO SCH (08:45)
[2018-08-12] MEDS: guaiFENesin 600 MG TABLET.ER PO SCH (08:45)
[2018-08-12] MEDS: ASPIRIN 81 MG PO SCH (08:45)
[2018-08-12] MEDS: METOPROLOL SUCCINATE (ER) 100 MG TAB.ER.24H PO SCH (08:45)
[2018-08-12] MEDS: FAMOTIDINE 20 MG TAB PO SCH (08:45)
[2018-08-12] MEDS: POLYETHYLENE GLYCOL 3350 17 GM POWD.PACK PO SCH (08:46)
[2018-08-12] MEDS: IPRATROPIUM-ALBUTEROL 3 ML NEB INHALATION SCH ×3 (08:46→16:44)
[2018-08-12] MEDS: ENOXAPARIN 40 MG/0.4 ML SYRINGE SQ SCH (08:46)
[2018-08-12] MEDS: ACETAMINOPHEN TAB 500 MG TAB PO PRN ×2 (08:46→16:22)
--- NOTE | 2018-08-12 08:47 | P.PN ---
Subjective Progress Note Date: 08/12/18 Principal diagnosis: Right sided empyema, cavitary pneumonia; right-sided pleural effusion, parapneumonic versus pneumonia versus malignancy, status post thoracentesis with 350 mL dark fluid removed, cytology consistent with empyema. Previous medical history of hypertension, hypercholesterolemia, De Leon's esophagitis, previous tobacco dependence with [id number] history, social EtOH use, family history of premature coronary artery disease and colon cancer. POD #11 right thoracotomy with decortication. POD #13 bronchoscopy with bronchoalveolar lavage by pulmonology. POD #14 placement of right sided pigtail catheter by interventional radiology. The patient is currently sitting up to the bedside chair on the 3 S. Cardiac stepdown unit. He is in no acute distress. He denies any complaints of pain or shortness of breath. Right pleural chest tube remains in place, we disconnected the chest tube yesterday from the [place] Pleur-ev[facility] system and place the chest tube to a pneumostat. Intermittent air leak is continues to be present. Draining thin serosanguineous drainage with 80 mL output in the last 24 hours. Achieving 8201-6569 mL on his incentive spirometry. He continues to ambulate in the cardiac stepdown hallway. He is anxious to be discharged home. Objective - Vital Signs Vital signs: Vital Signs Temp 97 F L 08/12/18 04:00 Pulse 69 08/12/18 04:00 Resp 18 08/12/18 04:00 BP 150/80 08/12/18 04:00 Pulse Ox 95 08/12/18 04:00 Intake & Output 08/11/18 08/12/18 08/12/18 18:59 06:59 18:59 Intake Total 960 Output Total 20 Balance 960 -20 Weight 125.6 kg Intake: Oral 960 Output: Drainage 20 Right Chest superior A 20 Other: # Voids 1 # Bowel Movements 1 ABP, PAP, CO, CI - Last Documented Arterial Blood Pressure 114/54 - Constitutional General appearance: Present: cooperative, no acute distress, obese - Respiratory Details: Lung sounds essentially clear throughout, diminished to his right lower lobe. Respirations are symmetrical and nonlabored. Oxygen saturation are 95% on 2 L nasal cannula. Achieving 0152-9321 mL on his incentive spirometry. Right pleural chest tube remains in place and is connected to a pneumostat device. Air leak is present. Draining thin serosanguineous drainage with 80 mL output in the last 24 hours. - Cardiovascular Details: Regular rhythm and rate. S1 and S2 present, negative for S3, gallop or murmur. Remote telemetry showing normal sinus rhythm heart rate 63 BPM lower extremities. Knee-high DIVINE hose and sequential compression devices in place to his bilateral lower extremities. - Gastrointestinal Gastrointestinal Comment(s): Abdomen is soft, nontender and nondistended. Active bowel sounds all 4 abdominal quadrants. No guarding or rigidity. No organomegaly. Bowel movement yesterday 08/11/2018. - Genitourinary Genitourinary Comment(s): Voiding clear yellow urine. - Integumentary Integumentary Comment(s): Skin is warm and dry. No clubbing or cyanosis is present. Right thoracotomy incision is clean, dry and approximated. No drainage or redness is present. - Neurologic Neurologic: Present: CNII-XII intact - Musculoskeletal Musculoskeletal: Present: gait normal, strength equal bilaterally - Psychiatric Psychiatric: Present: A&O x's 3, appropriate affect, intact judgment & insight - Allied health notes Allied health notes reviewed: nursing - Labs CBC & Chem 7: 08/11/18 06:37 08/12/18 06:26 Labs: Abnormal Lab Results - Last 24 Hours (Table) 08/11/18 Range/Units 06:37 Carbon Dioxide 37 H (22-30) mmol/L Glucose 100 H (74-99) mg/dL Microbiology - Last 24 Hours (Table) 07/30/18 14:35 Acid Fast Bacilli Smear - Final Pleural Fluid Acid Fast Bacilli Culture - Preliminary 07/25/18 13:30 Acid Fast Bacilli Smear - Final Pleural Fluid Acid Fast Bacilli Culture - Preliminary 07/30/18 12:38 Acid Fast Bacilli Smear - Final Bronchial Washings - Right Acid Fast Bacilli Culture - Preliminary 07/30/18 12:38 Fungal Culture - Preliminary Bronchial Washings - Right 07/25/18 13:30 Fungal Culture - Preliminary Pleural Fluid 07/30/18 14:35 Fungal Culture - Preliminary Pleural Fluid - Imaging and Cardiology Chest x-ray: image reviewed Assessment and Plan Assessment: 1. Right sided empyema, status post right thoracotomy with decortication. 2. Right-sided pleural effusion, parapneumonic versus pneumonia versus malignancy, status post thoracentesis with 350 mL dark fluid removed, cytology consistent with empyema 3. History of hypertension, treated 4. History of hypercholesterolemia, treated 5. 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 Previous tobacco dependence with [id number] history 7. Social ETOH use 8. Family history of premature coronary artery disease 9. Family history of colon cancer 10. Leukocytosis Plan: 1. Continue IV antibiotics per infectious disease recommendations. Currently on ceftriaxone and Diflucan. 2. Place patient back on his home dose of losartan/hydrochlorothiazide 100 mg25 mg 1 by mouth daily. 3. Continue right pleural chest tube, place pneumostat and discontinue oasis waterseal system. He could be discharged home with the right pleural chest tube and pneumostat in place and follow up on an out patient basis per the cardiothoracic standpoint. 4. Encourage incentive spirometry is 10 times every hour while awake. 5. Increase activity as tolerated, ambulate in hallway as tolerated. Physical and occupational therapy following. 7. Continue current pain management regimen. Acetaminophen and Toradol. 8. Medical management of other comorbid conditions per primary care service. 9. Bronchodilators per pulmonary management. 10. Monitor daily labs and chest x-rays. 11. More recommendations to follow based on patient's clinical course. Time with Patient: Greater than 30
--- NOTE | 2018-08-12 08:54 | XR ---
EXAMINATION TYPE: XR chest 2V DATE OF EXAM: 08/12/2018 COMPARISON: 08/11/2018 TECHNIQUE: PA and lateral views submitted. HISTORY: Post chest tube insertion FINDINGS: Right-sided chest tube is seen and there is a suspected loculated right hydropneumothorax similar in size relative the previous exam. Heart is enlarged and there is a diffuse areas of consolidation pleu ral effusion or thickening. No significant interval change. Pneumonia versus underlying neoplasm. Sub cutaneous emphysema noted. IMPRESSION: 1. Diffuse pleural-parenchymal changes including suspected hydropneumothorax on the right are stable.
[2018-08-12] MEDS ORDERED: LOSARTAN 50 MG TAB PO SCH (09:00)
[2018-08-12] MEDS ORDERED: LOSARTAN-HCTZ 50-12.5 MG 1 EACH TAB PO SCH (09:00)
[2018-08-12 12:01] VITALS: TEMP 97.2
[2018-08-12 15:57] VITALS: BP 141/82; PULSE 62; RESP 18
--- NOTE | 2018-08-13 07:22 | DS ---
DISCHARGE SUMMARY FINAL DIAGNOSES: 1. Right-sided empyema, status post right decortication, thoracotomy and a chest tube drainage with bronchopleural fistula improved. 2. Right-sided pleural effusion with parapneumonic effusion cytology indicative of empyema. 3. Hypertension. 4. Hypercholesteremia. 5. History of De Leon's esophagus. 6. History of nicotine dependence. 7. History of anemia. 8. Thrombocytopenia. 9. History of nicotine dependence. 10.Obesity with body mass index of 35.6. 11.FULL CODE. DISCHARGE DISPOSITION: The patient discharged in stable condition with guarded prognosis. Total time taken 35 minutes. The patient discharge cleared by Cardiothoracic Surgery and multiple other consultants. HISTORY OF PRESENT ILLNESS: This 63-year-old gentleman with a past medical history of multiple medical problems admitted with right-sided parapneumonic effusion and empyema. Patient had chest tube drainage and subsequently patient underwent decortication, thoracotomy and chest tube drainage which was removed and drainage was instituted. Otherwise, the patient treated with IV antibiotics, outpatient antibiotics recommended. The patient also had multiple other medical issues as mentioned earlier, but cardiothoracic services saw the patient. Chest was stable and the patient improved significantly. Patient will be discharged in stable condition with guarded prognosis. On exam, vitals are stable. CARDIOVASCULAR: S1, S2 muffled. RESPIRATORY: A few scattered rhonchi. ABDOMEN: Soft. NERVOUS SYSTEM: No focal deficits. DISCHARGE ADVICE AND MEDICATIONS: 1. Diet is cardiac. 2. Activity limited until followup. 3. Follow up with Dr. Greg Pillai in 2 to 3 days. 4. Follow up with Dr. Dumont, Infectious Disease, as advised. 5. Follow up with Dr. Flores, Pulmonary, as advised. 6. Follow up with Dr. Handy, Cardiothoracic Surgery, as advised. 7. Follow up with Infusion as an outpatient. MEDICATIONS ARE: 1. Aspirin 81 mg p.o. daily. 2. Livalo 1 mg p.o. q.h.s. 3. Losartan hydrochlorothiazide 100/25 mg p.o. daily. 4. Toprol XL 100 mg p.o. b.i.d. 5. Diflucan 200 mg p.o. daily for 2 weeks. 6. Mucinex 1200 mg p.o. b.i.d. 7. Rocephin 2 grams IV daily for 2 weeks. 8. Tylenol 1000 mg q.6 p.r.n. 9. ProAir 2 puffs q.i.d. 10.Incentive spirometry. Once again, the patient will be discharged in stable condition with guarded prognosis. ANGELITA / MORA: [id number] / MTDD
== END 2018-08-12 17:14 | disposition home health service (06) | DRG 853 ==
LOC: EC 13:41 → 4MS4W 16:43 → 4SSUR 07-30 15:21 → 2SICU 08-01 17:00 → 3SCARD 08-03 16:21
PROVIDERS: ADMIT Hospitalist; ATTEND Hospitalist
PROC: 0W993ZX Drainage of Right Pleural Cavity, Percutaneous Approach, Diagnostic (ICD-10-PCS; principal; 2018-07-25)
PROC: 0W9930Z Drainage of Right Pleural Cavity with Drainage Device, Percutaneous Approach (ICD-10-PCS; 2018-07-30)
PROC: 0B9F8ZX Drainage of Right Lower Lung Lobe, Via Natural or Artificial Opening Endoscopic, Diagnostic (ICD-10-PCS; 2018-07-30)
PROC: 0B9C8ZX Drainage of Right Upper Lung Lobe, Via Natural or Artificial Opening Endoscopic, Diagnostic (ICD-10-PCS; 2018-07-30)
PROC: 0BNF0ZZ Release Right Lower Lung Lobe, Open Approach (ICD-10-PCS; 2018-08-01)
PROC: 2W54XYZ Removal of Other Device on Chest Wall (ICD-10-PCS; 2018-08-11)
PROC: 0W9930Z Drainage of Right Pleural Cavity with Drainage Device, Percutaneous Approach (ICD-10-PCS; 2018-08-11)
DX: A41.9 Sepsis, unspecified organism (principal); J18.8 Other pneumonia, unspecified organism; J86.9 Pyothorax without fistula; I47.2 Ventricular tachycardia; J91.8 Pleural effusion in other conditions classified elsewhere; J93.83 Other pneumothorax; E66.01 Morbid (severe) obesity due to excess calories; E78.00 Pure hypercholesterolemia, unspecified; E78.5 Hyperlipidemia, unspecified; I11.9 Hypertensive heart disease without heart failure; J40 Bronchitis, not specified as acute or chronic; Z87.891 Personal history of nicotine dependence; D64.89 Other specified anemias; K22.70 Barrett's esophagus without dysplasia; K59.00 Constipation, unspecified; Z68.35 Body mass index [BMI] 35.0-35.9, adult; Z79.82 Long term (current) use of aspirin; Z80.0 Family history of malignant neoplasm of digestive organs; Z82.49 Family history of ischemic heart disease and other diseases of the circulatory system; Z87.01 Personal history of pneumonia (recurrent); D47.3 Essential (hemorrhagic) thrombocythemia
CPT/HCPCS: 31624; 32551; 36410; 36415; 71045; 71046; 71250; 76604; 76937; 76942; 80048; 80053; 80202; 82150; 82945; 83605; 83615; 83735; 83880; 84100; 84132; 84157; 84484; 85025; 85027; 85610; 85730; 86850; 86900; 86901; 87040; 87070; 87075; 87102; 87116; 87205; 87206; 87252; 87299; 87496; 87498; 87502; 87529; 87541; 87634; 87798; 88108; 88305; 89050; 93005; 93306; 94640; 94668; 94760; 96361; 96365; 96367; 99285

== ENCOUNTER → 2018-08-22 | Outpatient (CLI) | payer BC ==
--- NOTE | 2018-08-22 10:24 | XR ---
EXAMINATION TYPE: XR chest 2V DATE OF EXAM: 08/22/2018 COMPARISON: 08/12/2018 HISTORY: Shortness of breath TECHNIQUE: Frontal and lateral views of the chest are obtained. FINDINGS: Scattered senescent parenchymal changes noted. Hyperinflation compatible with COPD. Right basilar chest tube is unchanged in position. Multiloculated sided pneumothorax again noted. Hyd ro component is diminished relative to prior study. Slightly improved aeration right lung base. Left lung is clear. Heart size is stable. Mediastinal structures are stable and grossly unremarkable. No evidence for hilar prominence. Degenerative changes dorsal spine. IMPRESSION: 1. Right basilar chest tube is unchanged in position. Multiloculated sided pneumothorax again noted. [place] component is diminished relative to prior study. Slightly improved aeration right lung base. Le ft lung is clear.
== END | disposition home or self-care (01) ==
LOC: RADXRMAIN 09:51
PROVIDERS: ATTEND Nurse Practitioner Acute Care
DX: J93.9 Pneumothorax, unspecified (principal); Z46.82 Encounter for fitting and adjustment of non-vascular catheter
CPT/HCPCS: 71046

== ENCOUNTER → 2018-08-25 | Outpatient (CLI) | payer BC ==
[2018-08-25 11:31] LABS: Basophils # (A) 0.1 k/uL (0-0.2); Basophils % (A) 1 %; Eosinophils # (A) 1.8 k/uL (0-0.7); Eosinophils % (A) 17 %; HCT 37.1 % (39.0-53.0); HGB 11.5 gm/dL (13.0-17.5); Hypochromasia Moderate; Lymphocytes # (A) 1.7 k/uL (1.0-4.8); Lymphocytes % (A) 15 %; MCH 28.6 pg (25.0-35.0); MCHC 30.9 g/dL (31.0-37.0); MCV 92.4 fL (80.0-100.0); Mean Platelet Volume 7.2; Monocytes # (A) 0.9 k/uL (0-1.0); Monocytes % (A) 8 %; Neutrophils # (A) 6.2 k/uL (1.3-7.7); Neutrophils % (A) 56 %; Platelet Count 454 k/uL (150-450); RBC 4.01 m/uL (4.30-5.90); RDW 15.2 % (11.5-15.5); WBC 11.1 k/uL (3.8-10.6)
[2018-08-25 16:26] LABS: African American GFR (CKD) 104.2 (60.0-200.0); Anion Gap 8.7 mmol/L (4.00-12.00); BUN/Creat Ratio 24.44 Ratio (12.00-20.00); C Reactive Protein 3.4 mg/dL (0.0-0.8); Calcium 9.9 mg/dL (8.7-10.3); Carbon Dioxide 28.3 mmol/L (21.6-31.8); Potassium 5.1 mmol/L (3.5-5.5)
== END | disposition home or self-care (01) ==
LOC: LABWHC1 10:34
PROVIDERS: ATTEND Internal Medicine Infectious Disease
DX: A41.9 Sepsis, unspecified organism (principal)
CPT/HCPCS: 36415; 80048; 85025; 86140

== ENCOUNTER → 2018-09-12 | Outpatient (CLI) | payer BC ==
[2018-09-12 10:47] LABS: Basophils # (A) 0.1 k/uL (0-0.2); Basophils % (A) 1 %; Eosinophils # (A) 0.6 k/uL (0-0.7); Eosinophils % (A) 9 %; HCT 39.8 % (39.0-53.0); HGB 12.8 gm/dL (13.0-17.5); Lymphocytes # (A) 1.6 k/uL (1.0-4.8); Lymphocytes % (A) 22 %; MCH 28.8 pg (25.0-35.0); Mean Platelet Volume 6.7; Monocytes # (A) 0.5 k/uL (0-1.0); Monocytes % (A) 7 %; Neutrophils # (A) 4.1 k/uL (1.3-7.7); Neutrophils % (A) 58 %; Platelet Count 274 k/uL (150-450); RBC 4.43 m/uL (4.30-5.90); RDW 15.4 % (11.5-15.5); WBC 7.2 k/uL (3.8-10.6)
[2018-09-12 18:18] LABS: African American GFR (CKD) 104.2 (60.0-200.0); BUN/Creat Ratio 27.78 Ratio (12.00-20.00); C Reactive Protein <0.4 mg/dL (0.0-0.8); Calcium 9.2 mg/dL (8.7-10.3); Carbon Dioxide 27.2 mmol/L (21.6-31.8); Chloride 104 mmol/L (96-109); Glucose 108 mg/dL (70-110); Potassium 4.7 mmol/L (3.5-5.5); Sodium 139 mmol/L (135-145)
== END | disposition home or self-care (01) ==
LOC: LABWHC1 09:40
PROVIDERS: ATTEND Internal Medicine Infectious Disease
DX: A41.9 Sepsis, unspecified organism (principal)
CPT/HCPCS: 36415; 80048; 85025; 86140

== ENCOUNTER 2020-09-17 13:12 | Emergency (ER) | payer BC, MEDICARE ==
[2020-09-17 13:16] VITALS: BP 145/81; PULSE 98; RESP 20; TEMP 98.2
--- NOTE | 2020-09-17 14:47 | XR ---
EXAMINATION TYPE: XR chest 2V DATE OF EXAM: 09/17/2020 COMPARISON: 08/22/2018 HISTORY: Short of breath TECHNIQUE: 2 views FINDINGS: Heart is normal. There are multiple right-sided old healed rib fractures. There is some shravan nting of the right costophrenic angle. There are no hilar masses. There are chest leads. IMPRESSION: Pleural diaphragmatic reaction right lung base. There is clearing of most of the infiltra te and atelectasis in the right lung compared to old exam. No heart failure.
[2020-09-17 15:21] LABS: Basophils # (A) 0.1 k/uL (0-0.2); Basophils % (A) 1 %; Eosinophils % (A) 0 %; HCT 43.6 % (39.0-53.0); HGB 14.7 gm/dL (13.0-17.5); Lymphocytes # (A) 0.8 k/uL (1.0-4.8); Lymphocytes % (A) 11 %; MCH 32.5 pg (25.0-35.0); MCHC 33.8 g/dL (31.0-37.0); MCV 96.1 fL (80.0-100.0); Monocytes # (A) 0.3 k/uL (0-1.0); Monocytes % (A) 4 %; Neutrophils # (A) 6.4 k/uL (1.3-7.7); Neutrophils % (A) 82 %; Platelet Count 193 k/uL (150-450); RBC 4.54 m/uL (4.30-5.90); RDW 12.7 % (11.5-15.5); WBC 7.8 k/uL (3.8-10.6)
[2020-09-17 15:31] LABS: Albumin 4.6 g/dL (3.5-5.0); Calcium 9.5 mg/dL (8.4-10.2); Potassium 3.8 mmol/L (3.5-5.1); Total Bilirubin 0.3 mg/dL (0.2-1.3); Total Protein 7.6 g/dL (6.3-8.2)
[2020-09-17 15:34] LABS: INR 0.9 (<1.2); Partial Thromboplastin Time 22.5 sec (22.0-30.0)
[2020-09-17] MEDS ORDERED: SODIUM CHLORIDE 0.9% 1,000 ML IV ONE (16:00)
--- NOTE | 2020-09-17 16:10 | ED ---
General Adult HPI - General Chief complaint: Shortness of Breath Stated complaint: SOB Time Seen by Provider: 09/17/20 13:31 Source: patient, RN notes reviewed Mode of arrival: ambulatory Limitations: no limitations - History of Present Illness Initial comments: Patient is a 65-year-old male that presents to the emergency department complaining of increased shortness of breath on exertion. He notes that he was seen in the hospital approximately a year ago with a similar complaint. He notes that he has been in a month in the hospital and had some significant lung issues. He notes that he has significant scarring on his right long. He wanted to come make sure that everything was okay. He did get an x-ray at the urgent care and they told to come here for reevaluation. He was otherwise well- appearing well-hydrated 65-year-old male in no apparent distress or pain. He denied any chest pain headache nausea vomiting diarrhea constipation fever fatigue chills. - Related Data Home Medications Medication Instructions Recorded Confirmed Aspirin EC [Ecotrin Low Dose] 81 mg PO DAILY 07/24/18 07/24/18 Losartan/Hydrochlorothiazide 1 tab PO DAILY 07/24/18 07/24/18 [Losartan-Hctz 100-25 mg Tab] Metoprolol Succinate (ER) [Toprol 100 mg PO BID 07/24/18 07/24/18 XL] Pitavastatin Calcium [Livalo] 1 mg PO HS 07/24/18 07/24/18 Previous Rx's Medication Instructions Recorded Acetaminophen Tab [Tylenol] 1,000 mg PO Q6HR PRN tab 08/12/18 Albuterol Sulfate [Proair Hfa] 2 puff INHALATION Q6HR #1 inhaler 08/12/18 Fluconazole [Diflucan] 200 mg PO DAILY #14 tab 08/12/18 cefTRIAXone [Rocephin] 2,000 mg IVP Q24HR #14 vial 08/12/18 guaiFENesin [Mucinex] 1,200 mg PO Q12HR #60 tablet.er 08/12/18 Albuterol Sulfate [Proair Hfa] 2 puff INHALATION Q6HR PRN #1 09/17/20 inhaler Allergies Allergy/AdvReac Type Severity Reaction Status Date / Time No Known Allergies Allergy Verified 09/17/20 13:13 Review of Systems ROS Statement: Those systems with pertinent positive or pertinent negative responses have been documented in the HPI. ROS Other: All systems not noted in ROS Statement are negative. Past Medical History Past Medical History: Hyperlipidemia, Hypertension, Pneumonia Additional Past Medical History / Comment(s): De Leon's esophagitis History of Any Multi-Drug Resistant Organisms: None Reported Past Surgical History: Appendectomy, Heart Catheterization Additional Past Surgical History / Comment(s): EGD, colonoscopy every 2 years Past Psychological History: No Psychological Hx Reported Smoking Status: Former smoker Past Alcohol Use History: Occasional Past Drug Use History: None Reported - Past Family History Mother Family Medical History: Cancer Additional Family Medical History / Comment(s): colon cancer Father Family Medical History: Myocardial Infarction ([place]) Additional Family Medical History / Comment(s): of [place] at age 48 General Exam Limitations: no limitations General appearance: alert, in no apparent distress Head exam: Present: atraumatic, normocephalic, normal inspection Eye exam: Present: normal appearance, PERRL, EOMI. Absent: scleral icterus, conjunctival injection, periorbital swelling Neck exam: Present: normal inspection Respiratory exam: Present: normal lung sounds bilaterally, wheezes (Minimal end expiratory). Absent: respiratory distress, rales, rhonchi, stridor Cardiovascular Exam: Present: regular rate, normal rhythm, normal heart sounds. Absent: systolic murmur, diastolic murmur, rubs, gallop, clicks GI/Abdominal exam: Present: soft, normal bowel sounds. Absent: distended, tenderness, guarding, rebound, rigid Extremities exam: Present: normal inspection, full ROM, normal capillary refill. Absent: tenderness, pedal edema, joint swelling, calf tenderness Neurological exam: Present: alert, oriented X3 Psychiatric exam: Present: normal affect, normal mood Skin exam: Present: warm, dry, intact, normal color. Absent: rash Course Vital Signs 09/17/20 13:14 Temperature 98.2 F Pulse Rate 98 Respiratory 20 Rate Blood Pressure 145/81 O2 Sat by Pulse 95 Oximetry EKG Findings - EKG Comments: EKG Findings:: Ventricular rate 63 bpm, MS interval 180 ms, QRS duration 102 ms, QTC 452 ms, PareT axes 52/-1. Normal sinus rhythm, normal ECG. Medical Decision Making - Medical Decision Making 65-year-old male complaining of increased shortness of breath. Labs, chest x-ray, 1 L normal saline ordered. Labs: Lactic acid 2.8, 1 L bolus ordered. Rest of labs unremarkable. Chest x-ray shows improvement from previous exam, chronic lung issues on the right side. Case discussed with Dr. Middleton, patient discharge home with follow-up to primary care. - Lab Data Result diagrams: 09/17/20 15:12 09/17/20 15:12 Lab Results 09/17/20 09/17/20 09/17/20 Range/Units 15:12 15:12 15:12 WBC 7.8 (3.8-10.6) k/uL RBC 4.54 (4.30-5.90) m/uL Hgb 14.7 (13.0-17.5) gm/dL Hct 43.6 (39.0-53.0) % MCV 96.1 (80.0-100.0) fL MCH 32.5 (25.0-35.0) pg MCHC 33.8 (31.0-37.0) g/dL RDW 12.7 (11.5-15.5) % Plt Count 193 (150-450) k/uL MPV 8.0 Neutrophils % 82 % Lymphocytes % 11 % Monocytes % 4 % Eosinophils % 0 % Basophils % 1 % Neutrophils # 6.4 (1.3-7.7) k/uL Lymphocytes # 0.8 L (1.0-4.8) k/uL Monocytes # 0.3 (0-1.0) k/uL Eosinophils # 0.0 (0-0.7) k/uL Basophils # 0.1 (0-0.2) k/uL PT 10.0 (9.0-12.0) sec INR 0.9 (<1.2) APTT 22.5 (22.0-30.0) sec Sodium 140 (137-145) mmol/L Potassium 3.8 (3.5-5.1) mmol/L Chloride 100 (98-107) mmol/L Carbon Dioxide 30 (22-30) mmol/L Anion Gap 10 mmol/L BUN 25 H (9-20) mg/dL Creatinine 1.06 (0.66-1.25) mg/dL Est GFR (CKD-EPI)AfAm 85 (>60 ml/min/1.73 sqM) Est GFR (CKD-EPI)NonAf 73 (>60 ml/min/1.73 sqM) Glucose 133 H (74-99) mg/dL Plasma Lactic Acid [place] (0.7-2.0) mmol/L Calcium 9.5 (8.4-10.2) mg/dL Total Bilirubin 0.3 (0.2-1.3) mg/dL AST 49 (17-59) U/L ALT 40 (4-49) U/L Alkaline Phosphatase 81 (38-126) U/L Troponin I (0.000-0.034) ng/mL Total Protein 7.6 (6.3-8.2) g/dL Albumin 4.6 (3.5-5.0) g/dL 09/17/20 09/17/20 Range/Units 15:12 15:12 WBC (3.8-10.6) k/uL RBC (4.30-5.90) m/uL Hgb (13.0-17.5) gm/dL Hct (39.0-53.0) % MCV (80.0-100.0) fL MCH (25.0-35.0) pg MCHC (31.0-37.0) g/dL RDW (11.5-15.5) % Plt Count (150-450) k/uL MPV Neutrophils % % Lymphocytes % % Monocytes % % Eosinophils % % Basophils % % Neutrophils # (1.3-7.7) k/uL Lymphocytes # (1.0-4.8) k/uL Monocytes # (0-1.0) k/uL Eosinophils # (0-0.7) k/uL Basophils # (0-0.2) k/uL PT (9.0-12.0) sec INR (<1.2) APTT (22.0-30.0) sec Sodium (137-145) mmol/L Potassium (3.5-5.1) mmol/L Chloride (98-107) mmol/L Carbon Dioxide (22-30) mmol/L Anion Gap mmol/L BUN (9-20) mg/dL Creatinine (0.66-1.25) mg/dL Est GFR (CKD-EPI)AfAm (>60 ml/min/1.73 sqM) Est GFR (CKD-EPI)NonAf (>60 ml/min/1.73 sqM) Glucose (74-99) mg/dL Plasma Lactic Acid [place] 2.8 H* (0.7-2.0) mmol/L Calcium (8.4-10.2) mg/dL Total Bilirubin (0.2-1.3) mg/dL AST (17-59) U/L ALT (4-49) U/L Alkaline Phosphatase (38-126) U/L Troponin I <0.012 (0.000-0.034) ng/mL Total Protein (6.3-8.2) g/dL Albumin (3.5-5.0) g/dL - Radiology Data Radiology results: report reviewed, image reviewed chest xray: plerual diaphragmatic reaction right lung base. there is clearing of most of the infiltrate and atelectasis in the right lung compared to old exam. no heart failure. Disposition Clinical Impression: Wheezing, Upper respiratory tract infection Disposition: HOME SELF-CARE Condition: Stable Instructions (If sedation given, give patient instructions): Asthma (ED) Additional Instructions: Please return to the Emergency Department if symptoms worsen or any other conc erns. Use inhaler as prescribed as needed. Follow-up primary care next 1-2 days. Avoid any strenuous exercise or activity. Take Tylenol and Motrin as needed for fevers and/or aches and pains. Is patient prescribed a controlled substance at d/c from ED?: No Referrals: Greg Pillai MD [Primary Care Provider] - 1-2 days Time of Disposition: 16:58
== END 2020-09-17 17:48 | disposition home or self-care (01) ==
LOC: EC 13:12
DX: J06.9 Acute upper respiratory infection, unspecified (principal); I10 Essential (primary) hypertension; E78.5 Hyperlipidemia, unspecified; Z87.891 Personal history of nicotine dependence; Z79.82 Long term (current) use of aspirin; Z79.899 Other long term (current) drug therapy
CPT/HCPCS: 36415; 71046; 80053; 83605; 84484; 85025; 85610; 85730; 93005; 96360; 99285